=== PATIENT | female | born 1980 | race Caucasian/White ===

== ENCOUNTER 2020-05-05 12:12 | Emergency (ER) | payer MEDICARE, MEDICAID, SELFPAY ==
[2020-05-05 12:12] VITALS: BP 144/96; PULSE 71; RESP 18; TEMP 36.8; O2SAT 97; BMI 41.3
[2020-05-05 12:18] VITALS: BP 144/96; O2SAT 97
[2020-05-05 12:20] VITALS: PULSE 69
--- NOTE | 2020-05-05 12:26 | XRR_ITS ---
PROCEDURE INFORMATION: Exam: XR Left Foot Complete Exam date and time: 05/05/2020 12:27 PM Age: 39 years old Clinical indication: Pain; Foot; Left; Additional info: HX of fracture x 1 month TECHNIQUE: Imaging protocol: XR Left foot. Views: 3 or more views. COMPARISON: No relevant prior studies available. FINDINGS: Bones/joints: Normal. Soft tissues: Normal. XR/XR foot LT min 3V* [id number] IMPRESSION: No acute findings.
--- NOTE | 2020-05-05 12:27 | ED_ITS ---
HPI - Extremity Problem General: Chief complaint: Extremity Problem,Nontraumatic Stated complaint: LEFT FOOT PAIN Time Seen by Provider: 05/05/20 12:14 History of Present Illness: HPI Narrative: Patient arrives via ambulance with complaint about left foot pain. Says she fractured a foot over a month ago had a cast first now has a cam walker and she kicked a cabinet with this walker on is that her foot is hurt worse since then. She denies any swelling. Is asking for pain medicine MD Complaint: extremity pain Onset (ago): day(s) Pain Consistency: constant Location: left Severity scale (1-10): 4 Quality: aching Radiation: none Relieving factors: immobilization Exacerbating factors: weight bearing Associated symptoms: Reports no associated symptoms; Deny fever(s) Review of Systems Const: Denies: fever(s) or chills Musc: Reports: extremity pain (Left foot been hurting for greater than a month worsen she kicked a cabinet her couple days) Physical Exam Const: COMMON NORMALS: no acute distress Extremity: LEFT LOWER EXTREMITY: Yes foot & digits (Tenderness to midfoot no swelling no erythema walker was in place did take that off and examine the foot good distal neurovascular status) Course Vital Signs: Vital signs: Vital Signs Temperature 98.3 F 05/05/20 13:02 Pulse Rate 65 05/05/20 13:02 Respiratory Rate 16 05/05/20 13:02 Blood Pressure 123/73 05/05/20 13:02 Pulse Oximetry 96 05/05/20 13:02 Discharge Plan Discharge Patient Disposition: Home Clinical Impression: Foot pain, left Condition: Stable Discharge Orders: Discharge Order (Routine); Ordered 05/05/20 Ordered By: Giovanny Michael Referrals: Sigrid Tavares DO [Family Provider] - Discharge Diet: Usual diet Discharge Activity: Resume usual activity Activity Restrictions/Additional Instructions: Continue wear the boot that you have prescribed by your provider. Take Tylenol ibuprofen for discomfort. Can apply ice to foot as needed. Discharge Date/Time: 05/05/20 13:02 Coding Level of Care Code ED Sewing Room Supervisor for Rey Fwd Exam Expanded Problem Focused
[2020-05-05] MEDS: acetaminophen 500 mg Tablet 1000 MG PO (12:37)
[2020-05-05 13:02] VITALS: BP 123/73; PULSE 65; RESP 16; TEMP 36.8; O2SAT 96
== END 2020-05-05 13:02 | disposition home or self-care (01) ==
LOC: ER 12:46
PROVIDERS: Emergency Provider Nurse Practitioner Family; Family Provider Family Medicine
DX: M79.672 Pain in left foot (principal)
CPT/HCPCS: 12345; 73630; 99282; 99283

== ENCOUNTER 2020-05-28 03:58 | Inpatient (IN) | payer MEDICARE, MEDICAID, SELFPAY ==
[2020-05-28] VITALS (25 sets, daily range): BP systolic 97–140; BP diastolic 57–85; PULSE 69–107; RESP 15–18; TEMP 36–37.7; O2SAT 92–100; BMI 39.9
--- NOTE | 2020-05-28 | XR_ITS ---
WS: [id number] Right ankle, AP and lateral C-arm fluoroscopy, 05/28/2020, 2030 hours. Clinical Data: OR PICS Comparison: Right ankle, yesterday, 0615 hours. Findings: The bimalleolar fracture the ankle has been reduced with a lateral fibular plate attached with multip le screws. Then there is a medial plate attached to the distal tibia with multiple screws. There are no areas and oblique orthopedic screw from the fibula to the tibia. There are surgical bridget adjacent to the lateral subcutaneous tissue of the ankle. XR/XR ankle RT 2V 31039 Impression: Internal fixation of bimalleolar fracture.
--- NOTE | 2020-05-28 | SCC_ITS ---
Procedure Done: Open reduction internal fixation right distal tibia pilon fracture and right trimalleolar fracture utilizing the [facility] small fragment system. Laterally, the fibula was addressed with a 5 hole plate. Additionally, the anterior lateral joint surface of the tibia was addressed with 1 cannulated 4 mm screw with a washer. Medially, the comminution of the medial malleolus as well as the extension across the anterior aspect of the tibia including the joint space was addressed with a 3 hole lateral fibular plate which was contoured to address the fracture 123.3 seconds of fluoroscopic guidance, for a cumulative dose of 2.66 mGy, was provided to Dr. Mcgregor by the radiology department. C-arm images of the RIGHT ankle were saved for the patient's permanent record. CLARISSA
--- NOTE | 2020-05-28 04:05 | XR_ITS ---
WS: [id number] Right ankle, AP and lateral views, 05/28/2020 Clinical Data: ankle injury Comparison: None. Findings: There is a fracture dislocation of the right ankle. The talus and distal fibula are dislocated later ally such that the talus is 4 cm from the distal tibia. The distal fibula is dislocated laterally fro m the proximal fibula. The medial malleolus is fragmented. XR/XR ankle RT 2V [id number] Impression: Lateral fracture dislocation of the right ankle
--- NOTE | 2020-05-28 04:12 | ED_ITS ---
Documented by User: TONY Edward 05/28/20 04:41 HPI - Fall General: Chief Complaint: Extremity Injury, Lower Stated Complaint: FALL Time Seen by Provider: 05/28/20 04:11 History of Present Illness: HPI Narrative: Patient is a 39-year-old female who comes to the ED via EMS with right ankle injury. EMS gave patient 100 MCG of fentanyl while in route. Patient says injury occurred just prior to arrival. She was up walking in her house and she fell and says her right foot hit a wall. She says she was in a lot of pain when she fell and denies any head trauma or loss of consciousness. She said her right leg looked deformed, but denies any bleeding. Pain rated 9 out of 10. Associated symptoms-after fall: Denies abdominal pain, chest pain, headache(s), hematuria or neck pain Review of Systems Const: Denies: fever(s), chills or fatigue Eyes: Denies: change in vision or eye discomfort ENMT: Denies: throat pain, odynophagia, nasal discharge or nasal congestion Card: Denies: chest pain, palpitations, edema, swelling of feet/ankles, dyspnea on exertion or orthopnea Resp: Denies: dyspnea, productive cough or non-productive cough GI: Denies: abdominal pain, nausea, vomiting, diarrhea, constipation or hematochezia : Denies: flank pain, dysuria or hematuria Musc: Reports: extremity pain (left ankle), extremity swelling (left ankle) and deformity (left ankle); Denies: neck pain or back pain Skin/Breast: Denies: rash or new lesions Neuro: Denies: headache(s), numbness in extremities or weakness in extremities PFSH ED PFSH: Medical History Anxiety Arrhythmia Reports tachycardia, although cannot tell me anything other than this. Beta- leeanne initiated for this. Chronic back pain Depression Hypothyroidism Surgical History History of History of cholecystectomy History of gastric bypass History of knee surgery History of tonsillectomy Family History Other Diabetes Social History Smoking and tobacco status: never smoked Alcohol intake: never Physical Exam Const: COMMON NORMALS: patient oriented x3 and alert GENERAL APPEARANCE: cooperative and comfortable HENMT: COMMON NORMALS: normocephalic HEAD & SCALP: normocephalic MOUTH: Normal oral and palatal mucosa present THROAT: posterior oropharynx normal and uvula midline Eye: COMMON NORMALS: Equal, round and reactive pupils present PUPIL: Yes Equal, round and reactive pupils present Neck/C-Spine: COMMON NORMALS: supple GENERAL: Yes normal visual inspection Resp: COMMON NORMALS: normal respiratory effort, No retractions, No use of accessory muscles and clear to auscultation bilaterally AUSCULTATION: clear to auscultation bilaterally Cardio: COMMON NORMALS: regular rate, regular rhythm, S1 normal heart sound present, S2 normal heart sound present, No gallops present (Cardio), No clicks present (Cardio), No murmurs present (Cardio) and Peripheral pulses 2+ throughout RATE: regular rate RHYTHM: regular rhythm HEART SOUNDS: S1 normal heart sound present and S2 normal heart sound present PERIPHERAL PULSES: Peripheral pulses 2+ throughout GI: COMMON NORMALS: Normal to inspection, nondistended, normoactive bowel sounds present, Soft to palpation, non-tender and no masses PALPATION: Yes Soft to palpation : COMMON NORMALS: Yes no CVA tenderness BLADDER/KIDNEY EXAM: Yes no CVA tenderness Back/Pelvis: COMMON NORMALS: no CVA tenderness Extremity: RIGHT LOWER EXTREMITY: Yes foot & digits Right ankle: Yes inspection (Visible deformity, edema and ecchymosis around the medial malleolus.), Yes palpation (Tender upon palpation around medial malleolus.), Yes ROM (Not tested due to deformity.) and Yes neurovascular exam (Pedal pulse 2+ and sensation intact.) Neuro: COMMON NORMALS: patient oriented x3 and moves all extremities SENSORIUM/ORIENTATION: Yes alert Skin: GENERAL SKIN EXAM: dry skin Course Vital Signs: Vital signs: Vital Signs Temperature 99.6 F 05/29/20 07:23 Pulse Rate 107 H 05/29/20 07:23 Respiratory Rate 18 05/29/20 07:23 Blood Pressure 103/66 05/29/20 07:23 Pulse Oximetry 96 05/29/20 07:23 MDM - Fall MDM Narrative: Medical decision making narrative: I performed the initial history and physical exam of patient. I gave patient a dose of Dilaudid to help with pain. Right ankle x-ray pending. Patient care transferred over to Dr. Parker. Lab Data: Labs: Lab Results 05/28/20 Range/Units 06:38 Urine Color Yellow (Yellow) Urine Appearance Hazy A (CLEAR) Urine pH 5.0 (5-7) Ur Specific Gravit y 1.025 (1.005-1.030) Urine Protein Neg (Negative) Urine Glucose (UA) Norm (Normal) Urine Ketones Negative (Negative) Urine Blood Neg (Negative) Urine Nitrate Positive H (Negative) Urine Bilirubin Neg (Negative) Urine Urobilinogen Norm (Negative) mg/dL Ur Leukocyte Shanita ase 2+ H (Negative) Urine RBC 0-4 H (0-2) /hpf Urine WBC 15-25 H (0-5) /hpf Ur Squamous Epith Cells 15-25 H (0-5) /hpf Amorphous Sediment Not Reportable Urine Bacteria 2+ H (NONE) /hpf Urine Mucus Trace /hpf Discharge Plan Discharge Patient Disposition: Admitted As Inpatient Admit Provider: Maynor Vang Clinical Impression: Trimalleolar fracture of left ankle Qualifiers: Encounter type: initial encounter Fracture type: closed Qualified Code(s): S82.852A - Displaced trimalleolar fracture of left lower leg, initial encounter for closed fracture Condition: Stable Sign Out Sign Out Data: Patient Sign Out occurred on 05/28/20 at 04:43. Patient's care was discussed, and care was transferred from to Ave Parker. Patient Sign Out occurred on 05/28/20 at 07:22. Patient's care was discussed, and care was transferred from to Prakash Morrison DO. Coding Level of Care Code ED Supervisor Adult Education for Chg Fwd Exam Comprehensive Documented by User: Ave Parker 05/28/20 06:30 HPI - Fall General: Chief Complaint: Extremity Injury, Lower Stated Complaint: FALL Time Seen by Provider: 05/28/20 04:11 PFSH ED PFSH: Medical History Anxiety Arrhythmia Reports tachycardia, although cannot tell me anything other than this. Beta- leeanne initiated for this. Chronic back pain Depression Hypothyroidism Surgical History History of History of cholecystectomy History of gastric bypass History of knee surgery History of tonsillectomy Family History Other Diabetes Social History Smoking and tobacco status: never smoked Alcohol intake: never Procedures Orthopedic Fracture Reduction Fracture #1: Time Out Performed: Yes Side: right Fracture Reduction Location: tibia and fibula Analgesia: procedural sedation Technique: direct manipulation Post Reduction X-rays Demonstrate: acceptable reduction Post-reduction neuro exam: intact Post-reduction vascular exam: intact Splint Applied: Yes Patient Tolerated Procedure: well and no complications Procedural Sedation Indication: fracture/dislocation reduction ASA Class: II Preparation: bus monitor applied, pulse oximeter, supplemental O2 applied and suction/airway equipment at bedside Fentanyl: IV Fentanyl dose (mcg): 25 IV Propofol dose (mg): 75 Patient Tolerated Procedure: well and no complications Complications: none Course Vital Signs: Vital signs: Vital Signs Temperature 99.6 F 05/29/20 07:23 Pulse Rate 107 H 05/29/20 07:23 Respiratory Rate 18 05/29/20 07:23 Blood Pressure 103/66 05/29/20 07:23 Pulse Oximetry 96 05/29/20 07:23 MDM - Fall Lab Data: Labs: Lab Results 05/28/20 Range/Units 06:38 Urine Color Yellow (Yellow) Urine Appearance Hazy A (CLEAR) Urine pH 5.0 (5-7) Ur Specific Gravit y 1.025 (1.005-1.030) Urine Protein Neg (Negative) Urine Glucose (UA) Norm (Normal) Urine Ketones Negative (Negative) Urine Blood Neg (Negative) Urine Nitrate Positive H (Negative) Urine Bilirubin Neg (Negative) Urine Urobilinogen Norm (Negative) mg/dL Ur Leukocyte Shanita ase 2+ H (Negative) Urine RBC 0-4 H (0-2) /hpf Urine WBC 15-25 H (0-5) /hpf Ur Squamous Epith Cells 15-25 H (0-5) /hpf Amorphous Sediment Not Reportable Urine Bacteria 2+ H (NONE) /hpf Urine Mucus Trace /hpf Discharge Plan Discharge Patient Disposition: Admitted As Inpatient Admit Provider: Maynor Vang Clinical Impression: Trimalleolar fracture of left ankle Qualifiers: Encounter type: initial encounter Fracture type: closed Qualified Code(s): S82.852A - Displaced trimalleolar fracture of left lower leg, initial encounter for closed fracture Condition: Stable Sign Out Sign Out Data: Patient Sign Out occurred on 05/28/20 at 04:43. Patient's care was discussed, and care was transferred from to Ave Parker. Patient Sign Out occurred on 05/28/20 at 07:22. Patient's care was discussed, and care was transferred from to Prakash Morrison DO. Coding Level of Care Code ED Supervisor Adult Education for Chg Fwd Exam Comprehensive Documented by User: Prakash Morrison DO 05/29/20 07:52 HPI - Fall General: Chief Complaint: Extremity Injury, Lower Stated Complaint: FALL Time Seen by Provider: 05/28/20 04:11 [facility] ED PFSH: Medical History Anxiety Arrhythmia Reports tachycardia, although cannot tell me anything other than this. Beta- leeanne initiated for this. Chronic back pain Depression Hypothyroidism Surgical History History of History of cholecystectomy History of gastric bypass History of knee surgery History of tonsillectomy Family History Other Diabetes Social History Smoking and tobacco status: never smoked Alcohol intake: never Course Vital Signs: Vital signs: Vital Signs Temperature 99.6 F 05/29/20 07:23 Pulse Rate 107 H 05/29/20 07:23 Respiratory Rate 18 05/29/20 07:23 Blood Pressure 103/66 05/29/20 07:23 Pulse Oximetry 96 05/29/20 07:23 MDM - Fall MDM Narrative: Medical decision making narrative: Care assumed from Dr. aPblo at change of shift. I assisted him with conscious sedation and joint reduction on the fracture. Fracture is unstable patient has relatively low level of social support will ice and observation with hospitalist consult Ortho for ORIF. Lab Data: Labs: Lab Results 05/28/20 Range/Units 06:38 Urine Color Yellow (Yellow) Urine Appearance Hazy A (CLEAR) Urine pH 5.0 (5-7) Ur Specific Gravit y 1.025 (1.005-1.030) Urine Protein Neg (Negative) Urine Glucose (UA) Norm (Normal) Urine Ketones Negative (Negative) Urine Blood Neg (Negative) Urine Nitrate Positive H (Negative) Urine Bilirubin Neg (Negative) Urine Urobilinogen Norm (Negative) mg/dL Ur Leukocyte Shanita ase 2+ H (Negative) Urine RBC 0-4 H (0-2) /hpf Urine WBC 15-25 H (0-5) /hpf Ur Squamous Epith Cells 15-25 H (0-5) /hpf Amorphous Sediment Not Reportable Urine Bacteria 2+ H (NONE) /hpf Urine Mucus Trace /hpf Discharge Plan Discharge Patient Disposition: Admitted As Inpatient Admit Provider: Maynor Vang Clinical Impression: Trimalleolar fracture of left ankle Qualifiers: Encounter type: initial encounter Fracture type: closed Qualified Code(s): S82.852A - Displaced trimalleolar fracture of left lower leg, initial encounter for closed fracture Condition: Stable Sign Out Sign Out Data: Patient Sign Out occurred on 05/28/20 at 04:43. Patient's care was discussed, and care was transferred from to Ave Parker. Patient Sign Out occurred on 05/28/20 at 07:22. Patient's care was discussed, and care was transferred from to Prakash Morrison DO. Coding Level of Care Code ED Supervisor Adult Education for [facility] Fwd Exam Comprehensive
[2020-05-28] MEDS: HYDROmorphone 1 mg/mL INJ 1 mL IVP (04:26)
--- NOTE | 2020-05-28 04:40 | PC.NURSE ---
XRAY IN ROOM
--- NOTE | 2020-05-28 04:47 | XR_ITS ---
WS: [id number] XR foot RT 2V [id number] REASON FOR EXAM: Injury FINDINGS: Joint spaces of the right forefoot and midfoot are intact. No fracture or other focal bony abnormalit y no soft tissue abnormality. In the right hindfoot there is a complex fracture dislocation of the ankle joint. The talocalcaneal j oint is disrupted. The tailbone midfoot and the calcaneal midfoot articulations aren't disrupted as w ell. XR/XR foot RT 2V [id number] IMPRESSION: Normal right forefoot and midfoot. The hindfoot is involved in a complex fractu re dislocation of the ankle joint.
--- NOTE | 2020-05-28 05:56 | XR_ITS ---
WS: [id number] Right ankle, AP and lateral post reduction, 05/28/2020, 0615 hours Clinical Data: Post reduction Comparison: Left ankle, 05/28/2020, 0434 hours. Findings: The lateral dislocation of the talus and fibula has been reduced. The talus is now adjacent to the di stal tibia. The fibula is adjacent to the fibula The medial malleolar fracture is visualized. XR/XR ankle RT 2V [id number] Impression: Reduction of fracture dislocation of right ankle.
--- NOTE | 2020-05-28 06:09 | ECG_ITS ---
[facility] Test Date: 2020-05-28 Pat Name: Abigail Restrepo Department: Room: Gender: Female Director Of Informatics: : 1980 Requested By: Ave Cardozo Order Number: [id number] Misha MD: Loni Winkler M.D. Measurements Intervals Vivian Rate: 89 P: 43 TX: 186 QRS: 32 QRSD: 78 T: 34 QT: 360 QTc: 440 Interpretive Statements SINUS RHYTHM WITH SINUS ARRHYTHMIA No previous ECG available for comparison Electronically Signed On 05-28-2020 19:17:30 BOILER REPAIRMAN by Loni Winkler M.D. [id number]
--- NOTE | 2020-05-28 06:10 | XR_ITS ---
WS: [id number] XR chest 1V portable [id number] REASON FOR EXAM: Presurgical clearance FINDINGS: Very poor inspiratory effort compared to the previous examination of 12/29/2018. No definite acute pulmonary parenchymal or pleural abnormality. Heart and mediastinum are accentuated by poor inspiratory effort. The heart is nonenlarged. XR/XR chest 1V portable [id number] IMPRESSION: Poor inspiratory effort with no acute abnormality identified.
[2020-05-28] MEDS: propofol 10 mg/mL SDV 20 mL 244 MG IVP (06:17)
[2020-05-28] MEDS: fentaNYL 50 mcg/mL INJ 2mL 100 MCG IVP (06:19)
--- NOTE | 2020-05-28 07:15 | PC.NURSE ---
Patient assessed at beginning of shift. Room number received. Report called. Room not clean at this time.
[2020-05-28 07:19] LABS: Add Urine Microscopic? YES; Bacteria Urine 2+ /hpf; Bilirubin Urine Neg (Negative); Blood Urine Neg (Negative); Glucose Urine UA Norm (Normal); Ketones Urine Negative (Negative); Leukocyte Esterase Urine 2+ (Negative); Mucus Urine TRACE /hpf; Nitrate Urine Positive (Negative); Protein Urine Neg (Negative); RBC Urine 0-4 /hpf (0-2); Specific Gravity, Urine 1.025 (1.005-1.030); Squamous Epithelial Cell Urine 15-25 /hpf (0-5); Urine Appearance Hazy (CLEAR); Urine Color Yellow (Yellow); Urobilinogen Urine Norm (Negative); WBC Urine 15-25 /hpf (0-5)
[2020-05-28 07:20] LABS: Add Urine Culture? No
[2020-05-28] MEDS: cefTRIAXone 1,000 MG in sodium chloride 0.9% (plus) 50 ML 100 MG IV (08:00)
[2020-05-28 08:21] LABS: Basophils % 0.3 %; Hematocrit 36.5 % (37.0-47.0); Hemoglobin 11.3 g/dL (11.5-15.3); Lymphocytes # 0.8 10^3/uL (0.8-4.8); Lymphocytes % 7.9 %; Mean Corpuscular Hemoglobin 29.1 pg (28.0-34.0); Mean Corpuscular Volume 94.1 fL (81-99); Monocytes # 0.8 10^3/uL (0.2-0.9); Monocytes % 7.3 %; Neutrophils # 8.79 10^3/uL (1.8-7.7); Neutrophils % 84.2 %; Nucleated Red Blood Cells % 0 %; Platelet Count 395 10^3/cmm (130-400); Red Blood Count 3.88 10^6/uL (4.1-5.3); Red Cell Distribution Width 15.9 % (12.1-15.1); White Blood Count 10.4 10^3/uL (4.0-10.0)
[2020-05-28 08:33] LABS: INR 1.03 (0.8-1.2)
[2020-05-28 08:35] LABS: Partial Thromboplastin Time 34.9 SECONDS (23.9-36.7)
[2020-05-28 08:39] LABS: Alanine Aminotransferase 18 U/L (0-33); Albumin Level 3.6 g/dL (3.5-5.2); Alkaline Phosphatase 144 IU/L (35-105); Blood Urea Nitrogen 18 mg/dL (6-20); Calcium 8.5 mg/dL (8.5-10.5); Carbon Dioxide 25 mmol/L (22-29); Chloride 104 mmol/L (98-107); Globulin 3.2 g/dL (1.3-4.6); Glomerular Filtration Rate 110.2 mL/min (90-130); Glucose 144 mg/dL (65-115); Osmolality Calculated 290 mOsm/kg (285-295); Sodium 138 mmol/L (136-145); Total Bilirubin 0.2 mg/dL (0.15-1.2); Total Protein 6.8 g/dL (6.6-8.7)
[2020-05-28 08:56] LABS: Aspartate Amino Transferase 24 U/L (0-32)
[2020-05-28] MEDS: D5-NS 0.45% + KCL 20 mEq 20 MEQ/1,000 ML BAG 100 MEQ IV (09:10)
--- NOTE | 2020-05-28 09:39 | PC.CHAP ---
Pastoral Care Encounter/Spiritual Assessment Type of Contact [] Declined burling and joining supervisor visit [] Patient/Family/Request visit [] Outpatient visit [] Follow-up visit [] Physician referral [] Code/Alert [] Routine visit [] Staff referral [] Actively dying [] Patient sleeping [] Family support [] [] Out of room [] Palliative care [] [] Receiving care in room [] Pre-surgical visit [] Trauma [] Long length of stay [] ICU visit [] Other: Relational/Emotional Strength [] Patient feels connected with others/family/visitors/staff [] Distress [] Loneliness/isolation [] Abandonment Spirituality of Patient [] Person of Missy [] Attends Shinto of their Missy [] Believes in Prayer [] Reads Bible or Mormon materials [] There are Spiritual issues to be addressed High School Admissions Representative Interventions [x] Prayer [] Active listening [] Non-anxious presence [] Spiritual/emotional support [] Crisis/trauma care [] Spiritual counseling [] Bereavement support [] Provided bereavement packet [] Provided Bible/devotional materials [] Provided toy/stuffed animal, coloring book to patient or family member [] Provided Communion [] Anointing/[place] [] Salvation [] Completed spiritual assessment [] Other: Impact on Illness or Injury [] Angry [] Fearful [] Anxious [] Often cries [] Exhaustion [] Unable to work [] Unable to attend restoration [] Unable to walk/stand [] Unable to read [] Unable to drive [] Unable to eat/drink [] Unable to sleep [] Unable to be with family [] Patient intubated [] Other: Summary Time spent with patient
[2020-05-28] MEDS: morphine 4 mg/mL SDV 1 mL 2 MG IVP (10:36)
--- NOTE | 2020-05-28 13:10 | PM.CONSULT ---
Providers/Reason For Consult Consulting Physican/Specialty*: Maynor Vang MD, hospitalist Reason for Consult*: Medical management Attending Physician: Kaitlin Mcgregor MD History of Present Illness History of Present Illness Abigail Restrepo is a 39 year old female who reports she fell, injuring her ankle as it was dark out and she tripped. She states this happened around 11 or 12 last night. She had immediate pain in her right ankle. She had no loss of consciousness or other injuries. She states she had previously sprained her left ankle and this may have been why she tripped as well. She denies any recent illnesses. She denies any history of Covid, or exposure to Covid. She denies any past history of severe reaction to anesthesia. She does report that last time she had general anesthesia she was somewhat combative when she woke up. No history of any bleeding disorder. Review of Systems General: Reports: 10 or more systems reviewed and unremarkable except in HPI and below Const: Denies: fever(s) Eyes: Denies: change in vision ENMT: Denies: throat pain Card: Denies: chest pain Resp: Denies: dyspnea GI: Denies: abdominal pain : Denies: flank pain Musc: Reports: extremity pain; Denies: neck pain Skin/Breast: Denies: rash Neuro: Denies: headache(s) Psych: Reports: anxiety and depression Endo: Denies: polyuria Bryan/Lymph: Denies: easy bruising All/Imm: Denies: urticaria Meds/Allergies Home Medications and Allergies Home Medications Medication Instructions Recorded Confirmed Last Taken Type baclofen 10 mg PO TID 05/28/20 05/28/20 05/27/20 History buspirone 7.5 mg PO BID 05/28/20 05/28/20 05/27/20 History escitalopram oxalate 20 mg PO DAILY 05/28/20 05/28/20 05/27/20 History gabapentin 300 mg PO TID 05/28/20 05/28/20 05/27/20 History hydroxyzine pamoate 50 mg PO QID PRN 05/28/20 05/28/20 05/27/20 History iron 325 mg PO DAILY 05/28/20 05/28/20 05/27/20 History lamotrigine 150 mg PO BID 05/28/20 05/28/20 05/27/20 History levothyroxine 88 mcg PO DAILY 05/28/20 05/28/20 05/27/20 History meloxicam 7.5 mg PO DAILY 05/28/20 05/28/20 05/27/20 History metoprolol tartrate 50 mg PO BID 05/28/20 05/28/20 05/27/20 History risperidone 3 mg PO BEDTIME 05/28/20 05/28/20 05/27/20 History Allergies Allergy/AdvReac Type Severity Reaction Status Date / Time aspirin Allergy ALGY-Swell Verified 05/28/20 08:03 Lip/Tongue/Throat Current Medications Current Medications Generic Name Dose Route Start Last Admin Trade Name Freq PRN Reason Stop Dose Admin Potassium Chloride/Dextrose/Sod Cl 20 meq in 1,000 mls @ 100 mls/hr 05/28/20 08:51 05/28/20 09:10 D5-Ns 0.45% + Kcl 20 Meq IV 100 mls/hr .Q10H OXANA Administration Morphine Sulfate 2 mg 05/28/20 08:51 05/28/20 10:36 Morphine 4 Mg/Ml Sdv 1 Ml IVP 2 mg Q4H PRN Administration SEVERE PAIN PFSH Acute PFSH: Medical History (Updated 05/28/20 @ 13:20 by Maynor Vang MD) Anxiety Arrhythmia Reports tachycardia, although cannot tell me anything other than this. Beta-leeanne initiated for this. Chronic back pain Depression Hypothyroidism Surgical History (Updated 05/28/20 @ 13:13 by Maynor Vang MD) History of History of cholecystectomy History of gastric bypass History of knee surgery History of tonsillectomy Family History (Updated 05/28/20 @ 13:13 by Maynor Vang MD) Other Diabetes Social History (Updated 05/28/20 @ 13:13 by Maynor Vang MD) Smoking and tobacco status: never smoked Alcohol intake: never Vitals/I&O/Wt Last Vital Signs Temp 98.6 F 05/28/20 11:09 Pulse 81 05/28/20 11:09 Resp 17 05/28/20 11:09 BP 103/78 05/28/20 11:09 Pulse Ox 96 05/28/20 11:09 05/27/20 05/28/20 05/28/20 22:59 06:59 14:59 Output Total 300 / 300 Balance -300 / -300 Weight last 48 hrs Weight 122.47 kg Physical Exam Narrative: EXAM NARRATIVE: General exam is a white female, in no apparent distress, somewhat sleepy secondary to pain medicine HEENT: Pupils equally round. Oropharynx clear. Neck is supple no lymphadenopathy or thyromegaly Cardiovascular regular rate and rhythm without murmur, no S3 or S4 Lungs clear Abdomen is soft nontender with positive bowel sounds. No obvious organomegaly was deferred Extremities no cyanosis clubbing or edema, right ankle in splint. Cap refill distally intact less than 2 seconds Skin no rash Neuro no obvious focal deficits Data Other Data: Other data: LFTs are normal with exception of alkaline phosphatase which is slightly high. Urinalysis is contaminated with 15-25 squamous.(Note that patient did not have complaints of urinary symptomatology.) Chest x-ray clear Ankle x-ray demonstrates reduction of fracture dislocation present on previous films EKG demonstrates a sinus rhythm, normal axis, no acute changes A&P Assessment and plan (1) Trimalleolar fracture of left ankle: Orthopedics evaluating for surgery today. No direct contraindications to surgery N.p.o. currently Status: Acute (2) History of cardiac arrhythmia: Continue patient's metoprolol. Status: Acute Additional A&P Information Blood sugar elevation. Check hemoglobin A1c. Abnormal urine. Contaminated. Patient asymptomatic. No treatment needed for this. History of chronic back pain. Continue home medications. Hypothyroidism. 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
--- NOTE | 2020-05-28 13:30 | PC.NURSE ---
COVID SWAB PATIENT WAS SWABBED FOR COVID THIS AM AT 0920 BY THIS NURSE.
--- NOTE | 2020-05-28 15:20 | ANES.PREANE2 ---
Pre-Anesthetic Assessment Pre-Anesthetic Assessment: Height/Weight: Height 1.75 m Weight 122.47 kg Temp Pulse Resp BP Pulse Ox 98.6 F 79 18 114/74 93 05/28/20 14:03 05/28/20 14:03 05/28/20 14:03 05/28/20 14:03 05/28/20 14:03 Preop Diagnosis: ankle fracture Proposed Procedure: Operation Date: 05/28/20 16:15 Proposed Procedures p ORIF Ankle(Right) - Kaitlin Mcgregor MD Familial anesthetic complications: Wakes up violent sometimes Was Beta Bryan taken within 24 hours: N/A Last intake: Intake Last Liquid Date 05/27/20 Last Liquid Time 23:00 Last Solid Date 05/27/20 Last Solid Time 18:00 Social: Social History: No alcohol and No tobacco Exam: Pre-Anes Outpt Exam: alert, oriented x 3, clear to auscultation bilaterally and regular rate & rhythm Airway: Cervical ROM: WNL MP: 3 Dentition: Other (edentulous) CV/HEM: Comments: tachycardia - takes metoprolol GI: Comments: hx gastric bypass surgery Metabolic: Metabolic: Morbid obesity and Thyroid Anesthetic Plan: ASA status: 2 Anesthesia: General and Regional (specify below) Risk of > 500 ml blood loss (7ml/kg in children): No Meds/Allergies Current Medications: Current Medications Generic Name Dose Route Start Last Admin Trade Name Freq PRN Reason Stop Dose Admin Potassium Chloride /Dextrose/Sod Cl 20 meq in 1,000 m ls @ 100 mls/hr 05/28/20 08:51 05/28/20 09:10 D5-Ns 0.45% + Raymundo l 20 Meq IV 100 mls/hr .Q10H OXANA Administration Morphine Sulfate 2 mg 05/28/20 08:51 05/28/20 10:36 Morphine 4 Mg/Ml Sdv 1 Ml IVP 2 mg Q4H PRN Administration SEVERE PAIN PFSH Anesthesia PFSH: Medical History (Updated 05/28/20 @ 13:20 by Maynor Vang MD) Anxiety Arrhythmia Reports tachycardia, although cannot tell me anything other than this. Beta-bryan initiated for this. Chronic back pain Depression Hypothyroidism Surgical History (Updated 05/28/20 @ 13:13 by Maynor Vang MD) History of History of cholecystectomy History of gastric bypass History of knee surgery History of tonsillectomy Family History (Updated 05/28/20 @ 13:13 by Maynor Vang MD) Other Diabetes Social History (Updated 05/28/20 @ 13:13 by Maynor Vang MD) Smoking and tobacco status: never smoked Alcohol intake: never Data Anesthesia CBC & Chem 7: 05/28/20 08:16 05/28/20 08:16 Other Labs: Laboratory Results - last 48 hr 05/28/20 05/28/20 05/28/20 06:38 08:16 08:16 WBC 10.4 H RBC 3.88 L Hgb 11.3 L Hct 36.5 L MCV 94.1 MCH 29.1 MCHC 31.0 RDW 15.9 H Plt Count 395 MPV 9.0 Neut % (Auto) 84.2 Lymph % (Auto) 7.9 Sevier % (Auto) 7.3 Eos % (Auto) 0.0 Baso % (Auto) 0.3 Neut # (Auto) 8.79 H Lymph # (Auto) 0.8 Sevier # (Auto) 0.8 Eos # (Auto) 0.0 Baso # (Auto) 0.0 Nucleated RBC % (auto) 0 Nucleated RBCs # 0.0 PT INR APTT Sodium Potassium Chloride Carbon Dioxide Anion Gap BUN Creatinine GFR Calculation Glucose Calculated Osmolality Calcium Total Bilirubin AST ALT Alkaline Phosphatase Total Protein Albumin Globulin Urine Color Yellow Urine Appearance Hazy A Urine pH 5.0 Ur Specific Larue 1.025 Urine Protein Neg Urine Glucose (UA) Norm Urine Ketones Negative Urine Blood Neg Urine Nitrate Positive H Urine Bilirubin Neg Urine Urobilinogen Norm Ur Leukocyte Esterase 2+ H Urine RBC 0-4 H Urine WBC 15-25 H Ur Squamous Epith Cells 15-25 H Amorphous Sediment Not Reportable Urine Bacteria 2+ H Urine Mucus Trace Blood Type O Negative Rho(D) Type Negative Antibody Screen Negative 05/28/20 05/28/20 08:16 08:16 WBC RBC Hgb Hct MCV MCH MCHC RDW Plt Count MPV Neut % (Auto) Lymph % (Auto) Sevier % (Auto) Eos % (Auto) Baso % (Auto) Neut # (Auto) Lymph # (Auto) Sevier # (Auto) Eos # (Auto) Baso # (Auto) Nucleated RBC % (auto) Nucleated RBCs # PT 13.80 INR 1.03 APTT 34.9 Sodium 138 Potassium 4.0 Chloride 104 Carbon Dioxide 25 Anion Gap 13.0 BUN 18 Creatinine 0.6 GFR Calculation 110.2 Glucose 144 H Calculated Osmolality 290 Calcium 8.5 Total Bilirubin 0.2 AST 24 ALT 18 Alkaline Phosphatase 144 H Total Protein 6.8 Albumin 3.6 Globulin 3.2 Urine Color Urine Appearance Urine pH Ur Specific Larue Urine Protein Urine Glucose (UA) Urine Ketones Urine Blood Urine Nitrate Urine Bilirubin Urine Urobilinogen Ur Leukocyte Esterase Urine RBC Urine WBC Ur Squamous Epith Cells Amorphous Sediment Urine Bacteria Urine Mucus Blood Type Rho(D) Type Antibody Screen Cardiac Studies: No Data to Display
--- NOTE | 2020-05-28 15:53 | ANES.PROC ---
Anesthesia Procedures Procedure/Date: 05/28/20 Nerve Block ^: Nerve Block 1: Main Anesthesia: general anesthesia Time Out Performed: Yes Consent: requested by attending/covering physician, from patient, from other, risks and benefits reviewed and patient agrees to proceed Nerve block location: popliteal (R) Anesthesia monitors applied: pulse oximetry, EKG, BP cuff and oxygen Nerve block position: supine Anesthetic Used: ropivicaine 0.5% and with decadron Amount of anesthesia used (mL): 30 Ultrasound used to: recognize landmarks Nerve Stimulator Used?: No Interscalene/Femoral BLK: 4 stimuplex 21 g needle used for position and inplane approach, other needle, visualize local anesthetic spread and no vascular puncture identified Injection: neg aspiration of heme Patient Tolerated Procedure: well and no complications Complications: none
[2020-05-28] MEDS: sodium chloride 0.9% 1,000 ML 30 ML IV (15:58)
--- NOTE | 2020-05-28 16:00 | SUR.PREOP ---
1540 DR PULIDO IN ROOM , PERMID SIGNED BY PT TIMEOUT COMPLETED AND PT PREPPED FOR RT POPLITEAL BLOCK 1547 BLOCK COMPLETED AND PT TOLERATED WELL SATS 100% ON RA, PT SMILES AND REQUESTS LIGHTS OFF SO SHE CAN REST IV NS UP AT KVO RATE.
--- NOTE | 2020-05-28 17:01 | P.CONIM_ITS ---
Providers/Reason For Consult Consulting Physican/Specialty*: Dr. Kaitlin Mcgregor - Orthopedics Reason for Consult*: Right trimalleolar ankle fracture Requesting Physcian: Dr. Morrison - Emergency Department Attending Physician: Dr. Maynor Vang History of Present Illness History of Present Illness Abigail Restrepo is a 39 year old female fell while walking to the bathroom last evening. It was dark and she tripped. She had immediate pain in the right ankle with no other reason for her fall such as dizziness. She also has previously injured her left ankle and this is still somewhat problematic for her. She denies any exposure to or history of Covid. She has no other reason for issue with general anesthesia. Review of Systems General: Reports: 10 or more systems reviewed and unremarkable except in HPI and below Const: Denies: fever(s), chills or fatigue Eyes: Denies: change in vision or eye discomfort ENMT: Denies: throat pain, odynophagia, nasal discharge or nasal congestion Card: Denies: chest pain, palpitations, edema, swelling of feet/ankles, dyspnea on exertion or orthopnea Resp: Denies: dyspnea, productive cough or non-productive cough GI: Denies: abdominal pain, nausea, vomiting, diarrhea, constipation or hematochezia : Denies: flank pain, dysuria or hematuria Musc: Reports: extremity pain, extremity swelling (left ankle) and deformity (left ankle); Denies: neck pain or back pain Skin/Breast: Denies: rash or new lesions Neuro: Denies: headache(s), numbness in extremities or weakness in extremities Psych: Reports: anxiety and depression Endo: Denies: polyuria Bryan/Lymph: Denies: easy bruising All/Imm: Denies: urticaria Meds/Allergies Home Medications and Allergies Home Medications Medication Instructions Recorded Confirmed Last Taken Type baclofen 10 mg PO TID 05/28/20 05/28/20 05/27/20 History buspirone 7.5 mg PO BID 05/28/20 05/28/20 05/27/20 History escitalopram oxalate 20 mg PO DAILY 05/28/20 05/28/20 05/27/20 History gabapentin 300 mg PO TID 05/28/20 05/28/20 05/27/20 History hydroxyzine pamoate 50 mg PO QID PRN 05/28/20 05/28/20 05/27/20 History iron 325 mg PO DAILY 05/28/20 05/28/20 05/27/20 History lamotrigine 150 mg PO BID 05/28/20 05/28/20 05/27/20 History levothyroxine 88 mcg PO DAILY 05/28/20 05/28/20 05/27/20 History meloxicam 7.5 mg PO DAILY 05/28/20 05/28/20 05/27/20 History metoprolol tartrate 50 mg PO BID 05/28/20 05/28/20 05/27/20 History risperidone 3 mg PO BEDTIME 05/28/20 05/28/20 05/27/20 History Allergies Allergy/AdvReac Type Severity Reaction Status Date / Time aspirin Allergy ALGY-Swell Verified 05/28/20 16:10 Lip/Tongue/Throat Current Medications Current Medications Generic Name Dose Route Start Last Admin Trade Name Freq PRN Reason Stop Dose Admin Potassium Chloride/Dextrose/Sod Cl 20 meq in 1,000 mls @ 100 mls/hr 05/28/20 08:51 05/28/20 09:10 D5-Ns 0.45% + Kcl 20 Meq IV 100 mls/hr .Q10H OXANA Administration Sodium Chloride 1,000 mls @ 30 mls/hr 05/28/20 14:15 05/28/20 15:58 Sodium Chloride 0.9% IV 05/29/20 14:14 30 mls/hr .Q24H OXANA Administration Morphine Sulfate 2 mg 05/28/20 08:51 05/28/20 10:36 Morphine 4 Mg/Ml Sdv 1 Ml IVP 2 mg Q4H PRN Administration SEVERE PAIN PFSH Acute PFSH: Medical History Anxiety Arrhythmia Reports tachycardia, although cannot tell me anything other than this. Beta- leeanne initiated for this. Chronic back pain Depression Hypothyroidism Surgical History History of History of cholecystectomy History of gastric bypass History of knee surgery History of tonsillectomy Family History Other Diabetes Social History Smoking and tobacco status: never smoked Alcohol intake: never Vitals/I&O/Wt Last Vital Signs Temp 97.2 F L 05/28/20 15:35 Pulse 85 05/28/20 15:35 Resp 18 05/28/20 15:35 BP 114/76 05/28/20 15:35 Pulse Ox 99 05/28/20 15:35 05/28/20 05/28/20 05/28/20 06:59 14:59 22:59 Output Total 400 / 400 Balance -400 / -400 Weight last 48 hrs Weight 270 lb Physical Exam Const: COMMON NORMALS: no acute distress, average body habitus, patient oriented x3 and alert GENERAL APPEARANCE: cooperative and comfortable ORIENTATION/CONSCIOUSNESS: Yes awake HENMT: COMMON NORMALS: normocephalic and atraumatic HEAD & SCALP: normocephalic and atraumatic Eye: GENERAL EYE: appearance normal, both eyes and all related structures Chest: COMMONS NORMALS: normal inspection of the chest Resp: COMMON NORMALS: normal respiratory effort EFFORT & INSPECTION: Yes able to speak in complete sentences and Yes symmetric chest movement Extremity: RIGHT LOWER EXTREMITY: Yes foot & digits (Patient's ankle has a posterior splint which is wrapped in place with an Ac) Right ankle: Yes inspection (There is minimal to no swelling of the toes.), Yes palpation (The ankle is not palpated, but sensation is normal in the toes.), Yes ROM (Not evaluated.) and Yes neurovascular exam (Toes are neurologically intact with no evidence of injury.) Neuro: COMMON NORMALS: patient oriented x3 SENSORIUM/ORIENTATION: Yes alert Psych: COMMON NORMALS: mental status grossly normal APPEARANCE: Yes grossly normal ATTITUDE: Yes calm and Yes engaged ATTENTION/CONCENTRATION: Yes attention grossly intact Skin: COMMON NORMALS: no rashes or lesions noted GENERAL SKIN EXAM: no rashes or lesions noted Data Imaging^: Xray Ortho: I personally reviewed and interpreted this imaging study as follows: My impression: Patient has a trimalleolar ankle fracture which was 100% dislocated. This was reduced by the emergency department. Postreduction images demonstrate good reduction of the fracture and the dislocation. A&P Assessment and plan (1) Trimalleolar fracture of left ankle: Patient has a right trimalleolar ankle fracture dislocation which was reduced by the emergency room physician. She was brought into the hospital and will undergo open reduction internal fixation. This is scheduled for today. This was discussed with the patient. Consents are signed. Questions were answered. Status: Acute Qualifiers: Encounter type: initial encounter Fracture type: closed Qualified Code(s): S82.852A - Displaced trimalleolar fracture of left lower leg, initial encounter for closed fracture Consult Attestations Medical Necessity Statement: Patient will require likely 2 midnights given decreased ability to participate with physical therapy due to sprained ankle on the opposite ankle. 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
[2020-05-28] MEDS: CELEcoxib 200 mg Capsule 400 MG PO (17:05)
[2020-05-28 17:06] LABS: Estmated Average Glucose 91; Hemoglobin A1C 4.8 % (4.0-6.0)
[2020-05-28] MEDS: ceFAZolin 1,000 mg SDV 1000 MG IRRIGATION (18:03)
--- NOTE | 2020-05-28 20:07 | PM.OP ---
Operative Report Date of procedure: May 28, 2020 Pre-op Diagnosis: Right Tibial Pilon Fracture with Trimalleolar Ankle Fracture Post-op diagnosis: same Post-op Findings: Involvement of the distal tibial articular surface as well as comminuted medial malleolar fracture, lateral malleolar fracture and posterior malleolar fracture consistent with tibial pilon and trimalleolar components. Procedure Done: Open reduction internal fixation right distal tibia pilon fracture and right trimalleolar fracture utilizing the [place] small fragment system. Laterally, the fibula was addressed with a 5 hole plate. Additionally, the anterior lateral joint surface of the tibia was addressed with 1 cannulated 4 mm screw with a washer. Medially, the comminution of the medial malleolus as well as the extension across the anterior aspect of the tibia including the joint space was addressed with a 3 hole lateral fibular plate which was contoured to address the fracture Implants: See above Pathology: none sent Surgeon: Kaitlin Mcgregor Lead Housekeeper: [facility] OR technicians Anesthesia: General (Intubated, ASA 2) Estimated blood loss (mL): 10 Tourniquet time (min): 111 Tourniquet time: At 300 mmHg IV fluids (mL): 1,500 Urine output (mL): 0 Urine output: No Thomas Complications: None Findings: Comminuted distal tibia and fibular fractures involving the articular surface of the tibia consistent with a pilon fracture with characteristics of a trimalleolar fracture as well which was comminuted. Condition: stable Disposition: PACU (Then to floor for postoperative rehabilitation and pain management.) Brief History: This 39-year-old woman was in her usual state of health when she fell while on her way to the bathroom. She injured her right ankle at that time and had inability to weight-bear. She had immediate onset of pain and deformity. She presented to the emergency department where a closed reduction was accomplished. She was then admitted to the hospital service secondary to medical comorbidities. She was consented for surgical intervention and understood the risks and complications. Procedure: Patient was seen in the preoperative holding area and leg was marked. Patient was brought to the operating theater and placed on the operating room table. She was treated as a Covid positive patient as her results were still pending. After undergoing adequate general intubated, ASA 2, anesthesia, the patient's right lower extremity was prepped and draped in usual fashion utilizing DuraPrep. The leg was draped free. Fluoroscopy was used throughout the surgical procedure. We did have a tourniquet high on the right lower extremity. This was elevated to 300 mmHg and total tourniquet time was 111 minutes. Tourniquet elevation followed exsanguination of the leg. A surgical pause was performed. At the time of the surgical pause we identified the site and side of surgery as well as the patient's identity and availability of equipment. We also confirmed appropriate administration of IV antibiotics Ancef 2 g. Following the above, an incision was made centering over the patient's distal fibular, lateral malleolar fracture. The incision was continued proximally and distally as necessary to allow access to the fracture. It was noted to be comminuted. At the time of evaluation of this fracture, it became apparent that there was an intra-articular fragment from the distal tibia involving the anterolateral corner of the tibia. This was large enough to require fixation and did contain part of the syndesmotic ligament.. We were able to reduce the fracture anatomically. A screw was placed across this with a washer. Attention was then directed to the distal fibula fracture which was held with a clamp while we contoured a plate to appropriately fit the patient's distal fibula. A BovControl 5 hole distal fibular plate was attached with standard technique. We used a combination of locking as well as nonlocking screws. Once the plate was appropriately attached, we irrigated the wound. We then closed the wound with 0 Vicryl in the fascial tissues, 2-0 Monocryl in the subcutaneous tissues, and the skin was closed with skin bridget. Attention was then directed to the medial aspect of the ankle. Once again, we used fluoroscopy to determine the appropriate level of the incision as well as palpation over the fracture. An incision was made over the site of the fracture. Upon evaluation of the medial fracture, it became apparent that there was a comminuted medial malleolar fracture consistent with the patient's trimalleolar fracture, however, there was also a large anterior intra-articular piece peeled off the anterior medial aspect of the tibia. This involved greater than half of the anterior tibia. We addressed the medial malleolar fracture as well as this anterior tibial plafond fracture with a lateral fibular plate as this was the best plate to contour to the area which was not prominent. This plate was a 3 hole lateral fibular plate and required plate bending. We were then able to reduce the fracture and hold with a clamp. The plate was placed in appropriate position as visualized in AP and lateral planes. We were then able to place locking screws to attach the plate to the medial malleolus as well as the anterior distal tibia. This fracture was essentially reduced anatomically. Throughout the surgical procedure and at the conclusion of the procedure we did use fluoroscopy. Fluoroscopy was utilized to determine appropriate positioning of the plate as well as the fractures. At the conclusion obtained AP and lateral images demonstrating the fracture was anatomically reduced. The medial incision was closed with 2-0 Monocryl in the subcutaneous tissues. The skin was then closed with skin bridget. Exofin was used between the bridget on both incisions. Sterile dressing was placed consisting of Telfa, 4 x 4's, sterile soft roll and an Jovanni wrap. The patient was placed in a Cam Walker boot and is to remain nonweightbearing. The procedure was well tolerated without complication. Tourniquet time was 111 minutes at 300 mmHg. The patient will be discharged to the floor for postoperative rehabilitation, pain management, and she may require inpatient rehabilitation. Associated Problem List Diagnoses (1) Pilon fracture of right tibia: Qualifiers: Encounter type: initial encounter Fracture type: closed Fracture alignment: displaced Qualified Code(s): S82.871A - Displaced pilon fracture of right tibia, initial encounter for closed fracture (2) Trimalleolar fracture of left ankle: Qualifiers: Encounter type: initial encounter Fracture type: closed Qualified Code(s): S82.852A - Displaced trimalleolar fracture of left lower leg, initial encounter for closed fracture
--- NOTE | 2020-05-28 21:00 | SUR.PHASEI ---
PT TO FLOOR AWAKE ALERT TALKATIVE TAKING SIPS OF SODA, VSS HANDOFF AT BEDSIDE WITH NURSE CLAUDE HOLM PT USING HER CELL PHONE IN ROOM PT RT DISTAL TOES PINK WARM WITH CAP REFILL LESS THAN 3 SECONDS,
[2020-05-28] MEDS: oxyCODONE 5 mg IR Tab/Cap PO (21:41)
[2020-05-29] VITALS (12 sets, daily range): BP systolic 100–117; BP diastolic 66–77; PULSE 74–107; RESP 16–20; TEMP 36.5–37.6; O2SAT 9–97
[2020-05-29] MEDS: oxyCODONE 5 mg IR Tab/Cap PO ×4 (03:03→20:19)
[2020-05-29] MEDS: enoxaparin 30 mg/0.3 mL Syringe SUBCUT (08:36)
[2020-05-29] MEDS: TRAMadol 50 mg Tablet PO (08:37)
[2020-05-29] MEDS: escitalopram 10 mg Tablet 20 MG PO (08:37)
[2020-05-29] MEDS: docusate sodium 100 mg Capsule PO ×2 (08:37→17:00)
[2020-05-29] MEDS: meloxicam 7.5 mg tablet PO (08:37)
[2020-05-29] MEDS: multivitamin therapeutic Tablet 1 TAB PO (08:37)
[2020-05-29] MEDS: lamoTRIgine 100 mg Tablet 150 MG PO ×2 (08:37→17:01)
[2020-05-29] MEDS: CELEcoxib 200 mg Capsule PO ×2 (08:37→17:01)
[2020-05-29] MEDS: gabapentin 300 mg Capsule PO ×3 (08:37→20:20)
[2020-05-29] MEDS: calcium carb-vit d 600mg/400unit 1 Tablet 1 EACH PO ×2 (08:37→17:01)
[2020-05-29] MEDS: levothyroxine 88 mcg Tablet PO (08:37)
[2020-05-29] MEDS: calcium carbonate 500 mg Chew Tablet PO (08:38)
[2020-05-29] MEDS: metoprolol tartrate 25 mg Tablet 12.5 MG PO ×2 (08:47→17:00)
[2020-05-29] MEDS: nystatin powder 15 gm Btl 1 APPLIC TOPICAL ×2 (10:29→17:03)
--- NOTE | 2020-05-29 11:51 | P.PN_ITS ---
Subjective Subjective: Interval history: Doing okay. Worried about her mobility at home. Medications: Reviewed: Yes Vitals/I&O/Wt Last Vital Signs Temp 98.2 F 05/29/20 11:24 Pulse 74 05/29/20 11:24 Resp 16 05/29/20 11:24 BP 102/71 05/29/20 11:24 Pulse Ox 95 05/29/20 11:24 05/28/20 05/29/20 05/29/20 22:59 06:59 14:59 Intake Total 700 / 700 1000 / 1700 240 / 240 Output Total 10 / 410 400 / 400 Balance 690 / 290 1000 / 1290 -160 / -160 Weight last 48 hrs Weight 122.47 kg Physical Exam Narrative: EXAM NARRATIVE: General exam no distress Cardiovascular regular rate and rhythm without murmur, no S3 or S4 Lungs clear Abdomen is soft nontender with positive bowel sounds. No obvious organomegaly Extremities no cyanosis clubbing or edema, right with walking boot Data : 05/28/20 08:16 05/28/20 08:16 A&P Assessment and plan (1) Trimalleolar fracture of left ankle: Postoperative day #1 status post ORIF. Doing well PT evaluations for mobility Home when safe from a mobility standpoint Status: Acute Qualifiers: Encounter type: initial encounter Fracture type: closed Qualified Code(s): S82.852A - Displaced trimalleolar fracture of left lower leg, initial encounter for closed fracture (2) History of cardiac arrhythmia: Continue patient's metoprolol. Status: Acute Additional A&P Information Blood sugar elevation. Hemoglobin A1c checked and normal. Abnormal urine. Contaminated. Patient asymptomatic. No treatment needed for this. History of chronic back pain. Continue home medications. Hypothyroidism. Continue home medications Depression/anxiety continue home medications Full code DVT prophylaxis following surgery, with pharmaceutical medication Attestations Medical Necessity Statement*: Await physical therapy evaluations regarding mobility when possible discharge parameters. Coding Level of Care Code Acute Crop Or Livestock Tenant Farmer for Rey Gutierrez Diagnoses Trimalleolar fracture of left ankle S82.852A Encounter type: initial encounter Fracture type: closed History of cardiac arrhythmia Z86.79
--- NOTE | 2020-05-29 15:33 | PM.PN ---
Subjective Subjective: Interval history: Doing okay. Worried about her mobility at home. Although she is being evaluated for home health, she may require skilled, and she feels that she might be unsafe at home. Medications: Reviewed: Yes Vitals/I&O/Wt Last Vital Signs Temp 98.2 F 05/29/20 11:24 Pulse 74 05/29/20 11:24 Resp 16 05/29/20 11:24 BP 102/71 05/29/20 11:24 Pulse Ox 95 05/29/20 11:24 05/29/20 05/29/20 05/29/20 06:59 14:59 22:59 Intake Total 1050 / 1750 480 / 480 Output Total 400 / 400 Balance 1050 / 1340 80 / 80 Weight last 48 hrs Weight 270 lb Physical Exam Const: COMMON NORMALS: no acute distress, average body habitus, patient oriented x3 and alert GENERAL APPEARANCE: cooperative and comfortable ORIENTATION/CONSCIOUSNESS: Yes awake HENMT: COMMON NORMALS: normocephalic and atraumatic HEAD & SCALP: normocephalic and atraumatic Eye: GENERAL EYE: appearance normal, both eyes and all related structures Chest: COMMONS NORMALS: normal inspection of the chest Resp: COMMON NORMALS: normal respiratory effort EFFORT & INSPECTION: Yes able to speak in complete sentences and Yes symmetric chest movement Extremity: RIGHT LOWER EXTREMITY: Yes foot & digits (The boot and dressings are removed. The wounds are benign. ) Right ankle: Yes inspection (There is minimal swelling with medial fracture blistering mid wound.), Yes palpation (There is tenderness to palpation.), Yes ROM (Not evaluated.) and Yes neurovascular exam (Intact motor and sensory function.) Neuro: COMMON NORMALS: patient oriented x3 SENSORIUM/ORIENTATION: Yes alert Psych: COMMON NORMALS: mental status grossly normal APPEARANCE: Yes grossly normal ATTITUDE: Yes calm and Yes engaged ATTENTION/CONCENTRATION: Yes attention grossly intact Skin: COMMON NORMALS: no rashes or lesions noted GENERAL SKIN EXAM: no rashes or lesions noted Data : 05/28/20 08:16 05/28/20 08:16 A&P Assessment and plan (1) Pilon fracture of right tibia: Patient underwent open reduction internal fixation of her right tibial pilon fracture with treatment of her trimalleolar fracture as well which included a comminuted medial malleolus, lateral malleolus, and posterior malleolus. Additionally, there is intra-articular involvement across the anterior and anterolateral aspects of the distal tibia consistent with the pilon diagnosis. Patient was placed in a fracture boot which is removed today. The wounds are evaluated. There is no evidence of infection, but there is some blistering along the midportion of the medial incision. Toes are warm and capillary refill is good. Patient did not participate much with physical therapy today. She does have rehabilitation complicated by the fact that she had a very significant left ankle sprain, and only the day of her fall that she get out of her brace which was used to treat this sprain. Status: Acute Qualifiers: Encounter type: initial encounter Fracture type: closed Fracture alignment: displaced Qualified Code(s): S82.871A - Displaced pilon fracture of right tibia, initial encounter for closed fracture (2) Trimalleolar fracture of left ankle: Status: Acute Qualifiers: Encounter type: initial encounter Fracture type: closed Qualified Code(s): S82.852A - Displaced trimalleolar fracture of left lower leg, initial encounter for closed fracture Attestations Medical Necessity Statement*: Patient requires ongoing hospitalization for physical therapy and attempt to allow her to ambulate safely. Coding Level of Care Code Acute Institutional Nutrition Consultant for Rey Gutierrez Diagnoses Pilon fracture of right tibia S82.871A Encounter type: initial encounter Fracture type: closed Fracture alignment: displaced Trimalleolar fracture of left ankle S82.852A Encounter type: initial encounter Fracture type: closed
[2020-05-29] MEDS: baclofen 10 mg Tablet PO (17:01)
--- NOTE | 2020-05-29 18:28 | PC.NURSE ---
SHIFT SUMMARY PATIENT HAS DONE WELL TODAY. AMBULATING MUCH BETTER THIS AFTERNOON WITH 1-2 PERSON ASSIST. GOOD PO INTAKE. GOOD URINE OUTPUT. THIS NURSE CHANGED SURGICAL DRESSING WITH DR. KING THIS AFTERNOON. DRESSING CURRENTLY C/D/I. BOOT IN PLACE. BP HAS BEEN ON THE SOFTER SIDE. DR. WIGGINS ORDERED 12.5MG OF METOPROLOL TO BE GIVEN TWICE TODAY INSTEAD OF PATIENT'S USUAL 50MG DOSE. PATIENT CURRENTLY RESTING IN BED. NO COMPLAINTS AT THIS TIME.
[2020-05-29] MEDS: risperiDONE 1 mg Tablet 3 MG PO (20:19)
[2020-05-30] VITALS (11 sets, daily range): BP systolic 92–105; BP diastolic 60–71; PULSE 72–80; RESP 16–20; TEMP 36.4–36.9; O2SAT 95–97
[2020-05-30] MEDS: acetaminophen 500 mg Tablet 1000 MG PO ×3 (04:04→19:54)
[2020-05-30] MEDS: oxyCODONE 5 mg IR Tab/Cap PO ×4 (04:05→19:57)
[2020-05-30] MEDS: CELEcoxib 200 mg Capsule PO ×2 (09:00→17:25)
[2020-05-30] MEDS: gabapentin 300 mg Capsule PO ×3 (09:00→19:58)
[2020-05-30] MEDS: nystatin powder 15 gm Btl 1 APPLIC TOPICAL ×2 (09:00→17:31)
[2020-05-30] MEDS: calcium carbonate 500 mg Chew Tablet PO (09:00)
[2020-05-30] MEDS: lamoTRIgine 100 mg Tablet 150 MG PO ×2 (09:01→17:29)
[2020-05-30] MEDS: calcium carb-vit d 600mg/400unit 1 Tablet 1 EACH PO ×2 (09:01→17:25)
[2020-05-30] MEDS: metoprolol tartrate 50 mg Tablet PO ×2 (09:01→17:25)
[2020-05-30] MEDS: docusate sodium 100 mg Capsule PO ×2 (09:01→17:25)
[2020-05-30] MEDS: enoxaparin 30 mg/0.3 mL Syringe SUBCUT (09:02)
[2020-05-30] MEDS: multivitamin therapeutic Tablet 1 TAB PO (09:02)
[2020-05-30 10:11] LABS: Basophils # 0.1 10^3/uL (0.0-0.1); Basophils % 0.6 %; Eosinophils # 0.1 10^3/uL (0.0-0.8); Eosinophils % 0.9 %; Hematocrit 34.7 % (37.0-47.0); Hemoglobin 10.6 g/dL (11.5-15.3); Lymphocytes # 2.3 10^3/uL (0.8-4.8); Lymphocytes % 29.6 %; Mean Corpuscular HGB Conc 30.5 g/dL (30.0-36.0); Mean Corpuscular Hemoglobin 29.4 pg (28.0-34.0); Mean Corpuscular Volume 96.1 fL (81-99); Mean Platelet Volume 8.8 fL (7.4-10.4); Monocytes # 0.7 10^3/uL (0.2-0.9); Monocytes % 9.3 %; Neutrophils # 4.67 10^3/uL (1.8-7.7); Neutrophils % 59.5 %; Nucleated Red Blood Cells % 0 %; Platelet Count 383 10^3/cmm (130-400); Red Blood Count 3.61 10^6/uL (4.1-5.3); Red Cell Distribution Width 15.4 % (12.1-15.1); White Blood Count 7.9 10^3/uL (4.0-10.0)
[2020-05-30 10:36] LABS: Anion Gap 13.6 (5-19); Blood Urea Nitrogen 10 mg/dL (6-20); Calcium 8.7 mg/dL (8.5-10.5); Carbon Dioxide 26 mmol/L (22-29); Chloride 101 mmol/L (98-107); Creatinine Clr Calc Pharmacy 148.1107; Glomerular Filtration Rate 92.2 mL/min (90-130); Glucose 127 mg/dL (65-115); Osmolality Calculated 285 mOsm/kg (285-295); Potassium 3.6 mmol/L (3.5-5.1); Sodium 137 mmol/L (136-145)
[2020-05-30 11:39] LABS: Coronavirus Lab Test PTC Negative
[2020-05-30] MEDS: TRAMadol 50 mg Tablet PO ×3 (12:09→22:22)
[2020-05-30] MEDS: baclofen 10 mg Tablet PO (12:14)
--- NOTE | 2020-05-30 13:15 | P.PN_ITS ---
Subjective Subjective: Interval history: Abigail reports she is doing okay. The leg still hurts. She is willing to go to a nursing facility for rehabilitation. Medications: Reviewed: Yes Vitals/I&O/Wt Last Vital Signs Temp 97.9 F 05/30/20 11:06 Pulse 72 05/30/20 11:06 Resp 18 05/30/20 11:06 BP 97/67 05/30/20 11:06 Pulse Ox 97 05/30/20 11:06 05/29/20 05/30/20 05/30/20 22:59 06:59 14:59 Intake Total 120 / 600 360 / 360 Output Total 550 / 950 700 / 1650 1000 / 1000 Balance -550 / -470 -580 / -1050 -640 / -640 Physical Exam Narrative: EXAM NARRATIVE: General exam no distress Cardiovascular regular rate and rhythm without murmur, no S3 or S4 Lungs clear Abdomen is soft nontender with positive bowel sounds. No obvious organomegaly Extremities no cyanosis clubbing or edema, right with walking boot. Cap refill brisk Data : 05/30/20 10:05 05/30/20 10:05 A&P Assessment and plan (1) Trimalleolar fracture of left ankle: Postoperative day #2 status post ORIF. Having some issues with mobility PT and OT are evaluating Exploring possibility of skilled care as she is unsafe to ambulate at home currently. She is nonweightbearing in the right leg, and recently had an injury to the left so even with walker her mobility is significantly limited. Status: Acute Qualifiers: Encounter type: initial encounter Fracture type: closed Qualified Code(s): S82.852A - Displaced trimalleolar fracture of left lower leg, initial encounter for closed fracture (2) History of cardiac arrhythmia: Continue patient's metoprolol. Status: Acute Additional A&P Information Blood sugar elevation. Hemoglobin A1c checked and normal. Abnormal urine. Contaminated. Patient asymptomatic. No treatment needed for this. History of chronic back pain. Continue home medications. Hypothyroidism. Continue home medications Depression/anxiety continue home medications Full code DVT prophylaxis following surgery, with pharmaceutical medication Attestations Medical Necessity Statement*: Needs continued hospitalization, for close monitoring following trimalleolar fracture. 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
--- NOTE | 2020-05-30 14:16 | PC.NURSE ---
Patient up with physical therapy at this time. Patient is non-weight bearing to the right ankle. Patient's left ankle is week from a sprain. She just got the brace off this last week. Patient has stairs going into her house that she will not be able to get up with a walker because her left ankle is weak. Patient will not be able to use a wheel chair in her home because her bathroom and bedroom are not bg enough to accommodate one. 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 Patient is at risk for falling again.
--- NOTE | 2020-05-30 15:37 | PM.PN ---
Subjective Subjective: Interval history: Abigail reports she is doing okay. The leg still hurts. She is willing to go to a nursing facility for rehabilitation. She is requesting more pain medication, however, I have advised her that she needs to keep it elevated and better position so that she does not require this medication. Medications: Reviewed: Yes Vitals/I&O/Wt Last Vital Signs Temp 97.7 F 05/30/20 15:29 Pulse 74 05/30/20 15:29 Resp 18 05/30/20 15:29 BP 94/64 05/30/20 15:29 Pulse Ox 96 05/30/20 15:29 05/30/20 05/30/20 05/30/20 06:59 14:59 22:59 Intake Total 120 / 600 360 / 360 Output Total 700 / 1650 1000 / 1000 Balance -580 / -1050 -640 / -640 Physical Exam Const: COMMON NORMALS: no acute distress, average body habitus, patient oriented x3 and alert GENERAL APPEARANCE: cooperative and comfortable ORIENTATION/CONSCIOUSNESS: Yes awake HENMT: COMMON NORMALS: normocephalic and atraumatic HEAD & SCALP: normocephalic and atraumatic Eye: GENERAL EYE: appearance normal, both eyes and all related structures Chest: COMMONS NORMALS: normal inspection of the chest Resp: COMMON NORMALS: normal respiratory effort EFFORT & INSPECTION: Yes able to speak in complete sentences and Yes symmetric chest movement Extremity: RIGHT LOWER EXTREMITY: Yes foot & digits (The toes are warm and the patient is able to move them. ) Right ankle: Yes neurovascular exam (Intact) and Yes other (The patient is maintained in a cam walker) Neuro: COMMON NORMALS: patient oriented x3 SENSORIUM/ORIENTATION: Yes alert Psych: COMMON NORMALS: mental status grossly normal APPEARANCE: Yes grossly normal ATTITUDE: Yes calm and Yes engaged ATTENTION/CONCENTRATION: Yes attention grossly intact Skin: COMMON NORMALS: no rashes or lesions noted GENERAL SKIN EXAM: no rashes or lesions noted Data : 05/30/20 10:05 05/30/20 10:05 A&P Assessment and plan (1) Pilon fracture of right tibia: Patient underwent open reduction internal fixation of her right tibial pilon fracture with treatment of her trimalleolar fracture as well which included a comminuted medial malleolus, lateral malleolus, and posterior malleolus. Additionally, there was intra-articular involvement across the anterior and anterolateral aspects of the distal tibia consistent with the pilon diagnosis. Patient was placed in a fracture boot which is removed today. The wounds are evaluated. There is no evidence of infection, but there is some blistering along the midportion of the medial incision. Toes are warm and capillary refill is good. Patient did not participate much with physical therapy today or yesterday. She does have rehabilitation complicated by the fact that she had a very significant left ankle sprain, and only the day of her fall that she get out of her brace which was used to treat this sprain. Status: Acute Qualifiers: Encounter type: initial encounter Fracture type: closed Fracture alignment: displaced Qualified Code(s): S82.871A - Displaced pilon fracture of right tibia, initial encounter for closed fracture (2) Trimalleolar fracture of left ankle: Status: Acute Qualifiers: Encounter type: initial encounter Fracture type: closed Qualified Code(s): S82.852A - Displaced trimalleolar fracture of left lower leg, initial encounter for closed fracture Attestations Medical Necessity Statement*: The patient continues to work with physical therapy. They are attempting to walk her nonweightbearing, but her opposite ankle is interfering with this process. Coding Level of Care Code Acute Food And Beverage Coordinator for Rey Gutierrez Diagnoses Pilon fracture of right tibia S82.871A Encounter type: initial encounter Fracture type: closed Fracture alignment: displaced Trimalleolar fracture of left ankle S82.852A Encounter type: initial encounter Fracture type: closed
--- NOTE | 2020-05-30 19:20 | PC.NURSE ---
Report to Kalyani HOLM End of shift report Patient's plan has been to go to a intermediate facility because it is not safe for patient to go home as she does not able to get up the steps into her house. Patient's daughter has said that she will be able t get her up the steps and is demanding that the patient go home. Patient has agreed and wants to go home now with home health.
[2020-05-30] MEDS: risperiDONE 1 mg Tablet 3 MG PO (19:58)
[2020-05-31] VITALS (8 sets, daily range): BP systolic 90–112; BP diastolic 56–81; PULSE 70–73; RESP 16–18; TEMP 36.3–36.6; O2SAT 95–100
[2020-05-31] MEDS: acetaminophen 500 mg Tablet 1000 MG PO ×2 (03:47→15:12)
[2020-05-31] MEDS: oxyCODONE 5 mg IR Tab/Cap PO ×2 (03:47→12:44)
--- NOTE | 2020-05-31 10:10 | PC.SOCIAL ---
IMM Page 2 of IMM explained to patient. Initialed, dated, and timed and placed in chart. Copy provided to patient.
[2020-05-31] MEDS: enoxaparin 30 mg/0.3 mL Syringe SUBCUT (10:23)
[2020-05-31] MEDS: gabapentin 300 mg Capsule PO ×2 (10:27→15:13)
[2020-05-31] MEDS: docusate sodium 100 mg Capsule PO (10:27)
[2020-05-31] MEDS: CELEcoxib 200 mg Capsule PO (10:27)
[2020-05-31] MEDS: calcium carb-vit d 600mg/400unit 1 Tablet 1 EACH PO (10:27)
[2020-05-31] MEDS: multivitamin therapeutic Tablet 1 TAB PO (10:27)
[2020-05-31] MEDS: calcium carbonate 500 mg Chew Tablet PO (10:27)
[2020-05-31] MEDS: lamoTRIgine 100 mg Tablet 150 MG PO (10:28)
[2020-05-31] MEDS: nystatin powder 15 gm Btl 1 APPLIC TOPICAL (10:29)
[2020-05-31] MEDS: TRAMadol 50 mg Tablet PO ×2 (10:54→16:03)
--- NOTE | 2020-05-31 12:42 | P.DS_ITS ---
Discharge Providers Date of Admission: 05/28/20 07:07 Date of Discharge: May 31, 2020 Attending Provider at Admission: Maynor Vang MD Attending Provider at Discharge: Kaitlin Mcgregor MD Primary Care Provider: SILVANO Hutchins Diagnoses at Discharge Discharge Diagnosis (1) Pilon fracture of right tibia: Status: Acute Qualifiers: Encounter type: initial encounter Fracture type: closed Fracture alignment: displaced Qualified Code(s): S82.871A - Displaced pilon fracture of right tibia, initial encounter for closed fracture (2) Trimalleolar fracture of left ankle: Status: Acute Qualifiers: Encounter type: initial encounter Fracture type: closed Qualified Code(s): S82.852A - Displaced trimalleolar fracture of left lower leg, initial encounter for closed fracture Reason for Visit Reason for Visit: FALL Hospital Course Hospital Course Abigail is a 39-year-old white female who presented from home with history of fall. She sustained a pilon fracture to her right lower extremity. She did not have syncope, nor head injury. Orthopedic surgery was consulted. They performed an ORIF, secondary to the right ankle fracture on May 28. Patient did well after surgery but secondary to a previous injury on her left side was not able to ambulate safely. Secondary to high risk for reinjury, and the fact she would have to be nonweightbearing on the right side group home facility placement was needed. This was arranged on May 31. She will discharge on Lovenox for DVT prophylaxis for the next 4 weeks. Appropriate orthopedic, and primary care provider follow-up will be initiated. Discharge Data Data Completed and Pending: Completed Studies During Hospitalization Category Date Time Status XR ankle RT 2V 73 600 Routine Exams 05/28/20 Completed XR ankle RT 2V 73 600 Stat Exams 05/28/20 04:05 Completed XR ankle RT 2V 73 600 Stat Exams 05/28/20 05:56 Completed XR chest 1V caridad ble [id number] Stat Exams 05/28/20 06:10 Completed XR foot RT 2V 736 20 Stat Exams 05/28/20 04:47 Completed Vitals: Last Vital Signs Temp 97.6 F 05/31/20 12:00 Pulse 71 05/31/20 12:00 Resp 18 05/31/20 12:00 BP 112/81 05/31/20 12:00 Pulse Ox 100 05/31/20 12:00 Discharge Plan Discharge Patient Disposition: Xfer SNF Condition: Stable Prescriptions: New oxycodone 5 mg tablet 5 mg PO Q4H Qty: 20 RF: 0 tramadol 50 mg tablet 50 mg PO TID PRN (Reason: pain) Qty: 20 RF: 0 baclofen 10 mg Tablet 10 mg PO TID PRN (Reason: Muscle Spasms) Qty: 20 RF: 0 enoxaparin [Lovenox] 40 mg/0.4 mL syringe 40 mg SUBCUT DAILY 30 Days Qty: 12 RF: 0 Continued lamotrigine 150 mg tablet 150 mg PO BID RF: 0 hydroxyzine pamoate 50 mg capsule 50 mg PO QID PRN (Reason: unknown) RF: 0 meloxicam 7.5 mg tablet 7.5 mg PO DAILY RF: 0 levothyroxine 88 mcg tablet 88 mcg PO DAILY RF: 0 iron 325 mg (65 mg iron) Tablet 325 mg PO DAILY RF: 0 metoprolol tartrate 50 mg tablet 50 mg PO BID RF: 0 gabapentin 300 mg capsule 300 mg PO TID RF: 0 buspirone 7.5 mg tablet 7.5 mg PO BID RF: 0 risperidone 1 mg tablet 3 mg PO BEDTIME RF: 0 escitalopram oxalate 20 mg tablet 20 mg PO DAILY RF: 0 Discontinued baclofen 10 mg tablet 10 mg PO TID RF: 0 Discharge Orders: Discharge Order (Routine); Ordered 05/31/20 Ordered By: Maynor aVng Other Ambulatory Orders: DME: Walker (Order) Location: None Selected Ordered By: Maynor Vang Referrals: [facility] [Outside] Kaitlin Mcgregor MD [Physician] - 2 weeks Charleen Lee FNP [Primary Care Provider] - Discharge Activity: Limit activity as instructed, Use walker/crutches as instructed and Wheelchair as instructed Activity Restrictions/Additional Instructions: Wear fracture boot at all times. You may come out for gentle range of motion, dorsiflexion and plantarflexion. Keep wounds covered. Follow-up with primary care provider at group home facility in 3 to 5 days. Discharge Attestations Time Spent in Discharge Care*: greater than 30 min Quality Metrics Clinical Quality Measures During this hospital stay, did patient experience: None Coding Level of Care Code Acute Muffle Worker for [facility] Fwd Diagnoses Pilon fracture of right tibia S82.871A Encounter type: initial encounter Fracture type: closed Fracture alignment: displaced Trimalleolar fracture of left ankle S82.852A Encounter type: initial encounter Fracture type: closed
[2020-05-31] MEDS: baclofen 10 mg Tablet PO (15:14)
== END 2020-05-31 16:00 | disposition skilled nursing facility (03) | DRG 494 ==
LOC: ER 04:53 → MEDSURG 07:09
PROVIDERS: Emergency Medicine; Admitting Provider Internal Medicine; Emergency Provider Family Medicine; PCP Nurse Practitioner Family; Visit Provider Specialist
PROC: 0QSJ04Z Reposition Right Fibula with Internal Fixation Device, Open Approach (ICD-10-PCS; principal; 2020-05-28 16:15)
DX: S82.851A Displaced trimalleolar fracture of right lower leg, initial encounter for closed fracture (principal); S82.871A Displaced pilon fracture of right tibia, initial encounter for closed fracture; W01.0XXA Fall on same level from slipping, tripping and stumbling without subsequent striking against object, initial encounter; F41.8 Other specified anxiety disorders; G89.29 Other chronic pain; M54.9 Dorsalgia, unspecified; E03.9 Hypothyroidism, unspecified; Z98.84 Bariatric surgery status; Z86.79 Personal history of other diseases of the circulatory system; E66.01 Morbid (severe) obesity due to excess calories; Z68.39 Body mass index [BMI] 39.0-39.9, adult
CPT/HCPCS: 12345; 27818; 36415; 36592; 64450; 71045; 73600; 73610; 73620; 76000; 76942; 80048; 80053; 81001; 83036; 85025; 85610; 85730; 86850; 86900; 87635; 93005; 96372; 96375; 97110; 97161; 97166; 97530; 97535; 99283; C1713; J0131; J0690; J0696; J1100; J1170; J1650; J2270; J2704; J2795; J3010; J7030

== ENCOUNTER → 2020-06-12 11:02 | Outpatient (BNVA) | payer MEDICARE, MEDICAID, SELFPAY | PROVIDERS: PCP Nurse Practitioner Family; Visit Provider Specialist | DX: Z47.89 Encounter for other orthopedic aftercare; S82.852D Displaced trimalleolar fracture of left lower leg, subsequent encounter for closed fracture with routine healing; X58.XXXD Exposure to other specified factors, subsequent encounter | CPT/HCPCS: 73610 ==

== ENCOUNTER → 2020-07-03 11:51 | Outpatient (BNVA) | payer MEDICARE, MEDICAID, SELFPAY | PROVIDERS: PCP Nurse Practitioner Family; Visit Provider Specialist | DX: Z47.89 Encounter for other orthopedic aftercare (principal); S82.852D Displaced trimalleolar fracture of left lower leg, subsequent encounter for closed fracture with routine healing; S82.871D Displaced pilon fracture of right tibia, subsequent encounter for closed fracture with routine healing; W19.XXXD Unspecified fall, subsequent encounter | CPT/HCPCS: 73610 ==

== ENCOUNTER 2020-07-05 13:26 | Outpatient (CLI) | payer MEDICARE, MEDICAID, SELFPAY | END 2020-07-05 13:27 | disposition home or self-care (01) | LOC: WOUND 13:27 | PROVIDERS: PCP Nurse Practitioner Family; Visit Provider Surgery | DX: T81.31XA Disruption of external operation (surgical) wound, not elsewhere classified, initial encounter (principal); Y83.8 Other surgical procedures as the cause of abnormal reaction of the patient, or of later complication, without mention of misadventure at the time of the procedure | CPT/HCPCS: 11042; 87070; 87176; 87205; G0463 ==

== ENCOUNTER 2020-07-09 14:35 | Outpatient (CLI) | payer MEDICARE, MEDICAID, SELFPAY | END 2020-07-09 14:36 | disposition home or self-care (01) | LOC: WOUND 14:36 | PROVIDERS: PCP Nurse Practitioner Family; Visit Provider Nurse Practitioner Family | DX: T81.31XA Disruption of external operation (surgical) wound, not elsewhere classified, initial encounter (principal); Y83.8 Other surgical procedures as the cause of abnormal reaction of the patient, or of later complication, without mention of misadventure at the time of the procedure | CPT/HCPCS: 11042 ==

== ENCOUNTER 2020-07-26 13:54 | Outpatient (CLI) | payer MEDICARE, MEDICAID, SELFPAY | END 2020-07-26 13:55 | disposition home or self-care (01) | LOC: WOUND 13:55 | PROVIDERS: PCP Nurse Practitioner Family; Visit Provider Surgery | DX: T81.31XS Disruption of external operation (surgical) wound, not elsewhere classified, sequela (principal); Y83.8 Other surgical procedures as the cause of abnormal reaction of the patient, or of later complication, without mention of misadventure at the time of the procedure | CPT/HCPCS: 11042 ==

== ENCOUNTER → 2020-08-01 10:20 | Outpatient (BNVA) | payer MEDICARE, MEDICAID, SELFPAY | PROVIDERS: PCP Nurse Practitioner Family; Visit Provider Specialist | DX: Z47.89 Encounter for other orthopedic aftercare (principal); S82.852D Displaced trimalleolar fracture of left lower leg, subsequent encounter for closed fracture with routine healing; S82.871D Displaced pilon fracture of right tibia, subsequent encounter for closed fracture with routine healing; X58.XXXD Exposure to other specified factors, subsequent encounter | CPT/HCPCS: 73610; 97760; L4361 ==

== ENCOUNTER 2020-08-01 13:55 | Outpatient (CLI) | payer MEDICARE, MEDICAID, SELFPAY | END 2020-08-01 13:56 | disposition home or self-care (01) | LOC: SPT 13:56 | PROVIDERS: PCP Nurse Practitioner Family; Visit Provider Specialist | DX: Z46.89 Encounter for fitting and adjustment of other specified devices (principal); S82.871D Displaced pilon fracture of right tibia, subsequent encounter for closed fracture with routine healing; S82.852D Displaced trimalleolar fracture of left lower leg, subsequent encounter for closed fracture with routine healing; X58.XXXD Exposure to other specified factors, subsequent encounter | CPT/HCPCS: 97760; L4361 ==

== ENCOUNTER 2020-08-09 10:07 | Outpatient (CLI) | payer MEDICARE, MEDICAID, SELFPAY | END 2020-08-09 10:08 | disposition home or self-care (01) | LOC: WOUND 10:08 | PROVIDERS: PCP Nurse Practitioner Family; Visit Provider Surgery | DX: T81.31XS Disruption of external operation (surgical) wound, not elsewhere classified, sequela (principal); Y83.8 Other surgical procedures as the cause of abnormal reaction of the patient, or of later complication, without mention of misadventure at the time of the procedure | CPT/HCPCS: 11042 ==

== ENCOUNTER 2020-08-16 12:58 | Emergency (ER) | payer MEDICARE, MEDICAID, SELFPAY ==
[2020-08-16 13:04] VITALS: BP 132/62; PULSE 83; RESP 20; TEMP 37.1; O2SAT 95; BMI 41.3
--- NOTE | 2020-08-16 13:27 | W.ED.EXTPRO ---
HPI - Extremity Problem General: Chief complaint: Extremity Problem,Nontraumatic Stated complaint: ankle pain Time Seen by Provider: 08/16/20 13:15 Source: patient and EMS Mode of arrival: EMS Limitations: no limitations History of Present Illness: HPI Narrative: Patient is a 40-year-old female who presents to ED today with a complaint of pain to her right ankle and foot. Patient tells me she had surgery on her right ankle by Dr. Mcgregor approximately 2 months ago. She has had routine follow-up care with orthopedics as well as wound care. Patient tells me she has had pain ever since the surgery. She states pain has been worse over the past 3 to 4 days. She denies any obvious injury or trauma but does say she bumped it the other day while wearing her boot. She has continued to be ambulatory following her weight bearing instructions. She has not noticed any redness or swelling. MD Complaint: extremity pain Onset (ago): day(s) Pain Consistency: constant Location: right Relieving factors: nothing Exacerbating factors: range of motion, weight bearing, walking and palpation Associated symptoms: Reports no associated symptoms Review of Systems Musc: Reports: extremity pain and joint pain; Denies: extremity swelling, joint swelling, joint redness or joint warmth Neuro: Denies: numbness in extremities or sensory changes PFSH ED PFSH: Medical History Anxiety Arrhythmia Reports tachycardia, although cannot tell me anything other than this. Beta-leeanne initiated for this. Chronic back pain Depression Hypothyroidism Surgical History History of History of cholecystectomy History of gastric bypass History of knee surgery History of tonsillectomy Family History Other Diabetes Social History Smoking and tobacco status: never smoked Alcohol intake: never Physical Exam Const: COMMON NORMALS: no acute distress, patient oriented x3, no limitations and alert GENERAL APPEARANCE: cooperative NUTRITIONAL APPEARANCE: obese Resp: COMMON NORMALS: normal respiratory effort and clear to auscultation bilaterally AUSCULTATION: clear to auscultation bilaterally Cardio: COMMON NORMALS: regular rate and regular rhythm RATE: regular rate RHYTHM: regular rhythm Extremity: GENERAL: Yes normal exam except as noted OTHER: pt reports tenderness throughout R ankle and foot; no swelling, ecchymosis, erythema or warmth appreciated; she has one small healing ulcer to medial aspect that wound care is managing-this appears clean and infection free Neuro: COMMON NORMALS: patient oriented x3, moves all extremities, no focal motor deficits and no sensory deficits noted SENSORIUM/ORIENTATION: Yes alert Skin: NARRATIVE SKIN EXAM: see extremity assessment Course Vital Signs: Vital signs: Vital Signs Temperature 98.7 F 08/16/20 13:42 Pulse Rate 83 08/16/20 13:42 Respiratory Rate 20 H 08/16/20 13:42 Blood Pressure 132/62 08/16/20 13:42 Pulse Oximetry 95 08/16/20 13:42 MDM - Extremity (Nontraumatic) MDM Narrative: Medical decision making narrative: There is no evidence for infection. Patient states she merely bumped extremity the other day-certainly not enough to fracture. Did not feel XRs or any other testing at this time would ultimately can change my management. Agreed to give her small amount of pain meds but ultimately told her she needs to follow up with her surgeon. Discharge Plan Discharge Patient Disposition: Home Clinical Impression: Chronic pain of right ankle Condition: Stable Prescriptions: Changed tramadol 50 mg tablet 50 mg PO BID PRN (Reason: pain) Qty: 10 RF: 0 No Action (DME) Cam Walker See Rx Instructions .ROUTE .MEDSUPPLY Qty: 1 RF: 0 celecoxib [Celebrex] 200 mg capsule 200 mg PO DAILY Qty: 30 RF: 0 lamotrigine 150 mg tablet 150 mg PO BID RF: 0 hydroxyzine pamoate 50 mg capsule 50 mg PO QID PRN (Reason: unknown) RF: 0 meloxicam 7.5 mg tablet 7.5 mg PO DAILY RF: 0 levothyroxine 88 mcg tablet 88 mcg PO DAILY RF: 0 iron 325 mg (65 mg iron) Tablet 325 mg PO DAILY RF: 0 metoprolol tartrate 50 mg tablet 50 mg PO BID RF: 0 gabapentin 300 mg capsule 300 mg PO TID RF: 0 buspirone 7.5 mg tablet 7.5 mg PO BID RF: 0 risperidone 1 mg tablet 3 mg PO BEDTIME RF: 0 escitalopram oxalate 20 mg tablet 20 mg PO DAILY RF: 0 baclofen 10 mg Tablet 10 mg PO TID PRN (Reason: Muscle Spasms) Qty: 20 RF: 0 oxycodone 5 mg tablet 5 mg PO Q4H Qty: 20 RF: 0 Discharge Orders: Discharge ED (Routine); Ordered 08/16/20 Ordered By: Rose Marie Vines Referrals: Charleen Lee CHUCKING MACHINE SET UP OPERATOR TOOL [Primary Care Provider] - Activity Restrictions/Additional Instructions: Please follow up with your orthopedic surgeon for your increased pain. Coding Level of Care Code ED Can Dragger for Rey Gutierrez
[2020-08-16 13:42] VITALS: BP 132/62; PULSE 83; RESP 20; TEMP 37.1; O2SAT 95
== END 2020-08-16 13:44 | disposition home or self-care (01) ==
LOC: ER 13:45
PROVIDERS: Emergency Provider Physician Assistant; PCP Nurse Practitioner Family
DX: G89.29 Other chronic pain (principal); M25.571 Pain in right ankle and joints of right foot
CPT/HCPCS: 12345; 99282

== ENCOUNTER → 2020-08-29 10:01 | Outpatient (BNVA) | payer MEDICARE, MEDICAID, SELFPAY | PROVIDERS: PCP Nurse Practitioner Family; Visit Provider Specialist | DX: Z47.89 Encounter for other orthopedic aftercare (principal); S82.871D Displaced pilon fracture of right tibia, subsequent encounter for closed fracture with routine healing; X58.XXXD Exposure to other specified factors, subsequent encounter | CPT/HCPCS: 73610 ==

== ENCOUNTER 2020-09-06 09:27 | Outpatient (CLI) | payer MEDICARE, MEDICAID, SELFPAY | END 2020-09-06 09:28 | disposition home or self-care (01) | LOC: WOUND 09:28 | PROVIDERS: PCP Nurse Practitioner Family; Visit Provider Surgery | DX: T81.31XA Disruption of external operation (surgical) wound, not elsewhere classified, initial encounter (principal); Y83.8 Other surgical procedures as the cause of abnormal reaction of the patient, or of later complication, without mention of misadventure at the time of the procedure | CPT/HCPCS: 97597 ==

== ENCOUNTER 2020-09-09 06:00 | Outpatient (RCR) | payer MEDICARE, MEDICAID, SELFPAY | END 2020-09-15 23:59 | disposition home or self-care (01) | LOC: MPT 06:00 | PROVIDERS: PCP Nurse Practitioner Family; Referring Provider Specialist; Visit Provider Specialist | DX: S82.872D Displaced pilon fracture of left tibia, subsequent encounter for closed fracture with routine healing (principal); S82.851D Displaced trimalleolar fracture of right lower leg, subsequent encounter for closed fracture with routine healing; X58.XXXD Exposure to other specified factors, subsequent encounter | CPT/HCPCS: 97110; 97140; 97161 ==

== ENCOUNTER 2020-09-13 09:29 | Outpatient (CLI) | payer MEDICARE, MEDICAID, SELFPAY | END 2020-09-13 09:30 | disposition home or self-care (01) | LOC: WOUND 09:30 | PROVIDERS: PCP Nurse Practitioner Family; Visit Provider Surgery | DX: Z09 Encounter for follow-up examination after completed treatment for conditions other than malignant neoplasm (principal) | CPT/HCPCS: 99212 ==

== ENCOUNTER 2020-09-16 06:00 | Outpatient (RCR) | payer MEDICARE, MEDICAID, SELFPAY | END 2020-10-16 23:59 | disposition home or self-care (01) | LOC: MPT 06:00 | PROVIDERS: PCP Nurse Practitioner Family; Referring Provider Specialist; Visit Provider Specialist | DX: S82.871D Displaced pilon fracture of right tibia, subsequent encounter for closed fracture with routine healing (principal); S82.852D Displaced trimalleolar fracture of left lower leg, subsequent encounter for closed fracture with routine healing; X58.XXXD Exposure to other specified factors, subsequent encounter | CPT/HCPCS: 97110; 97140 ==

== ENCOUNTER 2020-09-19 14:46 | Emergency (ER) | payer MEDICARE, MEDICAID, SELFPAY ==
[2020-09-19 15:02] VITALS: BP 130/79; PULSE 88; RESP 16; TEMP 37.2; O2SAT 94; BMI 41.3
[2020-09-19 16:27] VITALS: BP 128/89; PULSE 91; RESP 18; O2SAT 96
--- NOTE | 2020-09-19 16:27 | W.ED.BACK ---
Documented by User: TONY Hunt 09/19/20 16:46 HPI - Back Pain/Injury General: Chief Complaint: General Medical Stated Complaint: back pain, falls asleep while talking Time Seen by Provider: 09/19/20 16:24 Source: patient Mode of arrival: ambulatory Limitations: no limitations History of Present Illness: HPI Narrative: Patient is a 40-year-old morbidly obese female here for acute on chronic back pain. Patient tells me she suffers from chronic mid back pain. She states her pain today seems worse than normal. She has not had any acute injury or trauma to her back. She denies any radicular symptoms. She is not having any chest pain or shortness of breath. Patient tells me she takes oxycodone daily due to chronic pain in her right ankle/foot following a fracture. MD elicited complaint: back pain Pertinent past history: prior back pain Onset (ago): hour(s) Timing: constant Severity: severe Pain scale (0-10): 9 Similar Symptoms Previously: Yes Location: thoracic spine Radiation: none Exacerbating factors: movement Relieving factors: none Associated symptoms: Reports no associated symptoms; Deny abdominal pain, chills, difficulty walking, dysuria, fever(s) or urinary urgency Work related injury: No Review of Systems Const: Denies: fever(s) or chills Eyes: Denies: change in vision or blurry vision Card: Denies: chest pain, palpitations, irregular heart rhythm or lightheadedness Resp: Denies: dyspnea, productive cough, non-productive cough, hemoptysis or chest congestion GI: Denies: abdominal pain : Denies: flank pain, difficulty voiding, dysuria, urinary frequency or urinary urgency Musc: Reports: back pain; Denies: neck pain, extremity pain, extremity swelling, joint pain or joint swelling Skin/Breast: Denies: rash Neuro: Denies: headache(s), numbness in extremities, weakness in extremities, sensory changes or difficulty walking PFS ED PFSH: Medical History Anxiety Arrhythmia Reports tachycardia, although cannot tell me anything other than this. Beta-leeanne initiated for this. Chronic back pain Depression Hypothyroidism Surgical History History of History of cholecystectomy History of gastric bypass History of knee surgery History of tonsillectomy Family History Other Diabetes Social History Smoking and tobacco status: never smoked Alcohol intake: never Female Reproductive History: Date of last menstrual period: 09/05/20 Physical Exam Const: COMMON NORMALS: no acute distress, patient oriented x3, no limitations and alert GENERAL APPEARANCE: cooperative NUTRITIONAL APPEARANCE: obese morbidly obese ORIENTATION/CONSCIOUSNESS: Yes awake, Yes oriented to person, Yes oriented to place and Yes oriented to time HENMT: COMMON NORMALS: normocephalic and atraumatic HEAD & SCALP: normocephalic and atraumatic Resp: COMMON NORMALS: normal respiratory effort and clear to auscultation bilaterally AUSCULTATION: clear to auscultation bilaterally Cardio: COMMON NORMALS: regular rate and regular rhythm RATE: regular rate RHYTHM: regular rhythm GI: COMMON NORMALS: Normal to inspection, nondistended, normoactive bowel sounds present, Soft to palpation, non-tender, No hepatosplenomegaly present and no masses PALPATION: Yes Soft to palpation and Yes No hepatosplenomegaly present Back/Pelvis: COMMON NORMALS: thoracic and lumbar spine normal to inspection, no thoracic nor lumbar tenderness and thoraco-lumbar ROM normal THORACIC SPINE/UPPER BACK: Yes normal to inspection, Yes thoracic ROM normal, No thoracic spinal tenderness, Yes paraspinal muscle tenderness (this is where pt normally has pain ) Thoracic paraspinal muscle tenderness: bilateral and No paraspinal muscle spasm LUMBAR SPINE/LOWER BACK: Yes normal to inspection and Yes lumbar ROM normal OTHER: she is able to move around in the VF recliner seemingly w/o pain; she puts the leg rests up and down on her own; she is able to walk around the room and does not seem to be in much discomfort however rates her pain at a 9/10 Extremity: COMMON NORMALS: normal to inspection and full ROM GENERAL: Yes normal exam except as noted Neuro: COMMON NORMALS: patient oriented x3, moves all extremities, no focal motor deficits, no sensory deficits noted and gait normal SENSORIUM/ORIENTATION: Yes alert, Yes oriented to person, Yes oriented to place and Yes oriented to time Skin: COMMON NORMALS: no rashes or lesions noted GENERAL SKIN EXAM: no rashes or lesions noted Course Vital Signs: Vital signs: Vital Signs Temperature 98.9 F 09/19/20 15:02 Pulse Rate 80 09/19/20 18:19 Respiratory Rate 18 09/19/20 18:37 Blood Pressure 102/73 09/19/20 18:19 Pulse Oximetry 95 09/19/20 18:19 MDM - Back Pain/Injury Lab Data: Labs: Lab Results 09/19/20 Range/Units 18:00 Urine Color Yellow (Yellow) Urine Appearance Clear (CLEAR) Urine pH 5 (5-7) Ur Specific Gravit y 1.020 (1.005-1.030) Urine Protein Neg (Negative) Urine Glucose (UA) Norm (Normal) Urine Ketones Negative (Negative) Urine Blood Neg (Negative) Urine Nitrate Negative (Negative) Urine Bilirubin Neg (Negative) Urine Urobilinogen Norm (Negative) mg/dL Ur Leukocyte Shanita ase Negative (Negative) Discharge Plan Discharge Patient Disposition: Home Clinical Impression: Drowsiness Back pain Qualifiers: Back pain location: thoracic back pain Chronicity: unspecified Back pain laterality: unspecified Qualified Code(s): M54.6 - Pain in thoracic spine Condition: Stable Prescriptions: No Action (DME) Cam Walker See Rx Instructions .ROUTE .MEDSUPPLY Qty: 1 RF: 0 celecoxib [Celebrex] 200 mg capsule 200 mg PO DAILY Qty: 30 RF: 0 tramadol 50 mg tablet 50 mg PO BID PRN (Reason: pain) Qty: 10 RF: 0 lamotrigine 150 mg tablet 150 mg PO BID RF: 0 hydroxyzine pamoate 50 mg capsule 50 mg PO QID PRN (Reason: unknown) RF: 0 meloxicam 7.5 mg tablet 7.5 mg PO DAILY RF: 0 levothyroxine 88 mcg tablet 88 mcg PO DAILY RF: 0 iron 325 mg (65 mg iron) Tablet 325 mg PO DAILY RF: 0 metoprolol tartrate 50 mg tablet 50 mg PO BID RF: 0 gabapentin 300 mg capsule 300 mg PO TID RF: 0 buspirone 7.5 mg tablet 7.5 mg PO BID RF: 0 risperidone 1 mg tablet 3 mg PO BEDTIME RF: 0 escitalopram oxalate 20 mg tablet 20 mg PO DAILY RF: 0 baclofen 10 mg Tablet 10 mg PO TID PRN (Reason: Muscle Spasms) Qty: 20 RF: 0 oxycodone 5 mg tablet 5 mg PO Q4H Qty: 20 RF: 0 Discharge Orders: Discharge ED (Routine); Ordered 09/19/20 Ordered By: Justice Villavicencio Referrals: Charleen Lee FNP [Primary Care Provider] - Discharge Diet: Usual diet Discharge Activity: Increase activity as tolerated Patient Instructions: Back Pain (ED), Opioid Safety Activity Restrictions/Additional Instructions: Activity as tolerated. Gentle stretching and range of motion exercises. Discussed with primary care provider your medication list and trying to get medications decrease in order to decrease your drowsiness that you complained of all the time. Return to the emergency department for new concerns. Sign Out Sign Out Data: Patient Sign Out occurred on 09/19/20 at 17:18. Patient's care was discussed, and care was transferred from to Justice Villavicencio. Coding Level of Care Code ED Alberene Stone Setter for Chg Fwd Exam Comprehensive Documented by User: SILVANO Holley 09/19/20 18:55 HPI - Back Pain/Injury General: Chief Complaint: General Medical Stated Complaint: back pain, falls asleep while talking Time Seen by Provider: 09/19/20 16:24 [facility] ED PFSH: Medical History Anxiety Arrhythmia Reports tachycardia, although cannot tell me anything other than this. Beta-leeanne initiated for this. Chronic back pain Depression Hypothyroidism Surgical History History of History of cholecystectomy History of gastric bypass History of knee surgery History of tonsillectomy Family History Other Diabetes Social History Smoking and tobacco status: never smoked Alcohol intake: never Course ED course: 1749, reevaluated patient she continues to have some back pain but that has improved since medication was given. Patient is moves about any difficulty. Patient appears well. Patient appears in no acute distress. Patient reports that she has been having trouble staying awake. We will get a urine analysis to make sure there is no sign of any infection then plan to discharge patient with some muscle relaxer to help with her discomfort. Patient seems to have a muscle spasm in her back. Vital Signs: Vital signs: Vital Signs Temperature 98.9 F 09/19/20 15:02 Pulse Rate 80 09/19/20 18:19 Respiratory Rate 18 09/19/20 18:37 Blood Pressure 102/73 09/19/20 18:19 Pulse Oximetry 95 09/19/20 18:19 MDM - Back Pain/Injury MDM Narrative: Medical decision making narrative: 40-year-old female comes in today for complaints of mid back pain and drowsiness. On exam patient has some muscle tenderness in the mid back. No vertebral spine tenderness is noted. Patient moves all extremities well. Vital signs are normal. Differential diagnosis includes muscle spasm, chronic back pain with acute exacerbation, malingering, urinary tract infection, renal calculi. Urinalysis was clear. Patient was given medication for her pain with some improvement. Reviewed exam with patient with recommendations for follow-up with primary care regarding medications that may cause drowsiness. Also encourage patient to do gentle stretching and range of motion exercises. Discussed that patient is on various medications that can cause her drowsiness and that this may place her at risk with driving. Patient reported understanding of care plan and need for follow-up. Lab Data: Labs: Lab Results 09/19/20 Range/Units 18:00 Urine Color Yellow (Yellow) Urine Appearance Clear (CLEAR) Urine pH 5 (5-7) Ur Specific Gravit y 1.020 (1.005-1.030) Urine Protein Neg (Negative) Urine Glucose (UA) Norm (Normal) Urine Ketones Negative (Negative) Urine Blood Neg (Negative) Urine Nitrate Negative (Negative) Urine Bilirubin Neg (Negative) Urine Urobilinogen Norm (Negative) mg/dL Ur Leukocyte Shanita ase Negative (Negative) Discharge Plan Discharge Patient Disposition: Home Clinical Impression: Drowsiness Back pain Qualifiers: Back pain location: thoracic back pain Chronicity: unspecified Back pain laterality: unspecified Qualified Code(s): M54.6 - Pain in thoracic spine Condition: Stable Prescriptions: No Action (DME) Neo Walker See Rx Instructions .ROUTE .MEDSUPPLY Qty: 1 RF: 0 celecoxib [Celebrex] 200 mg capsule 200 mg PO DAILY Qty: 30 RF: 0 tramadol 50 mg tablet 50 mg PO BID PRN (Reason: pain) Qty: 10 RF: 0 lamotrigine 150 mg tablet 150 mg PO BID RF: 0 hydroxyzine pamoate 50 mg capsule 50 mg PO QID PRN (Reason: unknown) RF: 0 meloxicam 7.5 mg tablet 7.5 mg PO DAILY RF: 0 levothyroxine 88 mcg tablet 88 mcg PO DAILY RF: 0 iron 325 mg (65 mg iron) Tablet 325 mg PO DAILY RF: 0 metoprolol tartrate 50 mg tablet 50 mg PO BID RF: 0 gabapentin 300 mg capsule 300 mg PO TID RF: 0 buspirone 7.5 mg tablet 7.5 mg PO BID RF: 0 risperidone 1 mg tablet 3 mg PO BEDTIME RF: 0 escitalopram oxalate 20 mg tablet 20 mg PO DAILY RF: 0 baclofen 10 mg Tablet 10 mg PO TID PRN (Reason: Muscle Spasms) Qty: 20 RF: 0 oxycodone 5 mg tablet 5 mg PO Q4H Qty: 20 RF: 0 Discharge Orders: Discharge ED (Routine); Ordered 09/19/20 Ordered By: Justice Villavicencio Referrals: Charleen Lee FNP [Primary Care Provider] - Discharge Diet: Usual diet Discharge Activity: Increase activity as tolerated Patient Instructions: Back Pain (ED), Opioid Safety Activity Restrictions/Additional Instructions: Activity as tolerated. Gentle stretching and range of motion exercises. Discussed with primary care provider your medication list and trying to get medications decrease in order to decrease your drowsiness that you complained of all the time. Return to the emergency department for new concerns. Sign Out Sign Out Data: Patient Sign Out occurred on 09/19/20 at 17:18. Patient's care was discussed, and care was transferred from to Justice Villavicencio. Coding Level of Care Code ED Alberene Stone Setter for Rey Fwd Exam Comprehensive
[2020-09-19] MEDS: ketorolac 60 mg/2 mL INJ IM (16:37)
[2020-09-19] MEDS: orphenadrine 30 mg/mL Inj 2 mL 60 MG IM (16:40)
[2020-09-19 18:19] VITALS: BP 102/73; PULSE 80; RESP 18; O2SAT 95
[2020-09-19 18:37] VITALS: RESP 18
[2020-09-19] MEDS: oxyCODONE-APAP 10-325 mg Tablet 1 TAB PO (18:37)
[2020-09-19 18:47] LABS: Add Urine Microscopic? NO; Bilirubin Urine Neg (Negative); Blood Urine Neg (Negative); Glucose Urine UA Norm (Normal); Ketones Urine Negative (Negative); Leukocyte Esterase Urine Negative (Negative); Nitrate Urine Negative (Negative); Protein Urine Neg (Negative); Urine Appearance Clear (CLEAR); Urine Color Yellow (Yellow); Urobilinogen Urine Norm (Negative); pH Urine 5 (5-7)
== END 2020-09-19 18:58 | disposition home or self-care (01) ==
PROVIDERS: Emergency Provider Nurse Practitioner Family; PCP Nurse Practitioner Family
DX: M54.6 Pain in thoracic spine (principal); R40.0 Somnolence
CPT/HCPCS: 81003; 96372; 99283; J1885; J2360

== ENCOUNTER 2020-09-28 15:39 | Emergency (ER) | payer MEDICARE, MEDICAID, SELFPAY ==
--- NOTE | 2020-09-28 15:48 | ECG_ITS ---
[facility] Test Date: 2020-09-28 Pat Name: Abigail Restrepo Department: Room: Gender: Female International Representative: : 1980 Requested By: Prakash Callahan Order Number: [id number] Misha MD: Loni Winkler M.D. Measurements Intervals [place] Rate: 76 P: 41 CT: 167 QRS: 19 QRSD: 77 T: 29 QT: 401 QTc: 451 Interpretive Statements SINUS RHYTHM MINIMAL VOLTAGE CRITERIA FOR LVH, CONSIDER NORMAL VARIANT [MEETS CRITERIA IN ONE OF: R(aVL), S(V1), R(V5), R(V5/V6)+S(V1)] No previous ECG available for comparison Electronically Signed On 09-28-2020 19:38:40 REFERRAL RN by Loni Winkler M.D. [id number]
--- NOTE | 2020-09-28 15:48 | XRR_ITS ---
PROCEDURE INFORMATION: Exam: XR Chest Exam date and time: 09/28/2020 4:00 PM Age: 40 years old Clinical indication: Chest pain TECHNIQUE: Imaging protocol: XR of the chest Views: 1 view. COMPARISON: No relevant prior studies available. FINDINGS: Lungs: The lungs are clear. Pleural spaces: Unremarkable. No pleural effusion. No pneumothorax. Heart/Mediastinum: Unremarkable. No cardiomegaly. Bones/joints: Unremarkable. XR/XR chest 1V portable [id number] IMPRESSION: No acute cardiopulmonary abnormality.
[2020-09-28 15:51] VITALS: BP 108/77; PULSE 69; RESP 13; TEMP 36.6; O2SAT 94; BMI 41.3
[2020-09-28 16:05] LABS: Basophils # 0.1 10^3/uL (0.0-0.1); Basophils % 0.6 %; Eosinophils % 0.2 %; Hematocrit 38.7 % (37.0-47.0); Hemoglobin 12.7 g/dL (11.5-15.3); Lymphocytes # 1.9 10^3/uL (0.8-4.8); Lymphocytes % 21.3 %; Mean Corpuscular HGB Conc 32.8 g/dL (30.0-36.0); Mean Corpuscular Hemoglobin 30.8 pg (28.0-34.0); Mean Corpuscular Volume 93.7 fL (81-99); Mean Platelet Volume 9.1 fL (7.4-10.4); Monocytes # 0.7 10^3/uL (0.2-0.9); Monocytes % 7.8 %; Neutrophils # 6.22 10^3/uL (1.8-7.7); Neutrophils % 69.7 %; Nucleated Red Blood Cells % 0 %; Platelet Count 511 10^3/cmm (130-400); Red Blood Count 4.13 10^6/uL (4.1-5.3); Red Cell Distribution Width 14.7 % (12.1-15.1); White Blood Count 8.9 10^3/uL (4.0-10.0)
--- NOTE | 2020-09-28 16:14 | ED_ITS ---
HPI - Psych General: Chief Complaint: Psychiatric Symptoms Stated Complaint: CHEST PAIN; SOB; HEARING VOICES Time Seen by Provider: 09/28/20 15:45 History of Present Illness: HPI Narrative: -year-old female comes in complaining of chest pain that began overnight. She has chest pain left side of her chest associated with some shortness of breath she has really noticed any precipitating or relieving factors. She does have a history of schizophrenia she has been hearing voices more lately but this is not a new thing happens intermittently and has been going on for years. She does state they recently lowered her risperidone dose. She denies any suicidal homicidal ideation. She has no known history of heart disease. No fever sweats or chills she has not had any productive cough. PFSH ED PFSH: Social History (Updated 09/28/20 @ 16:00 by Bryan Addison RN) Smoking and tobacco status: never smoked Alcohol intake: never Substance/Drug Use: never MDM - Psych Lab Data: Labs: Lab Results 09/28/20 Range/Units 16:00 WBC 8.9 (4.0-10.0) 10^3/ uL RBC 4.13 (4.1-5.3) 10^6/u L Hgb 12.7 (11.5-15.3) g/dL Hct 38.7 (37.0-47.0) % MCV 93.7 (81-99) fL MCH 30.8 (28.0-34.0) pg MCHC 32.8 (30.0-36.0) g/dL RDW 14.7 (12.1-15.1) % Plt Count 511 H (130-400) 10^3/c mm MPV 9.1 (7.4-10.4) fL Neut % (Auto) 69.7 % Lymph % (Auto) 21.3 % [place] % (Auto) 7.8 % Eos % (Auto) 0.2 % Baso % (Auto) 0.6 % Neut # (Auto) 6.22 (1.8-7.7) 10^3/u L Lymph # (Auto) 1.9 (0.8-4.8) 10^3/u L [place] # (Auto) 0.7 (0.2-0.9) 10^3/u L Eos # (Auto) 0.0 (0.0-0.8) 10^3/u L Baso # (Auto) 0.1 (0.0-0.1) 10^3/u L Nucleated RBC % (a uto) 0 % Nucleated RBCs # 0.0 /100WBC Coding Level of Care Code ED Fleet Manager/Dispatch for Rey Gutierrez
--- NOTE | 2020-09-28 16:16 | ED_ITS ---
Documented by User: Prakash Morrison DO 09/30/20 06:57 HPI - Chest Pain General: Chief Complaint: Psychiatric Symptoms Stated Complaint: CHEST PAIN; SOB; HEARING VOICES Time Seen by Provider: 09/28/20 15:45 History of Present Illness: HPI narrative: 40-year-old female comes in complaining of chest pain that began overnight. She has chest pain left side of her chest associated with some shortness of breath she has really noticed any precipitating or relieving factors. She does have a history of schizophrenia she has been hearing voices more lately but this is not a new thing happens intermittently and has been going on for years. She does state they recently lowered her risperidone dose. She denies any suicidal homicidal ideation. She has no known history of heart disease. No fever sweats or chills she has not had any productive cough. She also reports recent change in taste and smell MD complaint: chest pain Onset (ago): week(s) Timing of current episode: episodic Onset: during rest and during exertion Pain location: left chest Pain radiation: none Severity: mild Quality: tightness and heaviness Relieving factors: nothing Exacerbating factors: nothing Associated symptoms: Reports dyspnea; Deny abdominal pain, diaphoresis, fever(s), leg edema, nausea, palpitations, sense of impending doom, syncope or vomiting Treatment prior to arrival: none Review of Systems Const: Denies: fever(s) or diaphoresis ENMT: Denies: throat pain, ear or mastoid pain, nasal discharge or nasal congestion Card: Denies: palpitations Resp: Reports: dyspnea GI: Denies: abdominal pain, nausea or vomiting : Denies: flank pain, difficulty voiding, dysuria, urinary frequency or urinary urgency Skin/Breast: Denies: rash or pruritus [facility] ED PFSH: Medical History (Updated 09/28/20 @ 18:57 by Mikey Mccurdy DO) Morbid obesity Schizophrenia Social History Smoking and tobacco status: never smoked Alcohol intake: never Physical Exam Const: COMMON NORMALS: no acute distress GENERAL APPEARANCE: cooperative and comfortable ORIENTATION/CONSCIOUSNESS: Yes awake, Yes oriented to person, Yes oriented to place and Yes oriented to time HENMT: COMMON NORMALS: normocephalic, atraumatic and hearing grossly normal bilaterally HEAD & SCALP: normocephalic and atraumatic Neck/C-Spine: COMMON NORMALS: no JVD Resp: COMMON NORMALS: normal respiratory effort, No retractions, No use of accessory muscles and clear to auscultation bilaterally AUSCULTATION: clear to auscultation bilaterally Cardio: COMMON NORMALS: no JVD, regular rate, regular rhythm and No murmurs present (Cardio) RATE: regular rate RHYTHM: regular rhythm GI: COMMON NORMALS: Soft to palpation and No hepatosplenomegaly present AUSCULTATION: Yes normoactive bowel sounds PALPATION: Yes Soft to palpation, No Tenderness to palpation present (GI), No Guarding due to palpation present (GI) and Yes No hepatosplenomegaly present Extremity: COMMON NORMALS: normal to inspection, capillary refill normal, no clubbing, cyanosis or edema, no calf tenderness and no pedal edema Neuro: SENSORIUM/ORIENTATION: Yes oriented to person, Yes oriented to place and Yes oriented to time Skin: COMMON NORMALS: no rashes or lesions noted GENERAL SKIN EXAM: no rashes or lesions noted Course Vital Signs: Vital signs: Vital Signs Temperature 98 F 09/28/20 15:51 Pulse Rate 82 09/28/20 19:13 Respiratory Rate 25 H 09/28/20 19:13 Blood Pressure 134/99 09/28/20 19:13 Pulse Oximetry 97 09/28/20 19:13 MDM - Chest Pain MDM Narrative: Medical decision making narrative: Care turned over to Dr. Parker at change of shift see his notes for final diagnosis and disposition. Lab Data: Labs: Lab Results 09/28/20 09/28/20 09/28/20 Range/Units 16:00 16:00 16:00 WBC 8.9 (4.0-10.0) 10^3/ uL RBC 4.13 (4.1-5.3) 10^6/u L Hgb 12.7 (11.5-15.3) g/dL Hct 38.7 (37.0-47.0) % MCV 93.7 (81-99) fL MCH 30.8 (28.0-34.0) pg MCHC 32.8 (30.0-36.0) g/dL RDW 14.7 (12.1-15.1) % Plt Count 511 H (130-400) 10^3/c mm MPV 9.1 (7.4-10.4) fL Neut % (Auto) 69.7 % Lymph % (Auto) 21.3 % [place] % (Auto) 7.8 % Eos % (Auto) 0.2 % Baso % (Auto) 0.6 % Neut # (Auto) 6.22 (1.8-7.7) 10^3/u L Lymph # (Auto) 1.9 (0.8-4.8) 10^3/u L [place] # (Auto) 0.7 (0.2-0.9) 10^3/u L Eos # (Auto) 0.0 (0.0-0.8) 10^3/u L Baso # (Auto) 0.1 (0.0-0.1) 10^3/u L Nucleated RBC % (a uto) 0 % Nucleated RBCs # 0.0 /100WBC Sodium 130 L (136-145) mmol/L Potassium 4.6 (3.5-5.1) mmol/L Chloride 95 L (98-107) mmol/L Carbon Dioxide 24 (22-29) mmol/L Anion Gap 15.6 (5-19) BUN 8 (6-20) mg/dL Creatinine 0.7 (0.5-0.9) mg/dL GFR Calculation 91.8 (90-130) mL/min Glucose 107 (65-115) mg/dL Calculated Osmolal ity 269 L (285-295) mOsm/k g Calcium 9.0 (8.5-10.5) mg/dL Total Bilirubin 0.3 (0.15-1.2) mg/dL AST 14 (0-32) U/L ALT 10 (0-33) U/L Alkaline Phosphata se 195 H (35-105) IU/L Troponin T Baselin e 6 (0-10) ng/L Troponin T 120 Min [place] (0-10) ng/L Delta Troponin T (0-10) ABS# Total Protein 7.0 (6.6-8.7) g/dL Albumin 4.0 (3.5-5.2) g/dL Globulin 3.0 (1.3-4.6) g/dL HCG, Qual (Negative) Urine Color Urine Appearance Urine pH Ur Specific Gravit y Urine Protein Urine Glucose (UA) Urine Ketones Urine Blood Urine Nitrate Urine Bilirubin Prot Sulfosalicyli c Acd Urine Urobilinogen Ur Leukocyte Shanita ase Salicylates < 0.3 L (3-10) mg/dL Acetaminophen 9.9 L (10-30) ug/mL 09/28/20 09/28/20 09/28/20 Range/Units 16:46 17:50 18:01 WBC (4.0-10.0) 10^3/ uL RBC (4.1-5.3) 10^6/u L Hgb (11.5-15.3) g/dL Hct (37.0-47.0) % MCV (81-99) fL MCH (28.0-34.0) pg MCHC (30.0-36.0) g/dL RDW (12.1-15.1) % Plt Count (130-400) 10^3/c mm MPV (7.4-10.4) fL Neut % (Auto) % Lymph % (Auto) % [place] % (Auto) % Eos % (Auto) % Baso % (Auto) % Neut # (Auto) (1.8-7.7) 10^3/u L Lymph # (Auto) (0.8-4.8) 10^3/u L [place] # (Auto) (0.2-0.9) 10^3/u L Eos # (Auto) (0.0-0.8) 10^3/u L Baso # (Auto) (0.0-0.1) 10^3/u L Nucleated RBC % (a uto) % Nucleated RBCs # /100WBC Sodium (136-145) mmol/L Potassium (3.5-5.1) mmol/L Chloride (98-107) mmol/L Carbon Dioxide (22-29) mmol/L Anion Gap (5-19) BUN (6-20) mg/dL Creatinine (0.5-0.9) mg/dL GFR Calculation (90-130) mL/min Glucose (65-115) mg/dL Calculated Osmolal ity (285-295) mOsm/k g Calcium (8.5-10.5) mg/dL Total Bilirubin (0.15-1.2) mg/dL AST (0-32) U/L ALT (0-33) U/L Alkaline Phosphata se (35-105) IU/L Troponin T Baselin e (0-10) ng/L Troponin T 120 Min [place] 6.00 (0-10) ng/L Delta Troponin T 0 (0-10) ABS# Total Protein (6.6-8.7) g/dL Albumin (3.5-5.2) g/dL Globulin (1.3-4.6) g/dL HCG, Qual Negative (Negative) Urine Color Cancelled Urine Appearance Cancelled Urine pH Cancelled Ur Specific Gravit y Cancelled Urine Protein Cancelled Urine Glucose (UA) Cancelled Urine Ketones Cancelled Urine Blood Cancelled Urine Nitrate Cancelled Urine Bilirubin Cancelled Prot Sulfosalicyli c Acd Cancelled Urine Urobilinogen Cancelled Ur Leukocyte Shanita ase Cancelled Salicylates (3-10) mg/dL Acetaminophen (10-30) ug/mL Discharge Plan Discharge Patient Disposition: Home Clinical Impression: Chest pain Qualifiers: Chest pain type: unspecified Qualified Code(s): R07.9 - Chest pain, unspecified Condition: Stable Prescriptions: No Action lamotrigine 150 mg tablet 150 mg PO BID RF: 0 tizanidine 4 mg tablet 4 mg PO TID PRN (Reason: Pain) RF: 0 hydroxyzine pamoate 50 mg capsule 50 mg PO QID PRN (Reason: Anxiety) RF: 0 meloxicam 7.5 mg tablet 7.5 mg PO BID RF: 0 levothyroxine 88 mcg tablet 88 mcg PO DAILY RF: 0 metoprolol tartrate 50 mg tablet 50 mg PO BID RF: 0 gabapentin 300 mg capsule 300 mg PO TID RF: 0 buspirone 7.5 mg tablet 7.5 mg PO BID RF: 0 risperidone 1 mg tablet 1 mg PO BEDTIME RF: 0 oxycodone 5 mg tablet 5 mg PO Q4H PRN (Reason: Pain) RF: 0 escitalopram oxalate 20 mg tablet 20 mg PO DAILY RF: 0 Discharge Orders: Discharge ED (Routine); Ordered 09/28/20 Ordered By: Mikey Mccurdy Discharge Diet: Advance as tolerated Discharge Activity: Increase activity as tolerated Patient Instructions: Chest Pain (ED) Activity Restrictions/Additional Instructions: Return for worsening chest pain, shortness of breath, fever greater than 100, other concerns peer you are going to be tested for COVID-19, and you should quarantine at home until you know those results are negative. Coding Level of Care Code ED Crop Setting Out Machine Operator for Chg Fwd Exam Comprehensive Documented by User: Mikey Mccurdy DO 09/29/20 06:42 HPI - Chest Pain General: Chief Complaint: Psychiatric Symptoms Stated Complaint: CHEST PAIN; SOB; HEARING VOICES Time Seen by Provider: 09/28/20 15:45 PFSH ED PFSH: Medical History (Updated 09/28/20 @ 18:57 by Mikey Mccurdy DO) Morbid obesity Schizophrenia Social History Smoking and tobacco status: never smoked Alcohol intake: never Course Vital Signs: Vital signs: Vital Signs Temperature 98 F 09/28/20 15:51 Pulse Rate 82 09/28/20 19:13 Respiratory Rate 25 H 09/28/20 19:13 Blood Pressure 134/99 09/28/20 19:13 Pulse Oximetry 97 09/28/20 19:13 MDM - Chest Pain MDM Narrative: Medical decision making narrative: 40-year-old female checked out to me by Dr. Morrison at shift change. This lady Has a history of schizophrenia, but she is here for chest pain. EKG is performed and shows a sinus rhythm with a rate of 80. Normal axis. There are Q waves in lead III and lead aVF. There are no acute ST changes otherwise. First troponin is 6 with a delta of 0 at 2 hours. Chest x-ray is negative. Laboratory is otherwise benign. She will be allowed discharge Lab Data: Labs: Lab Results 09/28/20 09/28/20 09/28/20 Range/Units 16:00 16:00 16:00 WBC 8.9 (4.0-10.0) 10^3/ uL RBC 4.13 (4.1-5.3) 10^6/u L Hgb 12.7 (11.5-15.3) g/dL Hct 38.7 (37.0-47.0) % MCV 93.7 (81-99) fL MCH 30.8 (28.0-34.0) pg MCHC 32.8 (30.0-36.0) g/dL RDW 14.7 (12.1-15.1) % Plt Count 511 H (130-400) 10^3/c mm MPV 9.1 (7.4-10.4) fL Neut % (Auto) 69.7 % Lymph % (Auto) 21.3 % [place] % (Auto) 7.8 % Eos % (Auto) 0.2 % Baso % (Auto) 0.6 % Neut # (Auto) 6.22 (1.8-7.7) 10^3/u L Lymph # (Auto) 1.9 (0.8-4.8) 10^3/u L [place] # (Auto) 0.7 (0.2-0.9) 10^3/u L Eos # (Auto) 0.0 (0.0-0.8) 10^3/u L Baso # (Auto) 0.1 (0.0-0.1) 10^3/u L Nucleated RBC % (a uto) 0 % Nucleated RBCs # 0.0 /100WBC Sodium 130 L (136-145) mmol/L Potassium 4.6 (3.5-5.1) mmol/L Chloride 95 L (98-107) mmol/L Carbon Dioxide 24 (22-29) mmol/L Anion Gap 15.6 (5-19) BUN 8 (6-20) mg/dL Creatinine 0.7 (0.5-0.9) mg/dL GFR Calculation 91.8 (90-130) mL/min Glucose 107 (65-115) mg/dL Calculated Osmolal ity 269 L (285-295) mOsm/k g Calcium 9.0 (8.5-10.5) mg/dL Total Bilirubin 0.3 (0.15-1.2) mg/dL AST 14 (0-32) U/L ALT 10 (0-33) U/L Alkaline Phosphata se 195 H (35-105) IU/L Troponin T Baselin e 6 (0-10) ng/L Troponin T 120 Min [place] (0-10) ng/L Delta Troponin T (0-10) ABS# Total Protein 7.0 (6.6-8.7) g/dL Albumin 4.0 (3.5-5.2) g/dL Globulin 3.0 (1.3-4.6) g/dL HCG, Qual (Negative) Urine Color Urine Appearance Urine pH Ur Specific Gravit y Urine Protein Urine Glucose (UA) Urine Ketones Urine Blood Urine Nitrate Urine Bilirubin Prot Sulfosalicyli c Acd Urine Urobilinogen Ur Leukocyte Shanita ase Salicylates < 0.3 L (3-10) mg/dL Acetaminophen 9.9 L (10-30) ug/mL 09/28/20 09/28/20 09/28/20 Range/Units 16:46 17:50 18:01 WBC (4.0-10.0) 10^3/ uL RBC (4.1-5.3) 10^6/u L Hgb (11.5-15.3) g/dL Hct (37.0-47.0) % MCV (81-99) fL MCH (28.0-34.0) pg MCHC (30.0-36.0) g/dL RDW (12.1-15.1) % Plt Count (130-400) 10^3/c mm MPV (7.4-10.4) fL Neut % (Auto) % Lymph % (Auto) % [place] % (Auto) % Eos % (Auto) % Baso % (Auto) % Neut # (Auto) (1.8-7.7) 10^3/u L Lymph # (Auto) (0.8-4.8) 10^3/u L [place] # (Auto) (0.2-0.9) 10^3/u L Eos # (Auto) (0.0-0.8) 10^3/u L Baso # (Auto) (0.0-0.1) 10^3/u L Nucleated RBC % (a uto) % Nucleated RBCs # /100WBC Sodium (136-145) mmol/L Potassium (3.5-5.1) mmol/L Chloride (98-107) mmol/L Carbon Dioxide (22-29) mmol/L Anion Gap (5-19) BUN (6-20) mg/dL Creatinine (0.5-0.9) mg/dL GFR Calculation (90-130) mL/min Glucose (65-115) mg/dL Calculated Osmolal ity (285-295) mOsm/k g Calcium (8.5-10.5) mg/dL Total Bilirubin (0.15-1.2) mg/dL AST (0-32) U/L ALT (0-33) U/L Alkaline Phosphata se (35-105) IU/L Troponin T Baselin e (0-10) ng/L Troponin T 120 Min [place] 6.00 (0-10) ng/L Delta Troponin T 0 (0-10) ABS# Total Protein (6.6-8.7) g/dL Albumin (3.5-5.2) g/dL Globulin (1.3-4.6) g/dL HCG, Qual Negative (Negative) Urine Color Cancelled Urine Appearance Cancelled Urine pH Cancelled Ur Specific Gravit y Cancelled Urine Protein Cancelled Urine Glucose (UA) Cancelled Urine Ketones Cancelled Urine Blood Cancelled Urine Nitrate Cancelled Urine Bilirubin Cancelled Prot Sulfosalicyli c Acd Cancelled Urine Urobilinogen Cancelled Ur Leukocyte Shanita ase Cancelled Salicylates (3-10) mg/dL Acetaminophen (10-30) ug/mL Discharge Plan Discharge Patient Disposition: Home Clinical Impression: Chest pain Qualifiers: Chest pain type: unspecified Qualified Code(s): R07.9 - Chest pain, unspecified Condition: Stable Prescriptions: No Action lamotrigine 150 mg tablet 150 mg PO BID RF: 0 tizanidine 4 mg tablet 4 mg PO TID PRN (Reason: Pain) RF: 0 hydroxyzine pamoate 50 mg capsule 50 mg PO QID PRN (Reason: Anxiety) RF: 0 meloxicam 7.5 mg tablet 7.5 mg PO BID RF: 0 levothyroxine 88 mcg tablet 88 mcg PO DAILY RF: 0 metoprolol tartrate 50 mg tablet 50 mg PO BID RF: 0 gabapentin 300 mg capsule 300 mg PO TID RF: 0 buspirone 7.5 mg tablet 7.5 mg PO BID RF: 0 risperidone 1 mg tablet 1 mg PO BEDTIME RF: 0 oxycodone 5 mg tablet 5 mg PO Q4H PRN (Reason: Pain) RF: 0 escitalopram oxalate 20 mg tablet 20 mg PO DAILY RF: 0 Discharge Orders: Discharge ED (Routine); Ordered 09/28/20 Ordered By: Mikey Mccurdy Discharge Diet: Advance as tolerated Discharge Activity: Increase activity as tolerated Patient Instructions: Chest Pain (ED) Activity Restrictions/Additional Instructions: Return for worsening chest pain, shortness of breath, fever greater than 100, other concerns peer you are going to be tested for COVID-19, and you should quarantine at home until you know those results are negative. Coding Level of Care Code ED Crop Setting Out Machine Operator for Rey Fwd Exam Comprehensive
[2020-09-28 16:30] LABS: Acetaminophen 9.9 ug/mL (10-30); Alanine Aminotransferase 10 U/L (0-33); Alkaline Phosphatase 195 IU/L (35-105); Blood Urea Nitrogen 8 mg/dL (6-20); Carbon Dioxide 24 mmol/L (22-29); Chloride 95 mmol/L (98-107); Creatinine Clr Calc Pharmacy 149.6134; Glomerular Filtration Rate 91.8 mL/min (90-130); Glucose 107 mg/dL (65-115); Osmolality Calculated 269 mOsm/kg (285-295); Sodium 130 mmol/L (136-145); Total Bilirubin 0.3 mg/dL (0.15-1.2)
[2020-09-28 16:31] LABS: Troponin(5th) Baseline 6 ng/L (0-10)
[2020-09-28 16:40] LABS: Anion Gap 15.6 (5-19); Salicylate < 0.3 mg/dL (3-10)
[2020-09-28 16:41] LABS: Aspartate Amino Transferase 14 U/L (0-32); Potassium 4.6 mmol/L (3.5-5.1)
[2020-09-28 16:59] LABS: HCG Qualitative Urine. Negative (Negative)
--- NOTE | 2020-09-28 17:48 | ECG_ITS ---
[facility] Test Date: 2020-09-28 Pat Name: Abigail Restrepo Department: Room: Gender: Female Reproducer: : 1980 Requested By: Prakash Calalhan Order Number: [id number] Misha MD: Loni Winkler M.D. Measurements Intervals [place] Rate: 80 P: 30 NM: 172 QRS: 10 QRSD: 81 T: 11 QT: 388 QTc: 449 Interpretive Statements SINUS RHYTHM MODERATE VOLTAGE CRITERIA FOR LVH, CONSIDER NORMAL VARIANT [MEETS CRITERIA IN ONE OF: R(aVL), S(V1), R(V5), R(V5/V6)+S(V1)] PROBABLE INFERIOR MYOCARDIAL INFARCTION , PROBABLY OLD [35 ms Q WAVE IN II/aVF] Compared to ECG 09/28/2020 15:59:32 Myocardial infarct finding now present Electronically Signed On 09-28-2020 19:45:00 [employer] LABORATORY TECHNICIAN by Loni Winkler M.D. [id number]
[2020-09-28 18:39] LABS: Troponin 5 2HR Delta 0 ABS# (0-10)
[2020-09-28 19:13] VITALS: BP 134/99; PULSE 82; RESP 25; O2SAT 97
[2020-09-30 14:30] LABS: Coronavirus Test Green County Not Detected
== END 2020-09-29 06:37 | disposition home or self-care (01) ==
PROVIDERS: Family Medicine; Emergency Provider Emergency Medicine
DX: R07.9 Chest pain, unspecified (principal); Z79.899 Other long term (current) drug therapy
CPT/HCPCS: 36415; 71045; 80053; 80307; 81003; 81025; 84484; 85025; 87635; 93005

== ENCOUNTER 2020-09-29 11:38 | Inpatient (IN) | payer MEDICARE, MEDICAID, SELFPAY ==
[2020-09-29 11:39] VITALS: BP 98/70; PULSE 75; RESP 20; TEMP 37.1; O2SAT 98; BMI 41.3
--- NOTE | 2020-09-29 11:43 | ED_ITS ---
HPI - Psych General: Chief Complaint: Psychiatric Symptoms Stated Complaint: ANXIETY Time Seen by Provider: 09/29/20 11:39 Source: patient and EMS Mode of arrival: EMS Limitations: no limitations History of Present Illness: HPI Narrative: 40-year-old female who has a long psychiatric history states that over the last week she has had increased anxiety and feeling very paranoid. She states she feels like there are people out to get her and feels like that throughout people are trying to kill her and she is becoming more more paranoid and upset about it. She denies any suicidal homicidal ideations. She denies any worsening improving factors. Denies any self-harm. Review of Systems Const: Denies: fever(s), chills, body aches or change in appetite Eyes: Denies: blurry vision or eye discomfort ENMT: Denies: throat pain or dental pain Card: Denies: chest pain Resp: Denies: dyspnea GI: Denies: abdominal pain, nausea, vomiting or diarrhea : Denies: dysuria Musc: Denies: neck pain or back pain Skin/Breast: Denies: rash Neuro: Denies: headache(s) Psych: Reports: paranoia Bryan/Lymph: Denies: easy bruising All/Imm: Denies: urticaria PFSH ED PFSH: Medical History Anxiety Arrhythmia Reports tachycardia, although cannot tell me anything other than this. Beta- leeanne initiated for this. Chronic back pain Depression Hypothyroidism Surgical History History of History of cholecystectomy History of gastric bypass History of knee surgery History of tonsillectomy Family History Other Diabetes Social History Smoking and tobacco status: never smoked Alcohol intake: never Female Reproductive History: Date of last menstrual period: 09/05/20 Physical Exam Const: COMMON NORMALS: no acute distress, patient oriented x3 and healthy appearing HENMT: COMMON NORMALS: normocephalic and atraumatic HEAD & SCALP: normocephalic and atraumatic Eye: COMMON NORMALS: Equal, round and reactive pupils present and EOMs intact bilaterally PUPIL: Yes Equal, round and reactive pupils present Neck/C-Spine: COMMON NORMALS: full ROM and supple Chest: COMMONS NORMALS: normal inspection of the chest and normal palpation of entire chest wall Resp: COMMON NORMALS: normal respiratory effort, No retractions, No use of accessory muscles and clear to auscultation bilaterally AUSCULTATION: clear to auscultation bilaterally Cardio: COMMON NORMALS: regular rate, regular rhythm and No murmurs present (Cardio) RATE: regular rate RHYTHM: regular rhythm GI: COMMON NORMALS: Normal to inspection, nondistended, normoactive bowel sounds present, Soft to palpation, non-tender and no masses PALPATION: Yes Soft to palpation Extremity: COMMON NORMALS: normal to inspection and full ROM Neuro: COMMON NORMALS: patient oriented x3, moves all extremities and no focal motor deficits Psych: COMMON NORMALS: mental status grossly normal and cooperative ATTITUDE: Yes paranoid THOUGHT CONTENT: Yes Hallucination(s) present Skin: COMMON NORMALS: no rashes or lesions noted and no wounds GENERAL SKIN EXAM: no rashes or lesions noted MDM - Psych MDM Narrative: Medical decision making narrative: Patient presents here with hallucinations and severe paranoia. Patient is voluntarily wanting to be admitted. Patient is well-appearing here and will admit. I spoke to Dr. Trujillo. Discharge Plan Discharge Prescriptions: No Action (DME) [facility] See Rx Instructions .ROUTE .MEDSUPPLY Qty: 1 RF: 0 celecoxib [Celebrex] 200 mg capsule 200 mg PO DAILY Qty: 30 RF: 0 tramadol 50 mg tablet 50 mg PO BID PRN (Reason: pain) Qty: 10 RF: 0 lamotrigine 150 mg tablet 150 mg PO BID RF: 0 hydroxyzine pamoate 50 mg capsule 50 mg PO QID PRN (Reason: unknown) RF: 0 meloxicam 7.5 mg tablet 7.5 mg PO DAILY RF: 0 levothyroxine 88 mcg tablet 88 mcg PO DAILY RF: 0 iron 325 mg (65 mg iron) Tablet 325 mg PO DAILY RF: 0 metoprolol tartrate 50 mg tablet 50 mg PO BID RF: 0 gabapentin 300 mg capsule 300 mg PO TID RF: 0 buspirone 7.5 mg tablet 7.5 mg PO BID RF: 0 risperidone 1 mg tablet 3 mg PO BEDTIME RF: 0 escitalopram oxalate 20 mg tablet 20 mg PO DAILY RF: 0 baclofen 10 mg Tablet 10 mg PO TID PRN (Reason: Muscle Spasms) Qty: 20 RF: 0 oxycodone 5 mg tablet 5 mg PO Q4H Qty: 20 RF: 0 Coding Level of Care Code ED Rail Car Mechanic for Chg Fwd Exam Comprehensive
[2020-09-29] MEDS: LORazepam 2 mg/mL INJ 1 mL IM (12:04)
--- NOTE | 2020-09-29 12:57 | PC.NURSE ---
Precautions After realizing patient was here yesterday on a new account, patient was swabbed for COVID19 via PCR [facility] with pending results. Staff notified and placed patient on quarantine at [id number]
[2020-09-29 13:43] LABS: Amphetamines Screen Urine Negative (Negative); Barbiturates Screen Urine Negative (Negative); Benzodiazepines Screen Urine Positive (Negative); Cocaine Screen Urine Negative (Negative); Opiate Screen Urine Negative (Negative); PCP Screen Urine Negative (Negative); THC Screen Urine Negative (Negative)
[2020-09-29 13:46] LABS: Basophils % 0.4 %; Hematocrit 41.1 % (37.0-47.0); Hemoglobin 13.3 g/dL (11.5-15.3); Lymphocytes # 1.5 10^3/uL (0.8-4.8); Lymphocytes % 13.3 %; Mean Corpuscular HGB Conc 32.4 g/dL (30.0-36.0); Mean Corpuscular Hemoglobin 30.5 pg (28.0-34.0); Mean Corpuscular Volume 94.3 fL (81-99); Mean Platelet Volume 9.1 fL (7.4-10.4); Monocytes # 0.8 10^3/uL (0.2-0.9); Monocytes % 7.3 %; Neutrophils # 8.65 10^3/uL (1.8-7.7); Neutrophils % 78.6 %; Nucleated Red Blood Cells % 0 %; Platelet Count 530 10^3/cmm (130-400); Red Blood Count 4.36 10^6/uL (4.1-5.3); Red Cell Distribution Width 14.9 % (12.1-15.1)
[2020-09-29 13:57] LABS: Acetaminophen 5.3 ug/mL (10-30); Alanine Aminotransferase 9 U/L (0-33); Alkaline Phosphatase 200 IU/L (35-105); Anion Gap 12.4 (5-19); Aspartate Amino Transferase 11 U/L (0-32); Blood Urea Nitrogen 9 mg/dL (6-20); Calcium 9.1 mg/dL (8.5-10.5); Carbon Dioxide 25 mmol/L (22-29); Chloride 96 mmol/L (98-107); Globulin 3.3 g/dL (1.3-4.6); Glomerular Filtration Rate 78.7 mL/min (90-130); Glucose 118 mg/dL (65-115); Osmolality Calculated 268 mOsm/kg (285-295); Potassium 4.4 mmol/L (3.5-5.1); Sodium 129 mmol/L (136-145); Total Bilirubin 0.5 mg/dL (0.15-1.2); Total Protein 7.3 g/dL (6.6-8.7)
[2020-09-29 14:01] LABS: Alcohol Level < 10 mg/dL (0-10); Salicylate < 0.3 mg/dL (3-10)
[2020-09-29 15:41] VITALS: BP 112/72; PULSE 72; RESP 16; O2SAT 97
[2020-09-29 16:02] VITALS: BP 91/63; PULSE 88; RESP 18; TEMP 36.8
[2020-09-29 16:11] VITALS: BP 112/72; PULSE 72; RESP 16; O2SAT 97
[2020-09-29] MEDS: acetaminophen 325 mg Tablet 650 MG PO ×2 (17:07→22:21)
[2020-09-29] MEDS: hyDROXYzine 25 mg Capsule 50 MG PO ×2 (18:06→20:02)
--- NOTE | 2020-09-29 18:07 | PC.NURSE ---
Addendum entered by Laureen Olson LPN 09/29/20 19:00: PRN MED EFFECTIVE NO FURTHER C/O ANXIETY CURRENTLY Original Note: PRN VISTARIL 50 MG GIVEN PO PER PT C/O STATED ANXIETY. PT STATED SHE TAKES VISTARIL AT HOME. ANXIOUS ABOUT BEING ON THE UNIT AND HAVING TO ISOLATE TO HER ROOM FOR POSSIBLE COVID PRECAUTIONS. PT DOES HAVE 1:1 SITTER PRESENT IN ROOM. WILL CONT TO MONITOR
--- NOTE | 2020-09-29 19:12 | PC.NURSE ---
Checked on the patient. She is awake, resting in bed. 1:1 sitter present in the room.
[2020-09-29 19:54] VITALS: BP 141/87; PULSE 92; RESP 18; TEMP 36.6; O2SAT 98
--- NOTE | 2020-09-29 20:00 | PC.NURSE ---
Pt offered trazodone 50mg for sleep and vistaril 50mg for anxiety at this time. pt stated she wanted to take both medications at this time. pt was noted to be anxious concerning pain medications for foot pain. pt was advised that tylenol was the strongest pain med that the doctor felt was necessary and that she had already been given that shortly after 1900. pt stated she understood.
[2020-09-29] MEDS: trazodone 50 mg Tablet PO (20:03)
--- NOTE | 2020-09-29 20:23 | PC.NURSE ---
Called Dr. Trujillo to complete medication reconciliation.
--- NOTE | 2020-09-29 21:54 | PC.NURSE ---
2044. Checked on the patient. She was awake in bed. Reviewed her current home meds. Let her know Dr. Trujillo wants no neuroleptic meds given until he dies H&P. She verbalized understanding.
--- NOTE | 2020-09-29 22:02 | PC.NURSE ---
Checked on the patient. She is resting in bed. 1:1 sitter in room.
--- NOTE | 2020-09-29 22:29 | PC.NURSE ---
pt given tylenol 650mg at this time per pt request for complaint of foot pain pt rated a 9 out of 10.
--- NOTE | 2020-09-29 22:58 | PC.NURSE ---
Checked on the patient. She is awake in the bed. 1:1 sitter in the room.
--- NOTE | 2020-09-30 00:58 | PC.NURSE ---
Checked on the patient. She is awake in bed. 1:1 sitter in the room.
--- NOTE | 2020-09-30 02:50 | PC.NURSE ---
0250. Checked on the patient. She is awake and in the bathroom. 1:1 sitter in the room.
--- NOTE | 2020-09-30 03:30 | PC.NURSE ---
The patient has been incontinent of stool. Clean scrubs given.
--- NOTE | 2020-09-30 04:02 | PC.NURSE ---
Checked on the patient. She is awake in bed. 1:1 sitter in the room.
[2020-09-30 06:00] VITALS: BP 141/87; PULSE 97; RESP 17; TEMP 36.6; O2SAT 96
--- NOTE | 2020-09-30 06:07 | PC.NURSE ---
Checked on the patient. She is awake in bed. Ice chips given per request. 1:1 sitter in the room.
[2020-09-30] MEDS: levothyroxine 88 mcg Tablet PO (06:24)
[2020-09-30] MEDS: acetaminophen 325 mg Tablet 650 MG PO ×2 (06:26→10:10)
[2020-09-30] MEDS: gabapentin 300 mg Capsule PO ×3 (08:19→20:28)
[2020-09-30] MEDS: metoprolol tartrate 50 mg Tablet PO ×2 (08:19→20:28)
[2020-09-30] MEDS: escitalopram 10 mg Tablet 20 MG PO (08:20)
[2020-09-30] MEDS: CELEcoxib 200 mg Capsule PO (08:20)
[2020-09-30] MEDS: baclofen 10 mg Tablet PO ×3 (08:21→20:28)
--- NOTE | 2020-09-30 12:29 | P.HP_ITS ---
Providers/Chief Complaint Admitting Physician: Imani Trujillo DO Primary Care Provider: SILVANO Hutchins Chief Complaint: ANXIETY HPI NPU History of Present Illness Abigail Restrepo is a 40 year old female with unclear past psychiatric history with multiple chronic medical issues to include chronic pain with recent concerns about hospital seeking and drug-seeking behavior presenting to the emergency department on multiple occasions over the past few days and at one point was deemed to be concerning for possible COVID despite a negative rapid test, still waiting for follow on test to result. Patient was medically cleared by the emergency department and deemed not to have any acute medical issues. Patient was seeking psychiatric hospitalization, stating that she has been experiencing auditory and visual hallucinations although she has difficulty detailing these perceptual disturbances reporting that she hears a couple of voices talking to each other about no particular topics and states that she occasionally sees a flashing light as a visual hallucination. Patient states that this just started within the past day or 2 with last episode occurring approximately 5 years ago under similar circumstances reporting that she had experienced a significant life stressor. Patient reports some family strain and dynamics with her adult daughter and leaving her home but denies any other stressors. Patient reports recent depressive symptoms but has some difficulty describing other aspects of neurovegetative signs, does not describe any changes in appetite or sleep or energy or motivation related to low mood states but reports that when she does experience low mood states that it can last from a few days to sometimes a couple weeks. She denies any past or recent suicidal ideation or thoughts about self-harm and denies any history of suicide attempts. Patient denies any past manic or hypomanic episodes but does report, mood swings, in which she abruptly becomes enraged and upset because of things going on that she does not agree with. She says when she has one of these outbursts that she typically feels better within several minutes. She denies any persistent irritability or pressured behaviors during the course of 1 of these events and denies any past or recent episodes of sustained elevated or expansive mood states, grandiosity, decreased need for sleep or pressured speech, denies any distractibility or any impulsive, reckless behavior. Stating that she supports herself on disability and has never blown through this money or use it responsibly or was unable to meet her obligations as a result of any mood states. She has been treated with multiple medications to include lamotrigine and most recently risperidone for these, mood swings. Patient reports questionable perceptual disturbances that are ill-defined only stating that she occasionally hears things. Reports only other episode being approximately 5 years ago at which time she had a significant life stressor which resulted in her also being hospitalized. Patient reports seeing primary care for medication management and reports having a good support system and per above, denies any other ongoing or acute life stressors. She denies the use of any alcohol, illicit drugs or any other substances. Review of Systems General: Reports: 10 or more systems reviewed and unremarkable except in HPI and below Meds NPU Home Medications Medication Instructions Recorded Confirmed Last Taken Type buspirone 7.5 mg PO TID 05/28/20 09/30/20 09/29/20 History escitalopram oxalate 20 mg PO DAILY 05/28/20 09/30/20 09/28/20 History gabapentin 300 mg PO TID 05/28/20 09/29/20 09/29/20 History levothyroxine 88 mcg PO DAILY@07 05/28/20 09/29/20 09/29/20 History metoprolol tartrate 50 mg PO BID 05/28/20 09/30/20 09/29/20 History baclofen 10 mg PO TID 09/30/20 09/30/20 Unknown History celecoxib 200 mg PO DAILY 09/30/20 09/30/20 Unknown History Allergies Allergy/AdvReac Type Severity Reaction Status Date / Time aspirin Allergy ALGY-Swell Verified 08/29/20 09:54 Lip/Tongue/Throat duloxetine [From Cymbalta] Allergy ADR-Agitate Verified 09/29/20 12:18 d PFSH NPU PFSH: Medical History Anxiety Arrhythmia Reports tachycardia, although cannot tell me anything other than this. Beta- leeanne initiated for this. Chronic back pain Depression Hypothyroidism Surgical History History of History of cholecystectomy History of gastric bypass History of knee surgery History of tonsillectomy Family History Other Diabetes Social History (Reviewed 09/30/20 @ 12:36 by DAVID Alcantar Smoking and tobacco status: never smoked Alcohol intake: never Other Psychiatric History: Other Psychiatric History: Reports past psychiatric hospitalization 5 years ago Currently managed by primary care for medication management Reports previous counseling but states that she has not received any recent counseling/therapy Denies any history of suicide attempts or self-harm behavior Mental Status Exam MSE Comments: Appears older than stated age, lying in bed, initially undressed from waist down but covers up, somewhat unkempt, wearing glasses, cooperative, calm, good eye contact Psychomotor activity is neither increased nor decreased, no agitation Speech is normal rate and volume, spontaneous, fair articulation, not pressured I feel okay, full range of affect, not labile Alert and oriented to person, place, time, situation Memory and concentration appear to be intact per interview Intellectual functioning appears to be average at best based on vocabulary, in terview Thought process, linear, no flight of ideas, no looseness of associations Thought content, no delusions, no hallucinations, no suicidal homicidal ideation Insight and judgment appear to be fair to intact Vitals/I&O/Wt Last Vital Signs Temp 98 F 09/30/20 06:00 Pulse 97 09/30/20 06:00 Resp 17 09/30/20 06:00 BP 141/87 09/30/20 06:00 Pulse Ox 96 09/30/20 06:00 Weight last 48 hrs Weight 127.006 kg Data NPU : 09/29/20 Unknown 09/29/20 Unknown A&P Assessment and plan (1) Depressive disorder: Status: Acute (2) Anxiety disorder: Status: Acute (3) Personality disorder, unspecified: Status: Acute Additional A&P Information Patient describes perceptual disturbances in the context of multiple recent ER visits with no mention of perceptual disturbances as well as anxiety symptoms, known hospital and drug-seeking behavior on multiple CUSTOM FRAMING SPECIALIST sedating medications reporting history of mood swings which she describes as abrupt short episodes of angry outbursts when things were not going the way she expects them to which quickly resolve with no sequela, no disorganization of speech, no disorg anization of thought, no disorganization of behavior. Patient does not appear to be internally preoccupied or attending to internal stimuli throughout clinical interview and does not appear to have any outward clinical stigmata of neurovegetative signs or current symptoms. Patient reports recent depressive and anxiety symptoms in the context of multiple somatic complaints and heightened awareness of wanting to be on multiple CUSTOM FRAMING SPECIALIST sedating medications for her many somatic complaints. Patient would benefit from observation and monitored tapering of psychiatric medication to include discontinuation of lamotrigine and risperidone while maintaining her Lexapro and buspirone targeting depressive and anxiety symptoms. Patient has no history of suicide attempts or suicidal ideation and currently does not endorse any suicidal ideation or thoughts about self-harm. Patient's presentation appears to be consistent with episodic mood and affect dysregulation likely influenced by her personality structure and external environment with the current unclear precipitating factor. VOLUNTARY ADMIT to inpatient psychiatry DISCONTINUE lamotrigine, unclear on last dosing, patient is also on gabapentin DISCONTINUE risperidone, unclear on last dosing, patient does not appear to have any ongoing psychotic symptoms with minimal to no complaints at this time CONTINUE Lexapro 20 mg daily targeting depressive and anxiety symptoms CONTINUE buspirone 7.5 mg 3 times daily targeting anxiety symptoms as well as augmenting antidepressant Patient would most benefit from outpatient therapy/counseling targeting the development of more adaptive coping strategies to help dealing with dysregulation of mood and affect in the context of situations in which her expectations do not match reality. Involuntary Hold Information 96 Hour Hold: 96 Hour Involuntary Admission: No Attestations NPU Medical Necessity Statement*: Require psychiatric hospitalization for medication stabilization, observation as well as coordination for safe discharge Anticipate hospital stay to exceed 2 midnights Time Spent in Patient Care: Greater than 35 minutes (>than 50% of time spent in counselling and/or direct pt care on unit) . Coding Level of Care Code Acute Bank Secrecy Act Officer for Rey Gutierrez Diagnoses Depressive disorder F32.9 Anxiety disorder F41.9 Personality disorder, unspecified F60.9
[2020-09-30 13:59] LABS: Alanine Aminotransferase 10 U/L (0-33); Albumin Level 3.9 g/dL (3.5-5.2); Alkaline Phosphatase 192 IU/L (35-105); Anion Gap 12.7 (5-19); Aspartate Amino Transferase 15 U/L (0-32); Blood Urea Nitrogen 15 mg/dL (6-20); Calcium 8.9 mg/dL (8.5-10.5); Carbon Dioxide 26 mmol/L (22-29); Chloride 93 mmol/L (98-107); Globulin 3.2 g/dL (1.3-4.6); Glomerular Filtration Rate 68.7 mL/min (90-130); Glucose 88 mg/dL (65-115); Osmolality Calculated 266 mOsm/kg (285-295); Potassium 3.7 mmol/L (3.5-5.1); Sodium 128 mmol/L (136-145); Total Bilirubin 0.3 mg/dL (0.15-1.2); Total Protein 7.1 g/dL (6.6-8.7)
[2020-09-30 14:00] VITALS: BP 125/87; PULSE 88; RESP 18; TEMP 36.5; O2SAT 93
--- NOTE | 2020-09-30 16:10 | PC.NURSE ---
COVID NEGATIVE, PER [facility] IN ER
[2020-09-30 20:21] VITALS: BP 106/72; PULSE 86; RESP 16; TEMP 36.7; O2SAT 95
[2020-09-30] MEDS: hyDROXYzine 25 mg Capsule 50 MG PO (20:27)
[2020-09-30] MEDS: trazodone 50 mg Tablet PO (20:28)
[2020-10-01 06:00] VITALS: BP 122/89; PULSE 88; RESP 17; TEMP 36.4; O2SAT 95
[2020-10-01] MEDS: acetaminophen 325 mg Tablet 650 MG PO ×2 (06:33→15:33)
[2020-10-01] MEDS: levothyroxine 88 mcg Tablet PO (06:33)
[2020-10-01] MEDS: baclofen 10 mg Tablet PO ×3 (07:47→19:31)
[2020-10-01] MEDS: escitalopram 10 mg Tablet 20 MG PO (07:47)
[2020-10-01] MEDS: gabapentin 300 mg Capsule PO ×3 (07:48→19:30)
[2020-10-01] MEDS: metoprolol tartrate 50 mg Tablet PO ×2 (07:48→19:30)
[2020-10-01] MEDS: CELEcoxib 200 mg Capsule PO (07:48)
[2020-10-01 14:00] VITALS: BP 116/80; PULSE 60; RESP 18; TEMP 35.8; O2SAT 98
--- NOTE | 2020-10-01 15:10 | P.PN_ITS ---
Subjective NPU Subjective: Interval history: Continues to report auditory hallucinations, states that she hears muffled sounds causing some distress, denies any visual destinations She denies any delusions Reports some improvement in her mood, decrease in depressed symptoms, denies any suicidal ideation Reports that her appetite is been good Reports that she has slept well, feels rested Reports being compliant with her medication and has tolerated medication changes with no reports of any medication side effects Mental Status Exam MSE Comments: Lying in bed, appropriately groomed and dressed, calm, cooperative, interactive, good eye contact Psychomotor activity is neither increased nor decreased, no agitation Speech is normal rate and volume, spontaneous, clear reticulation, not pressured I feel a little better, full range of affect, not labile Alert and oriented to person, place, time, situation Memory and concentration appear to be intact per interview Thought process, linear, no flight of ideas, no looseness of associations Thought content, no delusions, does not appear to be attending to any internal stimuli, no suicidal or homicidal ideation Insight and judgment appear to be intact Vitals/I&O/Wt Last Vital Signs Temp 96.4 F L 10/01/20 14:00 Pulse 60 10/01/20 14:00 Resp 18 10/01/20 14:00 BP 116/80 10/01/20 14:00 Pulse Ox 98 10/01/20 14:00 Data NPU : 09/29/20 Unknown 09/30/20 13:27 A&P Assessment and plan (1) Anxiety disorder: Status: Acute (2) Depressive disorder: Status: Acute (3) Personality disorder, unspecified: Status: Acute Additional A&P Information Continues to report auditory hallucinations, reports improving depressive symptoms, denies any interval suicidal ideation START risperidone 0.25 mg twice daily targeting auditory hallucinations CONTINUE other current medication Involuntary Hold Information 96 Hour Hold: 96 Hour Involuntary Admission: No Attestations NPU Medical Necessity Statement*: Continues require psychiatric hospitalization for medication stabilization, coordination for safe discharge Coding Level of Care Code Acute Chenille Machine Operator for Rey Gutierrez Diagnoses Anxiety disorder F41.9 Depressive disorder F32.9 Personality disorder, unspecified F60.9
[2020-10-01 18:08] LABS: Alanine Aminotransferase 9 U/L (0-33); Albumin Level 3.4 g/dL (3.5-5.2); Alkaline Phosphatase 166 IU/L (35-105); Anion Gap 14.7 (5-19); Aspartate Amino Transferase 13 U/L (0-32); Blood Urea Nitrogen 15 mg/dL (6-20); Calcium 8.6 mg/dL (8.5-10.5); Carbon Dioxide 24 mmol/L (22-29); Chloride 94 mmol/L (98-107); Globulin 3.1 g/dL (1.3-4.6); Glomerular Filtration Rate 68.7 mL/min (90-130); Glucose 210 mg/dL (65-115); Osmolality Calculated 275 mOsm/kg (285-295); Potassium 3.7 mmol/L (3.5-5.1); Sodium 129 mmol/L (136-145); Total Bilirubin 0.3 mg/dL (0.15-1.2); Total Protein 6.5 g/dL (6.6-8.7)
[2020-10-01] MEDS: risperiDONE 0.25 mg Tablet PO (19:31)
[2020-10-01 20:08] VITALS: BP 113/68; PULSE 75; RESP 20; TEMP 36.2; O2SAT 96
[2020-10-02] MEDS: acetaminophen 325 mg Tablet 650 MG PO ×2 (04:22→20:17)
[2020-10-02] MEDS: levothyroxine 88 mcg Tablet PO (04:23)
[2020-10-02 06:00] VITALS: BP 120/83; PULSE 97; RESP 16; TEMP 36.4; O2SAT 94
[2020-10-02] MEDS: gabapentin 300 mg Capsule PO ×3 (07:48→20:15)
[2020-10-02] MEDS: metoprolol tartrate 50 mg Tablet PO ×2 (07:48→20:15)
[2020-10-02] MEDS: escitalopram 10 mg Tablet 20 MG PO (07:49)
[2020-10-02] MEDS: risperiDONE 0.25 mg Tablet PO (07:49)
[2020-10-02] MEDS: baclofen 10 mg Tablet PO ×3 (07:49→20:15)
[2020-10-02] MEDS: CELEcoxib 200 mg Capsule PO (07:50)
--- NOTE | 2020-10-02 09:40 | PM.NPN ---
Subjective NPU Subjective: Interval history: Continues report auditory hallucinations, reports occasional sleep disturbances secondary to auditory hallucinations Decreased report of anxiety symptoms although appears to have some anxiety symptoms related ongoing auditory hallucinations Reports significant improvement in mood symptoms, decrease depressive symptoms, denies any interval suicidal ideation Reports being compliant with her medication, denies any medication side effects Per staff report, no interval behavioral disturbances Mental Status Exam MSE Comments: Lying in bed, calm, cooperative, interactive, good eye contact Psychomotor activity is neither increased nor decreased, no agitation Speech is normal rate and volume, spontaneous, not pressured Pretty good, full range of affect, not labile Alert and oriented to person, place, time, situation Memory and concentration appear to be intact per interview Thought process, linear, no flight of ideas, no looseness of associations Thought content, no delusions, does not appear to be attending to any internal stimuli, no suicidal or homicidal ideation Insight and judgment appear to be intact Vitals/I&O/Wt Last Vital Signs Temp 97.6 F 10/02/20 06:00 Pulse 97 10/02/20 06:00 Resp 16 10/02/20 06:00 BP 120/83 10/02/20 06:00 Pulse Ox 94 10/02/20 06:00 Data NPU : 09/29/20 Unknown 10/01/20 17:40 A&P Assessment and plan (1) Depressive disorder: Status: Acute (2) Anxiety disorder: Status: Acute Qualifiers: Anxiety disorder type: unspecified anxiety disorder Qualified Code(s): F41.9 - Anxiety disorder, unspecified (3) Personality disorder, unspecified: Status: Acute Additional A&P Information Reports improvement in mood, continues to report auditory destinations INCREASE to risperidone 0.5 mg twice daily targeting auditory hallucinations Involuntary Hold Information 96 Hour Hold: 96 Hour Involuntary Admission: No Attestations NPU Medical Necessity Statement*: Continues to require psychiatric hospitalization for medication stabilization Coding Level of Care Code Acute Health Technician for Rey Gutierrez Diagnoses Depressive disorder F32.9 Anxiety disorder F41.9 Anxiety disorder type: unspecified anxiety disorder Personality disorder, unspecified F60.9
[2020-10-02 14:00] VITALS: BP 124/84; PULSE 92; RESP 18; TEMP 36.2; O2SAT 97
[2020-10-02 19:50] VITALS: BP 95/61; PULSE 95; RESP 18; TEMP 36.2; O2SAT 93
[2020-10-02] MEDS: risperiDONE 0.25 mg Tablet 0.5 MG PO (20:15)
--- NOTE | 2020-10-02 21:21 | PC.NURSE ---
PM Assessment Pt is resting in her room, Heart/Lung Sounds WNL, Blood pressure is soft at 95/61. Pt reports pain in her right ankle that stays around a 6 on 1-10 pain scale. Med nurse notified. Pt received 650mg PO tylenol, foot is elevated with a pillow, minimal swelling in the joint, there is a small scabbed sore on the interior portion of the ankle, no s/s of infection noted. Pt reports continued paranoid thought, says I believe people are going to hurt me. Pt reports AH, stating I hear voices, I don't understand them, they are more like noise inside my head. Pt denies VH, states I have not seen anything like that since yesterday morning. Pt concerned that she will be discharged by physician to soon, states I do not feel that I am ready to go home yet. Pt denies SI/HI at this time.
--- NOTE | 2020-10-03 02:01 | PC.NURSE ---
SHOWER REFUSED OFFERED SHOWER, PT REFUSED. VAGINAL ODOR IS STRONG, PT SAID SHE HAD REDDNESS UNDER SKIN FOLDS, NOT COOPERATIVE, NEEDS TO SHOWER IN THE AM. PT AGREED TO DO THIS WITH MORNING STAFF
--- NOTE | 2020-10-03 03:44 | PC.NURSE ---
At approximately 20:10, while being assessed by the nurse, Patient was C/O right ankle pain. ( Rated 6 on a 1:10 scale ) Patient was given Tylenol 650mg PO. Extremity was elevated and Patient was offered Ice; although there was minimal swelling noted. Patient was reassessed 30 minutes later and was sleeping appearing to be in no discomfort.
[2020-10-03 06:00] VITALS: BP 114/80; PULSE 86; RESP 17; TEMP 36.4; O2SAT 97
--- NOTE | 2020-10-03 06:05 | PC.NURSE ---
Slept well pt slept well only waking to use restroom and come to nurses station for ice. No report of pain, calm, cooperative, returned to sleep
[2020-10-03] MEDS: levothyroxine 88 mcg Tablet PO (06:17)
[2020-10-03] MEDS: risperiDONE 0.25 mg Tablet 0.5 MG PO (07:33)
[2020-10-03] MEDS: metoprolol tartrate 50 mg Tablet PO (07:33)
[2020-10-03] MEDS: gabapentin 300 mg Capsule PO (07:34)
[2020-10-03] MEDS: CELEcoxib 200 mg Capsule PO (07:34)
[2020-10-03] MEDS: escitalopram 10 mg Tablet 20 MG PO (07:34)
[2020-10-03] MEDS: baclofen 10 mg Tablet PO (07:34)
[2020-10-03 10:14] VITALS: BP 114/80; PULSE 86; RESP 17; TEMP 36.4; O2SAT 97
--- NOTE | 2020-10-03 10:14 | PM.NDC ---
Diagnoses at Discharge Discharge Diagnosis (1) Depressive disorder: Status: Acute (2) Anxiety disorder: Status: Acute Qualifiers: Anxiety disorder type: unspecified anxiety disorder Qualified Code(s): F41.9 - Anxiety disorder, unspecified (3) Personality disorder, unspecified: Status: Acute Reason for Visit Reason for Visit: ANXIETY Hospital Course Hospital Course 38-year-old female with long standing psychiatric history presented with worsening anxiety symptoms and auditory hallucination presented to the emergency department requesting psychiatric hospitalization. Patient was on multiple ROUTE VENDING MACHINE SERVICER sedating medications and had also recently been on opioid pain medications postoperatively. Patient states that she did not recall events leading to her hospitalization or even recalled coming to the hospital at the time of her initial evaluation. She continues to report some auditory hallucinations which she did not appear to be in distress and did not appear to be attending to any internal stimuli. Patient was tapered off of lamotrigine but continued on her gabapentin. Risperidone was initially discontinued to observe for any perceptual disturbances and was subsequently titrated up to risperidone 0.5 mg twice daily targeting her auditory hallucinations and mood symptoms. Patient tolerated these medication changes well reporting some increase in alertness and denied any medication side effects. Patient mostly stayed in her room but participate in unit milieu with no reports of any behavioral disturbances. Patient was not suicidal or psychotic at the time of discharge and did not appear to pose an imminent threat of harm to self or others. Low to moderate risk of harm to self given no current suicidal ideation and no current psychotic symptoms other than reporting minimal auditory hallucinations although her risk may be elevated if she has subsequent episodes of confusion secondary to polypharmacy uses substances or alcohol, or is noncompliant with her medication, medication management follow-up leading to unexpected, impulsive behavior. Risk mitigation included psychiatric hospitalization, medication stabilization, recommendation to abstain from the use of any substances and alcohol while on psychiatric medication, compliance with her medication medication management follow-up. Patient was able to communicate her understanding of the need to abstain from the use of any substances or alcohol as well as the potential hazards of taking multiple ROUTE VENDING MACHINE SERVICER sedating medications which can cause altered mental status and psychomotor impairment as well as the need for compliance with her medication and medication management follow-up in order to further mitigate her risk of harm to self and others. Involuntary Hold Information 96 Hour Hold: 96 Hour Involuntary Admission: No Mental Status Exam MSE Comments: Appears stated age, appropriately groomed, wearing hospital attire, calm, cooperative, interactive, good eye contact Psychomotor activity is neither increased nor decreased, no agitation Speech is normal rate and volume, spontaneous, not pressured Good, full range of affect, not labile Alert and oriented to person, place, time, situation Memory and concentration appear to be intact per interview Thought process, linear, no flight of ideas, no looseness of associations Thought content, no delusions, does not appear to be attending to any internal stimuli, no suicidal or homicidal ideation Insight and judgment appear to be intact Discharge Data Vitals: Last Vital Signs Temp 97.5 F L 10/03/20 06:00 Pulse 86 10/03/20 06:00 Resp 17 10/03/20 06:00 BP 114/80 10/03/20 06:00 Pulse Ox 97 10/03/20 06:00 Discharge Plan Discharge Patient Disposition: Home Condition: Stable Prescriptions: New risperidone 0.25 mg Tablet 0.5 mg PO 0900,2100 Qty: 60 RF: 0 Continued baclofen 10 mg PO TID RF: 0 celecoxib 200 mg PO DAILY RF: 0 levothyroxine 88 mcg tablet 88 mcg PO DAILY@07 RF: 0 metoprolol tartrate 50 mg tablet 50 mg PO BID RF: 0 gabapentin 300 mg capsule 300 mg PO TID RF: 0 buspirone 7.5 mg tablet 7.5 mg PO TID RF: 0 escitalopram oxalate 20 mg tablet 20 mg PO DAILY RF: 0 Discharge Orders: Discharge Order (Routine); Ordered 10/03/20 Ordered By: Imani Trujillo Referrals: [facility] [Outside] - 4-7 days (Intake paperwork will be provided to you while at the hospital. Please complete and return to [facility] in [place] or [place] if you would like to receive services. ) Charleen Lee FNP [Primary Care Provider] - 10/15/20 3:10 pm (Hospital follow up) Discharge Diet: Regular Discharge Activity: Resume usual activity Patient Instructions: Risperidone (By mouth), Depression (DC) Discharge Attestations NPU Time Spent in Discharge Care*: greater than 30 min Status at Discharge: Cognitive status at discharge: cognitively intact, Behavioral status at discharge: cooperative, Functional status at discharge: independent ambulation Overall status at discharge: patient is back to baseline Coding Level of Care Code Acute Flight Engineer Manager for [facility] F[facility] Diagnoses Depressive disorder F32.9 Anxiety disorder F41.9 Anxiety disorder type: unspecified anxiety disorder Personality disorder, unspecified F60.9
--- NOTE | 2020-10-03 13:06 | PC.NURSE ---
Patient awaiting ride for discharge. Called patients daughter Martina who states Paola will be coming to pick patient up. Paola was notified at [phone] and states that it will be 1400 before she is able to pick Ponce Restrepo up. [facility], [facility]
== END 2020-10-03 14:50 | disposition home or self-care (01) | DRG 880 ==
LOC: ER 12:35 → NP 15:19
PROVIDERS: Emergency Medicine; Admitting Provider Psychiatry & Neurology Psychiatry; Emergency Provider Family Medicine; PCP Nurse Practitioner Family; Visit Provider Psychiatry & Neurology Psychiatry
DX: F41.9 Anxiety disorder, unspecified (principal); R44.0 Auditory hallucinations; F32.9 Major depressive disorder, single episode, unspecified; G89.29 Other chronic pain; M54.9 Dorsalgia, unspecified; E03.9 Hypothyroidism, unspecified; Z98.84 Bariatric surgery status; F60.9 Personality disorder, unspecified
CPT/HCPCS: 36415; 80053; 80306; 80307; 85025; 96372; 99285; J2060

== ENCOUNTER 2020-10-17 06:00 | Outpatient (RCR) | payer MEDICARE, MEDICAID, SELFPAY | END 2020-11-15 23:59 | disposition home or self-care (01) | LOC: MPT 06:00 | PROVIDERS: PCP Nurse Practitioner Family; Referring Provider Specialist; Visit Provider Specialist | DX: S82.871D Displaced pilon fracture of right tibia, subsequent encounter for closed fracture with routine healing (principal); S82.852D Displaced trimalleolar fracture of left lower leg, subsequent encounter for closed fracture with routine healing; X58.XXXD Exposure to other specified factors, subsequent encounter | CPT/HCPCS: 97110; 97116; 97140; 97530 ==

== ENCOUNTER 2021-02-10 15:18 | Inpatient (IN) | payer MEDICARE, MEDICAID, SELFPAY ==
[2021-02-10] VITALS (8 sets, daily range): BP systolic 80–119; BP diastolic 51–89; PULSE 83–99; RESP 15–18; TEMP 36.7–36.8; O2SAT 88–95; BMI 41.3
--- NOTE | 2021-02-10 15:43 | XR_ITS ---
WS: [id number] Exam: XR ankle LT 2V [id number] Date/Time of Exam: 02/10/2021 3:55 PM Reason For Exam: fall/deformity There is an oblique comminuted fracture of the lower metadiaphysis of the tibia. There is lateral dis placement of the distal fragment. The ankle mortise remains intact. XR/XR ankle LT 2V [id number] IMPRESSION: 1. Comminuted displaced fracture of the lower tibia only partially visualized.
--- NOTE | 2021-02-10 15:43 | XR_ITS ---
WS: [id number] Exam: XR tibia fibula LT 2V [id number] Date/Time of Exam: 02/10/2021 3:55 PM Reason For Exam: fall/deformity There is a comminuted oblique fracture of the lower metadiaphysis of the tibia. There is significant medial displacement of the upper fragment with about 20% apposition. There is also an oblique separat ed fracture of the proximal fibula. No dislocation noted. There is lateral rotation of the foot and a nkle. XR/XR tibia fibula LT 2V [id number] IMPRESSION: 1. Displaced comminuted fracture of the lower metadiaphysis of the tibia with l ateral rotation of the foot and ankle. 2. Oblique fracture of the proximal metadiaphysis of the fibula.
--- NOTE | 2021-02-10 15:43 | XR_ITS ---
WS: [id number] Exam: XR hip LT 2-3V wo/w pel* [id number] Date/Time of Exam: 02/10/2021 3:55 PM Reason For Exam: left hip pain. fall. WITH pelvis please. No fracture or dislocation noted. Mild DJD of the joint compartment. XR/XR hip LT 2-3V wo/w pel* [id number] IMPRESSION: 1. Mild DJD. No fracture.
--- NOTE | 2021-02-10 15:45 | XR_ITS ---
WS: [id number] Exam: XR chest 1V portable [id number] Date/Time of Exam: 02/10/2021 3:55 PM Reason For Exam: reduced breath sounds/ hypoxia/ covid exposure Comparison 09/28/2020. There are mild patchy infiltrates in the mid and lower right lung as well as the left lower lung zone . Cardiomediastinal structures are unremarkable. The lungs are fully inflated. No pleural effusions. Regional bony elements are intact. An opaque line superimposes the upper left abdomen and lower left chest. Significance is undetermined. XR/XR chest 1V portable [id number] IMPRESSION: 1. Mild patchy groundglass infiltrates in the mid and lower right lung and wit hin the left lower lobe. Pneumonia is considered likely. Covid pneumonia might be considered.
--- NOTE | 2021-02-10 15:51 | ECG_ITS ---
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 Measurements Intervals [place] Rate: 91 P: 23 NE: 151 QRS: 5 QRSD: 84 T: 20 QT: 365 QTc: 451 Interpretive Statements SINUS RHYTHM MODERATE VOLTAGE CRITERIA FOR LVH, CONSIDER NORMAL VARIANT [MEETS CRITERIA IN ONE OF: R(aVL), S(V1), R(V5), R(V5/V6)+S(V1)] PROBABLE INFERIOR MYOCARDIAL INFARCTION [35 ms Q WAVE IN II/aVF], PROBABLY OLD Compared to ECG 05/28/2020 06:44:26 Myocardial infarct finding now present Sinus arrhythmia no longer present Electronically Signed On 02-10-2021 22:07:47 CDT by Maria Vaughan M.D. [id number]
[2021-02-10] MEDS: sodium chloride 0.9% 1,000 ML 999 ML IV ×2 (16:28→19:19)
[2021-02-10 16:49] LABS: Basophils % 0.1 %; Eosinophils # 0.2 10^3/uL (0.0-0.8); Eosinophils % 2.2 %; Hematocrit 40.9 % (37.0-47.0); Hemoglobin 12.8 g/dL (11.5-15.3); Lymphocytes # 1.4 10^3/uL (0.8-4.8); Lymphocytes % 17.4 %; Mean Corpuscular HGB Conc 31.3 g/dL (30.0-36.0); Mean Corpuscular Hemoglobin 28.1 pg (28.0-34.0); Mean Corpuscular Volume 89.9 fL (81-99); Mean Platelet Volume 10.8 fL (7.4-10.4); Monocytes # 0.6 10^3/uL (0.2-0.9); Monocytes % 7.1 %; Neutrophils # 5.68 10^3/uL (1.8-7.7); Neutrophils % 72.9 %; Nucleated Red Blood Cells % 0 %; Platelet Count 395 10^3/cmm (130-400); Red Blood Count 4.55 10^6/uL (4.1-5.3); Red Cell Distribution Width 14.3 % (12.1-15.1); White Blood Count 7.8 10^3/uL (4.0-10.0)
[2021-02-10 16:59] LABS: ABG PCO2 42.5 mmHg (35-45); ABG PH Result 7.42 (7.35-7.45); Arterial Blood Gas Hematocrit 36.9 % (37-47); Base Excess ABG 2.6 mmol/L (-2.0-2.0); Blood Gas Allen Test Pos; Blood Gas Operator Identificat GD; Blood Gas Sample Site Radial, left; Blood Gas Sample Type Arterial; Carboxyhemoglobin 0.7 %THgb (0.4-20.1); HCO3 ABG 27.5 mmol/L (22-26); HGB O2 Sat 91.6 % (95-100); Methemoglobin 0.8 % (0.4-1.5); Oxygen Device NC; PO2 ABG 64.1 mmHg (80.0-100.0); Total Hemoglobin 12.1 g/dL (12-16)
[2021-02-10 17:15] LABS: SARS Covid-2 Antigen Negative (Negative)
[2021-02-10 17:36] LABS: HCG, Serum Qual Negative (Negative)
[2021-02-10 17:38] LABS: Troponin(5th) Baseline 8 ng/L (0-10)
[2021-02-10 17:39] LABS: Lactic Sepsis W/Reflex 1.9 mmol/L (0.5-2.2)
[2021-02-10 17:42] LABS: D Dimer 4.26 ug/mIFEU (0-0.59)
[2021-02-10] MEDS: levofloxacin-dextrose 5 % 750 MG/150 ML PREMIX 100 MG IV (17:43)
[2021-02-10 18:01] LABS: Alanine Aminotransferase 36 U/L (0-33); Albumin Level 3.4 g/dL (3.5-5.2); Alkaline Phosphatase 277 IU/L (35-105); Anion Gap 16.3 (5-19); Aspartate Amino Transferase 34 U/L (0-32); Blood Urea Nitrogen 27 mg/dL (6-20); Calcium 7.9 mg/dL (8.5-10.5); Carbon Dioxide 27 mmol/L (22-29); Chloride 102 mmol/L (98-107); Globulin 3.2 g/dL (1.3-4.6); Glomerular Filtration Rate 49.3 mL/min (90-130); Glucose 165 mg/dL (65-115); NT Pro B Type Natriuretic Pept 86 pg/mL (0-125); Osmolality Calculated 303 mOsm/kg (285-295); Potassium 3.3 mmol/L (3.5-5.1); Sodium 142 mmol/L (136-145); Thyroid Stimulating Hormone 6.16 uIU/mL (0.27-4.20); Total Bilirubin 0.5 mg/dL (0.15-1.2); Total Protein 6.6 g/dL (6.6-8.7)
--- NOTE | 2021-02-10 18:40 | CTR_ITS ---
PROCEDURE INFORMATION: Exam: CTA Chest With Contrast Exam date and time: 02/10/2021 6:40 PM Age: 40 years old Clinical indication: Shortness of breath; Additional info: Covid, SOB TECHNIQUE: Imaging protocol: Computed tomographic angiography of the chest with contrast. 3D rendering (Not supervised by radiologist): MIP and/or 3D reconstructed images were created by the technologist. Radiation optimization: All CT scans at this facility use at least one of these dose optimization techniques: automated exposure control; mA and/or kV adjustment per patient size (includes targeted exams where dose is matched to clinical indication); or iterative reconstruction. Contrast material: OMNI 350; Contrast volume: 70 ml; Contrast route: INTRAVENOUS (IV); COMPARISON: CR XR chest 1V portable [id number] 02/10/2021 4:04 PM RADIATION DOSE METRICS: Total DLP (mGy-cm): 543.06 FINDINGS: Pulmonary arteries: The pulmonary arteries are adequately opacified for evaluation to the subsegmental level. There is no filling defect to suggest embolism. Aorta: The aorta is unremarkable. There is no aneurysm. Lungs: There is severe bilateral lung disease characterized by patchy ground-glass and reticular opacities. Pleural spaces: There is no pleural effusion or pneumothorax. Heart: Heart size is normal. There is no pericardial effusion. Lymph nodes: Unremarkable. No enlarged lymph nodes. Bones/joints: Bones are unremarkable. Soft tissues: The extrathoracic soft tissues are unremarkable. Other findings: Visible structures in the upper abdomen are unremarkable. CT/CT angio chest PE protcl [id number] IMPRESSION: 1. No pulmonary embolism. 2. Severe bilateral lung disease. Commonly reported imaging features of COVID-19 pneumonia are present. Other processes such as influenza pneumonia and organizing pneumonia (as can be seen with drug toxicity and connective tissue disease), can produce a similar imaging pattern. Radiation Dose CTDIVOL = (mGy): DLP = 543.06 (mGy-cm)
--- NOTE | 2021-02-10 18:40 | P.HP_ITS ---
Providers/Chief Complaint Primary Care Provider: SILVANO Hutchins Chief Complaint: FALL, DIZZY History of Present Illness Abigail Restrepo is a 40 year old female with past medical history of anxiety, depression multiple fractures of the leg in the past presented to the ER today after having a mechanical fall when she was walking in the kitchen. Patient stated just prior to the fall she has turned around and denies dizziness after which she tripped. Patient has known exposure to COVID-19 with boyfriend being treated for COVID-19 for last 1 week. Patient denies any nausea vomiting, headache, difficulty in breathing but does complain of myalgia, tiredness, lethargy for last 3 days. States she has not checked her fever in the past. She denies any dizziness at present. On presentation to the ER patient's blood pressure is 80/60 mmHg. Patient has received 2 L of fluid bolus over 2 hours with blood pressure improvement to 83 systolics. She denies any dizziness or headache or chest pain. Blood work in the ER showed white count 7.8, hemoglobin of 12.8, D-dimer of 4.1, ABG showing a pH of 7.4, PO2 of 64 on 2 L oxygen supplementation, chemistry showing sodium 142, potassium 3.2, creatinine of 1.2, BUN of 27, AST/ALT 24/36, ALP of 266, TSH of 6.16, UA negative for any signs of infection. Chest x-ray, fibula x-ray as below. Review of Systems General: Reports: 10 or more systems reviewed and unremarkable except in HPI and below Const: Denies: fever(s), chills, body aches, change in appetite, change in weight, malaise, night sweats, diaphoresis, change in sleep pattern, daytime sleepiness or snoring Eyes: Denies: change in vision, blurry vision, photophobia, eye discomfort or eye discharge ENMT: Denies: throat pain, enlarged tonsils, hoarseness, mouth pain, oral sores, dry mouth, tinnitus, nasal congestion or post nasal drip Card: Denies: chest pain, palpitations, irregular heart rhythm, edema, swelling of feet/ankles, lightheadedness, syncope, pre-syncope, dyspnea on exertion, orthopnea, leg pain with exertion or acrocyanosis Resp: Denies: dyspnea, productive cough, non-productive cough, wheezing, stridor, pain on inspiration, change in phlegm color, hemoptysis or chest congestion GI: Denies: abdominal pain, nausea, vomiting, hematemesis, coffee ground emesis, dysphagia, heartburn, diarrhea, constipation, bloating, GI cramping, change in bowel habits, pain on defecation, hematochezia or melena : Denies: flank pain, dysuria, urinary frequency, urinary urgency, urinary hesitancy, nocturia or hematuria Musc: Denies: neck pain, back pain, extremity pain, joint pain, joint swelling, joint redness, joint stiffness or limited range of motion Neuro: Denies: headache(s), numbness in extremities, weakness in extremities, sensory changes, lack of coordination, difficulty walking, frequent falls, dizz iness, vertigo, confusion, Slurred speech present, difficulty communicating thoughts or seizure-like activity Psych: Denies: anxiety, depression, mood swings, panic attacks, hopelessness or irritability Endo: Denies: polyuria, polydipsia, tired all the time, cold intolerance, excessive sweating, flushing or heat intolerance Bryan/Lymph: Denies: easy bruising or easy bleeding All/Imm: Denies: tongue swelling, facial swelling or acute wheezing Medications/Allergies Home Medications Medication Instructions Recorded Confirmed Last Taken Type buspirone 7.5 mg PO TID 05/28/20 02/10/21 02/10/21 History escitalopram oxalate 20 mg PO DAILY 05/28/20 02/10/21 02/10/21 History levothyroxine 88 mcg PO DAILY@07 05/28/20 02/10/21 02/10/21 History metoprolol tartrate 50 mg PO BID 05/28/20 02/10/21 02/10/21 History aripiprazole 2 mg PO DAILY 02/10/21 02/10/21 02/10/21 History etodolac 400 mg PO BID 02/10/21 02/10/21 02/10/21 History gabapentin 400 mg PO TID 02/10/21 02/10/21 02/10/21 History gabapentin 800 mg PO TID 02/10/21 02/10/21 02/10/21 History hydroxyzine pamoate 50 mg PO Q4H PRN 02/10/21 02/10/2102/10/21 History lamotrigine 150 mg PO BID 02/10/21 02/10/21 02/10/21 History oxycodone 10 mg PO Q6H PRN 02/10/21 02/10/21 02/10/21 History risperidone 1 mg PO BID 02/10/21 02/10/21 02/10/21 History tizanidine 2 mg PO Q6H PRN 02/10/21 02/10/21 02/10/21 History Allergies Allergy/AdvReac Type Severity Reaction Status Date / Time aspirin Allergy ALGY-Swell Verified 08/29/20 09:54 Lip/Tongue/Throat duloxetine [From Cymbalta] Allergy ADR-Agitate Verified 09/29/20 12:18 d PFSH Acute PFSH: Medical History Anxiety Arrhythmia Reports tachycardia, although cannot tell me anything other than this. Beta- leeanne initiated for this. Chronic back pain Depression Hypothyroidism Surgical History History of History of cholecystectomy History of gastric bypass History of knee surgery History of tonsillectomy Family History Other Diabetes Social History Smoking and tobacco status: never smoked Alcohol intake: never Female Reproductive History: Date of last menstrual period: 09/05/20 Vitals/I&O/Wt Last Vital Signs Temp 98.3 F 02/10/21 15:47 Pulse 99 02/10/21 17:00 Resp 15 02/10/21 17:00 BP 83/61 02/10/21 17:00 Pulse Ox 95 02/10/21 17:00 02/10/21 02/10/21 02/10/21 06:59 14:59 22:59 Intake Total 1000 / 1000 Balance 1000 / 1000 Weight last 48 hrs Weight 127.006 kg Physical Exam Narrative: EXAM NARRATIVE: General: acute distress due to pain, AO x3, on 2 L oxygen supplementation HEENT: PERRLA, pupils bilaterally equal and reactive Chest: Normal vesicular breath sounds, no added sounds, equal good air entry bilaterally CVS: S1-S2 regular, no murmurs, no tachycardia, no gallops, no rubs Abdomen: Soft, nontender, no organomegaly, bowel sounds present Neuro: No focal deficits, no facial deformity, AO x3, power 5/5 in all limbs Data : 02/11/21 05:36 02/11/21 05:36 Micro: Microbiology 02/10/21 17:08 Blood Culture - Preliminary Blood SPECIMEN COLLECTED 02/10/21 17:05 Blood Culture - Preliminary Blood SPECIMEN COLLECTED A&P Assessment and plan (1) Open tibial fracture: Status: Acute (2) SAM (acute kidney injury): Status: Acute (3) Hypotension: Status: Acute (4) Exposure to COVID-19 virus: Status: Acute (5) Hypoxia: Status: Acute (6) Dehydration: Status: Acute (7) Transaminitis: Status: Acute Additional A&P Information Trimalleolar fracture of the left ankle: Open fracture: Dr. Hartman from orthopedics has been consulted from the ER. Plan 2 OR tomorrow. Pain medication, physical therapy, anticoagulation as per orthopedics. N.p.o. after midnight. SAM: Most likely secondary to dehydration and pain medications. Bolus 2 more liters. NS at 100 cc/hr. Medrec done for nephrotoxic drugs. Monitor BMP daily. Hypotension: Most likely secondary dehydration. We will continue to monitor. Transaminitis: Could be secondary to fractures. Hepatitis panel, drug screen, HIV, liver ultrasound. Exposure to COVID-19: Requiring 2 L oxygen supplementation. Check COVID-19 PCR. Isolation precautions. Advair, Spiriva. Vitamin C, zinc. If COVID-19 PCR comes back positive will start on remdesivir and dexamethasone. Currently patient is requiring minimal oxygen supplementation most likely secondary to pain and pain medications. We will continue to monitor and change treatment accordingly. Hypothyroidism: Check free T3, free T4. For now continue with home dose of levothyroxine. Will uptitrate dose as per free T3 and free T4 levels. Full code. Regular diet. N.p.o. after midnight. Anticoagulation as per orthopedics team. Attestations Medical Necessity Statement*: Admission for more than 2 midnights for open fracture, exposure to COVID-19, SAM, hypotension Time Spent in Patient Care: Greater than 35 minutes (>than 50% of time spent in counselling and/or direct pt care on unit) . Coding Level of Care Code Acute Continuous Washer Operator for Chg Fwd Diagnoses Open tibial fracture S82.209B SAM (acute kidney injury) N17.9 Hypotension I95.9 Exposure to COVID-19 virus Z20.822 Hypoxia R09.02 Dehydration E86.0 Transaminitis R74.01
--- NOTE | 2021-02-10 19:05 | CTR_ITS ---
PROCEDURE INFORMATION: Exam: CTA Angiogram of the Abdominal Aorta and Bilateral Lower Extremities (Run-off) With IV Contrast Exam date and time: 02/10/2021 7:05 PM Age: 40 years old Clinical indication: Injury or trauma; Fall; Fracture, traumatic; Prior surgery; Surgery type: Gb, gastric bypass, right ankle; Additional info: Check limb ischemia tib/fib fracture TECHNIQUE: Imaging protocol: CT angiogram of the abdominal aorta, pelvis and bilateral lower extremities with IV iodinated contrast. 3D rendering (Not supervised by radiologist): MIP and/or 3D reconstructed images were created by the technologist. Radiation optimization: All CT scans at this facility use at least one of these dose optimization techniques: automated exposure control; mA and/or kV adjustment per patient size (includes targeted exams where dose is matched to clinical indication); or iterative reconstruction. Contrast material: OMNI 350; Contrast volume: 95 ml; Contrast route: INTRAVENOUS (IV); COMPARISON: CT angio chest PE protcl [id number] 02/10/2021 8:08 PM RADIATION DOSE METRICS: Total DLP (mGy-cm): 2397.15 FINDINGS: Tubes, catheters and devices: The Thomas catheter is appropriately positioned with the bulb and tip within the bladder lumen. Aorta: The abdominal aorta is normal. There is no aneurysm or dissection. Celiac trunk and mesenteric arteries: No occlusion or significant stenosis. Renal arteries: No occlusion or significant stenosis. Right iliac arteries: No occlusion or significant stenosis. Right femoral/popliteal arteries: No occlusion or significant stenosis. Right infrapopliteal arteries: There is patent 3 vessel runoff to the right foot. Left iliac arteries: No occlusion or significant stenosis. Left femoral/popliteal arteries: No occlusion or significant stenosis. Left infrapopliteal arteries: There is patent 3 vessel runoff to the left foot. Lungs: There is multifocal opacity in both lung bases. See chest CT report for further detail. Liver: There is no focal liver abnormality. There is diffuse low-attenuation of the liver relative to the spleen consistent with fatty infiltration. Gallbladder and bile ducts: The gallbladder is absent. There is no intrahepatic or extrahepatic bile duct dilation. Pancreas: The pancreas is unremarkable. Spleen: The spleen is unremarkable. Adrenals: The adrenal glands are unremarkable. Kidneys and ureters: The kidneys are unremarkable. No hydronephrosis or stones. No ureteral dilation. Stomach and bowel: There is a Vicky-en-Y gastric bypass without apparent complications. The small bowel is nondilated. The colon is unremarkable. Appendix: The appendix is normal. Bladder: The urinary bladder is decompressed, preventing meaningful evaluation of wall thickness. Reproductive: The uterus is unremarkable. There is no adnexal mass or large cyst. Intraperitoneal space: There is no free air or significant intraperitoneal free fluid. Lymph nodes: There is no lymphadenopathy in the retroperitoneum, mesentery, pelvis or inguinal regions. Bones/joints: There is a comminuted displaced fracture of the left distal tibial diametaphysis. There is an osseous body adjacent to the tip of the left lateral malleolus. Fixation plates and screws are seen in the distal tibia and fibula on the right. There is a nondisplaced right proximal fibular fracture. There is a nondisplaced left proximal fibular fracture. There is a comminuted left distal tibial fracture. There is a nondisplaced fracture through the proximal articular surface of the left proximal 1st phalanx. The lumbar spine and pelvis are unremarkable. Soft tissues: There is trace soft tissue gas and subcutaneous edema associated with the laceration in the anterolateral left distal lower left leg. The abdominal wall is intact. CT/CT angio abd aorta runof [id number] IMPRESSION: 1. No arterial stenosis, occlusion or aneurysm in the abdomen, pelvis or lower extremities. 2. Acute fractures of the left distal tibia and proximal fibula. Suspect chronic fracture of the left distal fibula. 3. Acute fracture of the left proximal 1st phalanx. 4. Age indeterminate fracture of the right proximal fibula. Radiation Dose CTDIVOL = (mGy): DLP = 2397.15 (mGy-cm)
[2021-02-10] MEDS: ceFAZolin 1,000 MG in sodium chloride 0.9% (plus) 50 ML 100 MG IV (19:18)
[2021-02-10 19:26] LABS: C Reactive Protein 39.3 mg/L (0.0-4.9); Creatine Phosphokinase 69 U/L (26-192); Ferritin 612 ng/mL (15-150); Iron 53 ug/dL (37-145); Percent Saturation 26.1 % (20-50); Total Iron Binding Capacity 203 mcg/dl; Unsaturated Iron Binding 150 ug/dL (112-347)
[2021-02-10 19:57] LABS: Amphetamines Screen Urine Negative (Negative); Barbiturates Screen Urine Negative (Negative); Benzodiazepines Screen Urine Negative (Negative); Cocaine Screen Urine Negative (Negative); Opiate Screen Urine Negative (Negative); PCP Screen Urine Negative (Negative); THC Screen Urine Negative (Negative)
[2021-02-10 19:59] LABS: Free T4 Free Thyroxine 1.47 ng/dL (0.82-1.77)
[2021-02-10 20:05] LABS: Troponin 5 2HR 9.66 ng/L (0-10); Troponin 5 2HR Delta 1.66 ABS# (0-10)
[2021-02-10 20:06] LABS: Hepatitis A Antibody IgM Non-Reactive (Nonreactive); Hepatitis B Core AB, Total Non-Reactive (Nonreactive); Hepatitis B Surface AB 3.5 (11.5-1000); Hepatitis B Surface Antigen Non-Reactive (Nonreactive); Hepatitis C Virus Antibody Non-Reactive (Nonreactive)
[2021-02-10 20:09] LABS: Bilirubin Urine 2+ (Negative); Blood Urine Neg (Negative); Glucose Urine UA Norm (Normal); Ketones Urine Negative (Negative); Leukocyte Esterase Urine Negative (Negative); Nitrate Urine Negative (Negative); Protein Urine 2+ (Negative); Urine Appearance Cloudy (CLEAR); Urine Color Dark Yellow (Yellow); Urobilinogen Urine 8 mg/dL (Negative); pH Urine 5 (5-7)
[2021-02-10 20:10] LABS: Bacteria Urine 1+ /hpf; Mucus Urine 2+ /hpf; RBC Urine RARE /hpf (0-2); Squamous Epithelial Cell Urine 0-4 /hpf (0-5); WBC Urine 0-4 /hpf (0-5)
[2021-02-10] MEDS: iohexol 350 mg/mL 100 mL Btl IV ×2 (20:23→20:24)
--- NOTE | 2021-02-10 20:36 | ED_ITS ---
HPI - Fall General: Chief Complaint: Fall Stated Complaint: FALL, DIZZY Time Seen by Provider: 02/10/21 15:28 History of Present Illness: HPI Narrative: The patient is a 40-year-old female who comes to the ER complaining she had been feeling sick for the past few days and she went to the fridge and collapsed because she felt like she was going to faint and she collapsed hitting her bottom on the floor. She has a deformity to left ankle and small laceration oozing blood approximately 1 cm in diameter. Her boyfriend she lives with has had coronavirus for the past 10 days. She says she has been feeling ill for the last 3 or 4 days at home and had reduced p.o. intake for the past couple days. On arrival blood pressure 80/53 satting 88% on room air. She was placed on nasal cannula oxygen. EMS already gave several 100 cc of IV fluids and I gave the order to complete that later and start a second. She has previously fractured her right ankle requiring surgery. MD complaint: fall Fall from: standing Fall witnessed: yes, by family Loss of consciousness: None Prolonged down time: no Symptoms prior to fall: lightheadedness Location of injury - extremities: Left: ankle Severity: severe Quality: sharp Associated symptoms-after fall: Reports no associated symptoms; Denies abdominal pain, chest pain, confusion, difficulty walking, headache(s) or neck pain Review of Systems General: Reports: 10 or more systems reviewed and unremarkable except in HPI and below Const: Denies: fatigue Eyes: Denies: change in vision, blurry vision or eye redness ENMT: Denies: throat pain, swelling of lips/tongue, ear or mastoid pain or nasal congestion Card: Denies: chest pain, palpitations, irregular heart rhythm, edema, dyspnea on exertion or orthopnea Resp: Denies: dyspnea, productive cough or non-productive cough GI: Denies: abdominal pain, diarrhea or GI cramping : Denies: flank pain, difficulty voiding, urinary frequency or urinary urgency Musc: Reports: extremity pain and joint pain; Denies: neck pain, back pain, joint redness, limited range of motion or muscle weakness Skin/Breast: Denies: rash, pruritus, erythema, skin pain or skin tenderness Neuro: Denies: headache(s), numbness in extremities, weakness in extremities, sensory changes, difficulty walking, dizziness, confusion or Slurred speech present Psych: Denies: anxiety or depression Endo: Denies: polyuria All/Imm: Denies: urticaria, throat swelling or tongue swelling PFSH ED PFSH: Medical History Anxiety Arrhythmia Reports tachycardia, although cannot tell me anything other than this. Beta- leeanne initiated for this. Chronic back pain Depression Hypothyroidism Surgical History History of History of cholecystectomy History of gastric bypass History of knee surgery History of tonsillectomy Family History Other Diabetes Social History Smoking and tobacco status: never smoked Alcohol intake: never Female Reproductive History: Date of last menstrual period: 09/05/20 Physical Exam Const: COMMON NORMALS: no acute distress, average body habitus, patient oriented x3, no limitations, healthy appearing, alert and well nourished GENERAL APPEARANCE: cooperative, comfortable, well kempt and well developed ORIENTATION/CONSCIOUSNESS: Yes awake, Yes oriented to person, Yes oriented to place and Yes oriented to time HENMT: COMMON NORMALS: normocephalic, external ears normal and Normal external nose present HEAD & SCALP: normal to inspection and normocephalic NOSE: Normal external nose present EXTERNAL EAR: Yes external ears normal MOUTH: Normal oral and palatal mucosa present THROAT: posterior oropharynx normal Eye: COMMON NORMALS: Equal, round and reactive pupils present and EOMs intact bilaterally GENERAL EYE: appearance normal, both eyes and all related structures PUPIL: Yes Equal, round and reactive pupils present Neck/C-Spine: COMMON NORMALS: full ROM, no lymphadenopathy, no meningeal signs and no JVD GENERAL: Yes normal visual inspection Lymph: LYMPHATIC: no lymphadenopathy noted Chest: COMMONS NORMALS: normal inspection of the chest and normal palpation of entire chest wall Resp: COMMON NORMALS: normal respiratory effort, No retractions, No use of accessory muscles, clear to auscultation bilaterally and percussion normal EFFORT & INSPECTION: Yes able to speak in complete sentences AUSCULTATION: clear to auscultation bilaterally PERCUSSION: percussion normal Cardio: COMMON NORMALS: no JVD, regular rate, regular rhythm, S1 normal heart sound present, S2 normal heart sound present and Peripheral pulses 2+ throughout RATE: regular rate RHYTHM: regular rhythm HEART SOUNDS: S1 normal heart sound present and S2 normal heart sound present PERIPHERAL PULSES: Peripheral pulses 2+ throughout GI: COMMON NORMALS: Normal to inspection, nondistended, normoactive bowel sounds present, Soft to palpation, non-tender and no masses INSPECTION: Yes normal to inspection PALPATION: Yes Soft to palpation : COMMON NORMALS: Yes no CVA tenderness BLADDER/KIDNEY EXAM: Yes no CVA tenderness Back/Pelvis: COMMON NORMALS: no CVA tenderness, thoracic and lumbar spine normal to inspection, no thoracic nor lumbar tenderness and thoraco-lumbar ROM normal Extremity: COMMON NORMALS: normal to inspection, full ROM, capillary refill normal, no joint enlargement and no pedal edema GENERAL: Yes normal exam except as noted Neuro: COMMON NORMALS: patient oriented x3, CN's II-XII intact bilaterally, moves all extremities, no focal motor deficits, no sensory deficits noted and gait normal SENSORIUM/ORIENTATION: Yes alert, Yes oriented to person, Yes shy ented to place and Yes oriented to time MENINGEAL SIGNS: Yes no meningeal signs Psych: COMMON NORMALS: mental status grossly normal, Normal thought process present, cooperative, normal affect and speech normal APPEARANCE: Yes well kempt ATTITUDE: Yes calm SPEECH: Yes normal speech THOUGHT PROCESS: Normal thought process present Skin: COMMON NORMALS: no rashes or lesions noted GENERAL SKIN EXAM: no rashes or lesions noted Course Vital Signs: Vital signs: Vital Signs Temperature 98.0 F 02/10/21 21:21 Pulse Rate 99 02/10/21 21:21 Respiratory Rate 16 02/10/21 21:21 Blood Pressure 115/74 02/10/21 21:21 Pulse Oximetry 94 02/10/21 21:21 MDM - Fall MDM Narrative: Medical decision making narrative: The patient has an open fracture of the left distal tibia and proximal fibula. It is angulated and displaced. While splinting I was able to place the fracture in a better position. Discussed with Dr. Hartman who will likely operate tomorrow. The patient also has significant hypotension and came in with blood pressure 80/53 satting 88 on room air. She swabbed positive for Covid. Discussed with Dr. Guerrero who accepted for admission to the floor. She was given IV fluid boluses which improved her blood pressure to 115/74. Given IV cefazolin for open fracture. Lab Data: Labs: Lab Results 02/10/21 02/10/21 02/10/21 Range/Units 14:23 15:40 16:42 WBC 7.8 (4.0-10.0) 10^3/ uL RBC 4.55 (4.1-5.3) 10^6/u L Hgb 12.8 (11.5-15.3) g/dL Hct 40.9 (37.0-47.0) % MCV 89.9 (81-99) fL MCH 28.1 (28.0-34.0) pg MCHC 31.3 (30.0-36.0) g/dL RDW 14.3 (12.1-15.1) % Plt Count 395 (130-400) 10^3/c mm MPV 10.8 H (7.4-10.4) fL Neut % (Auto) 72.9 % Lymph % (Auto) 17.4 % Sibley % (Auto) 7.1 % Eos % (Auto) 2.2 % Baso % (Auto) 0.1 % Neut # (Auto) 5.68 (1.8-7.7) 10^3/u L Lymph # (Auto) 1.4 (0.8-4.8) 10^3/u L Sibley # (Auto) 0.6 (0.2-0.9) 10^3/u L Eos # (Auto) 0.2 (0.0-0.8) 10^3/u L Baso # (Auto) 0.0 (0.0-0.1) 10^3/u L Nucleated RBC % (a uto) 0 % Nucleated RBCs # 0.0 /100WBC D-Dimer (0-0.59) ug/mIFE U Specimen Type Arterial Sample Site Radial, left ABG pH 7.42 (7.35-7.45) ABG pCO2 42.5 (35-45) mmHg ABG pO2 64.1 L (80.0-100.0) mmH g ABG HCO3 27.5 H (22-26) mmol/L ABG Base Excess 2.6 H (-2.0-2.0) mmol/ L Arturo Test Pos Hematocrit 36.9 L (37-47) % Hgb O2 Saturation 91.6 L (95-100) % Carboxyhemoglobin 0.7 (0.4-20.1) %THgb Methemoglobin 0.8 (0.4-1.5) % Total Hemoglobin 12.1 (12-16) g/dL O2 Delivery Device Nc O2 Liters/Min 2.0 % FiO2 28.0 % Denial Management Representative ID Gd Sodium (136-145) mmol/L Potassium (3.5-5.1) mmol/L Chloride (98-107) mmol/L Carbon Dioxide (22-29) mmol/L Anion Gap (5-19) BUN (6-20) mg/dL Creatinine (0.5-0.9) mg/dL GFR Calculation (90-130) mL/min Glucose (65-115) mg/dL Calculated Osmolal ity (285-295) mOsm/k g Lactic Acid (0.5-2.2) mmol/L Calcium (8.5-10.5) mg/dL Iron (37-145) ug/dL TIBC mcg/dl % Saturation (20-50) % Unsat Iron Binding (112-347) ug/dL Ferritin (15-150) ng/mL Total Bilirubin (0.15-1.2) mg/dL AST (0-32) U/L ALT (0-33) U/L Alkaline Phosphata se (35-105) IU/L Creatine Kinase (26-192) U/L Troponin T Baselin e (0-10) ng/L C-Reactive Protein (0.0-4.9) mg/L NT-Pro-B Natriuret Pep (0-125) pg/mL Total Protein (6.6-8.7) g/dL Albumin (3.5-5.2) g/dL Globulin (1.3-4.6) g/dL Procalcitonin (0-0.5) ng/mL TSH (0.27-4.20) uIU/ mL Free T4 (0.82-1.77) ng/d L Free T3 (2.0-4.4) PG/ML HCG, Qual (Negative) Hepatitis A IgM Ab (Nonreactive) Hep Bs Antigen (Nonreactive) Hep Bs Antibody (11.5-1000) Hep B Core Total A b (Nonreactive) Hepatitis C Antibo dy (Nonreactive) HIV 1&2 Ab & HIV 1 Ag (Non-Reactiv) HIV 1&2 Antibody (Non-Reactiv) SARS-CoV-2 Ag (Rap id) Negative (Negative) 02/10/21 02/10/21 02/10/21 Range/Units 17:05 17:05 17:05 WBC (4.0-10.0) 10^3/ uL RBC (4.1-5.3) 10^6/u L Hgb (11.5-15.3) g/dL Hct (37.0-47.0) % MCV (81-99) fL MCH (28.0-34.0) pg MCHC (30.0-36.0) g/dL RDW (12.1-15.1) % Plt Count (130-400) 10^3/c mm MPV (7.4-10.4) fL Neut % (Auto) % Lymph % (Auto) % Sibley % (Auto) % Eos % (Auto) % Baso % (Auto) % Neut # (Auto) (1.8-7.7) 10^3/u L Lymph # (Auto) (0.8-4.8) 10^3/u L Sibley # (Auto) (0.2-0.9) 10^3/u L Eos # (Auto) (0.0-0.8) 10^3/u L Baso # (Auto) (0.0-0.1) 10^3/u L Nucleated RBC % (a uto) % Nucleated RBCs # /100WBC D-Dimer 4.26 H (0-0.59) ug/mIFE U Specimen Type Sample Site ABG pH (7.35-7.45) ABG pCO2 (35-45) mmHg ABG pO2 (80.0-100.0) mmH g ABG HCO3 (22-26) mmol/L ABG Base Excess (-2.0-2.0) mmol/ L Arturo Test Hematocrit (37-47) % Hgb O2 Saturation (95-100) % Carboxyhemoglobin (0.4-20.1) %THgb Methemoglobin (0.4-1.5) % Total Hemoglobin (12-16) g/dL O2 Delivery Device O2 Liters/Min % FiO2 % Denial Management Representative ID Sodium 142 (136-145) mmol/L Potassium 3.3 L (3.5-5.1) mmol/L Chloride 102 (98-107) mmol/L Carbon Dioxide 27 (22-29) mmol/L Anion Gap 16.3 (5-19) BUN 27 H (6-20) mg/dL Creatinine 1.2 H (0.5-0.9) mg/dL GFR Calculation 49.3 L (90-130) mL/min Glucose 165 H (65-115) mg/dL Calculated Osmolal ity 303 H (285-295) mOsm/k g Lactic Acid (0.5-2.2) mmol/L Calcium 7.9 L (8.5-10.5) mg/dL Iron (37-145) ug/dL TIBC mcg/dl % Saturation (20-50) % Unsat Iron Binding (112-347) ug/dL Ferritin (15-150) ng/mL Total Bilirubin 0.5 (0.15-1.2) mg/dL AST 34 H (0-32) U/L ALT 36 H (0-33) U/L Alkaline Phosphata se 277 H (35-105) IU/L Creatine Kinase (26-192) U/L Troponin T Baselin e (0-10) ng/L C-Reactive Protein (0.0-4.9) mg/L NT-Pro-B Natriuret Pep 86 (0-125) pg/mL Total Protein 6.6 (6.6-8.7) g/dL Albumin 3.4 L (3.5-5.2) g/dL Globulin 3.2 (1.3-4.6) g/dL Procalcitonin (0-0.5) ng/mL TSH 6.16 H (0.27-4.20) uIU/ mL Free T4 (0.82-1.77) ng/d L Free T3 (2.0-4.4) PG/ML HCG, Qual Negative (Negative) Hepatitis A IgM Ab (Nonreactive) Hep Bs Antigen (Nonreactive) Hep Bs Antibody (11.5-1000) Hep B Core Total A b (Nonreactive) Hepatitis C Antibo dy (Nonreactive) HIV 1&2 Ab & HIV 1 Ag (Non-Reactiv) HIV 1&2 Antibody (Non-Reactiv) SARS-CoV-2 Ag (Rap id) (Negative) 02/10/21 02/10/21 02/10/21 Range/Units 17:05 17:05 17:05 WBC (4.0-10.0) 10^3/ uL RBC (4.1-5.3) 10^6/u L Hgb (11.5-15.3) g/dL Hct (37.0-47.0) % MCV (81-99) fL MCH (28.0-34.0) pg MCHC (30.0-36.0) g/dL RDW (12.1-15.1) % Plt Count (130-400) 10^3/c mm MPV (7.4-10.4) fL Neut % (Auto) % Lymph % (Auto) % Sibley % (Auto) % Eos % (Auto) % Baso % (Auto) % Neut # (Auto) (1.8-7.7) 10^3/u L Lymph # (Auto) (0.8-4.8) 10^3/u L Sibley # (Auto) (0.2-0.9) 10^3/u L Eos # (Auto) (0.0-0.8) 10^3/u L Baso # (Auto) (0.0-0.1) 10^3/u L Nucleated RBC % (a uto) % Nucleated RBCs # /100WBC D-Dimer (0-0.59) ug/mIFE U Specimen Type Sample Site ABG pH (7.35-7.45) ABG pCO2 (35-45) mmHg ABG pO2 (80.0-100.0) mmH g ABG HCO3 (22-26) mmol/L ABG Base Excess (-2.0-2.0) mmol/ L Arturo Test Hematocrit (37-47) % Hgb O2 Saturation (95-100) % Carboxyhemoglobin (0.4-20.1) %THgb Methemoglobin (0.4-1.5) % Total Hemoglobin (12-16) g/dL O2 Delivery Device O2 Liters/Min % FiO2 % Denial Management Representative ID Sodium (136-145) mmol/L Potassium (3.5-5.1) mmol/L Chloride (98-107) mmol/L Carbon Dioxide (22-29) mmol/L Anion Gap (5-19) BUN (6-20) mg/dL Creatinine (0.5-0.9) mg/dL GFR Calculation (90-130) mL/min Glucose (65-115) mg/dL Calculated Osmolal ity (285-295) mOsm/k g Lactic Acid 1.9 (0.5-2.2) mmol/L Calcium (8.5-10.5) mg/dL Iron 53 (37-145) ug/dL TIBC 203 mcg/dl % Saturation 26.1 (20-50) % Unsat Iron Binding 150 (112-347) ug/dL Ferritin 612 H (15-150) ng/mL Total Bilirubin (0.15-1.2) mg/dL AST (0-32) U/L ALT (0-33) U/L Alkaline Phosphata se (35-105) IU/L Creatine Kinase 69 (26-192) U/L Troponin T Baselin e 8 (0-10) ng/L C-Reactive Protein 39.3 H (0.0-4.9) mg/L NT-Pro-B Natriuret Pep (0-125) pg/mL Total Protein (6.6-8.7) g/dL Albumin (3.5-5.2) g/dL Globulin (1.3-4.6) g/dL Procalcitonin 0.20 (0-0.5) ng/mL TSH (0.27-4.20) uIU/ mL Free T4 1.47 (0.82-1.77) ng/d L Free T3 3.0 (2.0-4.4) PG/ML HCG, Qual (Negative) Hepatitis A IgM Ab (Nonreactive) Hep Bs Antigen (Nonreactive) Hep Bs Antibody (11.5-1000) Hep B Core Total A b (Nonreactive) Hepatitis C Antibo dy (Nonreactive) HIV 1&2 Ab & HIV 1 Ag (Non-Reactiv) HIV 1&2 Antibody (Non-Reactiv) SARS-CoV-2 Ag (Rap id) (Negative) 02/10/21 02/10/21 Range/Units 17:05 17:08 WBC (4.0-10.0) 10^3/ uL RBC (4.1-5.3) 10^6/u L Hgb (11.5-15.3) g/dL Hct (37.0-47.0) % MCV (81-99) fL MCH (28.0-34.0) pg MCHC (30.0-36.0) g/dL RDW (12.1-15.1) % Plt Count (130-400) 10^3/c mm MPV (7.4-10.4) fL Neut % (Auto) % Lymph % (Auto) % Sibley % (Auto) % Eos % (Auto) % Baso % (Auto) % Neut # (Auto) (1.8-7.7) 10^3/u L Lymph # (Auto) (0.8-4.8) 10^3/u L Sibley # (Auto) (0.2-0.9) 10^3/u L Eos # (Auto) (0.0-0.8) 10^3/u L Baso # (Auto) (0.0-0.1) 10^3/u L Nucleated RBC % (a uto) % Nucleated RBCs # /100WBC D-Dimer (0-0.59) ug/mIFE U Specimen Type Sample Site ABG pH (7.35-7.45) ABG pCO2 (35-45) mmHg ABG pO2 (80.0-100.0) mmH g ABG HCO3 (22-26) mmol/L ABG Base Excess (-2.0-2.0) mmol/ L Arturo Test Hematocrit (37-47) % Hgb O2 Saturation (95-100) % Carboxyhemoglobin (0.4-20.1) %THgb Methemoglobin (0.4-1.5) % Total Hemoglobin (12-16) g/dL O2 Delivery Device O2 Liters/Min % FiO2 % Denial Management Representative ID Sodium (136-145) mmol/L Potassium (3.5-5.1) mmol/L Chloride (98-107) mmol/L Carbon Dioxide (22-29) mmol/L Anion Gap (5-19) BUN (6-20) mg/dL Creatinine (0.5-0.9) mg/dL GFR Calculation (90-130) mL/min Glucose (65-115) mg/dL Calculated Osmolal ity (285-295) mOsm/k g Lactic Acid (0.5-2.2) mmol/L Calcium (8.5-10.5) mg/dL Iron (37-145) ug/dL TIBC mcg/dl % Saturation (20-50) % Unsat Iron Binding (112-347) ug/dL Ferritin (15-150) ng/mL Total Bilirubin (0.15-1.2) mg/dL AST (0-32) U/L ALT (0-33) U/L Alkaline Phosphata se (35-105) IU/L Creatine Kinase (26-192) U/L Troponin T Baselin e (0-10) ng/L C-Reactive Protein (0.0-4.9) mg/L NT-Pro-B Natriuret Pep (0-125) pg/mL Total Protein (6.6-8.7) g/dL Albumin (3.5-5.2) g/dL Globulin (1.3-4.6) g/dL Procalcitonin (0-0.5) ng/mL TSH (0.27-4.20) uIU/ mL Free T4 (0.82-1.77) ng/d L Free T3 (2.0-4.4) PG/ML HCG, Qual (Negative) Hepatitis A IgM Ab Non-reactive (Nonreactive) Hep Bs Antigen Non-reactive (Nonreactive) Hep Bs Antibody 3.5 L (11.5-1000) Hep B Core Total A b Non-reactive (Nonreactive) Hepatitis C Antibo dy Non-reactive (Nonreactive) HIV 1&2 Ab & HIV 1 Ag Non-reactive (Non-Reactiv) HIV 1&2 Antibody Non-reactive (Non-Reactiv) SARS-CoV-2 Ag (Rap id) (Negative) Discharge Plan Discharge Patient Disposition: Admitted As Inpatient Admit Provider: Daquan Whitfield Clinical Impression: Open tibial fracture, Fracture of fibula, proximal, Hypotension, Dehydration, Hypoxia Condition: Stable Coding Level of Care Code ED [employer] Operator for g Fwd Exam Comprehensive
[2021-02-10] MEDS: morphine 4 mg/mL SDV 1 mL 2 MG IVP (20:41)
[2021-02-10 21:47] LABS: HIV 1 & 2 Antibody Non-Reactive (Non-Reactiv); HIV 1 & 2 Antigen Non-Reactive (Non-Reactiv)
[2021-02-10] MEDS: ascorbic acid 500 mg Tablet 1000 MG PO (22:28)
[2021-02-10] MEDS: benzonatate 100 mg Capsule PO (22:29)
[2021-02-10] MEDS: oxyCODONE 5 mg IR Tab/Cap PO (22:29)
[2021-02-10] MEDS: gabapentin 400 mg Capsule PO (22:29)
[2021-02-10] MEDS: hyDROXYzine 25 mg Capsule 50 MG PO (23:19)
[2021-02-10] MEDS: tizanidine 4 mg Tablet 2 MG PO (23:19)
[2021-02-10] MEDS: famotidine 20 mg/2 mL INJ IVP (23:24)
[2021-02-11] VITALS (32 sets, daily range): BP systolic 63–123; BP diastolic 36–86; PULSE 16–89; RESP 14–27; TEMP 36.3–37.6; O2SAT 80–95
--- NOTE | 2021-02-11 | SCC_ITS ---
Procedure Done: 1. Right IM nail tibia 2. Irrigation debridement down to bone of right tibia 109.6 seconds of fluoroscopic guidance, for a cumulative dose of 3.15 mGy, was provided to Dr. Hartman by the radiology department. C-arm images of the LEFT lower leg were saved for the patient's permanent record. [facility]
--- NOTE | 2021-02-11 | XR_ITS ---
WS: [id number] XR tibia fibula LT 2V [id number] REASON FOR EXAM: ORIF tib fib FINDINGS: Intramedullary sam fixation of comminuted distal tibial fracture. The surgical appliance in the fracture fragments are in good position and alignment. There is no sign ificant angulation at the fracture site. XR/XR tibia fibula LT 2V [id number] IMPRESSION: Intramedullary sam fixation of left tibial fracture.
[2021-02-11] MEDS: dexamethasone 4 mg/mL INJ 6 MG IVP ×2 (01:20→23:59)
[2021-02-11] MEDS: remdesivir 200 MG in sodium chloride 0.9% (100 ml) 100 ML 100 MG IV (01:26)
[2021-02-11] MEDS: oxyCODONE 5 mg IR Tab/Cap PO ×2 (04:47→10:14)
--- NOTE | 2021-02-11 06:00 | XR_ITS ---
WS: [id number] XR chest 1V portable [id number] REASON FOR EXAM: covid FINDINGS: Patchy interstitial linear and nodular infiltrates with small areas of groundglass density in both lo wer and peripheral lung jones. These abnormalities appear stable compared to the previous day. No new findings are identified. XR/XR chest 1V portable [id number] IMPRESSION: Stable abnormal chest.
--- NOTE | 2021-02-11 06:00 | USCV_ITS ---
Abigail Restrepo Age: 40 Gender: F : 1980 Exam Date: 02/11/2021 07:07 Ordering Phys: Daquan Whitfield MD Technologist: Exam Location[place] [facility] [place]ication: SOB COVID BP: 110 / 73 HR: 84 Rhythm: Sinus Technical Quality: Adequate MEASUREMENTS (Male / Female) Normal Values 2D ECHO LV Diastolic Diameter PLAX 4.0 cm 4.2 - 5.9 / 3.9 - 5.3 cm LV Systolic Diameter PLAX 2.4 cm IVS Diastolic Thickness 0.8 cm 0.6 - 1.0 / 0.6 - 0.9 cm IVS Systolic Thickness 1.4 cm LVPW Diastolic Thickness 1.1 cm 0.6 - 1.0 / 0.6 - 0.9 cm LVPW Systolic Thickness 1.0 cm LVOT Diameter 2.0 cm LV Ejection Fraction 2D Teich 63.3 % LV Ejection Fraction MOD 2C 60.9 % LV Ejection Fraction 2C AL 60.9 % LA Diameter 2.6 cm LA Width 3.5 cm LA Height 4.3 cm RA Width 4.2 cm RA Height 4.3 cm Aorta at Sinotubular Diameter 2.8 cm DOPPLER AV Peak Velocity 147.0 cm/s LVOT Peak Velocity 84.0 cm/s AV Area Cont Eq vti 1.8 cm squared AV Area Cont Eq pk 1.8 cm squared MV Area PHT 5.0 cm squared Mitral E to A Ratio 1.4 MV E' Velocity 47.0 cm/s Mitral E to MV E' Ratio 6.5 Mitral E to LV E' Lateral Ratio 6.9 Mitral E to LV E' Septal Ratio 6.1 TR Peak Velocity 246.3 cm/s TR Peak Gradient 24.3 mmHg TV Peak E Velocity 103.7 cm/s Right Atrial Pressure 3.0 mmHg Pulmonary Artery Systolic Pressu 27.3 mmHg PV Peak Velocity 92.0 cm/s FINDINGS Left Ventricle Normal left ventricular cavity size. Normal left ventricular systolic function. No regional wall motion abnormalities. Left ventricular ejection fraction is estimated at 60 %. Grade II/IV diastolic dysfunction, moderately elevated filling pressures. Right Ventricle The right ventricle is normal in size and function. Normal right ventricular systolic pressure. Right Atrium The right atrium is normal in size. Left Atrium The left atrium is normal in size. Mitral Valve Moderately thickened mitral valve. No mitral valve stenosis. No mitral valve regurgitation. Aortic Valve Aortic valve sclerosis without stenosis or regurgitation. Tricuspid Valve Mild tricuspid valve regurgitation. Pulmonic Valve Structurally normal pulmonic valve without significant stenosis. There is no pulmonic regurgitation. Pericardium Normal pericardium without effusion. Aorta Normal ascending aorta dimension. CONCLUSIONS 1-Normal left ventricular cavity size. Normal left ventricular systolic function. No regional wall motion abnormalities. Left ventricular ejection fraction is estimated at 60 %. Grade II/IV diastolic dysfunction, moderately elevated filling pressures. 2-The right ventricle is normal in size and function. Normal right ventricular systolic pressure. 3-Moderately thickened mitral valve. No mitral valve stenosis. No mitral valve regurgitation. 4-Aortic valve sclerosis without stenosis or regurgitation. 5-Mild tricuspid valve regurgitation. 6-There is no pericardial effusion. 7-There are no prior echocardiogram studies to compare. Angela Schuster MD (Electronically Signed) Final Date: 11 February 2021 17:57 S
[2021-02-11 06:09] LABS: Basophils % 0.2 %; Hematocrit 34.4 % (37.0-47.0); Hemoglobin 10.7 g/dL (11.5-15.3); Lymphocytes # 0.6 10^3/uL (0.8-4.8); Lymphocytes % 10.5 %; Mean Corpuscular HGB Conc 31.1 g/dL (30.0-36.0); Mean Corpuscular Volume 90.1 fL (81-99); Mean Platelet Volume 9.8 fL (7.4-10.4); Monocytes # 0.4 10^3/uL (0.2-0.9); Monocytes % 6.6 %; Neutrophils # 4.36 10^3/uL (1.8-7.7); Neutrophils % 82.1 %; Nucleated Red Blood Cells % 0 %; Platelet Count 310 10^3/cmm (130-400); Red Blood Count 3.82 10^6/uL (4.1-5.3); Red Cell Distribution Width 14.3 % (12.1-15.1); White Blood Count 5.3 10^3/uL (4.0-10.0)
[2021-02-11] MEDS: levothyroxine 88 mcg Tablet PO (06:09)
[2021-02-11 06:18] LABS: Influenza A by IFA Negative (Negative); Influenza B by IFA Negative (Negative)
[2021-02-11 06:30] LABS: Alanine Aminotransferase 27 U/L (0-33); Albumin Level 2.9 g/dL (3.5-5.2); Alkaline Phosphatase 256 IU/L (35-105); Anion Gap 13.5 (5-19); Aspartate Amino Transferase 21 U/L (0-32); Blood Urea Nitrogen 24 mg/dL (6-20); Calcium 7.6 mg/dL (8.5-10.5); Carbon Dioxide 25 mmol/L (22-29); Chloride 103 mmol/L (98-107); Globulin 2.9 g/dL (1.3-4.6); Glomerular Filtration Rate 68.7 mL/min (90-130); Glucose 191 mg/dL (65-115); Osmolality Calculated 295 mOsm/kg (285-295); Potassium 3.5 mmol/L (3.5-5.1); Sodium 138 mmol/L (136-145); Total Bilirubin 0.3 mg/dL (0.15-1.2); Total Protein 5.8 g/dL (6.6-8.7)
[2021-02-11 06:32] LABS: Estmated Average Glucose 151; Hemoglobin A1C 6.9 % (4.0-6.0)
[2021-02-11 06:34] LABS: C Reactive Protein 47.3 mg/L (0.0-4.9); Chol HDL Ratio 2.51 mg/dL (0.0-4.40); Cholesterol 93 mg/dL (0-200); Creatine Phosphokinase 73 U/L (26-192); Ferritin 538 ng/mL (15-150); HDL Cholesterol 37 mg/dL (60-100); LDL Cholesterol Calculated 43 mg/dL (50-129); NT Pro B Type Natriuretic Pept 44 pg/mL (0-125); Triglycerides 66 mg/dL (0-150); VLDL Cholestrol Calculation 13 mg/dL (0-30)
[2021-02-11 07:03] LABS: D Dimer 2.26 ug/mIFEU (0-0.59)
[2021-02-11 07:10] LABS: Erythrocyte Sedimentation Rate 34 mm/hr (0-15)
--- NOTE | 2021-02-11 07:45 | PC.OT ---
OT EVALUATION ORDERS RECEIVED; PATIENT SCHEDULED FOR SURGERY TODAY. WILL HOLD UNTIL AFTER SURGERY
[2021-02-11] MEDS: famotidine 20 mg/2 mL INJ IVP ×2 (08:03→21:02)
[2021-02-11] MEDS: ARIPiprazole 2 mg Tablet PO (08:03)
[2021-02-11] MEDS: escitalopram 10 mg Tablet 20 MG PO (08:03)
[2021-02-11] MEDS: ferrous gluconate 324 mg Tablet PO ×2 (08:04→18:32)
[2021-02-11] MEDS: gabapentin 400 mg Capsule PO ×3 (08:04→21:03)
[2021-02-11] MEDS: ascorbic acid 500 mg Tablet 1000 MG PO ×2 (08:04→18:32)
[2021-02-11] MEDS: lamoTRIgine 100 mg Tablet 150 MG PO ×2 (08:04→18:33)
[2021-02-11] MEDS: benzonatate 100 mg Capsule PO ×3 (08:05→21:03)
[2021-02-11] MEDS: BuSPIRONE 10 mg Tablet 7.5 MG PO ×3 (08:05→21:03)
[2021-02-11] MEDS: zinc gluconate 50 mg Tablet PO (08:05)
[2021-02-11] MEDS: risperiDONE 1 mg Tablet PO ×2 (08:05→18:32)
[2021-02-11] MEDS: metoprolol tartrate 50 mg Tablet PO ×2 (08:05→18:33)
[2021-02-11] MEDS: sodium chloride 0.9% 1,000 ML 100 ML IV (08:06)
[2021-02-11] MEDS: tizanidine 4 mg Tablet 2 MG PO ×2 (08:11→21:03)
--- NOTE | 2021-02-11 11:47 | P.CONIM_ITS ---
Providers/Reason For Consult Consulting Physician/Specialty*: hospitalist Reason for Consult*: left tibia fracture Attending Physician: Daquan Whitfield MD Primary Care Provider: SILVANO Hutchins History of Present Illness History of Present Illness Abigail Restrepo is a 40 year old female Abigail Restrepo is a 40 year old female with past medical history of anxiety, depression multiple fractures of the leg in the past presented to the ER today after having a mechanical fall w hen she was walking in the kitchen. Patient stated just prior to the fall she has turned around and denies dizziness after which she tripped. Patient has known exposure to COVID-19 with boyfriend being treated for COVID-19 for last 1 week. Patient denies any nausea vomiting, headache, difficulty in breathing but does complain of myalgia, tiredness, lethargy for last 3 days. States she has not checked her fever in the past. She denies any dizziness at present. On presentation to the ER patient's blood pressure is 80/60 mmHg. Patient has received 2 L of fluid bolus over 2 hours with blood pressure improvement to 83 systolics. She denies any dizziness or headache or chest pain. Blood work in the ER showed white count 7.8, hemoglobin of 12.8, D-dimer of 4.1, ABG showing a pH of 7.4, PO2 of 64 on 2 L oxygen supplementation, chemistry showing sodium 142, potassium 3.2, creatinine of 1.2, BUN of 27, AST/ALT 24/36, ALP of 266, TSH of 6.16, UA negative for any signs of infection. Chest x-ray, fibula x-ray as below. Review of Systems General: Reports: 10 or more systems reviewed and unremarkable except in HPI and below Const: Denies: fever(s), chills, body aches, change in appetite, change in weight, fatigue, malaise, night sweats, diaphoresis, change in sleep pattern, daytime sleepiness or snoring Eyes: Denies: change in vision, blurry vision, photophobia, eye discomfort, eye discharge or eye redness ENMT: Denies: throat pain, enlarged tonsils, hoarseness, mouth pain, swelling of lips/tongue, oral sores, dry mouth, ear or mastoid pain, tinnitus, nasal congestion or post nasal drip Card: Denies: chest pain, palpitations, irregular heart rhythm, edema, swelling of feet/ankles, lightheadedness, syncope, pre-syncope, dyspnea on exertion, orthopnea, leg pain with exertion or acrocyanosis Resp: Denies: dyspnea, productive cough, non-productive cough, wheezing, stridor, pain on inspiration, change in phlegm color, hemoptysis or chest congestion GI: Denies: abdominal pain, nausea, vomiting, hematemesis, coffee ground emesis, dysphagia, heartburn, diarrhea, constipation, bloating, GI cramping, change in bowel habits, pain on defecation, hematochezia or melena : Denies: flank pain, difficulty voiding, dysuria, urinary frequency, urinary urgency, urinary hesitancy, nocturia or hematuria Musc: Reports: extremity pain and joint pain; Denies: neck pain, back pain, joint swelling, joint redness, joint warmth, joint stiffness, limited range of motion or muscle weakness Skin/Breast: Denies: rash, pruritus, erythema, skin pain or skin tenderness Neuro: Denies: headache(s), numbness in extremities, weakness in extremities, sensory changes, lack of coordination, difficulty walking, frequent falls, dizziness, vertigo, confusion, Slurred speech present, difficulty communicating thoughts or seizure-like activity Psych: Denies: anxiety, depression, mood swings, panic attacks, hopelessness or irritability Endo: Denies: polyuria, polydipsia, tired all the time, cold intolerance, exce ssive sweating, flushing or heat intolerance Bryan/Lymph: Denies: easy bruising or easy bleeding All/Imm: Denies: urticaria, throat swelling, tongue swelling, facial swelling or acute wheezing Meds/Allergies Home Medications and Allergies Home Medications Medication Instructions Recorded Confirmed Last Taken Type buspirone 7.5 mg PO TID 05/28/20 02/10/21 02/10/21 History escitalopram oxalate 20 mg PO DAILY 05/28/20 02/10/21 02/10/21 History levothyroxine 88 mcg PO DAILY@07 05/28/20 02/10/21 02/10/21 History metoprolol tartrate 50 mg PO BID 05/28/20 02/10/21 02/10/21 History aripiprazole 2 mg PO DAILY 02/10/21 02/10/2102/10/21 History etodolac 400 mg PO BID 02/10/21 02/10/21 02/10/21 History gabapentin 400 mg PO TID 02/10/21 02/10/21 02/10/21 History gabapentin 800 mg PO TID 02/10/21 02/10/21 02/10/21 History hydroxyzine pamoate 50 mg PO Q4H PRN 02/10/21 02/10/21 02/10/21 History lamotrigine 150 mg PO BID 02/10/21 02/10/21 02/10/21 History oxycodone 10 mg PO Q6H PRN 02/10/21 02/10/21 02/10/21 History risperidone 1 mg PO BID 02/10/21 02/10/21 02/10/21 History tizanidine 2 mg PO Q6H PRN 02/10/21 02/10/21 02/10/21 History Allergies Allergy/AdvReac Type Severity Reaction Status Date / Time aspirin Allergy ALGY-Swell Verified 08/29/20 09:54 Lip/Tongue/Throat duloxetine [From Cymbalta] Allergy ADR-Agitate Verified 09/29/20 12:18 d Current Medications Current Medications Generic Name Dose Route Start Last Admin Trade Name Freq PRN Reason Stop Dose Admin Aripiprazole 2 mg 02/11/21 09:00 02/11/21 08:03 Aripiprazole 2 Mg Tablet PO 2 mg DAILY OXANA Administration Ascorbic Acid 1,000 mg 02/10/21 21:21 02/11/21 08:04 Ascorbic Acid 500 Mg Tablet PO 1,000 mg BID OXANA Administration Benzonatate 100 mg 02/10/21 21:21 02/11/21 08:05 Benzonatate 100 Mg Capsule PO 100 mg TID OXANA Administration Buspirone HCl 7.5 mg 02/11/21 09:00 02/11/21 08:05 Buspirone 10 Mg Tablet PO 7.5 mg TID OXANA Administration Dexamethasone 6 mg 02/11/21 00:15 02/11/21 01:20 Dexamethasone 4 Mg/Ml Inj IVP 6 mg Q24H OXANA Administration Escitalopram Oxalate 20 mg 02/11/21 09:00 02/11/21 08:03 Escitalopram 10 Mg Tablet PO 20 mg DAILY OXANA Administration Famotidine 20 mg 02/10/21 21:21 02/11/21 08:03 Famotidine 20 Mg/2 Ml Inj IVP 20 mg Q12H OXANA Administration Ferrous Gluconate 324 mg 02/11/21 08:00 02/11/21 08:04 Ferrous Gluconate 324 Mg Tablet PO 324 mg BIDWM OXANA Administration Gabapentin 400 mg 02/10/21 21:21 02/11/21 08:04 Gabapentin 400 Mg Capsule PO 400 mg TID OXANA Administration Hydroxyzine Pamoate 50 mg 02/10/21 22:43 02/10/21 23:19 Hydroxyzine 25 Mg Capsule PO 50 mg Q4H PRN Administration Anxiety Sodium Chloride 1,000 mls @ 75 mls/hr 02/10/21 21:21 02/11/21 08:06 Sodium Chloride 0.9% IV 100 mls/hr .[id number] OXANA Administration Lamotrigine 150 mg 02/11/21 09:00 02/11/21 08:04 Lamotrigine 100 Mg Tablet PO 150 mg BID OXANA Administration Levothyroxine Sodium 88 mcg 02/11/21 07:00 02/11/21 06:09 Levothyroxine 88 Mcg Tablet PO 88 mcg DAILY@07 OXANA Administration Metoprolol Tartrate 50 mg 02/11/21 09:00 02/11/21 08:05 Metoprolol Tartrate 50 Mg Tablet PO 50 mg BID OXANA Administration Oxycodone HCl 5 mg 02/10/21 21:38 02/11/21 10:14 Oxycodone 5 Mg Ir Tab/Cap PO 5 mg Q6H PRN Administration PAIN Risperidone 1 mg 02/11/21 09:00 02/11/21 08:05 Risperidone 1 Mg Tablet PO 1 mg BID OXANA Administration Fluticasone/Salmeterol 1 puff 02/11/21 08:00 02/11/21 10:03 Fluticasone-Salmeterol 250-50 Diskus INHALATION Not Given BID.RESPIRATORY OXANA Tiotropium [place] 18 mcg 02/11/21 08:00 02/11/21 10:03 Tiotropium 18 Mcg Mdi INHALATION Not Given DAILY.RESPIRATORY OXANA Tizanidine HCl 2 mg 02/10/21 22:43 02/11/21 08:11 Tizanidine 4 Mg Tablet PO 2 mg Q6H PRN Administration Muscle Spasm Zinc Gluconate 50 mg 02/11/21 09:00 02/11/21 08:05 Zinc Gluconate 50 Mg Tablet PO 50 mg DAILY OXANA Administration PFSH Acute PFSH: Medical History Anxiety Arrhythmia Reports tachycardia, although cannot tell me anything other than this. Beta- leeanne initiated for this. Chronic back pain Depression Hypothyroidism Surgical History History of History of cholecystectomy History of gastric bypass History of knee surgery History of tonsillectomy Family History Other Diabetes Social History Smoking and tobacco status: never smoked Alcohol intake: never Female Reproductive History: Date of last menstrual period: 09/05/20 Vitals/I&O/Wt Last Vital Signs Temp 97.8 F 02/11/21 07:51 Pulse 87 02/11/21 07:51 Resp 16 02/11/21 10:14 BP 122/85 02/11/21 07:51 Pulse Ox 90 02/11/21 07:51 02/10/21 02/11/21 02/11/21 22:59 06:59 14:59 Intake Total 1200 / 1200 1100 / 2300 Output Total 575 / 575 Balance 1200 / 1200 525 / 1725 Weight last 48 hrs Weight 300 lb 3.2 oz Weight 280 lb Physical Exam Narrative: EXAM NARRATIVE: CONSTITUTIONAL: The patient is a normal appearing [] in no apparent distress. GENERAL: Patient in no acute distress. CARDIAC: Regular rate and rhythm. CHEST: Normal inspiratory effort, normal respiratory rate. ABDOMEN: Soft and nontender. SKIN: Clear, warm and intact. NEURO?PSYCH: The patient is alert and oriented to person, place and time. Sensorv /SILT Motor StrengthShoulder abduction C5 5/5Wrist extension C6 5/5Elbow extension C7 5/5Hand Revenue Director C8 5/5Finger abduction T15/5 Radial/ Ulnar/ Median n intact LowerSensory (SILT)Motor StrengthHin flexion L2/3Ant/inner thigh 5/5Hip adduction L2/3 5/5Knee extension L4 Lat thigh, 5/5Toe dorsiflexion L5 5/5Ankle dorsiflexion L5/ C18Yhoevti flexion S1 5/5 DTRBleeps 2+Triceps 2+Brachioradialis 2+Patellar 2+Achilles 2+ MUSCULOSKELETAL: [] UPPEREXTREMITIES: The patient had full active ROM in fingers, wrist, elbow, and shoulder. The patient demonstrated ability to fully flex/extend/abduct/adduct fingers, make ok sign, cross 2nd/3rd digits, extend 1st digit fully.. Radial pulse 2+, CR<2 seconds. Left leg in splint Urinary Catheter Management^: Thomas: Cath Placed During This Visit: yes Reason for Continuing Indwelling Catheter: Other Urinary Catheter Date of Insertion: 02/10/21 Urinary Catheter Time of Insertion: 19:40 Data Micro: Micro: Microbiology 02/10/21 19:45 Legionella Urinary Antigen - Final Urine Catheterize d 02/10/21 19:43 Bacterial Antigens - Final Urine Kidney 02/10/21 17:08 Blood Culture - Pr eliminary Blood SPECIMEN JANES KAYLA 02/10/21 17:05 Blood Culture - Pr eliminary Blood SPECIMEN [facility] KAYLA A&P Assessment and plan (1) Open tibial fracture: IM nail left tibia Status: Acute Coding Level of Care Code Acute [employer] for [employer] Gutierrez Diagnoses Open tibial fracture S82.209B
--- NOTE | 2021-02-11 11:51 | W.PM.OPSUD ---
Surgery/Procedure H&P Update DATE OF PROCEDURE: February 11, 2021 DATE H&P PERFORMED: 02/11/21 PREOP DIAGNOSIS: Right Tibial Pilon Fracture with Trimalleolar Ankle Fracture PLANNED PROCEDURE: Operation Date: 02/11/21 11:30 Proposed Procedures p IM Tibial Nail Insertion(Left) - Charles Hartman DO
--- NOTE | 2021-02-11 12:11 | ANES.PREANE2 ---
Pre-Anesthetic Assessment Pre-Anesthetic Assessment: Height/Weight: Height 1.75 m Weight 136.168 kg Temp Pulse Resp BP Pulse Ox 97.8 F 87 16 122/85 90 02/11/21 07:51 02/11/21 07:51 02/11/21 10:14 02/11/21 07:51 02/11/21 07:51 Preop Diagnosis: Right Tibial Pilon Fracture with Trimalleolar Ankle Fracture Proposed Procedure: Operation Date: 02/11/21 11:30 Proposed Procedures p IM Tibial Nail Insertion(Left) - Charles Hartman, DO Was Beta Bryan taken within 24 hours: Yes Was Clonidine taken within 24 hours: N/A Social: Social History: Tobacco and No alcohol Exam: Pre-Anes Outpt Exam: alert, oriented x 3 and regular rate & rhythm Airway: Submandibular: WNL Cervical ROM: WNL MP: 2 Dentition: False Pulmonary: Pulmonary: COPD CV/HEM: CV/HEM: Arrythmia : : Chronic renal Insufficiency Metabolic: Metabolic: Morbid obesity and Thyroid Neuropsych: Neuropsych: Anxiety and Depression Anesthetic Plan: ASA status: 3 Anesthesia: Regional (specify below) (SAB) Risk of > 500 ml blood loss (7ml/kg in children): No Meds/Allergies Current Medications: Current Medications Generic Name Dose Route Start Last Admin Trade Name Abdulazizq PRN Reason Stop Dose Admin Aripiprazole 2 mg 02/11/21 09:00 02/11/21 08:03 Aripiprazole 2 M g Tablet PO 2 mg DAILY OXANA Administration Ascorbic Acid 1,000 mg 02/10/21 21:21 02/11/21 08:04 Ascorbic Acid 50 0 Mg Tablet PO 1,000 mg BID OXANA Administration Benzonatate 100 mg 02/10/21 21:21 02/11/21 08:05 Benzonatate 100 Mg Capsule PO 100 mg TID OXANA Administration Buspirone HCl 7.5 mg 02/11/21 09:00 02/11/21 08:05 Buspirone 10 Mg Tablet PO 7.5 mg TID OXANA Administration Dexamethasone 6 mg 02/11/21 00:15 02/11/21 01:20 Dexamethasone 4 Mg/Ml Inj IVP 6 mg Q24H OXANA Administration Escitalopram Oxala te 20 mg 02/11/21 09:00 02/11/21 08:03 Escitalopram 10 Mg Tablet PO 20 mg DAILY OXANA Administration Famotidine 20 mg 02/10/21 21:21 02/11/21 08:03 Famotidine 20 Mg /2 Ml Inj IVP 20 mg Q12H OXANA Administration Ferrous Gluconate 324 mg 02/11/21 08:00 02/11/21 08:04 Ferrous Gluconat e 324 Mg Tablet PO 324 mg BIDWM OXANA Administration Gabapentin 400 mg 02/10/21 21:21 02/11/21 08:04 Gabapentin 400 M g Capsule PO 400 mg TID OXANA Administration Hydroxyzine Pamoat e 50 mg 02/10/21 22:43 02/10/21 23:19 Hydroxyzine 25 M g Capsule PO 50 mg Q4H PRN Administration Anxiety Sodium Chloride 1,000 mls @ 75 ml s/hr 02/10/21 21:21 02/11/21 08:06 Sodium Chloride 0.9% IV 100 mls/hr .[id number] OXANA Administration Lamotrigine 150 mg 02/11/21 09:00 02/11/21 08:04 Lamotrigine 100 Mg Tablet PO 150 mg BID OXANA Administration Levothyroxine Sodi um 88 mcg 02/11/21 07:00 02/11/21 06:09 Levothyroxine 88 Mcg Tablet PO 88 mcg DAILY@07 OXANA Administration Metoprolol Tartrat e 50 mg 02/11/21 09:00 02/11/21 08:05 Metoprolol Tartr ate 50 Mg Tablet PO 50 mg BID OXANA Administration Oxycodone HCl 5 mg 02/10/21 21:38 02/11/21 10:14 Oxycodone 5 Mg I r Tab/Cap PO 5 mg Q6H PRN Administration PAIN Risperidone 1 mg 02/11/21 09:00 02/11/21 08:05 Risperidone 1 Mg Tablet PO 1 mg BID OXANA Administration Fluticasone/Salmet prabhjot 1 puff 02/11/21 08:00 02/11/21 10:03 Fluticasone-Salm eterol 250-50 Disk us INHALATION Not Given BID.RESPIRATORY S CH Tiotropium [place] 18 mcg 02/11/21 08:00 02/11/21 10:03 Tiotropium 18 Mc g Mdi INHALATION Not Given DAILY.RESPIRATORY OXANA Tizanidine HCl 2 mg 02/10/21 22:43 02/11/21 08:11 Tizanidine 4 Mg Tablet PO 2 mg Q6H PRN Administration Muscle Spasm Zinc Gluconate 50 mg 02/11/21 09:00 02/11/21 08:05 Zinc Gluconate 5 0 Mg Tablet PO 50 mg DAILY OXANA Administration PFSH Anesthesia PFSH: Medical History Anxiety Arrhythmia Reports tachycardia, although cannot tell me anything other than this. Beta-bryan initiated for this. Chronic back pain Depression Hypothyroidism Surgical History History of History of cholecystectomy History of gastric bypass History of knee surgery History of tonsillectomy Family History Other Diabetes Social History Smoking and tobacco status: never smoked Alcohol intake: never Female Reproductive History: Date of last menstrual period: 09/05/20 Data Anesthesia CBC & Chem 7: 02/11/21 05:36 02/11/21 05:36 Other Labs: Laboratory Results - last 48 hr 02/10/21 02/10/21 02/10/21 14:23 15:40 16:42 WBC 7.8 RBC 4.55 Hgb 12.8 Hct 40.9 MCV 89.9 MCH 28.1 MCHC 31.3 RDW 14.3 Plt Count 395 MPV 10.8 H Neut % (Auto) 72.9 Lymph % (Auto) 17.4 Dawson % (Auto) 7.1 Eos % (Auto) 2.2 Baso % (Auto) 0.1 Neut # (Auto) 5.68 Lymph # (Auto) 1.4 Dawson # (Auto) 0.6 Eos # (Auto) 0.2 Baso # (Auto) 0.0 Nucleated RBC % (auto) 0 Nucleated RBCs # 0.0 ESR D-Dimer Specimen Type Arterial Sample Site Radial, left ABG pH 7.42 ABG pCO2 42.5 ABG pO2 64.1 L ABG HCO3 27.5 H ABG Base Excess 2.6 H Arturo Test Pos Hematocrit 36.9 L Hgb O2 Saturation 91.6 L Carboxyhemoglobin 0.7 Methemoglobin 0.8 Total Hemoglobin 12.1 O2 Delivery Device Nc O2 Liters/Min 2.0 FiO2 28.0 Operations Representative ID Gd Sodium Potassium Chloride Carbon Dioxide Anion Gap BUN Creatinine GFR Calculation Glucose Estimat Average Glucose Hemoglobin A1c Calculated Osmolality Lactic Acid Calcium Iron TIBC % Saturation Unsat Iron Binding Ferritin Total Bilirubin AST ALT Alkaline Phosphatase Creatine Kinase Troponin T Baseline Troponin T 120 Minute Delta Troponin T C-Reactive Protein NT-Pro-B Natriuret Pep Total Protein Albumin Globulin Triglycerides Cholesterol LDL Cholesterol, Calc Total VLDL Cholesterol HDL Cholesterol Cholesterol/HDL Ratio Procalcitonin TSH Free T4 Free T3 HCG, Qual Urine Color Urine Appearance Urine pH Ur Specific [place] Urine Protein Urine Glucose (UA) Urine Ketones Urine Blood Urine Nitrate Urine Bilirubin Prot Sulfosalicylic Acd Urine Urobilinogen Ur Leukocyte Esterase Urine RBC Urine WBC Ur Squamous Epith Cells Amorphous Sediment Urine Bacteria Urine Mucus Urine Opiates Screen Ur Barbiturates Screen Ur Phencyclidine Scrn Ur Amphetamines Screen U Benzodiazepines Scrn Urine Cocaine Screen U Marijuana (THC) Screen Hepatitis A IgM Ab Hep Bs Antigen Hep Bs Antibody Hep B Core Total Ab Hepatitis C Antibody HIV 1&2 Ab & HIV 1 Ag HIV 1&2 Antibody Influenza Type A Ag Influenza Type B Ag SARS-CoV-2 Ag (Rapid) Negative 02/10/21 02/10/21 02/10/21 17:05 17:05 17:05 WBC RBC Hgb Hct MCV MCH MCHC RDW Plt Count MPV Neut % (Auto) Lymph % (Auto) [place] % (Auto) Eos % (Auto) Baso % (Auto) Neut # (Auto) Lymph # (Auto) Dawson # (Auto) Eos # (Auto) Baso # (Auto) Nucleated RBC % (auto) Nucleated RBCs # ESR D-Dimer 4.26 H Specimen Type Sample Site ABG pH ABG pCO2 ABG pO2 ABG HCO3 ABG Base Excess Arturo Test Hematocrit Hgb O2 Saturation Carboxyhemoglobin Methemoglobin Total Hemoglobin O2 Delivery Device O2 Liters/Min FiO2 Operations Representative ID Sodium 142 Potassium 3.3 L Chloride 102 Carbon Dioxide 27 Anion Gap 16.3 BUN 27 H Creatinine 1.2 H GFR Calculation 49.3 L Glucose 165 H Estimat Average Glucose Hemoglobin A1c Calculated Osmolality 303 H Lactic Acid Calcium 7.9 L Iron TIBC % Saturation Unsat Iron Binding Ferritin Total Bilirubin 0.5 AST 34 H ALT 36 H Alkaline Phosphatase 277 H Creatine Kinase Troponin T Baseline Troponin T 120 Minute Delta Troponin T C-Reactive Protein NT-Pro-B Natriuret Pep 86 Total Protein 6.6 Albumin 3.4 L Globulin 3.2 Triglycerides Cholesterol LDL Cholesterol, Calc Total VLDL Cholesterol HDL Cholesterol Cholesterol/HDL Ratio Procalcitonin TSH 6.16 H Free T4 Free T3 HCG, Qual Negative Urine Color Urine Appearance Urine pH Ur Specific [place] Urine Protein Urine Glucose (UA) Urine Ketones Urine Blood Urine Nitrate Urine Bilirubin Prot Sulfosalicylic Acd Urine Urobilinogen Ur Leukocyte Esterase Urine RBC Urine WBC Ur Squamous Epith Cells Amorphous Sediment Urine Bacteria Urine Mucus Urine Opiates Screen Ur Barbiturates Screen Ur Phencyclidine Scrn Ur Amphetamines Screen U Benzodiazepines Scrn Urine Cocaine Screen U Marijuana (THC) Screen Hepatitis A IgM Ab Hep Bs Antigen Hep Bs Antibody Hep B Core Total Ab Hepatitis C Antibody HIV 1&2 Ab & HIV 1 Ag HIV 1&2 Antibody Influenza Type A Ag Influenza Type B Ag SARS-CoV-2 Ag (Rapid) 02/10/21 02/10/21 02/10/21 17:05 17:05 17:05 WBC RBC Hgb Hct MCV MCH MCHC RDW Plt Count MPV Neut % (Auto) Lymph % (Auto) Dawson % (Auto) Eos % (Auto) Baso % (Auto) Neut # (Auto) Lymph # (Auto) Dawson # (Auto) Eos # (Auto) Baso # (Auto) Nucleated RBC % (auto) Nucleated RBCs # ESR D-Dimer Specimen Type Sample Site ABG pH ABG pCO2 ABG pO2 ABG HCO3 ABG Base Excess Arturo Test Hematocrit Hgb O2 Saturation Carboxyhemoglobin Methemoglobin Total Hemoglobin O2 Delivery Device O2 Liters/Min FiO2 Operations Representative ID Sodium Potassium Chloride Carbon Dioxide Anion Gap BUN Creatinine GFR Calculation Glucose Estimat Average Glucose Hemoglobin A1c Calculated Osmolality Lactic Acid 1.9 Calcium Iron 53 TIBC 203 % Saturation 26.1 Unsat Iron Binding 150 Ferritin 612 H Total Bilirubin AST ALT Alkaline Phosphatase Creatine Kinase 69 Troponin T Baseline 8 Troponin T 120 Minute Delta Troponin T C-Reactive Protein 39.3 H NT-Pro-B Natriuret Pep Total Protein Albumin Globulin Triglycerides Cholesterol LDL Cholesterol, Calc Total VLDL Cholesterol HDL Cholesterol Cholesterol/HDL Ratio Procalcitonin 0.20 TSH Free T4 1.47 Free T3 3.0 HCG, Qual Urine Color Urine Appearance Urine pH Ur Specific [place] Urine Protein Urine Glucose (UA) Urine Ketones Urine Blood Urine Nitrate Urine Bilirubin Prot Sulfosalicylic Acd Urine Urobilinogen Ur Leukocyte Esterase Urine RBC Urine WBC Ur Squamous Epith Cells Amorphous Sediment Urine Bacteria Urine Mucus Urine Opiates Screen Ur Barbiturates Screen Ur Phencyclidine Scrn Ur Amphetamines Screen U Benzodiazepines Scrn Urine Cocaine Screen U Marijuana (THC) Screen Hepatitis A IgM Ab Hep Bs Antigen Hep Bs Antibody Hep B Core Total Ab Hepatitis C Antibody HIV 1&2 Ab & HIV 1 Ag HIV 1&2 Antibody Influenza Type A Ag Influenza Type B Ag SARS-CoV-2 Ag (Rapid) 02/10/21 02/10/21 02/10/21 17:05 17:08 19:29 WBC RBC Hgb Hct MCV MCH MCHC RDW Plt Count MPV Neut % (Auto) Lymph % (Auto) [place] % (Auto) Eos % (Auto) Baso % (Auto) Neut # (Auto) Lymph # (Auto) [place] # (Auto) Eos # (Auto) Baso # (Auto) Nucleated RBC % (auto) Nucleated RBCs # ESR D-Dimer Specimen Type Sample Site ABG pH ABG pCO2 ABG pO2 ABG HCO3 ABG Base Excess Arturo Test Hematocrit Hgb O2 Saturation Carboxyhemoglobin Methemoglobin Total Hemoglobin O2 Delivery Device O2 Liters/Min FiO2 Operations Representative ID Sodium Potassium Chloride Carbon Dioxide Anion Gap BUN Creatinine GFR Calculation Glucose Estimat Average Glucose Hemoglobin A1c Calculated Osmolality Lactic Acid Calcium Iron TIBC % Saturation Unsat Iron Binding Ferritin Total Bilirubin AST ALT Alkaline Phosphatase Creatine Kinase Troponin T Baseline Troponin T 120 Minute 9.66 Delta Troponin T 1.66 C-Reactive Protein NT-Pro-B Natriuret Pep Total Protein Albumin Globulin Triglycerides Cholesterol LDL Cholesterol, Calc Total VLDL Cholesterol HDL Cholesterol Cholesterol/HDL Ratio Procalcitonin TSH Free T4 Free T3 HCG, Qual Urine Color Urine Appearance Urine pH Ur Specific [place] Urine Protein Urine Glucose (UA) Urine Ketones Urine Blood Urine Nitrate Urine Bilirubin Prot Sulfosalicylic Acd Urine Urobilinogen Ur Leukocyte Esterase Urine RBC Urine WBC Ur Squamous Epith Cells Amorphous Sediment Urine Bacteria Urine Mucus Urine Opiates Screen Ur Barbiturates Screen Ur Phencyclidine Scrn Ur Amphetamines Screen U Benzodiazepines Scrn Urine Cocaine Screen U Marijuana (THC) Screen Hepatitis A IgM Ab Non-reactive Hep Bs Antigen Non-reactive Hep Bs Antibody 3.5 L Hep B Core Total Ab Non-reactive Hepatitis C Antibody Non-reactive HIV 1&2 Ab & HIV 1 Ag Non-reactive HIV 1&2 Antibody Non-reactive Influenza Type A Ag Influenza Type B Ag SARS-CoV-2 Ag (Rapid) 02/10/21 02/10/21 02/10/21 19:42 19:42 19:42 WBC RBC Hgb Hct MCV MCH MCHC RDW Plt Count MPV Neut % (Auto) Lymph % (Auto) [place] % (Auto) Eos % (Auto) Baso % (Auto) Neut # (Auto) Lymph # (Auto) [place] # (Auto) Eos # (Auto) Baso # (Auto) Nucleated RBC % (auto) Nucleated RBCs # ESR D-Dimer Specimen Type Sample Site ABG pH ABG pCO2 ABG pO2 ABG HCO3 ABG Base Excess Arturo Test Hematocrit Hgb O2 Saturation Carboxyhemoglobin Methemoglobin Total Hemoglobin O2 Delivery Device O2 Liters/Min FiO2 Operations Representative ID Sodium Potassium Chloride Carbon Dioxide Anion Gap BUN Creatinine GFR Calculation Glucose Estimat Average Glucose Hemoglobin A1c Calculated Osmolality Lactic Acid Calcium Iron TIBC % Saturation Unsat Iron Binding Ferritin Total Bilirubin AST ALT Alkaline Phosphatase Creatine Kinase Troponin T Baseline Troponin T 120 Minute Delta Troponin T C-Reactive Protein NT-Pro-B Natriuret Pep Total Protein Albumin Globulin Triglycerides Cholesterol LDL Cholesterol, Calc Total VLDL Cholesterol HDL Cholesterol Cholesterol/HDL Ratio Procalcitonin TSH Free T4 Free T3 HCG, Qual Urine Color Dark yellow Cancelled Urine Appearance Cloudy Cancelled Urine pH 5 Cancelled Ur Specific [place] 1.020 Cancelled Urine Protein 2+ H Cancelled Urine Glucose (UA) Norm Cancelled Urine Ketones Negative Cancelled Urine Blood Neg Cancelled Urine Nitrate Negative Cancelled Urine Bilirubin 2+ H Cancelled Prot Sulfosalicylic Acd Cancelled Urine Urobilinogen 8 H Cancelled Ur Leukocyte Esterase Negative Cancelled Urine RBC Rare Urine WBC 0-4 H Ur Squamous Epith Cells 0-4 H Amorphous Sediment Not Reportable Urine Bacteria 1+ H Urine Mucus 2+ Urine Opiates Screen Negative Ur Barbiturates Screen Negative Ur Phencyclidine Scrn Negative Ur Amphetamines Screen Negative U Benzodiazepines Scrn Negative Urine Cocaine Screen Negative U Marijuana (THC) Screen Negative Hepatitis A IgM Ab Hep Bs Antigen Hep Bs Antibody Hep B Core Total Ab Hepatitis C Antibody HIV 1&2 Ab & HIV 1 Ag HIV 1&2 Antibody Influenza Type A Ag Influenza Type B Ag SARS-CoV-2 Ag (Rapid) 02/11/21 02/11/21 02/11/21 05:12 05:36 05:36 WBC 5.3 RBC 3.82 L Hgb 10.7 L Hct 34.4 L MCV 90.1 MCH 28.0 MCHC 31.1 RDW 14.3 Plt Count 310 MPV 9.8 Neut % (Auto) 82.1 Lymph % (Auto) 10.5 [place] % (Auto) 6.6 Eos % (Auto) 0.0 Baso % (Auto) 0.2 Neut # (Auto) 4.36 Lymph # (Auto) 0.6 L [place] # (Auto) 0.4 Eos # (Auto) 0.0 Baso # (Auto) 0.0 Nucleated RBC % (auto) 0 Nucleated RBCs # 0.0 ESR D-Dimer Specimen Type Sample Site ABG pH ABG pCO2 ABG pO2 ABG HCO3 ABG Base Excess Arturo Test Hematocrit Hgb O2 Saturation Carboxyhemoglobin Methemoglobin Total Hemoglobin O2 Delivery Device O2 Liters/Min FiO2 Operations Representative ID Sodium Potassium Chloride Carbon Dioxide Anion Gap BUN Creatinine GFR Calculation Glucose Estimat Average Glucose Hemoglobin A1c Calculated Osmolality Lactic Acid Calcium Iron TIBC % Saturation Unsat Iron Binding Ferritin 538 H Total Bilirubin AST ALT Alkaline Phosphatase Creatine Kinase 73 Troponin T Baseline Troponin T 120 Minute Delta Troponin T C-Reactive Protein 47.3 H NT-Pro-B Natriuret Pep 44 Total Protein Albumin Globulin Triglycerides 66 Cholesterol 93 LDL Cholesterol, Calc 43 L Total VLDL Cholesterol 13 HDL Cholesterol 37 L Cholesterol/HDL Ratio 2.51 Procalcitonin TSH Free T4 Free T3 HCG, Qual Urine Color Urine Appearance Urine pH Ur Specific [place] Urine Protein Urine Glucose (UA) Urine Ketones Urine Blood Urine Nitrate Urine Bilirubin Prot Sulfosalicylic Acd Urine Urobilinogen Ur Leukocyte Esterase Urine RBC Urine WBC Ur Squamous Epith Cells Amorphous Sediment Urine Bacteria Urine Mucus Urine Opiates Screen Ur Barbiturates Screen Ur Phencyclidine Scrn Ur Amphetamines Screen U Benzodiazepines Scrn Urine Cocaine Screen U Marijuana (THC) Screen Hepatitis A IgM Ab Hep Bs Antigen Hep Bs Antibody Hep B Core Total Ab Hepatitis C Antibody HIV 1&2 Ab & HIV 1 Ag HIV 1&2 Antibody Influenza Type A Ag Negative Influenza Type B Ag Negative SARS-CoV-2 Ag (Rapid) 02/11/21 02/11/21 02/11/21 05:36 05:36 05:36 WBC RBC Hgb Hct MCV MCH MCHC RDW Plt Count MPV Neut % (Auto) Lymph % (Auto) [place] % (Auto) Eos % (Auto) Baso % (Auto) Neut # (Auto) Lymph # (Auto) [place] # (Auto) Eos # (Auto) Baso # (Auto) Nucleated RBC % (auto) Nucleated RBCs # ESR 34 H D-Dimer 2.26 H Specimen Type Sample Site ABG pH ABG pCO2 ABG pO2 ABG HCO3 ABG Base Excess Arturo Test Hematocrit Hgb O2 Saturation Carboxyhemoglobin Methemoglobin Total Hemoglobin O2 Delivery Device O2 Liters/Min FiO2 Operations Representative ID Sodium 138 Potassium 3.5 Chloride 103 Carbon Dioxide 25 Anion Gap 13.5 BUN 24 H Creatinine 0.9 GFR Calculation 68.7 L Glucose 191 H Estimat Average Glucose Hemoglobin A1c Calculated Osmolality 295 Lactic Acid Calcium 7.6 L Iron TIBC % Saturation Unsat Iron Binding Ferritin Total Bilirubin 0.3 AST 21 ALT 27 Alkaline Phosphatase 256 H Creatine Kinase Troponin T Baseline Troponin T 120 Minute Delta Troponin T C-Reactive Protein NT-Pro-B Natriuret Pep Total Protein 5.8 L Albumin 2.9 L Globulin 2.9 Triglycerides Cholesterol LDL Cholesterol, Calc Total VLDL Cholesterol HDL Cholesterol Cholesterol/HDL Ratio Procalcitonin TSH Free T4 Free T3 HCG, Qual Urine Color Urine Appearance Urine pH Ur Specific [place] Urine Protein Urine Glucose (UA) Urine Ketones Urine Blood Urine Nitrate Urine Bilirubin Prot Sulfosalicylic Acd Urine Urobilinogen Ur Leukocyte Esterase Urine RBC Urine WBC Ur Squamous Epith Cells Amorphous Sediment Urine Bacteria Urine Mucus Urine Opiates Screen Ur Barbiturates Screen Ur Phencyclidine Scrn Ur Amphetamines Screen U Benzodiazepines Scrn Urine Cocaine Screen U Marijuana (THC) Screen Hepatitis A IgM Ab Hep Bs Antigen Hep Bs Antibody Hep B Core Total Ab Hepatitis C Antibody HIV 1&2 Ab & HIV 1 Ag HIV 1&2 Antibody Influenza Type A Ag Influenza Type B Ag SARS-CoV-2 Ag (Rapid) 02/11/21 05:36 WBC RBC Hgb Hct MCV MCH MCHC RDW Plt Count MPV Neut % (Auto) Lymph % (Auto) [place] % (Auto) Eos % (Auto) Baso % (Auto) Neut # (Auto) Lymph # (Auto) [place] # (Auto) Eos # (Auto) Baso # (Auto) Nucleated RBC % (auto) Nucleated RBCs # ESR D-Dimer Specimen Type Sample Site ABG pH ABG pCO2 ABG pO2 ABG HCO3 ABG Base Excess Arturo Test Hematocrit Hgb O2 Saturation Carboxyhemoglobin Methemoglobin Total Hemoglobin O2 Delivery Device O2 Liters/Min FiO2 Operations Representative ID Sodium Potassium Chloride Carbon Dioxide Anion Gap BUN Creatinine GFR Calculation Glucose Estimat Average Glucose 151 Hemoglobin A1c 6.9 H Calculated Osmolality Lactic Acid Calcium Iron TIBC % Saturation Unsat Iron Binding Ferritin Total Bilirubin AST ALT Alkaline Phosphatase Creatine Kinase Troponin T Baseline Troponin T 120 Minute Delta Troponin T C-Reactive Protein NT-Pro-B Natriuret Pep Total Protein Albumin Globulin Triglycerides Cholesterol LDL Cholesterol, Calc Total VLDL Cholesterol HDL Cholesterol Cholesterol/HDL Ratio Procalcitonin TSH Free T4 Free T3 HCG, Qual Urine Color Urine Appearance Urine pH Ur Specific [place] Urine Protein Urine Glucose (UA) Urine Ketones Urine Blood Urine Nitrate Urine Bilirubin Prot Sulfosalicylic Acd Urine Urobilinogen Ur Leukocyte Esterase Urine RBC Urine WBC Ur Squamous Epith Cells Amorphous Sediment Urine Bacteria Urine Mucus Urine Opiates Screen Ur Barbiturates Screen Ur Phencyclidine Scrn Ur Amphetamines Screen U Benzodiazepines Scrn Urine Cocaine Screen U Marijuana (THC) Screen Hepatitis A IgM Ab Hep Bs Antigen Hep Bs Antibody Hep B Core Total Ab Hepatitis C Antibody HIV 1&2 Ab & HIV 1 Ag HIV 1&2 Antibody Influenza Type A Ag Influenza Type B Ag SARS-CoV-2 Ag (Rapid) Micro: Microbiology 02/10/21 19:45 Legionella Urinary Antigen - Final Urine Catheterized 02/10/21 19:43 Bacterial Antigens - Final Urine Kidney 02/10/21 17:08 Blood Culture - Preliminary Blood SPECIMEN COLLECTED 02/10/21 17:05 Blood Culture - Preliminary Blood SPECIMEN COLLECTED Cardiac Studies: No Data to Display
--- NOTE | 2021-02-11 13:25 | P.OP_ITS ---
Operative Report Date of procedure: February 11, 2021 Pre-op Diagnosis: Right open Grade 1 tibia fracture Post-op diagnosis: same Procedure Done: 1. Right IM nail tibia 2. Irrigation debridement down to bone of right tibia Surgeon: Charles Hartman Anesthesia: General Estimated blood loss (mL): 50 Condition: stable Disposition: PACU Procedure: 1. Right IM nail tibia 2. Irrigation debridement down to bone of right Patient brought to the operative suite placed in the supine position all areas impingement well-padded patient's prepped and draped in a sterile fashion. Skin incision is made over the superior patella. The quad tendon was split with a knife. The trocar was inserted. Starting pin was inserted opening reamer was used guidewire was passed fracture was reduced guidewire was passed across the fracture. Canal was reamed to 11 and half. Nail was measured. And then a 10 x 330 nail from [employer] was inserted. 3 screws were placed distally 2 medial to lateral and 1 anterior to posterior. And then 1 screws placed proximally. The fracture site was opened prior to this and irrigated. The wound was approximately 1 cm. And then the wound was opened to approximately 3 cm. And the bone was scraped with a curette and [place]. And wound was irrigated with s christian. Once the wound is felt to be adequately cleaned. The wound was closed with nylon suture. The remaining wounds from surgery were closed with Vicryl and nylon suture. Sterile dressings were applied patient was transferred to the PACU in stable condition.
--- NOTE | 2021-02-11 13:31 | P.PCN_ITS ---
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
[2021-02-11 14:24] LABS: Coronavirus Test Green County Detected
--- NOTE | 2021-02-11 15:37 | ANE.PACU2 ---
Inpatient post-anesthesia follow up: Airway intact: Yes Vital signs: Temperature 97.6 F Pulse Rate [Monito r] 96 Pulse Rate 89 Respiratory Rate 20 Blood Pressure [Le ft Arm] 80/53 Blood Pressure 105/82 Pulse Oximetry 92 Oxygen Delivery Me thod Nasal Cannula Oxygen Flow Rate 6 Fraction of Inspir ed Oxygen Hydration adequate: Yes Nausea and vomiting: No Pain level: 1 Mental status: Baseline
--- NOTE | 2021-02-11 18:26 | P.PN_ITS ---
Subjective Subjective: Interval history: No events overnight. Patient underwent ORIF today morning. Tolerated the procedure well though had some difficulty with hypoxia postprocedure for which she required oxygen supplementation up to 8 L. Currently on examination patient sitting comfortably in bed saturating 92%. Denies any nausea, vomiting, headache. Asking for pain medications. Vitals/I&O/Wt Last Vital Signs Temp 97.7 F 02/11/21 18:10 Pulse 80 02/11/21 18:10 Resp 23 H 02/11/21 18:10 BP 110/75 02/11/21 18:10 Pulse Ox 80 L 02/11/21 18:10 02/11/21 02/11/21 02/11/21 06:59 14:59 22:59 Intake Total 1100 / 2300 85 / 85 Output Total 575 / 575 20 / 20 Balance 525 / 1725 65 / 65 Weight last 48 hrs Weight 136.168 kg Weight 127.006 kg Physical Exam Narrative: EXAM NARRATIVE: General: acute distress due to pain, AO x3, HEENT: PERRLA, pupils bilaterally equal and reactive Chest: Normal vesicular breath sounds, no added sounds, equal good air entry bilaterally CVS: S1-S2 regular, no murmurs, no tachycardia, no gallops, no rubs Abdomen: Soft, nontender, no organomegaly, bowel sounds present Neuro: No focal deficits, no facial deformity, AO x3, power 5/5 in all limbs Urinary Catheter Management^: Thomas: Cath Placed During This Visit: yes Reason for Continuing Indwelling Catheter: Other Urinary Catheter Date of Insertion: 02/10/21 Urinary Catheter Time of Insertion: 19:40 Data : 02/11/21 05:36 02/11/21 05:36 Micro: Microbiology 02/10/21 17:05 Blood Culture - Preliminary Blood NEGATIVE TO DATE 02/10/21 17:08 Blood Culture - Preliminary Blood NEGATIVE TO DATE 02/11/21 05:12 MRSA Culture - Final Nose 02/10/21 19:45 Legionella Urinary Antigen - Final Urine Catheterized 02/10/21 19:43 Bacterial Antigens - Final Urine Kidney A&P Assessment and plan (1) COVID-19: Status: Acute (2) Hypoxia: Status: Acute (3) Open tibial fracture: Status: Acute (4) SAM (acute kidney injury): Status: Acute (5) Hypotension: Status: Acute (6) Dehydration: Status: Acute (7) Transaminitis: Status: Acute Additional A&P Information Open tibial fracture: Post-ORIF day 0. Physical therapy, pain medication as per orthopedics. COVID-19 pneumonia: Acute hypoxic respiratory failure: Advair, Spiriva. Vitamin C, zinc. Remdesivir to finish 5-day course. Dexamethasone 6 mg IV daily. Incentive spirometry and flutter valve for pulmonary toilet. Continue to monitor inflammatory markers daily including ESR, CRP, proBNP, D- dimer. CTA negative for PE. For now we will hold off on full dose anticoagulation as patient is postoperative and does not have PE on CTA. Continue with Lovenox prophylactic dose. If oxygenation continues to worsen we will switch over to anticoagulation dose. Pro-Anthony, MRSA swab, urine Legionella, bacterial antigen negative. Low suspicion of superimposed bacterial infection for now. Continue with cefazolin for perioperative care. SAM: Resolved. Most likely secondary to dehydration and pain medications. Patient is eating well. Stop IV fluids. Medrec done for nephrotoxic drugs. Monitor BMP daily. Hypotension: Resolved. Most likely secondary dehydration. We will continue to monitor. Transaminitis: Resolved. Could be secondary to fractures. Hypothyroidism: For now continue with home dose of levothyroxine. Full code. Regular diet. Lovenox for DVT PPx Attestations Medical Necessity Statement*: Patient requires further hospitalization for management of hypoxia secondary to COVID-19 pneumonia, open tibial fracture post ORIF care. Time Spent in Patient Care: Greater than 35 minutes (>than 50% of time spent in counselling and/or direct pt care on unit) . Coding Level of Care Code Acute Bridge Crew Member for [facility] Diagnoses COVID-19 U07.1 Hypoxia R09.02 Open tibial fracture S82.209B SAM (acute kidney injury) N17.9 Hypotension I95.9 Dehydration E86.0 Transaminitis R74.01
[2021-02-11] MEDS: docusate sodium 100 mg Capsule PO (18:33)
[2021-02-11] MEDS: ketorolac 30 mg/mL INJ IVP (18:33)
[2021-02-11] MEDS: oxyCODONE 5 mg IR Tab/Cap 10 MG PO (18:45)
[2021-02-11] MEDS: hyDROXYzine 25 mg Capsule 50 MG PO (21:03)
[2021-02-11] MEDS: sodium chloride 0.9% 1,000 ML 75 ML IV (21:05)
[2021-02-11] MEDS: sodium chloride 0.9% 1,000 ML 999 ML IV (22:45)
[2021-02-11] MEDS: naloxone 0.4 mg/ml SDV IVP ×2 (22:45→23:37)
[2021-02-11 23:10] LABS: Hematocrit 28.5 % (37.0-47.0); Hemoglobin 8.9 g/dL (11.5-15.3)
[2021-02-11 23:11] LABS: Glucose Point of Care 158 mg/dL (70-110)
[2021-02-11] MEDS: ipratropium-albuterol 3 mL Neb INHALATION (23:57)
[2021-02-12] VITALS (22 sets, daily range): BP systolic 79–126; BP diastolic 56–86; PULSE 67–84; RESP 16–20; TEMP 36.7–37.8; O2SAT 90–100; BMI 45.8
[2021-02-12] MEDS: sodium chloride 0.9% 1,000 ML 999 ML IV (00:02)
[2021-02-12] MEDS: sodium chloride 0.9% 1,000 ML 75 ML IV (01:27)
[2021-02-12] MEDS: ipratropium-albuterol 3 mL Neb INHALATION ×4 (03:14→21:06)
--- NOTE | 2021-02-12 04:00 | PC.NURSE ---
22:30- At night time med pass pt was alert and oriented and easily aroused. When going back in around 22:15 to administer antibiotics pt was severely lethargic and diaphoretic. Blood sugar was 158. At the beginning of shift his blood pressure was 110/75. Repeat blood pressure showed 60s/40s. Pt was able to be woken for short periods of time before falling back to sleep. When awake pt was able to answer questions appropriately. It was noted that pt had her purse right next to her. I asked if she had anything in her purse. She stated no. I asked if I could look and she agreed to let me look in her purse. Upon opening her purse there was a bottle of oxycodone 10mg IR pills at the very top of the purse. Pt stated she did not take any of the pills. The pills were confiscated and counted at bed side with ALTA Humphrey. 40 Pills were counted and placed in [employer] machine. Bottle was filled 02/06/2021 and 16 pills were missing from bottle. I notified Dr. Smith and she ordered 0.4mg of narcan, give 1 liter NS bolus, and call DR. Henry of pt's status. After giving the narcan, pt perked right up. Pt became alert and oriented and able to stay awake. Blood pressure still soft 70s'40. 1 liter bolus started at this time. After giving the narcan and starting [address] Henry was called and updated. Dr. Henry stated to give an additional liter bolus if pt's bp does not improve with the first liter. He also ordered a UDA, change oxycodone 10mg IR q6hour prn to 5mg IR q6hour prn and to make sure pt does not receive any further outside visitors. 23:30- Pt starting to become lethargic and bp once again 60s/40s. Pt was given additional 0.4mg IV narcan. Again pt perked right up and bp increased to 90s/50s. Dr. Smith notified of pt becoming lethargic again and needing additional dose of narcan. Dr. Smith stated to give an additional dose if needed if pt becomes lethargic again with a low bp. 23:30-04:00 Pt has been sleeping throughout the night without needing any additional narcan doses. Pt's blood pressure still soft. At times pb was 78/59 but pt is easily woken and making adequate urine output. At the beginning of the shift pt noted to have crackles in right lower lobe. No noted worsening in crackles s/p 2 liter bolus. Pt currently has NS at 75mL/Hr. Pt sating 94% on HHF 25L/50% Fio2. Pt's blood pressure at this time is 86/59. Will continue to monitor pt.
[2021-02-12 05:00] LABS: Amphetamines Screen Urine Negative (Negative); Barbiturates Screen Urine Negative (Negative); Benzodiazepines Screen Urine Negative (Negative); Cocaine Screen Urine Negative (Negative); Opiate Screen Urine Positive (Negative); PCP Screen Urine Negative (Negative); THC Screen Urine Negative (Negative)
[2021-02-12] MEDS: ketorolac 30 mg/mL INJ IVP (05:37)
[2021-02-12] MEDS: enoxaparin 40 mg/0.4 mL Syringe SUBCUT (05:37)
[2021-02-12] MEDS: levothyroxine 88 mcg Tablet PO (05:37)
--- NOTE | 2021-02-12 05:48 | PC.NURSE ---
Pt is alert and oriented and fully awake at this time. Blood pressure 112/75.
[2021-02-12] MEDS: oxyCODONE 5 mg IR Tab/Cap PO ×3 (06:27→20:03)
[2021-02-12 07:12] LABS: Basophils % 0.2 %; Hematocrit 31.8 % (37.0-47.0); Hemoglobin 9.9 g/dL (11.5-15.3); Lymphocytes # 0.6 10^3/uL (0.8-4.8); Lymphocytes % 9.5 %; Mean Corpuscular HGB Conc 31.1 g/dL (30.0-36.0); Mean Corpuscular Hemoglobin 28.2 pg (28.0-34.0); Mean Corpuscular Volume 90.6 fL (81-99); Mean Platelet Volume 10.1 fL (7.4-10.4); Monocytes # 0.4 10^3/uL (0.2-0.9); Neutrophils # 5.04 10^3/uL (1.8-7.7); Nucleated Red Blood Cells % 0 %; Platelet Count 351 10^3/cmm (130-400); Red Blood Count 3.51 10^6/uL (4.1-5.3); Red Cell Distribution Width 14.4 % (12.1-15.1)
[2021-02-12 07:39] LABS: Alanine Aminotransferase 16 U/L (0-33); Albumin Level 2.6 g/dL (3.5-5.2); Alkaline Phosphatase 206 IU/L (35-105); Anion Gap 12.4 (5-19); Aspartate Amino Transferase 15 U/L (0-32); Blood Urea Nitrogen 21 mg/dL (6-20); C Reactive Protein 52.3 mg/L (0.0-4.9); Calcium 7.7 mg/dL (8.5-10.5); Carbon Dioxide 24 mmol/L (22-29); Chloride 105 mmol/L (98-107); Creatine Phosphokinase 58 U/L (26-192); Ferritin 448 ng/mL (15-150); Globulin 2.9 g/dL (1.3-4.6); Glomerular Filtration Rate 91.8 mL/min (90-130); Glucose 210 mg/dL (65-115); NT Pro B Type Natriuretic Pept 599 pg/mL (0-125); Osmolality Calculated 295 mOsm/kg (285-295); Potassium 3.4 mmol/L (3.5-5.1); Sodium 138 mmol/L (136-145); Total Bilirubin 0.3 mg/dL (0.15-1.2); Total Protein 5.5 g/dL (6.6-8.7)
[2021-02-12] MEDS: budesonide 0.5 mg/2 mL Neb INHALATION ×2 (08:25→21:06)
[2021-02-12 08:26] LABS: D Dimer 1.86 ug/mIFEU (0-0.59)
[2021-02-12 09:20] LABS: Erythrocyte Sedimentation Rate 33 mm/hr (0-15)
[2021-02-12] MEDS: zinc gluconate 50 mg Tablet PO (10:10)
[2021-02-12] MEDS: ferrous gluconate 324 mg Tablet PO ×2 (10:10→18:15)
[2021-02-12] MEDS: ARIPiprazole 2 mg Tablet PO (10:10)
[2021-02-12] MEDS: gabapentin 400 mg Capsule PO ×3 (10:11→22:09)
[2021-02-12] MEDS: benzonatate 100 mg Capsule PO ×3 (10:11→22:09)
[2021-02-12] MEDS: risperiDONE 1 mg Tablet PO ×2 (10:11→18:15)
[2021-02-12] MEDS: docusate sodium 100 mg Capsule PO ×2 (10:11→18:14)
[2021-02-12] MEDS: escitalopram 10 mg Tablet 20 MG PO (10:11)
[2021-02-12] MEDS: ascorbic acid 500 mg Tablet 1000 MG PO ×2 (10:11→18:13)
[2021-02-12] MEDS: famotidine 20 mg/2 mL INJ IVP (10:12)
[2021-02-12] MEDS: BuSPIRONE 10 mg Tablet 7.5 MG PO ×2 (11:18→14:27)
[2021-02-12] MEDS: lamoTRIgine 100 mg Tablet 150 MG PO ×2 (11:19→18:13)
--- NOTE | 2021-02-12 12:35 | PC.NURSE ---
Paola Granados called to get an update on patient, she was not on the PHI, this nurse talked to patient who stated it was okay for her to have information on patient.
[2021-02-12 13:09] LABS: Procalcitonin 0.13 ng/mL (0-0.5)
--- NOTE | 2021-02-12 17:22 | PM.PN ---
Subjective Subjective: Interval history: Patient underwent ORIF yesterday. Overnight patient was found lethargic with blood pressure 180 systolics. She was found to have taken extra tablets of oxycodone from her back. She was given Narcan and IV fluid bolus after which her blood pressures improved. During this episode patient was placed on high flow nasal cannula. Patient continues to remain on heated high flow 30 L 45% saturating 91%. Patient is mildly lethargic but is able to awaken enough to get calm complete conversation. Denies any nausea vomiting, headache. Complaining of pain. Vitals/I&O/Wt Last Vital Signs Temp 98.3 F 02/12/21 16:00 Pulse 81 02/12/21 16:00 Resp 18 02/12/21 16:00 BP 126/86 02/12/21 16:00 Pulse Ox 90 02/12/21 16:00 02/12/21 02/12/21 02/12/21 06:59 14:59 22:59 Intake Total 2387.5 / 3772.5 300 / 300 Output Total 400 / 420 Balance 1987.5 / 3352.5 300 / 300 Weight last 48 hrs Weight 140.614 kg Weight 136.168 kg Physical Exam Narrative: EXAM NARRATIVE: General: No acute distress, AO x3, HEENT: PERRLA, pupils bilaterally equal and reactive Chest: Normal vesicular breath sounds, no added sounds, equal good air entry bilaterally CVS: S1-S2 regular, no murmurs, no tachycardia, no gallops, no rubs Abdomen: Soft, nontender, no organomegaly, bowel sounds present Neuro: No focal deficits, no facial deformity, AO x3, power 5/5 in all limbs Urinary Catheter Management^: Thomas: Cath Placed During This Visit: yes Reason for Continuing Indwelling Catheter: Accurate Measurement of Urinary Output in Critically Ill Patients Urinary Catheter Date of Insertion: 02/10/21 Urinary Catheter Time of Insertion: 19:40 Data : 02/12/21 06:14 02/12/21 06:14 Micro: Microbiology 02/10/21 17:05 Blood Culture - Preliminary Blood NEGATIVE TO DATE 02/10/21 17:08 Blood Culture - Preliminary Blood NEGATIVE TO DATE 02/11/21 05:12 MRSA Culture - Final Nose A&P Assessment and plan (1) COVID-19: Status: Acute (2) Hypoxia: Status: Acute (3) Open tibial fracture: Status: Acute (4) SAM (acute kidney injury): Status: Acute (5) Hypotension: Status: Acute (6) Dehydration: Status: Acute (7) Transaminitis: Status: Acute Additional A&P Information Open tibial fracture: Post-ORIF day 1. Physical therapy,as per orthopedics. Oxycodone 5 mg every 6 hour as needed for pain management. COVID-19 pneumonia: Acute hypoxic respiratory failure: Advair, Spiriva. Vitamin C, zinc. Remdesivir to finish 5-day course. Last on February 15. Dexamethasone 6 mg IV daily. Incentive spirometry and flutter valve for pulmonary toilet. Continue to monitor inflammatory markers daily including ESR, CRP, proBNP, D-dimer. Mildly worsening today. Can be postoperative. If continues to worsen tomorrow we will give 1 dose of Actemra CTA negative for PE. D-dimer trending down. For now we will hold off on full dose anticoagulation as patient is postoperative and does not have PE on CTA. Continue with Lovenox prophylactic dose. If oxygenation continues to worsen we will switch over to anticoagulation dose. Pro-Anthony, MRSA swab, urine Legionella, bacterial antigen negative. Low suspicion of superimposed bacterial infection for now. For now hold off on antibiotics and monitor for vitals, leukocytosis or fever. SAM: Resolved. Most likely secondary to dehydration and pain medications. Given hypotension last night for now continue with IV hydration at 75 cc/h. Medrec done for nephrotoxic drugs. Monitor BMP daily. Hypotension: Resolved. Most likely secondary dehydration. We will continue to monitor. Transaminitis: Resolved. Could be secondary to fractures. Hypothyroidism: For now continue with home dose of levothyroxine. Full code. Regular diet. Lovenox for DVT PPx Attestations Medical Necessity Statement*: Further hospitalization for management of hypoxic respiratory failure secondary COVID-19 pneumonia, open tibial fracture requiring ORIF. Time Spent in Patient Care: Greater than 35 minutes (>than 50% of time spent in counselling and/or direct pt care on unit). Coding Level of Care Code Acute Client Relations Representative for [facility] Diagnoses COVID-19 U07.1 Hypoxia R09.02 Open tibial fracture S82.209B SAM (acute kidney injury) N17.9 Hypotension I95.9 Dehydration E86.0 Transaminitis R74.01
[2021-02-12] MEDS: metoprolol tartrate 50 mg Tablet PO (18:15)
[2021-02-12] MEDS: remdesivir 100 MG in sodium chloride 0.9% (100 ml) 100 ML IV (18:15)
[2021-02-13] VITALS (23 sets, daily range): BP systolic 90–125; BP diastolic 66–88; PULSE 82–119; RESP 16–22; TEMP 36.7–37.3; O2SAT 89–95
[2021-02-13] MEDS: ipratropium-albuterol 3 mL Neb INHALATION ×7 (00:23→23:33)
[2021-02-13] MEDS: acetaminophen 325 mg Tablet 650 MG PO (01:32)
[2021-02-13] MEDS: dexamethasone 4 mg/mL INJ 6 MG IVP (01:41)
[2021-02-13] MEDS: oxyCODONE 5 mg IR Tab/Cap PO ×4 (02:05→22:30)
[2021-02-13] MEDS: sodium chloride 0.9% 1,000 ML 75 ML IV (02:06)
--- NOTE | 2021-02-13 06:00 | XR_ITS ---
WS: [id number] XR chest 1V portable [id number] REASON FOR EXAM: covid FINDINGS: Diffuse infiltrative changes which demonstrate no significant resolution or progression. No new findings are noted. XR/XR chest 1V portable [id number] IMPRESSION: Stable abnormal chest.
[2021-02-13 06:23] LABS: ABG PCO2 38.9 mmHg (35-45); ABG PH Result 7.46 (7.35-7.45); Arterial Blood Gas Hematocrit 30.6 % (37-47); Base Excess ABG 3.5 mmol/L (-2.0-2.0); Blood Gas Allen Test Pos; Blood Gas Sample Type Arterial; Carboxyhemoglobin 0.6 %THgb (0.4-20.1); HCO3 ABG 27.6 mmol/L (22-26); HGB O2 Sat 93.5 % (95-100); Ionized Calcium Level - ABG 1.1 mmol/L (1.1-1.4); Methemoglobin 1.1 % (0.4-1.5); Oxygen Saturation ABG 95.1; PO2 ABG 68.3 mmHg (80.0-100.0); Potassium Level - ABG 2.6 mmol/L (3.5-5.0)
[2021-02-13 06:24] LABS: Alveolar-Arterial Oxygen Gradi 35.9 mmHg (5-10); Blood Gas Operator Identificat JB; Blood Gas Sample Site Radial, right; Oxygen Device HAG
[2021-02-13] MEDS: levothyroxine 88 mcg Tablet PO (07:00)
[2021-02-13] MEDS: enoxaparin 40 mg/0.4 mL Syringe SUBCUT (07:00)
[2021-02-13 07:31] LABS: Hematocrit 28.3 % (37.0-47.0); Lymphocytes # 0.6 10^3/uL (0.8-4.8); Lymphocytes % 8.8 %; Mean Corpuscular HGB Conc 31.8 g/dL (30.0-36.0); Mean Corpuscular Hemoglobin 27.8 pg (28.0-34.0); Mean Corpuscular Volume 87.3 fL (81-99); Mean Platelet Volume 10.3 fL (7.4-10.4); Monocytes # 0.5 10^3/uL (0.2-0.9); Monocytes % 7.1 %; Neutrophils # 5.77 10^3/uL (1.8-7.7); Neutrophils % 83.2 %; Nucleated Red Blood Cells % 0 %; Platelet Count 385 10^3/cmm (130-400); Red Blood Count 3.24 10^6/uL (4.1-5.3); Red Cell Distribution Width 14.2 % (12.1-15.1); White Blood Count 6.9 10^3/uL (4.0-10.0)
[2021-02-13 07:50] LABS: D Dimer 2.58 ug/mIFEU (0-0.59)
[2021-02-13] MEDS: budesonide 0.5 mg/2 mL Neb INHALATION ×2 (07:51→20:57)
[2021-02-13 07:53] LABS: Alanine Aminotransferase 10 U/L (0-33); Albumin Level 2.6 g/dL (3.5-5.2); Alkaline Phosphatase 203 IU/L (35-105); Anion Gap 13.9 (5-19); Aspartate Amino Transferase 13 U/L (0-32); Blood Urea Nitrogen 11 mg/dL (6-20); Calcium 7.5 mg/dL (8.5-10.5); Carbon Dioxide 24 mmol/L (22-29); Chloride 104 mmol/L (98-107); Globulin 2.7 g/dL (1.3-4.6); Glomerular Filtration Rate 109.6 mL/min (90-130); Glucose 229 mg/dL (65-115); Osmolality Calculated 295 mOsm/kg (285-295); Sodium 139 mmol/L (136-145); Total Bilirubin 0.3 mg/dL (0.15-1.2); Total Protein 5.3 g/dL (6.6-8.7)
[2021-02-13 08:00] LABS: C Reactive Protein 74.5 mg/L (0.0-4.9); Creatine Phosphokinase 61 U/L (26-192); NT Pro B Type Natriuretic Pept 953 pg/mL (0-125)
[2021-02-13 08:37] LABS: Erythrocyte Sedimentation Rate 38 mm/hr (0-15)
[2021-02-13 08:50] LABS: Potassium 2.9 mmol/L (3.5-5.1)
[2021-02-13] MEDS: famotidine 20 mg/2 mL INJ IVP ×2 (10:04→22:06)
[2021-02-13] MEDS: potassium chloride ER 20 mEq Tablet 80 MEQ PO (11:06)
[2021-02-13] MEDS: BuSPIRONE 10 mg Tablet 7.5 MG PO ×3 (11:06→22:05)
[2021-02-13] MEDS: lamoTRIgine 100 mg Tablet 150 MG PO ×2 (11:09→18:03)
[2021-02-13] MEDS: metoprolol tartrate 50 mg Tablet PO ×2 (11:09→18:03)
[2021-02-13] MEDS: benzonatate 100 mg Capsule PO ×3 (11:09→22:05)
[2021-02-13] MEDS: gabapentin 400 mg Capsule PO ×3 (11:10→22:04)
[2021-02-13] MEDS: zinc gluconate 50 mg Tablet PO (11:11)
[2021-02-13] MEDS: docusate sodium 100 mg Capsule PO ×2 (11:11→18:03)
[2021-02-13] MEDS: escitalopram 10 mg Tablet 20 MG PO (11:11)
[2021-02-13] MEDS: ARIPiprazole 2 mg Tablet PO (11:12)
[2021-02-13] MEDS: ferrous gluconate 324 mg Tablet PO ×2 (11:12→18:03)
[2021-02-13] MEDS: risperiDONE 1 mg Tablet PO ×2 (11:12→18:03)
[2021-02-13] MEDS: ascorbic acid 500 mg Tablet 1000 MG PO ×2 (11:13→18:03)
[2021-02-13] MEDS: potassium chloride ER 20 mEq Tablet 40 MEQ PO (12:36)
[2021-02-13] MEDS: FUROsemide 10 mg/mL SDV 4mL 40 MG IVP (12:36)
[2021-02-13] MEDS: ketorolac 30 mg/mL INJ IVP (13:20)
--- NOTE | 2021-02-13 15:11 | P.PN_ITS ---
Subjective Subjective: Interval history: No complaints overnight. Patient remains comfortable in bed. Currently on 45 L 40% saturating 92%. Asking for more pain medications. Currently she is on oxycodone 5 mg every 6 hours . Denies any nausea, vomiting, headache. Discussed in detail regarding use of incentive spirometry and Acapella. She verbalized understanding and states will continue to that. Worked well with physical therapy and stood up at bedside today. Vitals/I&O/Wt Last Vital Signs Temp 98.7 F 02/13/21 11:55 Pulse 82 02/13/21 12:04 Resp 18 02/13/21 12:04 BP 125/80 02/13/21 11:55 Pulse Ox 94 02/13/21 12:04 02/13/21 02/13/21 02/13/21 06:59 14:59 22:59 Intake Total 580 / 3360 1505 / 1505 Output Total 1000 / 2500 1000 / 1000 Balance -420 / 860 505 / 505 Weight last 48 hrs Weight 141.43 kg Weight 140.614 kg Physical Exam Narrative: EXAM NARRATIVE: General: No acute distress, AO x3, HEENT: PERRLA, pupils bilaterally equal and reactive Chest: Normal vesicular breath sounds, no added sounds, equal good air entry bilaterally CVS: S1-S2 regular, no murmurs, no tachycardia, no gallops, no rubs Abdomen: Soft, nontender, no organomegaly, bowel sounds present Neuro: No focal deficits, no facial deformity, AO x3, power 5/5 in all limbs Urinary Catheter Management^: Thomas: Cath Placed During This Visit: yes Reason for Continuing Indwelling Catheter: Required Immobilization for Trauma or Surgery or Anesthesia Urinary Catheter Date of Insertion: 02/10/21 Urinary Catheter Time of Insertion: 19:40 Data : 02/13/21 06:20 02/13/21 06:20 A&P Assessment and plan (1) COVID-19: Status: Acute (2) Hypoxia: Status: Acute (3) Open tibial fracture: Status: Acute (4) SAM (acute kidney injury): Status: Acute (5) Hypotension: Status: Acute (6) Dehydration: Status: Acute (7) Transaminitis: Status: Acute Additional A&P Information Open tibial fracture: Post-ORIF day 2. Physical therapy,as per orthopedics. Oxycodone 5 mg every 6 hour as needed, tramadol 50 every 8 hours as needed for pain management. COVID-19 pneumonia: Acute hypoxic respiratory failure: Advair, Spiriva. Vitamin C, zinc. Remdesivir to finish 5-day course. Last on February 15. Dexamethasone 6 mg IV daily. Incentive spirometry and flutter valve for pulmonary toilet. Continue to monitor inflammatory markers daily including ESR, CRP, proBNP, D- dimer. Inflammatory markers continue to worsen today. CRP elevated. Will give 1 dose of Actemra. CTA negative for PE. D-dimer elevating. As patient continues to require high oxygen supplementation will start patient with full dose anticoagulation. Confirmed with Dr. Hartman. Pro-Anthony, MRSA swab, urine Legionella, bacterial antigen negative. Low suspicion of superimposed bacterial infection for now. For now hold off on antibiotics and monitor for vitals, leukocytosis or fever. Echocardiogram done shows EF of 60% with grade 2 diastolic dysfunction without . We will try to keep patient as negative as possible given severe hypoxia. IV 40 mg Lasix started. Target 1 L negative in next 24 hours. Daily weights. Strict and proper charting. SAM: Resolved. Most likely secondary to dehydration and pain medications. Blood pressures better. Stop IV fluids as patient is tolerating orals well. Medrec done for nephrotoxic drugs. Monitor BMP daily. Hypotension: Resolved. Most likely secondary dehydration and excessive pain medications. We will continue to monitor. Transaminitis: Resolved. Could be secondary to fractures. Hypothyroidism: For now continue with home dose of levothyroxine. Full code. Regular diet. Lovenox for DVT PPx Attestations Medical Necessity Statement*: Requires further hospitalization for management of acute hypoxic respiratory failure secondary to COVID-19 pneumonia, open tibial fracture post-ORIF. Time Spent in Patient Care: Greater than 35 minutes (>than 50% of time spent in counselling and/or direct pt care on unit) . Coding Level of Care Code Acute Tape Keller Operator for [facility] Diagnoses COVID-19 U07.1 Hypoxia R09.02 Open tibial fracture S82.209B SAM (acute kidney injury) N17.9 Hypotension I95.9 Dehydration E86.0 Transaminitis R74.01
--- NOTE | 2021-02-13 17:05 | PC.SOCIAL ---
IMM Updated Updated pt, via phone, on Pg 2 IMM. No questions voiced. Provided pt a copy. Initialed, dated, & timed copy in chart.
[2021-02-13 17:46] LABS: Anion Gap 13.4 (5-19); Blood Urea Nitrogen 10 mg/dL (6-20); Calcium 7.6 mg/dL (8.5-10.5); Carbon Dioxide 29 mmol/L (22-29); Chloride 103 mmol/L (98-107); Glomerular Filtration Rate 109.6 mL/min (90-130); Glucose 121 mg/dL (65-115); Osmolality Calculated 294 mOsm/kg (285-295); Potassium 3.4 mmol/L (3.5-5.1); Sodium 142 mmol/L (136-145)
[2021-02-13] MEDS: remdesivir 100 MG in sodium chloride 0.9% (100 ml) 100 ML IV (18:04)
[2021-02-13] MEDS: apixaban 5 mg Tablet PO (22:41)
[2021-02-14] VITALS (17 sets, daily range): BP systolic 102–126; BP diastolic 70–80; PULSE 77–99; RESP 17–22; TEMP 36.5–37.1; O2SAT 40–97
[2021-02-14] MEDS: dexamethasone 4 mg/mL INJ 6 MG IVP (01:09)
[2021-02-14] MEDS: ipratropium-albuterol 3 mL Neb INHALATION ×6 (03:48→23:44)
[2021-02-14] MEDS: levothyroxine 88 mcg Tablet PO (06:13)
[2021-02-14] MEDS: oxyCODONE 5 mg IR Tab/Cap PO ×3 (06:13→21:12)
[2021-02-14] MEDS: budesonide 0.5 mg/2 mL Neb INHALATION ×2 (10:04→20:52)
[2021-02-14] MEDS: ferrous gluconate 324 mg Tablet PO ×2 (10:27→18:33)
[2021-02-14] MEDS: apixaban 5 mg Tablet PO ×2 (10:28→21:12)
[2021-02-14] MEDS: escitalopram 10 mg Tablet 20 MG PO (10:28)
[2021-02-14] MEDS: lamoTRIgine 100 mg Tablet 150 MG PO ×2 (10:29→18:31)
[2021-02-14] MEDS: gabapentin 400 mg Capsule PO ×3 (10:30→21:12)
[2021-02-14] MEDS: ARIPiprazole 2 mg Tablet PO (10:31)
[2021-02-14] MEDS: ascorbic acid 500 mg Tablet 1000 MG PO ×2 (10:31→18:33)
[2021-02-14] MEDS: BuSPIRONE 10 mg Tablet 7.5 MG PO ×3 (10:32→21:12)
[2021-02-14] MEDS: benzonatate 100 mg Capsule PO ×3 (10:32→21:12)
[2021-02-14] MEDS: docusate sodium 100 mg Capsule PO ×2 (10:33→18:33)
[2021-02-14] MEDS: zinc gluconate 50 mg Tablet PO (10:34)
[2021-02-14] MEDS: risperiDONE 1 mg Tablet PO ×2 (10:34→18:32)
[2021-02-14] MEDS: metoprolol tartrate 50 mg Tablet PO ×2 (10:34→18:33)
[2021-02-14] MEDS: FUROsemide 10 mg/mL SDV 4mL 40 MG IVP (13:03)
[2021-02-14] MEDS: famotidine 20 mg/2 mL INJ IVP ×2 (13:03→21:13)
--- NOTE | 2021-02-14 13:48 | P.PN_ITS ---
Subjective Subjective: Interval history: No events overnight. Patient remains comfortably in bed. Down to 4 L high flow nasal cannula saturating 94%. Received a dose of Actemra yesterday. States feeling better. Working with physical therapy. Complaining of mild dizziness on standing up. No nausea or vomiting. Appetite appropriate. States pain is better but still there. Vitals/I&O/Wt Last Vital Signs Temp 98.6 F 02/14/21 04:00 Pulse 93 02/14/21 12:40 Resp 17 02/14/21 12:40 BP 126/76 02/14/21 04:00 Pulse Ox 94 02/14/21 12:40 02/13/21 02/14/21 02/14/21 22:59 06:59 14:59 Intake Total 320 / 1825 Output Total 1650 / 2650 350 / 3000 Balance -1330 / -825 -350 / -1175 Weight last 48 hrs Weight 141.43 kg Weight 141.43 kg Physical Exam Narrative: EXAM NARRATIVE: General: No acute distress, AO x3, HEENT: PERRLA, pupils bilaterally equal and reactive Chest: Normal vesicular breath sounds, no added sounds, equal good air entry bilaterally CVS: S1-S2 regular, no murmurs, no tachycardia, no gallops, no rubs Abdomen: Soft, nontender, no organomegaly, bowel sounds present Neuro: No focal deficits, no facial deformity, AO x3, power 5/5 in all limbs Urinary Catheter Management^: Thomas: Cath Placed During This Visit: yes Reason for Continuing Indwelling Catheter: Other Urinary Catheter Date of Insertion: 02/10/21 Urinary Catheter Time of Insertion: 19:40 Data : 02/13/21 06:20 02/13/21 17:00 A&P Assessment and plan (1) COVID-19: Status: Acute (2) Hypoxia: Status: Acute (3) Open tibial fracture: Status: Acute (4) SAM (acute kidney injury): Status: Acute (5) Hypotension: Status: Acute (6) Dehydration: Status: Acute (7) Transaminitis: Status: Acute Additional A&P Information Open tibial fracture: Post-ORIF day 3. Physical therapy,as per orthopedics. Oxycodone 5 mg every 6 hour as needed, tramadol 50 every 8 hours as needed for pain management. COVID-19 pneumonia: Acute hypoxic respiratory failure: Improving. Post 1 dose of Actemra on February 13. Advair, Spiriva. Vitamin C, zinc. Remdesivir to finish 5-day course. Last on February 15. Dexamethasone 6 mg IV daily. Incentive spirometry and flutter valve for pulmonary toilet. Continue to monitor inflammatory markers daily including ESR, CRP, proBNP, D- dimer. CTA negative for PE. D-dimer elevating. As patient continues to require high oxygen supplementation will start patient with full dose anticoagulation. Confirmed with Dr. Hartman. Pro-Anthony, MRSA swab, urine Legionella, bacterial antigen negative. Low suspicion of superimposed bacterial infection for now. For now hold off on antibiotics and monitor for vitals, leukocytosis or fever. Echocardiogram done shows EF of 60% with grade 2 diastolic dysfunction without . Lasix 40 mg repeat today. Net 1100 cc negative in the last 24 hours but 4.8 L positive since admission. Replete potassium. Daily weights. Strict and proper charting. SAM: Resolved. Most likely secondary to dehydration and pain medications. Blood pressures better. Stop IV fluids as patient is tolerating orals well. Medrec done for nephrotoxic drugs. Monitor BMP daily. Hypotension: Resolved. Most likely secondary dehydration and excessive pain medications. We will continue to monitor. Transaminitis: Resolved. Could be secondary to fractures. Hypothyroidism: For now continue with home dose of levothyroxine. Full code. Regular diet. Lovenox for DVT PPx Attestations Medical Necessity Statement*: Requires further hospitalization for management of hypoxic respiratory failure secondary to COVID-19 pneumonia, open tibia fracture post-ORIF status. Time Spent in Patient Care: Greater than 35 minutes (>than 50% of time spent in counselling and/or direct pt care on unit) . Coding Level of Care Code Acute Meter Shop Superintendent for [facility] Diagnoses COVID-19 U07.1 Hypoxia R09.02 Open tibial fracture S82.209B SAM (acute kidney injury) N17.9 Hypotension I95.9 Dehydration E86.0 Transaminitis R74.01
[2021-02-14] MEDS: potassium chloride ER 20 mEq Tablet 40 MEQ PO (14:23)
[2021-02-14] MEDS: remdesivir 100 MG in sodium chloride 0.9% (100 ml) 100 ML IV (21:14)
[2021-02-15] VITALS (17 sets, daily range): BP systolic 72–117; BP diastolic 47–96; PULSE 78–130; RESP 17–26; TEMP 36.8; O2SAT 89–98
[2021-02-15] MEDS: dexamethasone 4 mg/mL INJ 6 MG IVP (02:39)
[2021-02-15] MEDS: oxyCODONE 5 mg IR Tab/Cap PO ×3 (04:00→16:17)
[2021-02-15] MEDS: ipratropium-albuterol 3 mL Neb INHALATION ×3 (04:11→17:21)
--- NOTE | 2021-02-15 06:00 | XRR_ITS ---
PROCEDURE INFORMATION: Exam: XR Chest Exam date and time: 02/15/2021 6:00 AM Age: 40 years old Clinical indication: Shortness of breath; Additional info: Covid TECHNIQUE: Imaging protocol: XR of the chest. Views: 1 view. Total images: 1 COMPARISON: CR XR chest 1V portable [id number] 02/13/2021 5:21 AM FINDINGS: Lungs: Bilateral pulmonary opacities are again noted and appear unchanged. Pleural spaces: Unremarkable. No pleural effusion. No pneumothorax. Heart/Mediastinum: Low lung volumes are present, accentuating cardiac size and pulmonary markings. Heart size is stable when compared to the prior exam. Diaphragm: There is nonspecific elevation of the right hemidiaphragm. Bones/joints: Osseous structures are unchanged from the prior exam. XR/XR chest 1V portable [id number] IMPRESSION: 1. Low lung volumes are present, accentuating cardiac size and pulmonary markings. 2. Bilateral pulmonary opacities are again noted and appear unchanged.
[2021-02-15 07:25] LABS: Basophils % 0.2 %; Eosinophils # 0.1 10^3/uL (0.0-0.8); Eosinophils % 2.3 %; Hemoglobin 10.5 g/dL (11.5-15.3); Lymphocytes # 0.7 10^3/uL (0.8-4.8); Lymphocytes % 15.5 %; Mean Corpuscular HGB Conc 31.8 g/dL (30.0-36.0); Mean Corpuscular Hemoglobin 28.3 pg (28.0-34.0); Mean Corpuscular Volume 88.9 fL (81-99); Mean Platelet Volume 10.1 fL (7.4-10.4); Monocytes # 0.3 10^3/uL (0.2-0.9); Monocytes % 6.9 %; Neutrophils # 3.18 10^3/uL (1.8-7.7); Neutrophils % 73.5 %; Nucleated Red Blood Cells % 0 %; Platelet Count 460 10^3/cmm (130-400); Red Blood Count 3.71 10^6/uL (4.1-5.3); Red Cell Distribution Width 14.2 % (12.1-15.1); White Blood Count 4.3 10^3/uL (4.0-10.0)
[2021-02-15 07:27] LABS: C Reactive Protein 53.4 mg/L (0.0-4.9)
[2021-02-15 07:28] LABS: Alanine Aminotransferase 9 U/L (0-33); Albumin Level 2.9 g/dL (3.5-5.2); Alkaline Phosphatase 186 IU/L (35-105); Anion Gap 12.3 (5-19); Aspartate Amino Transferase 14 U/L (0-32); Blood Urea Nitrogen 11 mg/dL (6-20); Calcium 7.9 mg/dL (8.5-10.5); Carbon Dioxide 32 mmol/L (22-29); Chloride 94 mmol/L (98-107); Glomerular Filtration Rate 109.6 mL/min (90-130); Glucose 210 mg/dL (65-115); Osmolality Calculated 286 mOsm/kg (285-295); Potassium 3.3 mmol/L (3.5-5.1); Sodium 135 mmol/L (136-145); Total Bilirubin 0.3 mg/dL (0.15-1.2); Total Protein 5.9 g/dL (6.6-8.7)
[2021-02-15 10:04] LABS: Erythrocyte Sedimentation Rate 24 mm/hr (0-15)
[2021-02-15] MEDS: potassium chloride ER 20 mEq Tablet 80 MEQ PO (10:13)
[2021-02-15] MEDS: levothyroxine 88 mcg Tablet PO (10:13)
[2021-02-15] MEDS: benzonatate 100 mg Capsule PO ×3 (10:13→21:49)
[2021-02-15] MEDS: metoprolol tartrate 50 mg Tablet PO (10:14)
[2021-02-15] MEDS: gabapentin 400 mg Capsule PO ×3 (10:14→21:49)
[2021-02-15] MEDS: escitalopram 10 mg Tablet 20 MG PO (10:14)
[2021-02-15] MEDS: BuSPIRONE 10 mg Tablet 7.5 MG PO ×3 (10:15→21:49)
[2021-02-15] MEDS: ascorbic acid 500 mg Tablet 1000 MG PO ×2 (10:15→19:35)
[2021-02-15] MEDS: docusate sodium 100 mg Capsule PO ×2 (10:15→19:36)
[2021-02-15] MEDS: zinc gluconate 50 mg Tablet PO (10:15)
[2021-02-15] MEDS: lamoTRIgine 100 mg Tablet 150 MG PO ×2 (10:16→19:36)
[2021-02-15] MEDS: ARIPiprazole 2 mg Tablet PO (10:16)
[2021-02-15] MEDS: famotidine 20 mg/2 mL INJ IVP ×2 (10:17→22:20)
[2021-02-15] MEDS: risperiDONE 1 mg Tablet PO ×2 (10:17→19:38)
[2021-02-15] MEDS: ferrous gluconate 324 mg Tablet PO ×2 (10:42→19:36)
--- NOTE | 2021-02-15 13:12 | PM.PN ---
Subjective Subjective: Interval history: No acute events overnight. Patient states she is feeling better. Though she states she is not ready to go home yet because she cannot walk by herself given her recent ORIF. Nursing if she can be placed to SNF. We discussed that unfortunately given her Covid positive result she would need to be off isolation before she can go to SNF because of current rules. We also discussed physical therapy evaluation and home exercise program along with home health for better rehabitation. Patient states she will continue to work with physical therapy and Occupational Therapy for now. During examination she was on 3 L high flow nasal cannula saturating 95% which is turned down to room air saturating at 91% during the day. Denies any nausea, vomiting, headache. Eating well. Working with incentive spirometer as well. States pain is better. On examination was found to have mild saturation of bandages. Vitals/I&O/Wt Last Vital Signs Temp 98.3 F 02/15/21 08:00 Pulse 97 02/15/21 13:07 Resp 17 02/15/21 13:07 BP 104/56 02/15/21 08:00 Pulse Ox 91 02/15/21 13:07 02/14/21 02/15/21 02/15/21 22:59 06:59 14:59 Intake Total 300 / 800 240 / 240 Output Total 900 / 4400 Balance 300 / -2700 -900 / -3600 240 / 240 Weight last 48 hrs Weight 141.43 kg Physical Exam Narrative: EXAM NARRATIVE: General: No acute distress, AO x3, HEENT: PERRLA, pupils bilaterally equal and reactive Chest: Normal vesicular breath sounds, no added sounds, equal good air entry bilaterally CVS: S1-S2 regular, no murmurs, no tachycardia, no gallops, no rubs Abdomen: Soft, nontender, no organomegaly, bowel sounds present Neuro: No focal deficits, no facial deformity, AO x3, power 5/5 in all limbs Urinary Catheter Management^: Thomas: Cath Placed During This Visit: yes Reason for Continuing Indwelling Catheter: Other Urinary Catheter Date of Insertion: 02/10/21 Urinary Catheter Time of Insertion: 19:40 Data : 02/15/21 05:24 02/15/21 05:24 A&P Assessment and plan (1) COVID-19: Status: Acute (2) Hypoxia: Status: Acute (3) Open tibial fracture: Status: Acute (4) SAM (acute kidney injury): Status: Acute (5) Hypotension: Status: Acute (6) Dehydration: Status: Acute (7) Transaminitis: Status: Acute Additional A&P Information Open tibial fracture: Post-ORIF day 4. Physical therapy,as per orthopedics. Oxycodone 5 mg every 6 hour as needed, tramadol 50 every 8 hours as needed for pain management. Surgical dressing mildly saturated with blood today. Case discussed with Dr. Gottlieb. Advises dressing can be changed. Also states if medically needed can continue anticoagulation. COVID-19 pneumonia: Acute hypoxic respiratory failure: Improving. Currently on room air. Post 1 dose of Actemra on February 13. Advair, Spiriva. Vitamin C, zinc. Remdesivir to finish 5-day course. Last on February 15. Dexamethasone 6 mg IV daily. Incentive spirometry and flutter valve for pulmonary toilet. Continue to monitor inflammatory markers daily including ESR, CRP, proBNP, D-dimer. Trending down. CTA negative for PE. D-dimer elevating. Patient is back on room air and has mild saturation of surgical dressing. Full dose anticoagulation for now and transition over to heparin 5000 every 8 hourly. We will continue to monitor oxygen supplementation. Pro-Anthony, MRSA swab, urine Legionella, bacterial antigen negative. Low suspicion of superimposed bacterial infection for now. For now hold off on antibiotics and monitor for vitals, leukocytosis or fever. Echocardiogram done shows EF of 60% with grade 2 diastolic dysfunction without . Replete potassium. Net 1400 cc positive since admission though -3604 over last 24 hours. Hold off on any further Lasix for today. Daily weights. Strict and proper charting. SAM: Resolved. Most likely secondary to dehydration and pain medications. Blood pressures better. Stop IV fluids as patient is tolerating orals well. Medrec done for nephrotoxic drugs. Monitor BMP daily. Hypotension: Resolved. Most likely secondary dehydration and excessive pain medications. We will continue to monitor. Transaminitis: Resolved. Could be secondary to fractures. Hypothyroidism: For now continue with home dose of levothyroxine. Full code. Regular diet. Heparin for DVT PPx Dischargeplanning: Home health versus SNF. Most likely patient home with home health and home exercise program. Case discussed with case management and physical therapy team. We will continue to monitor. Continues to do well respiratory point of view within next 24 hours can plan to discharge. Will monitor physical therapy and Occupational Therapy recommendations Attestations Medical Necessity Statement*: Patient requires further hospitalization for management of hypoxia secondary COVID-19 pneumonia, post ORIF for open tibia fracture requiring physical therapy. Time Spent in Patient Care: Greater than 35 minutes (>than 50% of time spent in counselling and/or direct pt care on unit). Coding Level of Care Code Acute [employer] [facility] Diagnoses COVID-19 U07.1 Hypoxia R09.02 Open tibial fracture S82.209B SAM (acute kidney injury) N17.9 Hypotension I95.9 Dehydration E86.0 Transaminitis R74.01
[2021-02-15] MEDS: heparin 5,000 unit/mL INJ 1 mL 5000 UNIT SUBCUT ×2 (16:18→21:48)
[2021-02-15] MEDS: sodium chloride 0.9% 1,000 ML 999 ML IV (20:44)
--- NOTE | 2021-02-15 20:45 | PC.NURSE ---
Blood pressure 79/54 dr. Smith notified 1L bolus ordered and started
[2021-02-15] MEDS: remdesivir 100 MG in sodium chloride 0.9% (100 ml) 100 ML IV (21:47)
[2021-02-16] VITALS (12 sets, daily range): BP systolic 93–126; BP diastolic 58–79; PULSE 85–111; RESP 14–24; TEMP 36.4–36.9; O2SAT 86–95
[2021-02-16] MEDS: ipratropium-albuterol 3 mL Neb INHALATION ×2 (01:20→09:16)
[2021-02-16] MEDS: acetaminophen 325 mg Tablet 650 MG PO (02:37)
[2021-02-16] MEDS: dexamethasone 4 mg/mL INJ 6 MG IVP (03:15)
[2021-02-16] MEDS: oxyCODONE 5 mg IR Tab/Cap PO ×2 (05:31→14:04)
[2021-02-16] MEDS: levothyroxine 88 mcg Tablet PO (07:16)
[2021-02-16] MEDS: heparin 5,000 unit/mL INJ 1 mL 5000 UNIT SUBCUT (07:16)
[2021-02-16 07:27] LABS: C Reactive Protein 25.8 mg/L (0.0-4.9)
[2021-02-16] MEDS: lamoTRIgine 100 mg Tablet 150 MG PO (08:31)
[2021-02-16] MEDS: benzonatate 100 mg Capsule PO (08:31)
[2021-02-16] MEDS: escitalopram 10 mg Tablet 20 MG PO (08:31)
[2021-02-16] MEDS: risperiDONE 1 mg Tablet PO (08:31)
[2021-02-16] MEDS: BuSPIRONE 10 mg Tablet 7.5 MG PO (08:32)
[2021-02-16] MEDS: ascorbic acid 500 mg Tablet 1000 MG PO (08:32)
[2021-02-16] MEDS: gabapentin 400 mg Capsule PO (08:32)
[2021-02-16] MEDS: ferrous gluconate 324 mg Tablet PO (08:32)
[2021-02-16] MEDS: zinc gluconate 50 mg Tablet PO (08:32)
[2021-02-16] MEDS: docusate sodium 100 mg Capsule PO (08:32)
[2021-02-16] MEDS: ARIPiprazole 2 mg Tablet PO (08:36)
[2021-02-16] MEDS: budesonide 0.5 mg/2 mL Neb INHALATION (09:16)
--- NOTE | 2021-02-16 11:58 | PM.DCS ---
Discharge Providers Date of Admission: 02/10/21 18:51 Date of Discharge: February 16, 2021 Attending Provider at Admission: Daquan Whitfield MD Attending Provider at Discharge: Daquan Whitfield MD Primary Care Provider: SILVANO Hutchins Diagnoses at Discharge Discharge Diagnosis (1) COVID-19: Status: Acute (2) Hypoxia: Status: Acute (3) Open tibial fracture: Status: Acute (4) SAM (acute kidney injury): Status: Acute (5) Hypotension: Status: Acute (6) Dehydration: Status: Acute (7) Transaminitis: Status: Acute Reason for Visit Reason for Visit: FALL, DIZZY Hospital Course Hospital Course Abigail Restrepo is a 40 year old female with past medical history of anxiety, depression multiple fractures of the leg in the past presented to the ER today after having a mechanical fall when she was walking in the kitchen. Patient stated just prior to the fall she has turned around and denies dizziness after which she tripped. Patient has known exposure to COVID-19 with boyfriend being treated for COVID-19 for last 1 week. Patient denies any nausea vomiting, headache, difficulty in breathing but does complain of myalgia, tiredness, lethargy for last 3 days. States she has not checked her fever in the past. She denies any dizziness at present. On presentation to the ER patient's blood pressure is 80/60 mmHg. Patient has received 2 L of fluid bolus over 2 hours with blood pressure improvement to 83 systolics. She denies any dizziness or headache or chest pain. Blood work in the ER showed white count 7.8, hemoglobin of 12.8, D-dimer of 4.1, ABG showing a pH of 7.4, PO2 of 64 on 2 L oxygen supplementation, chemistry showing sodium 142, potassium 3.2, creatinine of 1.2, BUN of 27, AST/ALT 24/36, ALP of 266, TSH of 6.16, UA negative for any signs of infection. She was open to the hospital for further management of hypoxia from COVID-19 pneumonia and open tibial fracture. Orthopedics was consulted and she underwent ORIF on February 11. She tolerated the procedure well. Postprocedure she was found to have higher oxygen requirement than baseline going as high as 50 L 80% heated high flow. She was started on treatment with IV remdesivir, IV dexamethasone, inhalation treatment and she was diuresed with Lasix on as-needed basis depending on her blood pressures. She responded well to the treatment and is currently on 2 L oxygen supplementation saturating 91%. Patient has been working well with physical therapy. She has been discharged in hemodynamically stable condition with the following recommendations. She is to continue using inhalation treatment for next 2 weeks. She is to continue taking Eliquis 2.5 mg twice daily which is a blood thinner for next 2 weeks. She is to continue doing incentive spirometry and flutter valve as discussed in detail for pulmonary toilet and lung rehabilitation. She is to continue using physical therapy and home exercise program as discussed in detail. She is to follow-up with her primary care provider within next 4 to [address] Hartman from orthopedics as per his directions. Patient is also advised to monitor her oxygen saturations at home. If she is getting more out of breath than usual and requiring high amount of oxygen supplementation or has a fever of more than 101 on multiple occasions she should come back to the ER. Patient is also advised to monitor her pain medication regime to prevent from hypoxia or hypotension. Given her postoperative status and recovering from COVID-19 pneumonia patient has been set up with home health prior to discharge. Physical Exam Narrative: EXAM NARRATIVE: General: No acute distress, AO x3, HEENT: PERRLA, pupils bilaterally equal and reactive Chest: Normal vesicular breath sounds, no added sounds, equal good air entry bilaterally CVS: S1-S2 regular, no murmurs, no tachycardia, no gallops, no rubs Abdomen: Soft, nontender, no organomegaly, bowel sounds present Neuro: No focal deficits, no facial deformity, AO x3, power 5/5 in all limbs Urinary Catheter Management^: Thomas: Cath Placed During This Visit: yes, but has since been removed by the nurse Reason for Continuing Indwelling Catheter: Decision to DC Catheter Urinary Catheter Date of Insertion: 02/10/21 Urinary Catheter Time of Insertion: 19:40 Date Urinary Catheter Removed: 02/16/21 Time Urinary Catheter Discontinued: 11:17 Discharge Data Data Completed and Pending: Completed Studies During Hospitalization Category Date Time Status CT angio abd aort a runof 92946 Urge nt Cat Scan 02/10/21 19:[address] angio chest PE protcl 44886 Urge nt Cat Scan 02/10/21 18:40 Completed XR ankle LT 2V 73 600 Stat Exams 02/10/21 15:43 Completed XR chest 1V [place] ble 50078 Q48H Exams 02/11/21 06:00 Completed XR chest 1V caridad ble 46817 Q48H Exams 02/13/21 06:00 Completed XR chest 1V caridad ble 38940 Q48H Exams 02/15/21 06:00 Completed XR chest 1V caridad ble 20069 Urgent Exams 02/10/21 15:45 Completed XR hip LT 2-3V wo /w pel* 17455 Stat Exams 02/10/21 15:43 Completed XR tibia fibula L T 2V 30107 Routine Exams 02/11/21 Completed XR tibia fibula L T 2V 08118 Stat Exams 02/10/21 15:43 Completed CV. echo complete * [id number] Routine Ultrasound 02/11/21 06:00 Completed Pending at discharge Category Date Time Status C Reactive Protei n AM LABS Lab 02/17/21 04:00 Ordered Erythrocyte Sedim entation Rate Q48H Lab 02/17/21 04:00 Ordered Sputum Culture an d Gram Stain Stat Lab 02/10/21 18:40 Uncollected Labs from last 24 hours 02/16/21 06:00 C-Reactive Protein 25.8 H Addt'l Data from Hospital Stay: Laboratory Results WBC 4.3 10^3/uL (4.0- 10.0) 02/15/21 05:24 RBC 3.71 10^6/uL (4.1 -5.3) L 02/15/21 05:24 Hgb 10.5 g/dL (11.5-1 5.3) L 02/15/21 05:24 Hct 33.0 % (37.0-47.0 ) L 02/15/21 05:24 MCV 88.9 fL (81-99) 02/15/21 05:24 MCH 28.3 pg (28.0-34. 0) 02/15/21 05:24 MCHC 31.8 g/dL (30.0-3 6.0) 02/15/21 05:24 RDW 14.2 % (12.1-15.1 ) 02/15/21 05:24 Plt Count 460 10^3/cmm (130 -400) H 02/15/21 05:24 MPV 10.1 fL (7.4-10.4 ) 02/15/21 05:24 Neut % (Auto) 73.5 % 02/15/21 05:24 Lymph % (Auto) 15.5 % 02/15/21 05:24 [place] % (Auto) 6.9 % 02/15/21 05:24 Eos % (Auto) 2.3 % 02/15/21 05:24 Baso % (Auto) 0.2 % 02/15/21 05:24 Neut # (Auto) 3.18 10^3/uL (1.8 -7.7) 02/15/21 05:24 Lymph # (Auto) 0.7 10^3/uL (0.8- 4.8) L 02/15/21 05:24 [place] # (Auto) 0.3 10^3/uL (0.2- 0.9) 02/15/21 05:24 Eos # (Auto) 0.1 10^3/uL (0.0- 0.8) 02/15/21 05:24 Baso # (Auto) 0.0 10^3/uL (0.0- 0.1) 02/15/21 05:24 Nucleated RBC % (a uto) 0 % 02/15/21 05:24 Nucleated RBCs # 0.0 /100WBC 02/15/21 05:24 ESR 24 mm/hr (0-15) H 02/15/21 05:24 D-Dimer 2.58 ug/mIFEU (0- 0.59) H 02/13/21 06:20 Specimen Type Arterial 02/13/21 06:10 Sample Site Radial, right 02/13/21 06:10 ABG pH 7.46 (7.35-7.45) H 02/13/21 06:10 ABG pCO2 38.9 mmHg (35-45) 02/13/21 06:10 ABG pO2 68.3 mmHg (80.0-1 00.0) L 02/13/21 06:10 ABG HCO3 27.6 mmol/L (22-2 6) H 02/13/21 06:10 ABG O2 Saturation 95.1 02/13/21 06:10 ABG Base Excess 3.5 mmol/L (-2.0- 2.0) H 02/13/21 06:10 Arturo Test Pos 02/13/21 06:10 A-a O2 Gradient 35.9 mmHg (5-10) H 02/13/21 06:10 Hematocrit 30.6 % (37-47) L 02/13/21 06:10 Hgb O2 Saturation 93.5 % (95-100) L 02/13/21 06:10 Carboxyhemoglobin 0.6 %THgb (0.4-20 .1) 02/13/21 06:10 Methemoglobin 1.1 % (0.4-1.5) 02/13/21 06:10 Total Hemoglobin 10.0 g/dL (12-16) L 02/13/21 06:10 Sodium 139.0 mmol/L (131 -143) 02/13/21 06:10 Potassium 2.6 mmol/L (3.5-5 .0) L 02/13/21 06:10 Glucose 246.0 mg/dL (70-1 15) H 02/13/21 06:10 Ionized Calcium 1.1 mmol/L (1.1-1 .4) 02/13/21 06:10 O2 Delivery Device Hag 02/13/21 06:10 O2 Liters/Min 45.0 % 02/13/21 06:10 FiO2 55.0 % 02/13/21 06:10 Medical Instrument Cable Fabricator ID Grover 02/13/21 06:10 Sodium 135 mmol/L (136-1 45) L 02/15/21 05:24 Potassium 3.3 mmol/L (3.5-5 .1) L 02/15/21 05:24 Chloride 94 mmol/L (98-107 ) L 02/15/21 05:24 Carbon Dioxide 32 mmol/L (22-29) H 02/15/21 05:24 Anion Gap 12.3 (5-19) 02/15/21 05:24 BUN 11 mg/dL (6-20) 02/15/21 05:24 Creatinine 0.6 mg/dL (0.5-0. 9) 02/15/21 05:24 GFR Calculation 109.6 mL/min (90- 130) 02/15/21 05:24 Glucose 210 mg/dL (65-115 ) H 02/15/21 05:24 POC Glucose 158 mg/dL (70-110 ) H 02/11/21 21:59 Estimat Average Gl ucose 151 02/11/21 05:36 Hemoglobin A1c 6.9 % (4.0-6.0) H 02/11/21 05:36 Specific [place] Cancelled 02/12/21 01:58 Calculated Osmolal ity 286 mOsm/kg (285- 295) 02/15/21 05:24 Lactic Acid 1.9 mmol/L (0.5-2 .2) 02/10/21 17:05 Calcium 7.9 mg/dL (8.5-10 .5) L 02/15/21 05:24 Iron 53 ug/dL (37-145) 02/10/21 17:05 TIBC 203 mcg/dl 02/10/21 17:05 % Saturation 26.1 % (20-50) 02/10/21 17:05 Unsat Iron Binding 150 ug/dL (112-34 7) 02/10/21 17:05 Ferritin 448 ng/mL (15-150 ) H 02/12/21 06:14 Total Bilirubin 0.3 mg/dL (0.15-1 .2) 02/15/21 05:24 AST 14 U/L (0-32) 02/15/21 05:24 ALT 9 U/L (0-33) 02/15/21 05:24 Alkaline Phosphata se 186 IU/L (35-105) H 02/15/21 05:24 Creatine Kinase 61 U/L (26-192) 02/13/21 06:20 Troponin T Baselin e 8 ng/L (0-10) 02/10/21 17:05 Troponin T 120 Min [place] 9.66 ng/L (0-10) 02/10/21 19:29 Delta Troponin T 1.66 ABS# (0-10) 02/10/21 19:29 C-Reactive Protein 25.8 mg/L (0.0-4. 9) H 02/16/21 06:00 NT-Pro-B Natriuret Pep 953 pg/mL (0-125) H 02/13/21 06:20 Total Protein 5.9 g/dL (6.6-8.7 ) L 02/15/21 05:24 Albumin 2.9 g/dL (3.5-5.2 ) L 02/15/21 05:24 Globulin 3.0 g/dL (1.3-4.6 ) 02/15/21 05:24 Triglycerides 66 mg/dL (0-150) 02/11/21 05:36 Cholesterol 93 mg/dL (0-200) 02/11/21 05:36 LDL Cholesterol, C alc 43 mg/dL (50-129) L 02/11/21 05:36 Total VLDL Cholest prabhjot 13 mg/dL (0-30) 02/11/21 05:36 HDL Cholesterol 37 mg/dL (60-100) L 02/11/21 05:36 Cholesterol/HDL Ra leonila 2.51 mg/dL (0.0-4 .40) 02/11/21 05:36 Procalcitonin 0.13 ng/mL (0-0.5 ) 02/12/21 06:14 TSH 6.16 uIU/mL (0.27 -4.20) H 02/10/21 17:05 Free T4 1.47 ng/dL (0.82- 1.77) 02/10/21 17:05 Free T3 3.0 PG/ML (2.0-4. 4) 02/10/21 17:05 HCG, Qual Negative (Negati ve) 02/10/21 17:05 Urine Color Cancelled 02/10/21 19:42 Urine Color Dark yellow (Yel low) 02/10/21 19:42 Urine Appearance Cancelled 02/10/21 19:42 Urine Appearance Cloudy (CLEAR) 02/10/21 19:42 Urine pH Cancelled 02/12/21 01:58 Ur Specific Gravit y 1.020 (1.005-1.0 30) 02/10/21 19:42 Ur Specific Gravit y Cancelled 02/10/21 19:42 Urine Protein 2+ (Negative) H 02/10/21 19:42 Urine Protein Cancelled 02/10/21 19:42 Urine Glucose (UA) Cancelled 02/10/21 19:42 Urine Glucose (UA) Norm (Normal) 02/10/21 19:42 Urine Ketones Cancelled 02/10/21 19:42 Urine Ketones Negative (Negati ve) 02/10/21 19:42 Urine Blood Cancelled 02/10/21 19:42 Urine Blood Neg (Negative) 02/10/21 19:42 Urine Nitrate Cancelled 02/10/21 19:42 Urine Nitrate Negative (Negati ve) 02/10/21 19:42 Urine Bilirubin 2+ (Negative) H 02/10/21 19:42 Urine Bilirubin Cancelled 02/10/21 19:42 Prot Sulfosalicyli c Acd Cancelled 02/10/21 19:42 Urine Urobilinogen 8 mg/dL (Negative ) H 02/10/21 19:42 Urine Urobilinogen Cancelled 02/10/21 19:42 Ur Leukocyte Shanita ase Cancelled 02/10/21 19:42 Ur Leukocyte Shanita ase Negative (Negati ve) 02/10/21 19:42 Urine RBC Rare /hpf (0-2) 02/10/21 19:42 Urine WBC 0-4 /hpf (0-5) H 02/10/21 19:42 Ur Squamous Epith Cells 0-4 /hpf (0-5) H 02/10/21 19:42 Amorphous Sediment Not Reportable 02/10/21 19:42 Urine Bacteria 1+ /hpf (NONE) H 02/10/21 19:42 Urine Mucus 2+ /hpf 02/10/21 19:42 Urine Oxidant Cancelled 02/12/21 01:58 Urine Opiates Scre en Positive ng/mL (N egative) H 02/12/21 01:58 Urine Opiates Leve l Cancelled 02/12/21 01:58 Urine Oxycodone Cancelled 02/12/21 01:58 U Methadone Metabo lites Cancelled 02/12/21 01:58 Barbiturates Cancelled 02/12/21 01:58 Ur Barbiturates Sc reen Negative ng/mL (N egative) 02/12/21 01:58 Phencyclidine (PCP ) Cancelled 02/12/21 01:58 Ur Phencyclidine S crn Negative ng/mL (N egative) 02/12/21 01:58 Amphetamines Cancelled 02/12/21 01:58 Ur Amphetamines Sc reen Negative ng/mL (N egative) 02/12/21 01:58 Benzodiazepines Cancelled 02/12/21 01:58 U Benzodiazepines Scrn Negative ng/mL (N egative) 02/12/21 01:58 Cocaine Metabolite Cancelled 02/12/21 01:58 Urine Cocaine Scre en Negative ng/mL (N egative) 02/12/21 01:58 U Marijuana (THC) Screen Negative ng/mL (N egative) 02/12/21 01:58 U Marijuana Met[place] Cancelled 02/12/21 01:58 Abn Spec Valid [place] g Scn Cancelled 02/12/21 01:58 Urine Drug Screen Note Cancelled 02/12/21 01:58 Ur Drug Screen Com ment Cancelled 02/12/21 01:58 Nasal/Oral COVID-1 9 PCR Detected H 02/10/21 15:40 Hepatitis A IgM Ab Non-reactive (No nreactive) 02/10/21 17:05 Hep Bs Antigen Non-reactive (No nreactive) 02/10/21 17:05 Hep Bs Antibody 3.5 (11.5-1000) L 02/10/21 17:05 Hep B Core Total A b Non-reactive (No nreactive) 02/10/21 17:05 Hepatitis C Antibo dy Non-reactive (No nreactive) 02/10/21 17:05 HIV 1&2 Ab & HIV 1 Ag Non-reactive (No n-Reactiv) 02/10/21 17:08 HIV 1&2 Antibody Non-reactive (No n-Reactiv) 02/10/21 17:08 Influenza Type A A g Negative (Negati ve) 02/11/21 05:12 Influenza Type B A g Negative (Negati ve) 02/11/21 05:12 SARS-CoV-2 Ag (Rap id) Negative (Negati ve) 02/10/21 15:40 Impressions Ankle X-Ray 02/10/21 15:43 IMPRESSION: 1. Comminuted displaced fracture of the lower tibia only partially visualized. Hip/Pelvis X-Ray 02/10/21 15:43 IMPRESSION: 1. Mild DJD. No fracture. Chest CTA 02/10/21 18:40 IMPRESSION: 1. No pulmonary embolism. 2. Severe bilateral lung disease. Commonly reported imaging features of COVID-19 pneumonia are present. Other processes such as influenza pneumonia and organizing pneumonia (as can be seen with drug toxicity and connective tissue disease), can produce a similar imaging pattern. Radiation Dose CTDIVOL = (mGy): DLP = 543.06 (mGy-cm) Aorta w/Runoff CTA 02/10/21 19:05 IMPRESSION: 1. No arterial stenosis, occlusion or aneurysm in the abdomen, pelvis or lower extremities. 2. Acute fractures of the left distal tibia and proximal fibula. Suspect chronic fracture of the left distal fibula. 3. Acute fracture of the left proximal 1st phalanx. 4. Age indeterminate fracture of the right proximal fibula. Radiation Dose CTDIVOL = (mGy): DLP = 2397.15 (mGy-cm) Tibia/Fibula X-Ray 02/11/21 00:00 IMPRESSION: Intramedullary sam fixation of left tibial fracture. Chest X-Ray 02/15/21 06:00 IMPRESSION: 1. Low lung volumes are present, accentuating cardiac size and pulmonary markings. 2. Bilateral pulmonary opacities are again noted and appear unchanged. Vitals: Last Vital Signs Temp 97.6 F 02/16/21 08:00 Pulse 86 02/16/21 09:24 Resp 17 02/16/21 09:18 BP 109/79 02/16/21 08:00 Pulse Ox 91 02/16/21 09:18 Discharge Plan Discharge Patient Disposition: Home Condition: Stable Prescriptions: New Vitamin C 500 mg Tablet 1,000 mg PO BID 14 Days Qty: 56 RF: 0 benzonatate 100 mg Capsule 100 mg PO TID PRN (Reason: cough) Qty: 10 RF: 0 zinc gluconate 50 mg Tablet 50 mg PO DAILY 30 Days Qty: 30 RF: 0 ferrous gluconate 324 mg (37.5 mg iron) Tablet 324 mg PO BIDWM 30 Days Qty: 30 RF: 0 dexamethasone 6 mg tablet 6 mg PO DAILY Qty: 7 RF: 0 Advair Diskus 250-50 mcg/dose blister with device 1 inh inhalation BID 14 Days Qty: 30 RF: 0 Spiriva Respimat 1.25 mcg/actuation mist 2 inh inhalation DAILY 14 Days Qty: 56 RF: 0 Eliquis 2.5 mg tablet 2.5 mg PO Q12H 14 Days Qty: 28 RF: 0 Continued lamotrigine 150 mg tablet 150 mg PO BID RF: 0 tizanidine 4 mg tablet 4 mg PO TID PRN (Reason: Pain) RF: 0 hydroxyzine pamoate 50 mg capsule 50 mg PO QID PRN (Reason: Anxiety) RF: 0 meloxicam 7.5 mg tablet 7.5 mg PO BID RF: 0 levothyroxine 88 mcg tablet 88 mcg PO DAILY RF: 0 metoprolol tartrate 50 mg tablet 50 mg PO BID RF: 0 gabapentin 300 mg capsule 300 mg PO TID RF: 0 buspirone 7.5 mg tablet 7.5 mg PO BID RF: 0 risperidone 1 mg tablet 1 mg PO BEDTIME RF: 0 oxycodone 5 mg tablet 5 mg PO Q4H PRN (Reason: Pain) RF: 0 escitalopram oxalate 20 mg tablet 20 mg PO DAILY RF: 0 levothyroxine 88 mcg tablet 88 mcg PO DAILY@07 RF: 0 metoprolol tartrate 50 mg tablet 50 mg PO BID RF: 0 buspirone 7.5 mg tablet 7.5 mg PO TID RF: 0 escitalopram oxalate 20 mg tablet 20 mg PO DAILY RF: 0 lamotrigine 150 mg tablet 150 mg PO BID RF: 0 tizanidine 2 mg tablet 2 mg PO Q6H PRN (Reason: Muscle Spasm) RF: 0 hydroxyzine pamoate 50 mg capsule 50 mg PO Q4H PRN (Reason: Anxiety) RF: 0 etodolac 400 mg tablet 400 mg PO BID RF: 0 risperidone 1 mg tablet 1 mg PO BID RF: 0 aripiprazole 2 mg tablet 2 mg PO DAILY RF: 0 Discontinued gabapentin 400 mg capsule 400 mg PO TID RF: 0 gabapentin 800 mg tablet 800 mg PO TID RF: 0 oxycodone 10 mg tablet 10 mg PO Q6H PRN (Reason: Pain) RF: 0 Discharge Orders: Discharge Order (Routine); Ordered 02/16/21 Ordered By: Daquan Whitfield Referrals: Charles Hartman DO [Physician] - 4-7 days Charleen Lee FNP [Primary Care Provider] - 4-7 days Discharge Diet: Regular Discharge Activity: Resume usual activity and Increase activity as tolerated Patient Instructions: Opioid Safety Activity Restrictions/Additional Instructions: She is to continue using inhalation treatment for next 2 weeks. She is to continue taking Eliquis 2.5 mg twice daily which is a blood thinner for next 2 weeks. She is to continue doing incentive spirometry and flutter valve as discussed in detail for pulmonary toilet and lung rehabilitation. She is to continue using physical therapy and home exercise program as discussed in detail. She is to follow-up with her primary care provider within next 4 to [address] Hartman from orthopedics as per his directions. Patient is also advised to monitor her oxygen saturations at home. If she is getting more out of breath than usual and requiring high amount of oxygen supplementation or has a fever of more than 101 on multiple occasions she should come back to the ER. Patient is also advised to monitor her pain medication regime to prevent from hypoxia or hypotension. You are being discharged from the hospital today during which time you have been under the care of Dr Hartman. You had a Left Tibia fracture. You were treated for this injury with IM nail tibia. You may resume you normal diet (including any special diets as directed by your primary doctor) as well as your home medications. You should follow up with you primary doctor if you have any questions regarding medication you took prior to your stay in the hospital. You may take your pain medication as prescribed. After the first few days, take your pain medication as needed. Do not drive or drink alcohol while taking your pain medication. Your injury may increase your risk of developing a blood clot,or DVT, in your arm or leg. This could potentially dislodge and travel to your lungs and become a life threatening condition called apulmonary embolus,or PE. You have been prescribed lovenox to be taken to prevent this. Frequent movement of the feet will also help prevent this from occurring. If you develop any new or worsening cough, chestpain, bloody sputum or shortness of breath, call 911 or go to the EmergencyRoom. Always keep your surgical incision/dressing clean and dry. If you experience increasing pain at your incision site, redness, swelling, increasing discharge, foul odors, or fevers (greater than 100.4), night sweats or chills you should call the office at the above number. If you feel this is an emergency you should be evaluated in the Emergency Department of a nearby hospital. Orthopedic Patient Instructions Summary: Weight Bearing: NWB LLE Activity: as tolerated. Diet: regular. . Wound Care: Keep dressing clean and dry. Anticoagulation: lovenox Pain Medication: Take only as needed. Ice, rest and elevation will be of great benefit. Please plan to follow-up kaya Hartman in 2 weeks. You will need to call the clinic [phone] to schedule this visit. Thank you far allowing me to participate in your care. Do not hesitate to call the office with any questions or concerns. Discharge Attestations Time Spent in Discharge Care*: greater than 30 min Specific Discharge Activities: educating patient, discussing with pcp/other providers, discussing with caser in/social workers/dc planners, documenting/other paperwork and evaluating patient/reviewing data Status at Discharge: Cognitive status at discharge: cognitively intact, Behavioral status at discharge: cooperative, Functional status at discharge: uses cane/walker Overall status at discharge: patient is progressing back to baseline Quality Metrics Clinical Quality Measures During this hospital stay, did patient experience: None Coding Level of Care Code Acute Chg DC note Diagnoses COVID-19 U07.1 Hypoxia R09.02 Open tibial fracture S82.209B SAM (acute kidney injury) N17.9 Hypotension I95.9 Dehydration E86.0 Transaminitis R74.01
--- NOTE | 2021-02-17 10:14 | PC.SOCIAL ---
02/17 follow up call from hospitalization made to patient. patient is continuing to use her O2 NC at 2-3L. She will have a telehealth visit today with her pcp at 1600. Follow up appointment made for patient with DR. Hartman for 03-11 at 0945, Dr. Hartman is on vacation is the reason for extended follow up visit. I will contact home health for when sutures need to be removed and dressing changes. Quarantine date end of 02-24 given to patient. [facility] will be seeing patient. Patient will also be having in home PT and that will start tomorrow 02-18.
== END 2021-02-16 15:30 | disposition home health service (06) | DRG 981 ==
LOC: ER 18:58 → MEDSURG 20:41 → MS 2A 02-12 16:16
PROVIDERS: Orthopaedic Surgery; Student in an Organized Health Care Education/Training Program; Admitting Provider Student in an Organized Health Care Education/Training Program; Emergency Provider Family Medicine; PCP Nurse Practitioner Family; Visit Provider Student in an Organized Health Care Education/Training Program
PROC: 0QSH06Z Reposition Left Tibia with Intramedullary Internal Fixation Device, Open Approach (ICD-10-PCS; principal; 2021-02-11 11:30)
DX: U07.1 COVID-19 (principal); J12.82 Pneumonia due to coronavirus disease 2019; J96.01 Acute respiratory failure with hypoxia; S82.392B Other fracture of lower end of left tibia, initial encounter for open fracture type I or II; N17.9 Acute kidney failure, unspecified; F41.8 Other specified anxiety disorders; S82.832A Other fracture of upper and lower end of left fibula, initial encounter for closed fracture; W01.0XXA Fall on same level from slipping, tripping and stumbling without subsequent striking against object, initial encounter; G89.29 Other chronic pain; M54.9 Dorsalgia, unspecified; E03.9 Hypothyroidism, unspecified; Z98.84 Bariatric surgery status; I95.9 Hypotension, unspecified; E86.0 Dehydration; Z79.891 Long term (current) use of opiate analgesic
CPT/HCPCS: 36415; 36416; 36600; 51702; 71045; 71275; 73502; 73590; 73600; 75635; 76000; 80048; 80051; 80053; 80061; 80306; 81001; 82330; 82550; 82728; 82805; 82962; 83036; 83540; 83550; 83605; 83880; 84145; 84439; 84443; 84481; 84484; 84703; 85014; 85018; 85025; 85378; 85651; 86140; 86403; 86705; 86706; 86709; 86803; 87040; 87340; 87426; 87449; 87635; 87641; 87804; 87806; 93005; 93306; 94640; 96365; 96367; 96372; 96375; 97110; 97162; 97165; 97530; 97535; 99285; C1713; J0690; J1100; J1644; J1650; J1885; J1940; J1956; J2250; J2270; J2310; J2704; J3010; J3262; J3490; J7030; J7611; J7626; Q9967

== ENCOUNTER → 2021-03-11 09:36 | Outpatient (BNVA) | payer MEDICARE, MEDICAID, SELFPAY | PROVIDERS: PCP Nurse Practitioner Family; Visit Provider Orthopaedic Surgery | DX: S82.871D Displaced pilon fracture of right tibia, subsequent encounter for closed fracture with routine healing (principal); X58.XXXD Exposure to other specified factors, subsequent encounter | CPT/HCPCS: 73590 ==

== ENCOUNTER 2021-04-01 06:00 | Outpatient (RCR) | payer MEDICARE, MEDICAID, SELFPAY | END 2021-04-17 23:59 | disposition home or self-care (01) | LOC: MPT 06:00 | PROVIDERS: PCP Nurse Practitioner Family; Referring Provider Orthopaedic Surgery; Visit Provider Orthopaedic Surgery | DX: S82.201D Unspecified fracture of shaft of right tibia, subsequent encounter for closed fracture with routine healing (principal); W19.XXXD Unspecified fall, subsequent encounter; Z51.89 Encounter for other specified aftercare | CPT/HCPCS: 97110; 97162; G0283 ==

== ENCOUNTER → 2021-04-10 09:43 | Outpatient (BNVA) | payer MEDICARE, MEDICAID, SELFPAY | PROVIDERS: PCP Nurse Practitioner Family; Visit Provider Orthopaedic Surgery | DX: S82.871D Displaced pilon fracture of right tibia, subsequent encounter for closed fracture with routine healing (principal); Z47.89 Encounter for other orthopedic aftercare; X58.XXXD Exposure to other specified factors, subsequent encounter | CPT/HCPCS: 73590 ==

== ENCOUNTER 2021-04-18 06:00 | Outpatient (RCR) | payer MEDICARE, MEDICAID, SELFPAY | END 2021-05-18 23:59 | disposition home or self-care (01) | LOC: MPT 06:00 | PROVIDERS: PCP Nurse Practitioner Family; Visit Provider Orthopaedic Surgery | DX: Z47.89 Encounter for other orthopedic aftercare (principal); S82.201D Unspecified fracture of shaft of right tibia, subsequent encounter for closed fracture with routine healing; X58.XXXD Exposure to other specified factors, subsequent encounter | CPT/HCPCS: 97110; G0283 ==

== ENCOUNTER 2021-05-19 06:00 | Outpatient (RCR) | payer MEDICARE, MEDICAID, SELFPAY | END 2021-06-17 23:59 | disposition home or self-care (01) | LOC: MPT 06:00 | PROVIDERS: PCP Nurse Practitioner Family; Visit Provider Orthopaedic Surgery | DX: S82.201D Unspecified fracture of shaft of right tibia, subsequent encounter for closed fracture with routine healing (principal); X58.XXXD Exposure to other specified factors, subsequent encounter | CPT/HCPCS: 97110 ==

== ENCOUNTER → 2021-05-22 10:47 | Outpatient (BNVA) | payer MEDICARE, MEDICAID, SELFPAY | PROVIDERS: PCP Nurse Practitioner Family; Visit Provider Orthopaedic Surgery | DX: Z47.89 Encounter for other orthopedic aftercare (principal); S82.302D Unspecified fracture of lower end of left tibia, subsequent encounter for closed fracture with routine healing; S82.402D Unspecified fracture of shaft of left fibula, subsequent encounter for closed fracture with routine healing; X58.XXXD Exposure to other specified factors, subsequent encounter | CPT/HCPCS: 73590 ==

== ENCOUNTER → 2021-07-03 10:22 | Outpatient (BNVA) | payer MEDICARE, MEDICAID, SELFPAY | PROVIDERS: PCP Nurse Practitioner Family; Visit Provider Physician Assistant | DX: S82.871D Displaced pilon fracture of right tibia, subsequent encounter for closed fracture with routine healing (principal); Z48.89 Encounter for other specified surgical aftercare | CPT/HCPCS: 73590 ==

== ENCOUNTER 2021-07-07 15:03 | Emergency (ER) | payer MEDICARE, MEDICAID, SELFPAY ==
[2021-07-07 15:06] VITALS: BP 95/81; PULSE 101; RESP 15; TEMP 36.9; O2SAT 98; BMI 39.9
--- NOTE | 2021-07-07 15:35 | ECG_ITS ---
[facility] Test Date: 2021-07-07 Pat Name: Abigail Restrepo Department: Room: Gender: Female Sander Hand: : 1980 Requested By: Lalitha Montesinos Order Number: [id number] Reading MD: MARLYN KIRKLAND Measurements Intervals [place] Rate: 87 P: 37 MD: 162 QRS: 33 QRSD: 74 T: 47 QT: 353 QTc: 427 Interpretive Statements SINUS RHYTHM Compared to ECG 02/10/2021 16:15:22 Myocardial infarct finding no longer present Electronically Signed On 07-07-2021 18:58:01 PROFESSOR OF COMMUNICATION AND WRITING by MARLYN KIRKLAND [email or web address]
[2021-07-07] MEDS: sodium chloride 0.9% 1,000 ML 999 ML IV ×2 (15:57)
[2021-07-07 16:03] LABS: Basophils # 0.1 10^3/uL (0.0-0.1); Basophils % 0.8 %; Eosinophils # 0.1 10^3/uL (0.0-0.8); Eosinophils % 1.1 %; Hematocrit 38.8 % (37.0-47.0); Hemoglobin 11.9 g/dL (11.5-15.3); Lymphocytes # 2.7 10^3/uL (0.8-4.8); Lymphocytes % 31.6 %; Mean Corpuscular HGB Conc 30.7 g/dL (30.0-36.0); Mean Corpuscular Hemoglobin 27.8 pg (28.0-34.0); Mean Corpuscular Volume 90.7 fl (81-99); Mean Platelet Volume 10.2 fL (7.4-10.4); Monocytes # 0.4 10^3/uL (0.2-0.9); Monocytes % 5.1 %; Neutrophils # 5.19 10^3/uL (1.8-7.7); Nucleated Red Blood Cells % 0 %; Platelet Count 363 10^3/cmm (130-400); Red Blood Count 4.28 10^6/uL (4.1-5.3); Red Cell Distribution Width 19.1 % (12.1-15.1); White Blood Count 8.5 10^3/uL (4.0-10.0)
--- NOTE | 2021-07-07 16:03 | W.ED.GENADLT ---
HPI - General Adult General: Chief complaint: Weakness Stated complaint: LOW BP, WEAKNESS, DIZZY Time Seen by Provider: 07/07/21 15:08 History of Present Illness: HPI narrative: Patient is a 41-year-old female with history of hypothyroidism on Synthroid, paroxysmal tachycardia on metoprolol who presents emergency room at the request of her primary care provider for low blood pressure. Patient tells me over the last 5 days, she has measured her blood pressure and noticed that they were significantly low. She was told to stop the metoprolol. Patient does not take any blood pressure medicine. Patient has no focal complaints. Earlier this morning, patient was at home call her primary care provider was told to go to the emergency room. Patient felt very lightheaded and almost passed out. Denies any associate chest pain, shortness breath, palpitation, lightheadedness, diarrhea, dehydration, melena/hematochezia, hemoptysis, or vaginal bleeding. Onset: 5 days ago Duration:5 days Location:home Severity:moderate Review of Systems Narrative: Constitutional: No fever, no chills. HEENT: No vision changes CV: No chest pain, no palpitations PULM: no cough, no dyspnea. GI: No abdominal pain, no N/V/D. : No dysuria MSKEL: No muscle pain SKIN: No new rashes, no lesions. NEURO: No headache, no focal weakness, +light-headedness HEME: No visible bruises PSYCH: Normal mood PFS ED PFSH: Medical History SAM (acute kidney injury) Anxiety Arrhythmia Reports tachycardia, although cannot tell me anything other than this. Beta-leeanne initiated for this. Chronic back pain Depression Fracture of fibula, proximal Hypothyroidism Hypoxia Morbid obesity Psychiatric care Schizophrenia Transaminitis Surgical History History of History of cholecystectomy History of gastric bypass History of knee surgery History of tonsillectomy Family History Other Diabetes Social History Smoking and tobacco status: never smoked Alcohol intake: never Female Reproductive History: Date of last menstrual period: 09/05/20 Physical Exam Narrative: EXAM NARRATIVE: Head: Atraumatic Eyes: PERRL, conjunctiva without injection ENT: Mucous membrane moist NECK: Supple, ROM intact LUNGS: LCTAB, no crackles/rhonchi CV: RRR ABDOMEN: Soft, no focal TTP. NO guarding rebound, guarding, rigidity. No CVA tenderness to percussion. Neg Barragan/Neg McBurney's point tenderness, no suprabupic tenderness to palpation. EXTREMITY: Normal ROM SKIN: No rash or erythema NEURO: Mental status? Awake, alert, and oriented to self, year, month, location, and situation.? Following simple axial and appendicular commands.? Has appropriate fund of knowledge, comprehension, and insight.? Able to recall and understands pertinent aspects of medical history and current treatment status.? ? Language? Speech is fluent without word-finding difficulties.? Intact naming, expression, healthcare receptionist, and repetition.? ? Cranial nerves? 2,3,4,6: PERRL, EOMI with no nystagmus. 5: Intact sensation to light touch, symmetric? 7: Smile symmetrical, no facial droop.? 8: Hearing grossly intact.? 9,10: Normal palate movement.? 11: Normal strength in trapezius bilaterally 12: Tongue protrudes midline.? ? Motor examination? Normal bulk & tone. Strength as follows (R/L): Delts (5/5), Biceps (5/5), Triceps (5/5), Wrist ext (5/5), hip flexors (5/5), plantarflexors (5/5), dorsiflexors (5/5). ? Sensation? Light Touch: Grossly intact and equal in upper and lower extremities bilaterally? Romberg: Negative.? Distal joint position sense intact ? Coordination? Qteeum-qv-mxpf-finger movements intact without dysmetria or past-pointing.? Rapid fingertaps: preserved amplitude without decriment.? No tremor, myoclonus or truncal ataxia.? ? Gait/stance? Steady, normal narrow base gait with appropriate arm swing and turning.? Tandem gait without hesitation or loss of balance. PSYCH: Normal mood and affect Course Vital Signs: Vital signs: Vital Signs Temperature 98.4 F 07/07/21 15:06 Pulse Rate 105 H 07/07/21 19:53 Respiratory Rate 19 H 07/07/21 19:53 Blood Pressure 132/96 07/07/21 19:53 Pulse Oximetry 93 07/07/21 19:53 MDM - General Adult MDM Narrative: Medical decision making narrative: 41-year-old female presents emergency room with complaints of lightheadedness and no blood pressure. Arrival, patient had a blood pressure 70/50. Patient has no focal neurological deficit. Hypoxemia, patient reports mild lightheadedness, and had balance difficulty. Neuro exam is otherwise intact. Troponin x2 within normal limit. EKG is non-ischemic. Patient received 2 L of fluid with significant improvement in blood pressure now. Patient now able to ambulate without any difficulty. Patient complained of mild vertigo-like symptoms. CTA head and neck did not show any signs of posterior pathologies. At the present time at 7:45pm, I performed shared decision making with patient for admission versus discharge. Patient elects to go home. I have patient strict return precaution any worsening symptoms or lightheadedness, difficulty ambulating, focal weakness, nausea/vomiting, chest pain, or any new or worsening complaints. She is instructed to follow-up with PCP clinic in the next 48 to 72 hours for reassessment to ensure that her blood pressure continues to be low. Disposition: Discharge. Patient counseled regarding diagnostic impression, treatment plan. Patient given ED strict return precautions to return for continuation, worsening, or development of new symptoms. Instructed to f/u w/ PCP regarding symptoms today. Patient verbalized understanding. Lab Data: Labs: Lab Results 07/07/21 07/07/21 07/07/21 14:10 14:10 14:10 WBC 8.5 10^3/uL 10^3/ uL (4.0-10.0) RBC 4.28 10^6/uL 10^6 /uL (4.1-5.3) Hgb 11.9 g/dL g/dL (11.5-15.3) Hct 38.8 % % (37.0-47.0) MCV 90.7 fl fl (81-99) MCH 27.8 pg L pg (28.0-34.0) MCHC 30.7 g/dL g/dL (30.0-36.0) RDW 19.1 % H % (12.1-15.1) Plt Count 363 10^3/cmm 10^3 /cmm (130-400) MPV 10.2 fL fL (7.4-10.4) Neut % (Auto) 61.0 % % Lymph % (Auto) 31.6 % % [place] % (Auto) 5.1 % % Eos % (Auto) 1.1 % % Baso % (Auto) 0.8 % % Neut # (Auto) 5.19 10^3/uL 10^3 /uL (1.8-7.7) Lymph # (Auto) 2.7 10^3/uL 10^3/ uL (0.8-4.8) [place] # (Auto) 0.4 10^3/uL 10^3/ uL (0.2-0.9) Eos # (Auto) 0.1 10^3/uL 10^3/ uL (0.0-0.8) Baso # (Auto) 0.1 10^3/uL 10^3/ uL (0.0-0.1) Nucleated RBC % (a uto) 0 % % Nucleated RBCs # 0.0 /100WBC /100W BC Sodium 131 mmol/L L mmol /L (136-145) Potassium 4.7 mmol/L mmol/L (3.5-5.1) Chloride 97 mmol/L L mmol/ L (98-107) Carbon Dioxide 17 mmol/L L mmol/ L (22-29) Anion Gap 21.7 H (5-19) BUN 18 mg/dL mg/dL (6-20) Creatinine 0.8 mg/dL mg/dL (0.5-0.9) GFR Calculation 78.3 mL/min L mL/ min (90-130) Glucose 315 mg/dL H mg/dL (65-115) Calculated Osmolal ity 286 mOsm/kg mOsm/ kg (285-295) Calcium 7.9 mg/dL L mg/dL (8.5-10.5) Troponin T Baselin e 6 ng/L ng/L (0-10) Troponin T 120 Min [place] Troponin T TSH 1.94 uIU/mL uIU/m L (0.27-4.20) Free T4 1.13 ng/dL ng/dL (0.82-1.77) 07/07/21 16:39 WBC RBC Hgb Hct MCV MCH MCHC RDW Plt Count MPV Neut % (Auto) Lymph % (Auto) [place] % (Auto) Eos % (Auto) Baso % (Auto) Neut # (Auto) Lymph # (Auto) [place] # (Auto) Eos # (Auto) Baso # (Auto) Nucleated RBC % (a uto) Nucleated RBCs # Sodium Potassium Chloride Carbon Dioxide Anion Gap BUN Creatinine GFR Calculation Glucose Calculated Osmolal ity Calcium Troponin T Baselin e Troponin T 120 Min [place] 7.26 ng/L ng/L (0-10) [place] Troponin T 1.26 ABS# ABS# (0-10) TSH Free T4 Imaging Data^: Other Imaging: Radiologist's impression: [facility] [id number] Scan ReportSigned Patient: Allen Restrepo #: [id number]: 1980Acct#:[id number]/Sex: 41 / FADM Date: 07/07/21Loc: ERRoom/Bed:Attending Dr: Ordering Provider/Ordering MD: Lalitha Montesinos MD Date of Service: 07/07/21 Procedure(s): CT head wo con* [id number] Accession Number(s): [id number] Report Number: [id number] PROCEDURE INFORMATION: Exam: CT Head Without Contrast Exam date and time: 07/07/2021 6:13 PM Age: 41 years old Clinical indication: Dizziness and weakness, extremity and other: Low BP; Additional info: Dizzy, weakness TECHNIQUE: Imaging protocol: Computed tomography of the head without contrast. Radiation optimization: All CT scans at this facility use at least one of these dose optimization techniques: automated exposure control; mA and/or kV adjustment per patient size (includes targeted exams where dose is matched to clinical indication); or iterative reconstruction. COMPARISON: CT neck w con* [id number] 08/19/2017 9:54 AM RADIATION DOSE METRICS: Total DLP (mGy-cm): 938.38 FINDINGS: Brain: No hemorrhage. Mild diffuse cerebral atrophy. Unremarkable white matter. No mass effect. Cerebral ventricles: No ventriculomegaly. Paranasal sinuses: Visualized sinuses are unremarkable. No fluid levels. Mastoid air cells: Visualized mastoid air cells are well aerated. Bones/joints: Unremarkable. No acute fracture. Soft tissues: Unremarkable. CT/CT head wo con* [id number] IMPRESSION: No acute intracranial abnormality. Dictated By:Kade Barger DOSigned By:Kade Barger DOSigned Date/Time:07/07/21 1921DD/ [address] [facility] [place], [place] [address]IT Scan ReportSigned Patient: Allen Restrepo #: [id number]: 1980Acct#:[id number]/Sex: 41 / FADM Date: 07/07/21Loc: ERRoom/Bed:Attending Dr: Ordering Provider/Ordering MD: Lalitha Montesinos MD Date of Service: 07/07/21 Procedure(s): CT angio headneck* [id number] Accession Number(s): [id number] Report Number: [id number] PROCEDURE INFORMATION: Exam: CT Angiography Head With Contrast, Arteriography Exam date and time: 07/07/2021 5:58 PM Age: 41 years old Clinical indication: Dizziness and giddiness and weakness and other: Low BP; Additional info: Eval posterior issues TECHNIQUE: Imaging protocol: Computed tomography angiography of the head with contrast. Exam focused on the arteries. 3D rendering (Not supervised by radiologist): MIP and/or 3D reconstructed images were created by the technologist. Radiation optimization: All CT scans at this facility use at least one of these dose optimization techniques: automated exposure control; mA and/or kV adjustment per patient size (includes targeted exams where dose is matched to clinical indication); or iterative reconstruction. Contrast material: OMNI 350; Contrast volume: 95 ml; Contrast route: INTRAVENOUS (IV); COMPARISON: CT head wo con* [id number] 07/07/2021 6:24 PM RADIATION DOSE METRICS: Total DLP (mGy-cm): 2501.91 FINDINGS: ANTERIOR CIRCULATION: Right internal carotid artery: Unremarkable. Intracranial segment is patent with no significant stenosis. No aneurysm. Right middle cerebral artery: Unremarkable. No occlusion or significant stenosis. No aneurysm. Right anterior cerebral artery: Unremarkable. No occlusion or significant stenosis. No aneurysm. Left internal carotid artery: Unremarkable. Intracranial segment is patent with no significant stenosis. No aneurysm. Left middle cerebral artery: Unremarkable. No occlusion or significant stenosis. No aneurysm. Left anterior cerebral artery: Unremarkable. No occlusion or significant stenosis. No aneurysm. POSTERIOR CIRCULATION: Right vertebral artery: Unremarkable. No occlusion or significant stenosis. No aneurysm. Left vertebral artery: Unremarkable. No occlusion or significant stenosis. No aneurysm. Basilar artery: Unremarkable. No occlusion or significant stenosis. No aneurysm. Right posterior cerebral artery: Unremarkable. No occlusion or significant stenosis. No aneurysm. Left posterior cerebral artery: Unremarkable. No occlusion or significant stenosis. No aneurysm. Brain: No definite mass, mass effect, or midline shift. Cerebral ventricles: No ventriculomegaly. Bones/joints: Unremarkable. No acute fracture. Soft tissues: Unremarkable. PROCEDURE INFORMATION: Exam: CT Angiography Neck With Contrast Exam date and time: 07/07/2021 5:58 PM Age: 41 years old Clinical indication: Dizziness and giddiness and weakness and other: Low BP; Additional info: Eval posterior issues TECHNIQUE: Imaging protocol: Computed tomography angiography of the neck with contrast. 3D rendering (Not supervised by radiologist): MIP and/or 3D reconstructed images were created by the technologist. Radiation optimization: All CT scans at this facility use at least one of these dose optimization techniques: automated exposure control; mA and/or kV adjustment per patient size (includes targeted exams where dose is matched to clinical indication); or iterative reconstruction. Contrast material: OMNI 350; Contrast volume: 95 ml; Contrast route: INTRAVENOUS (IV); COMPARISON: CT head wo con* [id number] 07/07/2021 6:24 PM RADIATION DOSE METRICS: Total DLP (mGy-cm): 2501.91 FINDINGS: Right common carotid artery: No stenosis. No dissection or occlusion. Right internal carotid artery: No stenosis of the extracranial segment. No dissection or occlusion. Right external carotid artery: No occlusion or stenosis of the origin. Left common carotid artery: No stenosis. No dissection or occlusion. Left internal carotid artery: No stenosis of the extracranial segment. No dissection or occlusion. Left external carotid artery: No occlusion or stenosis of the origin. Right vertebral artery: No stenosis. No dissection or occlusion. Left vertebral artery: No stenosis. No dissection or occlusion. Soft tissues: Normal. No significant soft tissue swelling. Bones/joints: No acute fracture. CT/CT angio headneck* [id number] IMPRESSION: No large vessel stenosis or occlusion. IMPRESSION: No stenosis or occlusion. REFERENCES: NASCET CRITERIA. The degree of internal carotid artery stenosis is based on NASCET criteria. Normal is no stenosis. Mild is less than 50% stenosis. Moderate is 50-69% stenosis. Severe is 70% to 99% stenosis. Total occlusion is no detectable patent lumen. Dictated By:Kade Barger DOSigned By:Kade Barger DOSigned Date/Time:07/07/211925DD/ 57 Discharge Plan Discharge Patient Disposition: Home Clinical Impression: Light headedness Condition: Stable Prescriptions: No Action lamotrigine 150 mg tablet 150 mg PO BID RF: 0 tizanidine 4 mg tablet 4 mg PO TID PRN (Reason: Pain) RF: 0 hydroxyzine pamoate 50 mg capsule 50 mg PO QID PRN (Reason: Anxiety) RF: 0 meloxicam 7.5 mg tablet 7.5 mg PO BID RF: 0 levothyroxine 88 mcg tablet 88 mcg PO DAILY RF: 0 metoprolol tartrate 50 mg tablet 50 mg PO BID RF: 0 gabapentin 300 mg capsule 300 mg PO TID RF: 0 buspirone 7.5 mg tablet 7.5 mg PO BID RF: 0 risperidone 1 mg tablet 1 mg PO BEDTIME RF: 0 oxycodone 5 mg tablet 5 mg PO Q4H PRN (Reason: Pain) RF: 0 escitalopram oxalate 20 mg tablet 20 mg PO DAILY RF: 0 levothyroxine 88 mcg tablet 88 mcg PO DAILY@07 RF: 0 metoprolol tartrate 50 mg tablet 50 mg PO BID RF: 0 buspirone 7.5 mg tablet 7.5 mg PO TID RF: 0 escitalopram oxalate 20 mg tablet 20 mg PO DAILY RF: 0 lamotrigine 150 mg tablet 150 mg PO BID RF: 0 tizanidine 2 mg tablet 2 mg PO Q6H PRN (Reason: Muscle Spasm) RF: 0 hydroxyzine pamoate 50 mg capsule 50 mg PO Q4H PRN (Reason: Anxiety) RF: 0 etodolac 400 mg tablet 400 mg PO BID RF: 0 risperidone 1 mg tablet 1 mg PO BID RF: 0 aripiprazole 2 mg tablet 2 mg PO DAILY RF: 0 benzonatate 100 mg Capsule 100 mg PO TID PRN (Reason: cough) Qty: 10 RF: 0 dexamethasone 6 mg tablet 6 mg PO DAILY Qty: 7 RF: 0 Discharge Orders: Discharge ED (Routine); Ordered 07/07/21 Ordered By: Lalitha Montesinos Referrals: Charleen Lee, [employer]INE[employer] [Primary Care Provider] - Discharge Diet: Advance as tolerated Discharge Activity: Resume usual activity Patient Instructions: Hypotension (ED) Activity Restrictions/Additional Instructions: Please come back to the emergency room if you notice your blood pressure continues to be low, if you have any lightheadedness, any focal weakness in the arms or legs, any new concerning complaints Coding Level of Care Code ED Irrigation Flume Layer for Rey Gutierrez
[2021-07-07] MEDS: midodrine 5 mg TABLET 10 MG PO (16:18)
[2021-07-07 16:25] VITALS: BP 72/56; PULSE 76; PULSE 87; RESP 20; O2SAT 99
[2021-07-07 16:26] LABS: Troponin(5th) Baseline 6 ng/L (0-10)
[2021-07-07 16:33] LABS: Blood Urea Nitrogen 18 mg/dL (6-20); Calcium 7.9 mg/dL (8.5-10.5); Carbon Dioxide 17 mmol/L (22-29); Chloride 97 mmol/L (98-107); Free T4 Free Thyroxine 1.13 ng/dL (0.82-1.77); Glomerular Filtration Rate 78.3 mL/min (90-130); Glucose 315 mg/dL (65-115); Osmolality Calculated 286 mOsm/kg (285-295); Sodium 131 mmol/L (136-145); Thyroid Stimulating Hormone 1.94 uIU/mL (0.27-4.20)
[2021-07-07 16:36] LABS: Anion Gap 21.7 (5-19); Potassium 4.7 mmol/L (3.5-5.1)
[2021-07-07 17:17] LABS: Troponin 5 2HR 7.26 ng/L (0-10); Troponin 5 2HR Delta 1.26 ABS# (0-10)
--- NOTE | 2021-07-07 17:35 | ECG_ITS ---
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
--- NOTE | 2021-07-07 17:58 | CTR_ITS ---
PROCEDURE INFORMATION: Exam: CT Angiography Head With Contrast, Arteriography Exam date and time: 07/07/2021 5:58 PM Age: 41 years old Clinical indication: Dizziness and giddiness and weakness and other: Low BP; Additional info: Eval posterior issues TECHNIQUE: Imaging protocol: Computed tomography angiography of the head with contrast. Exam focused on the arteries. 3D rendering (Not supervised by radiologist): MIP and/or 3D reconstructed images were created by the technologist. Radiation optimization: All CT scans at this facility use at least one of these dose optimization techniques: automated exposure control; mA and/or kV adjustment per patient size (includes targeted exams where dose is matched to clinical indication); or iterative reconstruction. Contrast material: OMNI 350; Contrast volume: 95 ml; Contrast route: INTRAVENOUS (IV); COMPARISON: CT head wo con* [id number] 07/07/2021 6:24 PM RADIATION DOSE METRICS: Total DLP (mGy-cm): 2501.91 FINDINGS: ANTERIOR CIRCULATION: Right internal carotid artery: Unremarkable. Intracranial segment is patent with no significant stenosis. No aneurysm. Right middle cerebral artery: Unremarkable. No occlusion or significant stenosis. No aneurysm. Right anterior cerebral artery: Unremarkable. No occlusion or significant stenosis. No aneurysm. Left internal carotid artery: Unremarkable. Intracranial segment is patent with no significant stenosis. No aneurysm. Left middle cerebral artery: Unremarkable. No occlusion or significant stenosis. No aneurysm. Left anterior cerebral artery: Unremarkable. No occlusion or significant stenosis. No aneurysm. POSTERIOR CIRCULATION: Right vertebral artery: Unremarkable. No occlusion or significant stenosis. No aneurysm. Left vertebral artery: Unremarkable. No occlusion or significant stenosis. No aneurysm. Basilar artery: Unremarkable. No occlusion or significant stenosis. No aneurysm. Right posterior cerebral artery: Unremarkable. No occlusion or significant stenosis. No aneurysm. Left posterior cerebral artery: Unremarkable. No occlusion or significant stenosis. No aneurysm. Brain: No definite mass, mass effect, or midline shift. Cerebral ventricles: No ventriculomegaly. Bones/joints: Unremarkable. No acute fracture. Soft tissues: Unremarkable. PROCEDURE INFORMATION: Exam: CT Angiography Neck With Contrast Exam date and time: 07/07/2021 5:58 PM Age: 41 years old Clinical indication: Dizziness and giddiness and weakness and other: Low BP; Additional info: Eval posterior issues TECHNIQUE: Imaging protocol: Computed tomography angiography of the neck with contrast. 3D rendering (Not supervised by radiologist): MIP and/or 3D reconstructed images were created by the technologist. Radiation optimization: All CT scans at this facility use at least one of these dose optimization techniques: automated exposure control; mA and/or kV adjustment per patient size (includes targeted exams where dose is matched to clinical indication); or iterative reconstruction. Contrast material: OMNI 350; Contrast volume: 95 ml; Contrast route: INTRAVENOUS (IV); COMPARISON: CT head wo con* [id number] 07/07/2021 6:24 PM RADIATION DOSE METRICS: Total DLP (mGy-cm): 2501.91 FINDINGS: Right common carotid artery: No stenosis. No dissection or occlusion. Right internal carotid artery: No stenosis of the extracranial segment. No dissection or occlusion. Right external carotid artery: No occlusion or stenosis of the origin. Left common carotid artery: No stenosis. No dissection or occlusion. Left internal carotid artery: No stenosis of the extracranial segment. No dissection or occlusion. Left external carotid artery: No occlusion or stenosis of the origin. Right vertebral artery: No stenosis. No dissection or occlusion. Left vertebral artery: No stenosis. No dissection or occlusion. Soft tissues: Normal. No significant soft tissue swelling. Bones/joints: No acute fracture. CT/CT angio headneck* [id number] IMPRESSION: No large vessel stenosis or occlusion. IMPRESSION: No stenosis or occlusion. REFERENCES: NASCET CRITERIA. The degree of internal carotid artery stenosis is based on NASCET criteria. Normal is no stenosis. Mild is less than 50% stenosis. Moderate is 50-69% stenosis. Severe is 70% to 99% stenosis. Total occlusion is no detectable patent lumen.
[2021-07-07 18:00] VITALS: BP 107/80; PULSE 94; RESP 24; O2SAT 98
--- NOTE | 2021-07-07 18:13 | CTR_ITS ---
PROCEDURE INFORMATION: Exam: CT Head Without Contrast Exam date and time: 07/07/2021 6:13 PM Age: 41 years old Clinical indication: Dizziness and weakness, extremity and other: Low BP; Additional info: Dizzy, weakness TECHNIQUE: Imaging protocol: Computed tomography of the head without contrast. Radiation optimization: All CT scans at this facility use at least one of these dose optimization techniques: automated exposure control; mA and/or kV adjustment per patient size (includes targeted exams where dose is matched to clinical indication); or iterative reconstruction. COMPARISON: CT neck w con* [id number] 08/19/2017 9:54 AM RADIATION DOSE METRICS: Total DLP (mGy-cm): 938.38 FINDINGS: Brain: No hemorrhage. Mild diffuse cerebral atrophy. Unremarkable white matter. No mass effect. Cerebral ventricles: No ventriculomegaly. Paranasal sinuses: Visualized sinuses are unremarkable. No fluid levels. Mastoid air cells: Visualized mastoid air cells are well aerated. Bones/joints: Unremarkable. No acute fracture. Soft tissues: Unremarkable. CT/CT head wo con* [id number] IMPRESSION: No acute intracranial abnormality.
[2021-07-07] MEDS: iohexol 350 mg/mL 100 mL Btl IV (18:29)
--- NOTE | 2021-07-07 19:14 | PC.NURSE ---
pt able to ambulate across the room without difficulties. Pt states she is shaky but no tremors noted. MD notified. MD requesting to have pt walk entire dept.
[2021-07-07 19:22] VITALS: BP 143/95; PULSE 102; RESP 22; O2SAT 100
[2021-07-07 19:53] VITALS: BP 132/96; PULSE 105; RESP 19; O2SAT 93
== END 2021-07-07 20:00 | disposition home or self-care (01) ==
PROVIDERS: Emergency Provider Emergency Medicine; PCP Nurse Practitioner Family
DX: R42 Dizziness and giddiness (principal); R09.02 Hypoxemia
CPT/HCPCS: 70450; 70496; 70498; 80048; 84439; 84443; 84484; 85025; 93005; 96360; 96361; 99284; J7030; Q9967

== ENCOUNTER 2021-12-03 10:31 | Emergency (ER) | payer MEDICARE, MEDICAID, SELFPAY ==
[2021-12-03] VITALS (10 sets, daily range): BP systolic 79–118; BP diastolic 43–89; PULSE 102–127; RESP 15–25; TEMP 36.6; O2SAT 94–100; BMI 38.4
[2021-12-03 10:40] LABS: Glucose Point of Care 29 mg/dL (70-110)
[2021-12-03] MEDS: dextrose 10% 250 ML 500 ML (10:44)
--- NOTE | 2021-12-03 10:47 | CTR_ITS ---
PROCEDURE INFORMATION: Exam: CT Head Without Contrast Exam date and time: 12/03/2021 11:17 AM Age: 41 years old Clinical indication: Altered mental status/memory loss; Additional info: AMS TECHNIQUE: Imaging protocol: Computed tomography of the head without contrast. Radiation optimization: All CT scans at this facility use at least one of these dose optimization techniques: automated exposure control; mA and/or kV adjustment per patient size (includes targeted exams where dose is matched to clinical indication); or iterative reconstruction. COMPARISON: CT head wo con* [id number] 07/07/2021 6:24 PM RADIATION DOSE METRICS: Total DLP (mGy-cm): 815.57 FINDINGS: Brain: No intracranial hemorrhage, edema or other acute abnormalities are seen in the brain. There is mild generalized chronic atrophy. There is no mass effect or midline shift. Cerebral ventricles: There is mild ventricular prominence from chronic atrophy. Paranasal sinuses: Visualized sinuses are unremarkable. No fluid levels. Mastoid air cells: Visualized mastoid air cells are well aerated. Bones/joints: Unremarkable. No acute fracture. Soft tissues: Unremarkable. CT/CT head wo con* [id number] IMPRESSION: No acute intracranial abnormality.
--- NOTE | 2021-12-03 10:48 | ED_ITS ---
HPI - General Adult General: Chief complaint: General Medical Stated complaint: LOW BLOOD SUGAR Time Seen by Provider: 12/03/21 10:32 Source: patient Mode of arrival: ambulatory Limitations: no limitations History of Present Illness: 41-year-old female who presents to the emergency room via EMS. She reportedly felt weak at home she is diabetic there is a concern she may take more of her usual medications. She has several empty bottles of various dates. Include tizanidine hydrocodone as well as several oral antibiotics hyperglycemics. She denies chest pain or discomfort she is talking rather oddly and has some distortion to her face but does not have any drooping or weakness. No other lateralizing symptoms. No chest pain shortness of breath or abdominal pain. EMS was unable to establish IV. She is reported about a 37 blood sugar in the field they were not able to give her anything in route p.o. or IV. Onset (ago): minute(s) Relieving factors: none Exacerbating factors: none Associated symptoms: Reports confusion and headache(s); Deny chest pain, cough, diaphoresis, decreased appetite, dyspnea, fevers/chills, malaise, nausea, rash, palpitations, seizures, short of breath, syncope, vomiting, weakness or other Treatments prior to arrival: none Review of Systems Const: Denies: fever(s), chills, malaise or diaphoresis ENMT: Denies: throat pain, ear or mastoid pain, nasal discharge or nasal congestion Card: Denies: chest pain, palpitations or syncope Resp: Denies: dyspnea, productive cough, non-productive cough or wheezing GI: Denies: abdominal pain, nausea or vomiting : Denies: flank pain, difficulty voiding, dysuria, urinary frequency or urinary urgency Musc: Denies: neck pain or back pain Skin/Breast: Denies: rash or pruritus Neuro: Reports: headache(s) and confusion PFS ED PFSH: Medical History SAM (acute kidney injury) Anxiety Arrhythmia Reports tachycardia, although cannot tell me anything other than this. Beta- leeanne initiated for this. Chronic back pain Depression Depression Fracture of fibula, proximal Hypothyroidism Hypoxia Morbid obesity Psychiatric care Schizophrenia Transaminitis Surgical History History of History of cholecystectomy History of gastric bypass History of knee surgery History of tonsillectomy Family History Other Diabetes Social History Smoking and tobacco status: never smoked Alcohol intake: never Female Reproductive History: Date of last menstrual period: 09/05/20 Physical Exam Const: GENERAL APPEARANCE: cooperative and comfortable ORIENTATION/C ONSCIOUSNESS: Yes awake, Yes oriented to person, Yes oriented to place and Yes oriented to time HENMT: COMMON NORMALS: normocephalic, atraumatic and hearing grossly normal bilaterally HEAD & SCALP: normocephalic and atraumatic Neck/C-Spine: COMMON NORMALS: no JVD Resp: COMMON NORMALS: normal respiratory effort, No retractions, No use of accessory muscles and clear to auscultation bilaterally AUSCULTATION: clear to auscultation bilaterally Cardio: COMMON NORMALS: no JVD, regular rate, regular rhythm and No murmurs present (Cardio) RATE: regular rate RHYTHM: regular rhythm GI: COMMON NORMALS: Soft to palpation and No hepatosplenomegaly present AUSCULTATION: Yes normoactive bowel sounds PALPATION: Yes Soft to palpation, No Tenderness to palpation present (GI), No Guarding due to palpation present (GI) and Yes No hepatosplenomegaly present Extremity: COMMON NORMALS: normal to inspection, capillary refill normal, no clubbing, cyanosis or edema, no calf tenderness and no pedal edema Neuro: SENSORIUM/ORIENTATION: Yes oriented to person, Yes oriented to place and Yes oriented to time Skin: COMMON NORMALS: no rashes or lesions noted GENERAL SKIN EXAM: no wing hes or lesions noted Course Vital Signs: Vital signs: Vital Signs Temperature 97.9 F 12/03/21 10:32 Pulse Rate 110 H 12/03/21 16:35 Respiratory Rate 18 12/03/21 16:35 Blood Pressure 118/69 12/03/21 16:35 Pulse Oximetry 95 12/03/21 16:35 MDM - General Adult Medical Decision Making Mild acute kidney injury. Patient is also hyperglycemic. Concerned about how she manages her medicine she states all of her meds are out of the bottles that she brought in because she puts them in a dispenser tray. She is much more awake and alert since her blood glucose improved but on repeat Accu-Chek she is 53 although she is completely asymptomatic she is hungry. We did give her a lit tle bit more fluids in the form of D 5 normal saline also have her eat recheck an Accu-Chek and anticipate discharge home. She also mildly hypokalemic which we supplemented with p.o. liquid potassium. Initially CBC was called with a critical to the department and they reported a hemoglobin of 5.7. The MCV was in the upper 120s. This seemed odd and clinically patient did not seem to be significantly anemic not tachycardic nor did she where she pale in appearance. Type and screen was ordered and I asked the staff to repeat the CBC. The CBC result came back with a hemoglobin of 13.9 on the second draw. When I reviewed the chart the initial CBC was no longer to be found listed on the chart and the lab drawn at 1205 was now inserted into [id number] reported time slot. There was no report of the corrected hemoglobin and the type and screen as well as a full anemia work-up with panel was ordered. When the corrected hemoglobin was found I canceled the anemia Lab work. Medical Records I reviewed the patient's medical records. Lab Data I reviewed the patient's lab results. : 12/03/21 11:05 12/03/21 12:[address] 12/03/21 10:47 IMPRESSION: No acute intracranial abnormality. Laboratory Results WBC Cancelled 12/03/21 12:05 Corrected WBC Cancelled 12/03/21 12:05 RBC Cancelled 12/03/21 12:05 Hgb Cancelled 12/03/21 12:05 Hct Cancelled 12/03/21 12:05 MCV Cancelled 12/03/21 12:05 MCH Cancelled 12/03/21 12:05 MCHC Cancelled 12/03/21 12:05 RDW Cancelled 12/03/21 12:05 Plt Count Cancelled 12/03/21 12:05 MPV Cancelled 12/03/21 12:05 Gran % Cancelled 12/03/21 12:05 Neut % (Auto) Cancelled 12/03/21 12:05 Lymph % (Auto) Cancelled 12/03/21 12:05 [place] % (Auto) Cancelled 12/03/21 12:05 Eos % (Auto) Cancelled 12/03/21 12:05 Baso % (Auto) Cancelled 12/03/21 12:05 Neut # (Auto) Cancelled 12/03/21 12:05 Lymph # (Auto) Cancelled 12/03/21 12:05 [place] # (Auto) Cancelled 12/03/21 12:05 Eos # (Auto) Cancelled 12/03/21 12:05 Baso # (Auto) Cancelled 12/03/21 12:05 Absolute Gran (auto) Cancelled 12/03/21 12:05 Nucleated RBC % (auto) Cancelled 12/03/21 12:05 Nucleated RBCs # Cancelled 12/03/21 12:05 Haptoglobin Cancelled 12/03/21 12:20 Sodium 139 mmol/L (136-145) 12/03/21 12:20 Potassium 3.0 mmol/L (3.5-5.1) L 12/03/21 12:20 Chloride 102 mmol/L (98-107) 12/03/21 12:20 Carbon Dioxide 22 mmol/L (22-29) 12/03/21 12:20 Anion Gap 18.0 (5-19) 12/03/21 12:20 BUN 26 mg/dL (6-20) H 12/03/21 12:20 Creatinine 1.6 mg/dL (0.5-0.9) H 12/03/21 12:20 GFR Calculation 35.2 mL/min (90-130) L 12/03/21 12:20 Glucose 55 mg/dL (65-115) L 12/03/21 12:20 POC Glucose 165 mg/dL (70-110) H 12/03/21 15:50 Calculated Osmolality 290 mOsm/kg (285-295) 12/03/21 12:20 Calcium 8.8 mg/dL (8.5-10.5) 12/03/21 12:20 Iron Cancelled 12/03/21 12:20 TIBC Cancelled 12/03/21 12:20 % Saturation Cancelled 12/03/21 12:20 Unsat Iron Binding Cancelled 12/03/21 12:20 Total Bilirubin 0.2 mg/dL (0.15-1.2) 12/03/21 12:20 AST 11 U/L (0-32) 12/03/21 12:20 ALT 9 U/L (0-33) 12/03/21 12:20 Alkaline Phosphatase 168 IU/L (35-105) H 12/03/21 12:20 Total Protein 7.1 g/dL (6.6-8.7) 12/03/21 12:20 Albumin 4.4 g/dL (3.5-5.2) 12/03/21 12:20 Globulin 2.7 g/dL (1.3-4.6) 12/03/21 12:20 Vitamin B12 Cancelled 12/03/21 12:20 Urine Color Yellow (Yellow) 12/03/21 11:05 Urine Appearance Turbid (CLEAR) 12/03/21 11:05 Urine pH 5 (5-7) 12/03/21 11:05 Ur Specific [place] 1.005 (1.005-1.030) 12/03/21 11:05 Urine Protein Neg (Negative) 12/03/21 11:05 Urine Glucose (UA) Norm (Normal) 12/03/21 11:05 Urine Ketones Negative (Negative) 12/03/21 11:05 Urine Blood Neg (Negative) 12/03/21 11:05 Urine Nitrate Negative (Negative) 12/03/21 11:05 Urine Bilirubin Neg (Negative) 12/03/21 11:05 Urine Urobilinogen Norm mg/dL (Negative) 12/03/21 11:05 Ur Leukocyte Esterase Negative (Negative) 12/03/21 11:05 Urine Opiates Screen Negative ng/mL (Negative) 12/03/21 11:05 Ur Barbiturates Screen Negative ng/mL (Negative) 12/03/21 11:05 Ur Phencyclidine Scrn Negative ng/mL (Negative) 12/03/21 11:05 Ur Amphetamines Screen Negative ng/mL (Negative) 12/03/21 11:05 U Benzodiazepines Scrn Positive ng/mL (Negative) H 12/03/21 11:05 Urine Cocaine Screen Negative ng/mL (Negative) 12/03/21 11:05 U Marijuana (THC) Screen Negative ng/mL (Negative) 12/03/21 11:05 Blood Type O Negative 12/03/21 12:05 Rho(D) Type Negative 12/03/21 12:05 Antibody Screen Negative 12/03/21 12:05 Discharge Plan Discharge Patient Disposition: Home Clinical Impression: Hypoglycemia, Hypokalemia Condition: Stable Prescriptions: No Action calcitriol 0.25 mcg capsule 0.25 mcg PO DAILY 0RF furosemide 40 mg tablet 40 mg PO DAILY 0RF Januvia 25 mg tablet 25 mg PO DAILY 0RF zolpidem 5 mg tablet 5 mg PO BEDTIME PRN (Reason: insomnia) 0RF gabapentin 400 mg capsule 400 mg PO TID 0RF Rx Instructions: take with 800mg cap. gabapentin 800 mg tablet 800 mg PO TID 0RF Rx Instructions: take with 400mg hydrocodone-acetaminophen 10-325 mg tablet 1 tab PO Q8H PRN (Reason: Pain) 0RF Eliquis 5 mg tablet 5 mg PO BID 0RF Trintellix 5 mg tablet 5 mg PO DAILY 30 Days Qty: 30 3RF levothyroxine 88 mcg tablet 88 mcg PO DAILY 0RF tizanidine 2 mg tablet 4 mg PO Q6H PRN (Reason: Muscle Spasm) 0RF glimepiride 2 mg tablet 2 mg PO DAILY 0RF risperidone 2 mg tablet 2 mg PO BID 0RF lorazepam 0.5 mg tablet 0.5 mg PO Q12H PRN (Reason: Anxiety) 0RF iron 325 mg (65 mg iron) Tablet 325 mg PO EVERY OTHER DAY 0RF BuSpar 10 mg Tablet 10 mg PO BID 0RF Discharge Orders: Discharge ED (Routine); Ordered 12/03/21 Ordered By: Prakash Morrison Referrals: Charleen Lee, CMV DRIVER [Primary Care Provider] - Discharge Diet: Usual diet Discharge Activity: Resume usual activity Patient Instructions: Opioid Safety Activity Restrictions/Additional Instructions: Discharge home monitor blood sugars every 2 hours for the next 6 to 8 hours. Follow-up with your primary care doctor within the week. Coding Level of Care Code ED Net Development Manager for Rey Fwd Exam Comprehensive
[2021-12-03 11:29] LABS: Add Urine Microscopic? NO; Charge for UA Resulting for Rev
[2021-12-03 11:32] LABS: Nucleated Red Blood Cells % 0 %
[2021-12-03 11:36] LABS: Glucose Point of Care 129 mg/dL (70-110)
[2021-12-03 11:39] LABS: Bilirubin Urine Neg (Negative); Blood Urine Neg (Negative); Glucose Urine UA Norm (Normal); Ketones Urine Negative (Negative); Leukocyte Esterase Urine Negative (Negative); Nitrate Urine Negative (Negative); Protein Urine Neg (Negative); Specific Gravity, Urine 1.005 (1.005-1.030); Urine Appearance Turbid (CLEAR); Urine Color Yellow (Yellow); Urobilinogen Urine Norm (Negative); pH Urine 5 (5-7)
[2021-12-03 11:47] LABS: Amphetamines Screen Urine Negative (Negative); Barbiturates Screen Urine Negative (Negative); Benzodiazepines Screen Urine Positive (Negative); Cocaine Screen Urine Negative (Negative); Opiate Screen Urine Negative (Negative); PCP Screen Urine Negative (Negative); THC Screen Urine Negative (Negative)
[2021-12-03] MEDS: sodium chloride 0.9% 1,000 ML 999 ML IV (12:12)
[2021-12-03 12:45] LABS: Alanine Aminotransferase 9 U/L (0-33); Albumin Level 4.4 g/dL (3.5-5.2); Alkaline Phosphatase 168 IU/L (35-105); Aspartate Amino Transferase 11 U/L (0-32); Blood Urea Nitrogen 26 mg/dL (6-20); Calcium 8.8 mg/dL (8.5-10.5); Carbon Dioxide 22 mmol/L (22-29); Chloride 102 mmol/L (98-107); Globulin 2.7 g/dL (1.3-4.6); Glomerular Filtration Rate 35.2 mL/min (90-130); Glucose 55 mg/dL (65-115); Osmolality Calculated 290 mOsm/kg (285-295); Sodium 139 mmol/L (136-145); Total Bilirubin 0.2 mg/dL (0.15-1.2); Total Protein 7.1 g/dL (6.6-8.7)
--- NOTE | 2021-12-03 12:45 | PC.PHAR ---
pt states she takes care of her own medications-pt states if the medication bottles arent in with the medications she brought in then she doesnt take them-pt states she no longer takes lexapro 20mg daily filled on 10/20/21 30d/s,metoprolol er 25mg daily filled on 09/17/21 30d/s,and lisinopril 2.5mg daily filled on 09/16/21 90d/s-called office [phone] to see if pt is still taking eliquis 5mg bid pt didnt bring in medication bottle and is unsure if taking-waiting for office to call back-[facility] filled 02/17/2021-notes are made in the pharmacy comments
[2021-12-03 13:00] LABS: Glucose Point of Care 46 mg/dL (70-110)
[2021-12-03 13:17] LABS: Hematocrit 41.4 % (37.0-47.0); Hemoglobin 13.9 g/dL (11.5-15.3); Mean Corpuscular Volume 91.8 fl (81-99); Red Blood Count 4.51 10^6/uL (4.1-5.3)
[2021-12-03 13:18] LABS: Mean Corpuscular HGB Conc 33.6 g/dL (30.0-36.0); Mean Corpuscular Hemoglobin 30.8 pg (28.0-34.0); Mean Platelet Volume 9.5 fL (7.4-10.4); Platelet Count 630 10^3/cmm (130-400); Red Cell Distribution Width 13.2 % (12.1-15.1)
[2021-12-03 13:19] LABS: Basophils % 0.7 %; Eosinophils % 0.3 %; Lymphocytes % 16.8 %; Neutrophils # 8.55 10^3/uL (1.8-7.7); Neutrophils % 75.6 %
[2021-12-03] MEDS: potassium chloride oral liq 20 mEq/15 mL UDC 60 MEQ PO (13:19)
[2021-12-03 13:20] LABS: Basophils # 0.1 10^3/uL (0.0-0.1); Lymphocytes # 1.9 10^3/uL (0.8-4.8); Monocytes # 0.7 10^3/uL (0.2-0.9)
[2021-12-03 13:24] LABS: White Blood Count 11.3 10^3/uL (4.0-10.0)
[2021-12-03] MEDS: HYDROcodone-acetaminophen 5-325 mg Tablet 1 TAB PO (13:30)
[2021-12-03] MEDS: dextrose 5%-sod chloride 0.9% 1,000 ML 500 ML IV (13:55)
[2021-12-03 15:52] LABS: Glucose Point of Care 165 mg/dL (70-110)
== END 2021-12-03 16:30 | disposition home or self-care (01) ==
PROVIDERS: Emergency Provider Family Medicine; PCP Nurse Practitioner Family
DX: E11.649 Type 2 diabetes mellitus with hypoglycemia without coma (principal); E87.6 Hypokalemia; Z79.891 Long term (current) use of opiate analgesic; Z79.01 Long term (current) use of anticoagulants; Z79.84 Long term (current) use of oral hypoglycemic drugs
CPT/HCPCS: 36416; 70450; 80053; 80306; 81003; 82962; 85025; 86850; 86900; 96360; 96361; 99284; J7030; J7799

== ENCOUNTER 2022-03-24 06:00 | Outpatient (RCR) | payer MEDICARE, MEDICAID, SELFPAY | END 2022-04-17 23:59 | disposition home or self-care (01) | LOC: MPT 06:00 | PROVIDERS: PCP Nurse Practitioner Family; Visit Provider Family Medicine | DX: M54.50 Low back pain, unspecified (principal); G89.29 Other chronic pain; M79.671 Pain in right foot; M79.672 Pain in left foot; S82.871D Displaced pilon fracture of right tibia, subsequent encounter for closed fracture with routine healing; X58.XXXD Exposure to other specified factors, subsequent encounter | CPT/HCPCS: 97110; 97162; G0283 ==

== ENCOUNTER 2022-07-14 12:29 | Emergency (ER) | payer MEDICARE, MEDICAID, SELFPAY ==
[2022-07-14 14:04] VITALS: BP 115/77; PULSE 108; RESP 15; TEMP 36.7; O2SAT 99
[2022-07-14 15:28] LABS: Basophils # 0.1 10^3/uL (0.0-0.1); Basophils % 0.7 %; Eosinophils % 0.4 %; Hematocrit 37.4 % (37.0-47.0); Lymphocytes # 2.1 10^3/uL (0.8-4.8); Lymphocytes % 27.6 %; Mean Corpuscular HGB Conc 32.1 g/dL (30.0-36.0); Mean Corpuscular Hemoglobin 31.6 pg (28.0-34.0); Mean Corpuscular Volume 98.4 fl (81-99); Mean Platelet Volume 8.7 fL (7.4-10.4); Monocytes # 0.4 10^3/uL (0.2-0.9); Monocytes % 5.5 %; Neutrophils # 4.85 10^3/uL (1.8-7.7); Neutrophils % 65.4 %; Nucleated Red Blood Cells % 0 %; Platelet Count 586 10^3/cmm (130-400); Red Cell Distribution Width 14.8 % (12.1-15.1); White Blood Count 7.4 10^3/uL (4.0-10.0)
[2022-07-14 15:38] VITALS: BP 113/80; PULSE 102; RESP 15; O2SAT 98
[2022-07-14 15:43] LABS: Acetaminophen 7.2 ug/mL (10-30); Alanine Aminotransferase 68 U/L (0-33); Albumin Level 4.2 g/dL (3.5-5.2); Alkaline Phosphatase 158 U/L (35-105); Anion Gap 13.9 (5-19); Aspartate Amino Transferase 16 U/L (0-32); Blood Urea Nitrogen 12 mg/dL (6-20); Calcium 9.4 mg/dL (8.5-10.5); Carbon Dioxide 22 mmol/L (22-29); Chloride 105 mmol/L (98-107); Globulin 2.6 g/dL (1.3-4.6); Glomerular Filtration Rate 90.9 mL/min (90-130); Glucose 95 mg/dL (65-115); Lipase 35 U/L (13-60); Osmolality Calculated 284 mOsm/kg (285-295); Potassium 3.9 mmol/L (3.5-5.1); Sodium 137 mmol/L (136-145); Total Bilirubin 0.2 mg/dL (0.15-1.2); Total Protein 6.8 g/dL (6.6-8.7)
[2022-07-14 15:49] LABS: Salicylate < 0.3 mg/dL (3-10)
[2022-07-14 16:35] LABS: Amphetamines Screen Urine Negative (Negative); Barbiturates Screen Urine Negative (Negative); Benzodiazepines Screen Urine Positive (Negative); Cocaine Screen Urine Negative (Negative); Opiate Screen Urine Negative (Negative); PCP Screen Urine Negative (Negative); THC Screen Urine Negative (Negative)
--- NOTE | 2022-07-14 17:00 | ED_ITS ---
HPI - Recheck/Abnormal Lab/Rx General: Chief Complaint: Recheck/Abnormal Lab/Rx Stated Complaint: Lab Check Time Seen by Provider: 07/14/22 15:19 History of Present Illness: Patient states that she would like her labs checked. She reports that the other day she was hurting on her ankle so bad that she took 17 of her hydrocodone. She reports that yesterday her pain was bad and she took 24 Tylenol. She reports that she called her doctor today and let him know and he advised that she can be seen in the ER she reports that she has had a history of suicide attempt in the past however that has been more than 15 years ago. She reports that she does not feel suicidal. She states that she was hurting and not trying to kill herself. She denies any nausea, vomiting. She denies fever, chills. Review of Systems Const: Denies: fever(s), chills or body aches Card: Denies: chest pain, palpitations or irregular heart rhythm Resp: Denies: dyspnea, productive cough or non-productive cough GI: Denies: abdominal pain, nausea or vomiting : Denies: flank pain, difficulty voiding or dysuria Psych: Reports: anxiety and depression; Denies: auditory hallucinations, tactile hallucinations, suicidal ideation or homicidal ideation [facility] ED PFSH: Medical History SAM (acute kidney injury) Anxiety Arrhythmia Reports tachycardia, although cannot tell me anything other than this. Beta-leeanne initiated for this. Chronic back pain Depression Depression Fracture of fibula, proximal Hypothyroidism Hypoxia Morbid obesity Opiate abuse, continuous Psychiatric care Schizophrenia Transaminitis Surgical History History of History of cholecystectomy History of gastric bypass History of knee surgery History of tonsillectomy Family History Other Diabetes Social History Smoking and tobacco status: never smoked Alcohol intake: never Female Reproductive History: Date of last menstrual period: 09/05/20 Physical Exam Const: COMMON NORMALS: no acute distress, patient oriented x3 and alert Neck/C-Spine: COMMON NORMALS: no JVD Resp: COMMON NORMALS: normal respiratory effort, No use of accessory muscles and clear to auscultation bilaterally AUSCULTATION: clear to auscultation bilaterally Cardio: COMMON NORMALS: no JVD, regular rate, regular rhythm, S1 normal heart sound present, S2 normal heart sound present and No murmurs present (Cardio) RATE: regular rate RHYTHM: regular rhythm HEART SOUNDS: S1 normal heart sound present and S2 normal heart sound present Neuro: COMMON NORMALS: patient oriented x3 SENSORIUM/ORIENTATION: Yes alert Psych: OTHER: Patient has a history of schizophrenia. She denies auditory or visual hallucinations at this time. She denies suicidal or homicidal ideations but states that I was not trying to hurt myself that I know of . She states that she took the medication to try and help with the pain. She reported pain in her foot where she had a previous surgery. She denies pain currently Course Vital Signs: Vital signs: Vital Signs Temperature 98.0 F 07/14/22 14:04 Pulse Rate 98 07/14/22 18:38 Respiratory Rate 15 07/14/22 18:38 Blood Pressure 120/85 07/14/22 18:38 Pulse Oximetry 98 07/14/22 18:38 Oxygen Delivery Me thod 07/14/22 18:38 MDM - Recheck/Abnormal Lab/Rx Medical Decision Making Patient is in today for lab check after taking too much hydrocodone and Tylenol. Patient reports that on Wednesday she took 17 pills of hydrocodone because she had pain in her ankle/foot from previous surgery. She reports that yesterday she took 24 Tylenol and it was not helping the pain and she took 2 more this morning. She reports that she called and told her doctor about the Tylenol but did not tell him about the hydrocodone. She reports that the doctor advised her to come in and be seen. She says that she was taking the medications for uncontrolled pain and that she was not trying to kill/harm herself that I know of . Patient has a history of schizophrenia also diagnosis of opiate abuse continuous. I had a lengthy discussion with the patient regarding inappropriate use of that medication. She states that a Dr. Worley in [facility] is the one who provides her scripts. She reports that she gets weekly hydrocodone scripts. I advised her that I think it is unsafe for her to be on the medicatio n given her inappropriate use of it. Patient's liver enzymes are elevated. Tylenol level is subtherapeutic. Patient is in no acute distress currently and denies current suicidal homicidal ideations. We will discharge patient to home to follow-up tomorrow with primary care provider. Return to the ER as needed for new or worsening symptoms Lab Data 07/14/22 15:06 07/14/22 15:06 Laboratory Results WBC 7.4 10^3/uL (4.0-10.0) 07/14/22 15:06 RBC 3.80 10^6/uL (4.1-5.3) L 07/14/22 15:06 Hgb 12.0 g/dL (11.5-15.3) 07/14/22 15:06 Hct 37.4 % (37.0-47.0) 07/14/22 15:06 MCV 98.4 fl (81-99) 07/14/22 15:06 MCH 31.6 pg (28.0-34.0) 07/14/22 15:06 MCHC 32.1 g/dL (30.0-36.0) 07/14/22 15:06 RDW 14.8 % (12.1-15.1) 07/14/22 15:06 Plt Count 586 10^3/cmm (130-400) H 07/14/22 15:06 MPV 8.7 fL (7.4-10.4) 07/14/22 15:06 Neut % (Auto) 65.4 % 07/14/22 15:06 Lymph % (Auto) 27.6 % 07/14/22 15:06 [place] % (Auto) 5.5 % 07/14/22 15:06 Eos % (Auto) 0.4 % 07/14/22 15:06 Baso % (Auto) 0.7 % 07/14/22 15:06 Neut # (Auto) 4.85 10^3/uL (1.8-7.7) 07/14/22 15:06 Lymph # (Auto) 2.1 10^3/uL (0.8-4.8) 07/14/22 15:06 [place] # (Auto) 0.4 10^3/uL (0.2-0.9) 07/14/22 15:06 Eos # (Auto) 0.0 10^3/uL (0.0-0.8) 07/14/22 15:06 Baso # (Auto) 0.1 10^3/uL (0.0-0.1) 07/14/22 15:06 Nucleated RBC % (auto) 0 % 07/14/22 15:06 Nucleated RBCs # 0.0 /100WBC 07/14/22 15:06 Sodium 137 mmol/L (136-145) 07/14/22 15:06 Potassium 3.9 mmol/L (3.5-5.1) 07/14/22 15:06 Chloride 105 mmol/L (98-107) 07/14/22 15:06 Carbon Dioxide 22 mmol/L (22-29) 07/14/22 15:06 Anion Gap 13.9 (5-19) 07/14/22 15:06 BUN 12 mg/dL (6-20) 07/14/22 15:06 Creatinine 0.7 mg/dL (0.5-0.9) 07/14/22 15:06 GFR Calculation 90.9 mL/min (90-130) 07/14/22 15:06 Glucose 95 mg/dL (65-115) 07/14/22 15:06 Calculated Osmolality 284 mOsm/kg (285-295) L 07/14/22 15:06 Calcium 9.4 mg/dL (8.5-10.5) 07/14/22 15:06 Total Bilirubin 0.2 mg/dL (0.15-1.2) 07/14/22 15:06 AST 16 U/L (0-32) 07/14/22 15:06 ALT 68 U/L (0-33) H 07/14/22 15:06 Alkaline Phosphatase 158 U/L (35-105) H 07/14/22 15:06 Total Protein 6.8 g/dL (6.6-8.7) 07/14/22 15:06 Albumin 4.2 g/dL (3.5-5.2) 07/14/22 15:06 Globulin 2.6 g/dL (1.3-4.6) 07/14/22 15:06 Lipase 35 U/L (13-60) 07/14/22 15:06 Salicylates < 0.3 mg/dL (3-10) L 07/14/22 15:06 Urine Opiates Screen Negative ng/mL (Negative) 07/14/22 16:01 Acetaminophen 7.2 ug/mL (10-30) L 07/14/22 15:06 Ur Barbiturates Screen Negative ng/mL (Negative) 07/14/22 16:01 Ur Phencyclidine Scrn Negative ng/mL (Negative) 07/14/22 16:01 Ur Amphetamines Screen Negative ng/mL (Negative) 07/14/22 16:01 U Benzodiazepines Scrn Positive ng/mL (Negative) H 07/14/22 16:01 Urine Cocaine Screen Negative ng/mL (Negative) 07/14/22 16:01 U Marijuana (THC) Screen Negative ng/mL (Negative) 07/14/22 16:01 Discharge Plan Discharge Patient Disposition: Home Clinical Impression: Opiate abuse, continuous, Elevated liver enzymes, Overdose on Tylenol Condition: Stable Prescriptions: No Action calcitriol 0.25 mcg capsule 0.25 mcg PO DAILY Januvia 25 mg tablet 25 mg PO DAILY aripiprazole [Abilify] 5 mg tablet 5 mg PO DAILY lorazepam [Ativan] 0.5 mg tablet 0.5 mg PO BID zolpidem [Ambien] 5 mg tablet 5 mg PO .at bed risperidone [Risperdal] 2 mg tablet 2 mg PO BID hydrocodone-acetaminophen 5-325 mg tablet 1 tab PO TID tizanidine 2 mg tablet 2 mg PO TID buspirone 30 mg tablet 30 mg PO BID 30 Days Qty: 60 3RF levothyroxine 88 mcg tablet 88 mcg PO DAILY Discharge Orders: Discharge ED (Routine); Ordered 07/14/22 Ordered By: Martina De La Garza Referrals: Charleen Lee FNP [Primary Care Provider] - Discharge Diet: Usual diet Discharge Activity: Resume usual activity Patient Instructions: Opioid Safety, Pain Management Activity Restrictions/Additional Instructions: Do not take Tylenol. Call tomorrow a.m. to schedule a follow-up appointment with your primary care provider I recommend that you not taking hydrocodone as you have been taking it inappropriately and that could be a risk to your life. Return to the ER as needed Coding Level of Care Code ED Clinical Provider Trainer for Rey Fwmariano Exam Expanded Problem Focused
[2022-07-14 18:38] VITALS: BP 120/85; PULSE 98; RESP 15; O2SAT 98
== END 2022-07-14 18:36 | disposition home or self-care (01) ==
PROVIDERS: Emergency Provider Nurse Practitioner Family; PCP Nurse Practitioner Family
DX: F11.10 Opioid abuse, uncomplicated (principal); T39.1X1A Poisoning by 4-Aminophenol derivatives, accidental (unintentional), initial encounter; R74.8 Abnormal levels of other serum enzymes
CPT/HCPCS: 80053; 80306; 80307; 83690; 85025; 99283

== ENCOUNTER 2022-07-15 14:40 | Inpatient (IN) | payer MEDICARE, MEDICAID, SELFPAY ==
[2022-07-15 15:06] VITALS: BP 114/78; PULSE 111; RESP 18; TEMP 36.8; O2SAT 99; BMI 35.4
--- NOTE | 2022-07-15 16:31 | ED.C_ITS ---
HPI - Psych General: Chief Complaint: Psychiatric Symptoms Stated Complaint: DEPRESSED Time Seen by Provider: 07/15/22 15:22 Source: patient Mode of arrival: ambulatory History of Present Illness: 42-year-old female presents to the emergency room stating she is suicidal. Patient arrive via EMS. She was in the emergency room yesterday and stated that she had taken a large number of acetaminophen and hydrocodone however her tox screens were negative. Ultimately she was discharged home via Medicaid transfer Oswaldo. After review arriving home she called 911 and wanted to be brought to [facility]. She tells me she was told by [facility] that if she was suicidal she would have to come to the [facility] to be admitted. She states earlier today she was nonsuicidal but after being discharged from there wanted to come here she told EMS when they arrived before bringing her to her our facility that she was is not suicidal she was triaged to the waiting room then recanted and said that she was suicidal. MD complaint: suicidal ideation and feels depressed Onset (ago): minute(s) (Patient reported being suicidal after she arrived here.) Duration: changing over time Exacerbating factors: none Associated psychiatric symptoms: none Associated symptoms: Reports depression and suicidal ideation; Deny auditory hallucinations, visual hallucinations, delusions or homicidal ideation Review of Systems Const: Denies: fever(s), chills, body aches, change in appetite, fatigue or malaise ENMT: Denies: throat pain, ear or mastoid pain, nasal discharge or nasal congestion Card: Denies: chest pain, edema, dyspnea on exertion or orthopnea Resp: Denies: dyspnea, productive cough or non-productive cough GI: Denies: abdominal pain, nausea, vomiting, hematemesis, coffee ground emesis, diarrhea, constipation, bloating, hematochezia or melena : Denies: flank pain, difficulty voiding, dysuria, urinary frequency or ur inary urgency Skin/Breast: Denies: rash or pruritus Psych: Reports: depression and suicidal ideation; Denies: visual hallucinations, auditory hallucinations or homicidal ideation [facility] ED PFSH: Medical History SAM (acute kidney injury) Anxiety Arrhythmia Reports tachycardia, although cannot tell me anything other than this. Beta- leeanne initiated for this. Chronic back pain Depression Depression Fracture of fibula, proximal Hypothyroidism Hypoxia Morbid obesity Opiate abuse, continuous Psychiatric care Schizophrenia Transaminitis Surgical History History of History of cholecystectomy History of gastric bypass History of knee surgery History of tonsillectomy Family History Other Diabetes Social History Smoking and tobacco status: never smoked Alcohol intake: never Female Reproductive History: Date of last menstrual period: 09/05/20 Physical Exam Const: GENERAL APPEARANCE: cooperative and comfortable ORIENTA TION/CONSCIOUSNESS: Yes awake, Yes oriented to person, Yes oriented to place and Yes oriented to time HENMT: COMMON NORMALS: normocephalic, atraumatic and hearing grossly normal bilaterally HEAD & SCALP: normocephalic and atraumatic Resp: COMMON NORMALS: normal respiratory effort, No retractions, No use of accessory muscles and clear to auscultation bilaterally AUSCULTATION: clear to auscultation bilaterally Cardio: COMMON NORMALS: regular rate, regular rhythm and No murmurs present (Cardio) RATE: regular rate RHYTHM: regular rhythm GI: COMMON NORMALS: Soft to palpation and No hepatosplenomegaly present AUSCULTATION: Yes normoactive bowel sounds PALPATION: Yes Soft to palpation, No Tenderness to palpation present (GI), No Guarding due to palpation present (GI) and Yes No hepatosplenomegaly present Extremity: COMMON NORMALS: normal to inspection, capillary refill normal, no clubbing, cyanosis or edema, no calf tenderness and no pedal edema Neuro: SENSORIUM/ORIENTATION: Yes oriented to person, Yes oriented to place and Yes oriented to time Psych: THOUGHT CONTENT: No delusions Skin: COMMON NORMALS: no rashes or lesions noted GENERAL SKIN EXAM: no rashes or lesions noted Course Vital Signs: Vital signs: Vital Signs Temperature 98.6 F 07/15/22 22:00 Pulse Rate 112 H 07/15/22 22:00 Respiratory Rate 16 07/16/22 06:00 Blood Pressure 100/72 07/15/22 22:00 Pulse Oximetry 100 07/15/22 22:00 Oxygen Delivery Me thod 07/15/22 22:00 MDM - Psych Medical Decision Making Discussed with Dr. Clark. Patient expresses suicidal ideation but she seems more intent on seeking out admission. She has been to 3 ER visits now in less than 24 hours. Suspect has not been taking many of her medicines correctly. At this point we will go ahead and admit her based on her's expressed suicidal ideation complaint. Dr. Clark agrees and accepts admission. Medical Records I reviewed the patient's medical records. Lab Data I reviewed the patient's lab results. 07/15/22 16:30 07/15/22 16:30 Laboratory Results WBC 7.6 10^3/uL (4.0-10.0) 07/15/22 16:30 RBC 4.04 10^6/uL (4.1-5.3) L 07/15/22 16:30 Hgb 12.6 g/dL (11.5-15.3) 07/15/22 16:30 Hct 39.2 % (37.0-47.0) 07/15/22 16:30 MCV 97.0 fl (81-99) 07/15/22 16:30 MCH 31.2 pg (28.0-34.0) 07/15/22 16:30 MCHC 32.1 g/dL (30.0-36.0) 07/15/22 16:30 RDW 14.8 % (12.1-15.1) 07/15/22 16:30 Plt Count 628 10^3/cmm (130-400) H 07/15/22 16:30 MPV 8.9 fL (7.4-10.4) 07/15/22 16:30 Neut % (Auto) 60.9 % 07/15/22 16:30 Lymph % (Auto) 30.1 % 07/15/22 16:30 Garfield % (Auto) 7.1 % 07/15/22 16:30 Eos % (Auto) 0.7 % 07/15/22 16: Baso % (Auto) 0.8 % 07/15/22 16:30 Neut # (Auto) 4.62 10^3/uL (1.8-7.7) 07/15/22 16:30 Lymph # (Auto) 2.3 10^3/uL (0.8-4.8) 07/15/22 16:30 Garfield # (Auto) 0.5 10^3/uL (0.2-0.9) 07/15/22 16:30 Eos # (Auto) 0.1 10^3/uL (0.0-0.8) 07/15/22 16:30 Baso # (Auto) 0.1 10^3/uL (0.0-0.1) 07/15/22 16:30 Nucleated RBC % (auto) 0 % 07/15/22 16:30 Nucleated RBCs # 0.0 /100WBC 07/15/22 16:30 Sodium 139 mmol/L (136-145) 07/15/22 16:30 Potassium 4.0 mmol/L (3.5-5.1) 07/15/22 16:30 Chloride 105 mmol/L (98-107) 07/15/22 16:30 Carbon Dioxide 25 mmol/L (22-29) 07/15/22 16:30 Anion Gap 13.0 (5-19) 07/15/22 16:30 BUN 10 mg/dL (6-20) 07/15/22 16:30 Creatinine 0.8 mg/dL (0.5-0.9) 07/15/22 16:30 GFR Calculation 77.9 mL/min (90-130) L 07/15/22 16:30 Glucose 108 mg/dL (65-115) 07/15/22 16:30 Calculated Osmolality 288 mOsm/kg (285-295) 07/15/22 16:30 Calcium 10.2 mg/dL (8.5-10.5) 07/15/22 16:30 Total Bilirubin 0.3 mg/dL (0.15-1.2) 07/15/22 16:30 AST 23 U/L (0-32) 07/15/22 16:30 ALT 53 U/L (0-33) H 07/15/22 16:30 Alkaline Phosphatase 179 U/L (35-105) H 07/15/22 16:30 Total Protein 7.2 g/dL (6.6-8.7) 07/15/22 16:30 Albumin 4.1 g/dL (3.5-5.2) 07/15/22 16:30 Globulin 3.1 g/dL (1.3-4.6) 07/15/22 16:30 Salicylates 0.6 mg/dL (3-10) L 07/15/22 16:30 Acetaminophen < 5.0 ug/mL (10-30) L 07/15/22 16:30 Discharge Plan Discharge Patient Disposition: Admitted As Inpatient Admit Provider: Michael Parada Clinical Impression: Suicidal ideation, Anxiety disorder, Personality disorder, unspecified, Schizophrenia, Elevated liver enzymes Condition: Stable Coding Level of Care Code ED Hairspring Staker for Chg Fwd Exam Comprehensive
[2022-07-15 16:38] LABS: Basophils # 0.1 10^3/uL (0.0-0.1); Basophils % 0.8 %; Eosinophils # 0.1 10^3/uL (0.0-0.8); Eosinophils % 0.7 %; Hematocrit 39.2 % (37.0-47.0); Hemoglobin 12.6 g/dL (11.5-15.3); Lymphocytes # 2.3 10^3/uL (0.8-4.8); Lymphocytes % 30.1 %; Mean Corpuscular HGB Conc 32.1 g/dL (30.0-36.0); Mean Corpuscular Hemoglobin 31.2 pg (28.0-34.0); Mean Platelet Volume 8.9 fL (7.4-10.4); Monocytes # 0.5 10^3/uL (0.2-0.9); Monocytes % 7.1 %; Neutrophils # 4.62 10^3/uL (1.8-7.7); Neutrophils % 60.9 %; Nucleated Red Blood Cells % 0 %; Platelet Count 628 10^3/cmm (130-400); Red Blood Count 4.04 10^6/uL (4.1-5.3); Red Cell Distribution Width 14.8 % (12.1-15.1); White Blood Count 7.6 10^3/uL (4.0-10.0)
[2022-07-15 16:54] LABS: Acetaminophen < 5.0 ug/mL (10-30); Alanine Aminotransferase 53 U/L (0-33); Albumin Level 4.1 g/dL (3.5-5.2); Alkaline Phosphatase 179 U/L (35-105); Aspartate Amino Transferase 23 U/L (0-32); Blood Urea Nitrogen 10 mg/dL (6-20); Calcium 10.2 mg/dL (8.5-10.5); Carbon Dioxide 25 mmol/L (22-29); Chloride 105 mmol/L (98-107); Globulin 3.1 g/dL (1.3-4.6); Glomerular Filtration Rate 77.9 mL/min (90-130); Glucose 108 mg/dL (65-115); Osmolality Calculated 288 mOsm/kg (285-295); Salicylate 0.6 mg/dL (3-10); Sodium 139 mmol/L (136-145); Total Bilirubin 0.3 mg/dL (0.15-1.2); Total Protein 7.2 g/dL (6.6-8.7)
[2022-07-15 17:50] VITALS: BP 114/78; PULSE 111; RESP 18; TEMP 36.8; O2SAT 99
[2022-07-15 18:16] VITALS: BP 115/89; PULSE 101; RESP 18; TEMP 36.3; O2SAT 99
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
[2022-07-15] MEDS: hyDROXYzine 25 mg Capsule 50 MG PO (21:31)
[2022-07-15] MEDS: trazodone 50 mg Tablet PO (21:31)
[2022-07-15 22:00] VITALS: BP 100/72; PULSE 112; RESP 18; TEMP 37; O2SAT 100
[2022-07-15] MEDS: acetaminophen 325 mg Tablet 650 MG PO (22:37)
[2022-07-16] MEDS: OLANZapine 5 mg ODT PO (02:16)
[2022-07-16] MEDS: trazodone 50 mg Tablet PO (02:17)
[2022-07-16 06:00] VITALS: RESP 16
[2022-07-16] MEDS: acetaminophen 325 mg Tablet 650 MG PO ×2 (08:33→20:03)
[2022-07-16] MEDS: BuSPIRONE 10 mg Tablet 30 MG PO (09:18)
[2022-07-16] MEDS: levothyroxine 100 mcg Tablet PO (09:18)
[2022-07-16] MEDS: risperiDONE 2 mg Tablet PO ×2 (09:18→18:05)
[2022-07-16] MEDS: ARIPiprazole 10 mg Tablet 5 MG PO (09:18)
[2022-07-16] MEDS: tizanidine 4 mg Tablet 2 MG PO ×3 (09:18→20:02)
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
[2022-07-16] MEDS: calcitriol 0.25 mcg Capsule PO (11:08)
[2022-07-16 12:21] LABS: Glucose Point of Care 88 mg/dL (70-110)
[2022-07-16] MEDS: HYDROcodone-acetaminophen 5-325 mg Tablet 1 TAB PO (13:25)
[2022-07-16 14:00] VITALS: RESP 18
[2022-07-16] MEDS: BuSPIRONE 10 mg Tablet 15 MG PO (18:04)
[2022-07-16] MEDS: zolpidem 5 mg Tablet PO (20:03)
[2022-07-16 22:00] VITALS: RESP 16
[2022-07-17] MEDS: HYDROcodone-acetaminophen 5-325 mg Tablet 1 TAB PO ×2 (02:55→15:07)
[2022-07-17 06:00] VITALS: BP 148/86; PULSE 112; RESP 18; TEMP 36.7; O2SAT 95
[2022-07-17] MEDS: BuSPIRONE 10 mg Tablet 15 MG PO ×2 (09:13→18:18)
[2022-07-17] MEDS: tizanidine 4 mg Tablet 2 MG PO ×3 (09:13→20:45)
[2022-07-17] MEDS: sertraline 50 mg Tablet 25 MG PO (09:14)
[2022-07-17] MEDS: calcitriol 0.25 mcg Capsule PO (09:14)
[2022-07-17] MEDS: ARIPiprazole 10 mg Tablet 5 MG PO (09:14)
[2022-07-17] MEDS: levothyroxine 100 mcg Tablet PO (09:14)
[2022-07-17] MEDS: risperiDONE 2 mg Tablet PO ×2 (09:14→18:18)
[2022-07-17 12:00] LABS: Glucose Point of Care 147 mg/dL (70-110)
[2022-07-17 14:00] VITALS: BP 107/72; PULSE 98; RESP 18; TEMP 36.3; O2SAT 98
--- NOTE | 2022-07-17 18:12 | W.PM.NPUPNS ---
Subjective NPU Subjective: Patient is a 42-year-old white female admitted with depressed mood and suicidal ideation. Patient had reported that she had mysteriously run out of her opiates 2 to 3 days earlier and previously she had been negative on her urine drug screen for opiates despite being prescribed this medication. The patient had no clear answer regarding this and stated that she did not know why this was happening. She had reported a lack of success with BuSpar to manage her anxiety. She did continue to report depressed mood and was motivated to try a different medication to manage her depression. She had reported that her hallucinations were under better control with the risperidone and Abilify. She had reported improved sleep on the Ambien. The patient had reported struggles with concentration. Mental Status Exam MSE Comments: She is a casually dressed obese white female dressed in hospital attire who was somewhat calm and cooperative on interview with fair eye contact. There was evidence of psychomotor retardation. Her speech was normal in regards to rate and volume with normal spontaneity. Her mood was described as depressed. Her affect was flat and mood congruent. Her thought process was linear but superficial. Her thought content showed evidence of suicidal ideation with no active plan. There was a general evidence of a lack of appropriate details regarding her mood. She did not appear to be responding to internal stimuli. There was no evidence of any delusional thinking. Her insight appeared feeble. Her judgment was poor. Her impulse control was poor. Her recent and remote memory appeared to be limited. She was alert and oriented to person place and time. Her intelligence was suggestive of borderline intellectual functioning. Vitals/I&O/Wt Last Vital Signs Temp 97.3 F L 07/17/22 14:00 Pulse 98 07/17/22 14:00 Resp 18 07/17/22 14:00 BP 107/72 07/17/22 14:00 Pulse Ox 98 07/17/22 14:00 O2 Del Method 07/17/22 06:00 Data NPU 07/15/22 16:30 07/15/22 16:30 A&P Assessment and plan (1) Schizophrenia: (2) Anxiety disorder: (3) Suicidal ideation: Plan Patient is a 42-year-old white female with multiple medical issues and history of anxiety depression and possible misuse of opiate medications currently endorsing suicidal ideation with no active plan. #1 increase zoloft to 50mg daily, continue risperidone, abilify as prescribed. #2 engage patient in individual group and milieu therapy. #3 continue every 15 minute checks for safety. #4 Recommend sober living treatment at the highest level of care to which the patient is willing to commit Involuntary Hold Information 96 Hour Hold: 96 Hour Involuntary Admission: No Attestations NPU Medical Necessity Statement*: Inpatient hospitalization is medically necessary and the clinically appropriate intervention at this time. We will occasions to make changes as indicated with likely length of stay of 3 to 5 days. Coding Level of Care Code Established Pt Acute Operations Dispatcher for Shravang Fwd Patient Type Established History Problem Focused Exam Problem Focused Medical Decision Making Straight Forward Diagnoses Schizophrenia F20.9 Anxiety disorder F41.9 Suicidal ideation R45.855
[2022-07-17] MEDS: hyDROXYzine 25 mg Capsule 50 MG PO (18:42)
[2022-07-17] MEDS: zolpidem 5 mg Tablet PO (20:45)
[2022-07-17 22:00] VITALS: BP 148/96; PULSE 112; RESP 18; TEMP 37; O2SAT 98
[2022-07-18] MEDS: acetaminophen 325 mg Tablet 650 MG PO ×2 (02:51→14:27)
[2022-07-18 06:00] VITALS: RESP 16
[2022-07-18] MEDS: HYDROcodone-acetaminophen 5-325 mg Tablet 1 TAB PO ×2 (06:45→18:46)
[2022-07-18] MEDS: calcitriol 0.25 mcg Capsule PO (09:41)
[2022-07-18] MEDS: BuSPIRONE 10 mg Tablet 15 MG PO (09:41)
[2022-07-18] MEDS: ARIPiprazole 10 mg Tablet 5 MG PO (09:41)
[2022-07-18] MEDS: risperiDONE 2 mg Tablet PO ×2 (09:41→17:58)
[2022-07-18] MEDS: sertraline 50 mg Tablet PO (09:41)
[2022-07-18] MEDS: levothyroxine 100 mcg Tablet PO (09:41)
[2022-07-18] MEDS: tizanidine 4 mg Tablet 2 MG PO ×3 (09:42→20:42)
[2022-07-18 12:48] LABS: Glucose Point of Care 85 mg/dL (70-110)
[2022-07-18 14:00] VITALS: BP 107/66; PULSE 87; RESP 18; TEMP 36.4; O2SAT 98
--- NOTE | 2022-07-18 15:12 | P.NPUPN_ITS ---
Subjective NPU Subjective: Patient is a 42-year-old white female admitted with depressed mood and suicidal ideation. She reported no side effects from her Zoloft at this time. She states that she does not wish to return back to the outpatient clinic here in [place] when discharged. She reported no auditory hallucinations at this time. She reports that she had no particular pain issues currently. The BuSpar had not been helpful and she wished for it to be tapered and discontinued. The patient reported improved sleep on the Ambien. She reported no feelings of hopelessness or worthlessness. She had reported a lack of motivation and low energy for several months. She continued to remain isolative on the milieu. Mental Status Exam MSE Comments: She is a casually dressed obese white female dressed in hospital attire who was somewhat calm and cooperative on interview with fair eye contact. There was evidence of psychomotor retardation. Her speech was normal in regards to rate and volume with normal spontaneity. Her mood was described as depressed. Her affect remained flat and mood congruent. Her thought process was linear but superficial. Her thought content showed evidence of suicidal ideation with no active plan. She did not appear to be responding to internal stimuli. There was no evidence of any delusional thinking. Her insight appeared feeble. Her judgment was poor. Her impulse control was limited at this time. Her recent and remote memory appeared to be limited. She was alert and oriented to person place and time. Her intelligence was suggestive of borderline intellectual functioning. Vitals/I&O/Wt Last Vital Signs Temp 98.6 F 07/17/22 22:00 Pulse 112 H 07/17/22 22:00 Resp 16 07/18/22 06:00 BP 148/96 07/17/22 22:00 Pulse Ox 98 07/17/22 22:00 O2 Del Method 07/17/22 22:00 Data NPU 07/15/22 16:30 07/15/22 16:30 A&P Assessment and plan (1) Schizophrenia: (2) Anxiety disorder: (3) Suicidal ideation: Plan Patient is a 42-year-old white female with multiple medical issues and history of anxiety depression and possible misuse of opiate medications currently endorsing suicidal ideation with no active plan. #1 increase zoloft to 75mg daily, continue risperidone, abilify as prescribed. Decrease buspar to 10mg twice a day #2 engage patient in individual group and milieu therapy. #3 continue every 15 minute checks for safety. #4 Recommend sober living treatment at the highest level of care to which the patient is willing to commit Involuntary Hold Information 96 Hour Hold: 96 Hour Involuntary Admission: No Attestations NPU Medical Necessity Statement*: Inpatient hospitalization is medically necessary and the clinically appropriate intervention at this time. We will occasions to make changes as indicated with likely length of stay of 3 to 5 days. Coding Level of Care Code Established Pt Acute Field Marketing Specialist for Shravang Fwmariano Patient Type Established History Problem Focused Exam Problem Focused Medical Decision Making Straight Forward Diagnoses Schizophrenia F20.9 Anxiety disorder F41.9 Suicidal ideation R45.859
[2022-07-18] MEDS: BuSPIRONE 10 mg Tablet PO (17:58)
[2022-07-18 20:11] VITALS: BP 76/56; PULSE 115; RESP 18; TEMP 36.7; O2SAT 98
[2022-07-18] MEDS: zolpidem 5 mg Tablet PO (20:42)
[2022-07-19] MEDS: HYDROcodone-acetaminophen 5-325 mg Tablet 1 TAB PO ×2 (03:54→16:00)
[2022-07-19] MEDS: risperiDONE 2 mg Tablet PO ×2 (08:34→18:03)
[2022-07-19] MEDS: levothyroxine 100 mcg Tablet PO (08:34)
[2022-07-19] MEDS: ARIPiprazole 10 mg Tablet 5 MG PO (08:34)
[2022-07-19] MEDS: sertraline 50 mg Tablet 75 MG PO (08:35)
[2022-07-19] MEDS: tizanidine 4 mg Tablet 2 MG PO ×3 (08:35→20:20)
[2022-07-19] MEDS: BuSPIRONE 10 mg Tablet PO ×2 (08:36→18:03)
[2022-07-19] MEDS: calcitriol 0.25 mcg Capsule PO (10:36)
[2022-07-19 12:32] LABS: Glucose Point of Care 83 mg/dL (70-110)
[2022-07-19] MEDS: acetaminophen 325 mg Tablet 650 MG PO (13:12)
[2022-07-19 14:00] VITALS: BP 101/74; PULSE 93; RESP 18; TEMP 36.5; O2SAT 100
--- NOTE | 2022-07-19 16:30 | P.NPUPN_ITS ---
Subjective NPU Subjective: Patient is a 42-year-old white female admitted with depressed mood and suicidal ideation. The patient had reported improved mood. She reports that her sleep had been adequate. She reported no longer having suicidal thoughts. She had reported no increase in anxiety with the tapering of BuSpar and the increase in Zoloft. She had remained somewhat isolative on the milieu with limited interaction with her peers. Mental Status Exam MSE Comments: She is a casually dressed obese white female dressed in hospital attire who was pleasant calm and cooperative on interview with fair eye contact. There was evidence of psychomotor retardation. Her speech was normal in regards to rate and volume with normal spontaneity. Her mood was described as depressed, but better. . Her affect remained somewhat flat. Her thought process was linear but superficial. Her thought content showed evidence of suicidal ideation with no active plan. She did not appear to be responding to internal stimuli. There was no evidence of any delusional thinking. Her insight appeared feeble. Her judgment was poor. Her impulse control was limited at this time. Her recent and remote memory appeared to be limited. She was alert and oriented to person place and time. Her intelligence was suggestive of borderline intellectual functioning. Vitals/I&O/Wt Last Vital Signs Temp 97.7 F 07/19/22 14:00 Pulse 93 07/19/22 14:00 Resp 18 07/19/22 14:00 BP 101/74 07/19/22 14:00 Pulse Ox 100 07/19/22 14:00 O2 Del Method 07/17/22 22:00 Data NPU 07/15/22 16:30 07/15/22 16:30 A&P Assessment and plan (1) Schizophrenia: (2) Anxiety disorder: (3) Suicidal ideation: Plan Patient is a 42-year-old white female with multiple medical issues and history of anxiety depression and possible misuse of opiate medications currently endorsing suicidal ideation with no active plan. #1 increase zoloft to 100mg daily, continue risperidone, abilify as prescribed. Decrease buspar to 5mg twice a day #2 engage patient in individual group and milieu therapy. #3 continue every 15 minute checks for safety. #4 Recommend sober living treatment at the highest level of care to which the patient is willing to commit Involuntary Hold Information 96 Hour Hold: 96 Hour Involuntary Admission: No Attestations NPU Medical Necessity Statement*: Inpatient hospitalization is medically necessary and the clinically appropriate intervention at this time. We will occasions to make changes as indicated with likely length of stay of 2-4 days. Coding Level of Care Code Established Pt Acute Medical Biller/Coder for Chg Fwd Patient Type Established History Problem Focused Exam Problem Focused Medical Decision Making Straight Forward Diagnoses Schizophrenia F20.9 Anxiety disorder F41.9 Suicidal ideation R45.856
[2022-07-19] MEDS: zolpidem 5 mg Tablet PO (20:21)
[2022-07-19 20:46] VITALS: BP 91/77; PULSE 105; RESP 16; TEMP 36.7; O2SAT 96
[2022-07-20 06:00] VITALS: BP 77/63; PULSE 138; RESP 16; TEMP 36.8; O2SAT 97
[2022-07-20] MEDS: HYDROcodone-acetaminophen 5-325 mg Tablet 1 TAB PO ×3 (06:22→17:44)
[2022-07-20] MEDS: risperiDONE 2 mg Tablet PO ×2 (08:10→17:44)
[2022-07-20] MEDS: BuSPIRONE 10 mg Tablet 5 MG PO (08:10)
[2022-07-20] MEDS: levothyroxine 100 mcg Tablet PO (08:10)
[2022-07-20] MEDS: sertraline 100 mg Tablet PO (08:10)
[2022-07-20] MEDS: calcitriol 0.25 mcg Capsule PO (08:10)
[2022-07-20] MEDS: tizanidine 4 mg Tablet 2 MG PO ×3 (08:11→20:30)
[2022-07-20] MEDS: ARIPiprazole 10 mg Tablet 5 MG PO (08:11)
[2022-07-20 08:21] LABS: Glucose Point of Care 265 mg/dL (70-110)
[2022-07-20 12:42] LABS: Glucose Point of Care 81 mg/dL (70-110)
[2022-07-20 14:00] VITALS: BP 104/67; PULSE 103; RESP 18; TEMP 36.5; O2SAT 97
[2022-07-20] MEDS: hyDROXYzine 25 mg Capsule 50 MG PO (14:23)
--- NOTE | 2022-07-20 16:17 | P.NPUPN_ITS ---
Subjective NPU Subjective: Patient presents today reporting that things are going fairly well. She endorsed having significant depression prior to the hospitalization and being helped greatly by the medication regimen that she is on. She reports that she no longer has suicidal thoughts but does share that she has some continuum depression. She reports feeling she would be safe to return home soon. Mental Status Exam MSE Comments: This is an obese white female in hospital scrubs with limited grooming and eye contact. No abnormal movements except for psychomotor retardation. Cooperative with exam in mild distress. Speech was decreased rate and volume. Mood described as better but still slightly depressed, affect congruent. Thought process organized. Thought content: Patient denied suicidal or homicidal ideation, there were no delusions reported or noted, she denied auditory or visual hallucinations. Attention and concentration appeared intact and memory appeared reliable but none were formally tested. She alert and oriented x3. Insight and judgment appeared fair impulse control improving. Intellectual ability limited versus impaired. Vitals/I&O/Wt Last Vital Signs Temp 97.7 F 07/20/22 14:00 Pulse 103 H 07/20/22 14:00 Resp 18 07/20/22 14:00 BP 104/67 07/20/22 14:00 Pulse Ox 97 07/20/22 14:00 O2 Del Method 07/17/22 22:00 Data NPU 07/15/22 16:30 07/15/22 16:30 A&P Assessment and plan (1) Schizophrenia: (2) Anxiety disorder: (3) Suicidal ideation: Plan Patient is a 42-year-old white female with multiple medical issues and history of anxiety depression and possible misuse of opiate medications currently endorsing suicidal ideation with no active plan. 1. increase zoloft to 100mg daily, continue risperidone, abilify as prescribed. Discontinue buspar to 5mg twice a day and restart Januvia. 2. engage patient in individual group and milieu therapy. 3. continue every 15 minute checks for safety. 4. Recommend sober living treatment at the highest level of care to which the patient is willing to commit 5. Consider discharge tomorrow. Involuntary Hold Information 96 Hour Hold: 96 Hour Involuntary Admission: No Attestations NPU Medical Necessity Statement*: Inpatient hospitalization is medically necessary and the clinically appropriate intervention at this time. We will occasions to make changes as indicated with likely length of stay of 1-3 days. Coding Level of Care Code Acute Zipper Setter for Chg Fwd Diagnoses Schizophrenia F20.9 Anxiety disorder F41.9 Suicidal ideation R45.850
[2022-07-20] MEDS: ibuprofen 600 mg Tablet PO (17:45)
[2022-07-20] MEDS: zolpidem 5 mg Tablet PO (20:30)
[2022-07-20 22:00] VITALS: RESP 18
[2022-07-21] MEDS: HYDROcodone-acetaminophen 5-325 mg Tablet 1 TAB PO ×2 (03:38→13:33)
[2022-07-21 06:00] VITALS: BP 136/78; PULSE 112; RESP 16; TEMP 36.4; O2SAT 97
[2022-07-21] MEDS: ARIPiprazole 10 mg Tablet 5 MG PO (08:29)
[2022-07-21] MEDS: sertraline 100 mg Tablet PO (08:29)
[2022-07-21] MEDS: risperiDONE 2 mg Tablet PO (08:30)
[2022-07-21] MEDS: tizanidine 4 mg Tablet 2 MG PO ×2 (08:30→15:27)
[2022-07-21] MEDS: levothyroxine 100 mcg Tablet PO (08:30)
[2022-07-21] MEDS: calcitriol 0.25 mcg Capsule PO (08:30)
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
--- NOTE | 2022-07-21 11:23 | DCPLANNER ---
[place] completed on 07/20/22 @ 8994. Pt was dianane a copy of her rights and she stated she understood her rights.
[2022-07-21 11:38] VITALS: BP 136/78; PULSE 112; RESP 16; TEMP 36.4; O2SAT 97
[2022-07-21 12:49] LABS: Glucose Point of Care 91 mg/dL (70-110)
--- NOTE | 2022-07-21 13:27 | DCPLANNER ---
[place] completed on 07/21/22 @ 0934. Pt was dianane a copy of her rights and she stated she understood her rights.
== END 2022-07-21 16:05 | disposition home or self-care (01) | DRG 885 ==
LOC: ER 17:12 → NP 18:27
PROVIDERS: Admitting Provider Psychiatry & Neurology Psychiatry; Emergency Provider Family Medicine; PCP Nurse Practitioner Family; Visit Provider Psychiatry & Neurology Psychiatry
DX: F25.1 Schizoaffective disorder, depressive type (principal); R45.851 Suicidal ideations; E11.9 Type 2 diabetes mellitus without complications; E03.9 Hypothyroidism, unspecified; E66.01 Morbid (severe) obesity due to excess calories; Z68.34 Body mass index [BMI] 34.0-34.9, adult; G89.29 Other chronic pain; M54.9 Dorsalgia, unspecified; F11.10 Opioid abuse, uncomplicated; Z98.84 Bariatric surgery status; Z79.84 Long term (current) use of oral hypoglycemic drugs
CPT/HCPCS: 36415; 36416; 80053; 80306; 80307; 82962; 83690; 85025; 97165; 99283; 99285

== ENCOUNTER 2022-08-31 20:10 | Emergency (ER) | payer MEDICARE, MEDICAID, SELFPAY ==
[2022-08-31 20:12] VITALS: BP 110/72; PULSE 97; RESP 16; TEMP 37.2; O2SAT 98; BMI 35.4
--- NOTE | 2022-08-31 20:28 | XRR_ITS ---
PROCEDURE INFORMATION: Exam: XR Chest Exam date and time: 08/31/2022 8:33 PM Age: 42 years old Clinical indication: Pain; Chest pressure; Additional info: SOB TECHNIQUE: Imaging protocol: Radiologic exam of the chest. Views: 1 view. COMPARISON: CR XR chest 1V portable [id number] 02/15/2021 6:42 AM FINDINGS: Lungs: Unremarkable. No consolidation. Pleural spaces: Unremarkable. No pleural effusion. No pneumothorax. Heart/Mediastinum: Unremarkable. No cardiomegaly. Bones/joints: Unremarkable. XR/XR chest 1V portable [id number] IMPRESSION: No acute findings.
[2022-08-31 20:36] LABS: Basophils # 0.1 10^3/uL (0.0-0.1); Basophils % 0.6 %; Eosinophils # 0.3 10^3/uL (0.0-0.8); Eosinophils % 2.8 %; Hematocrit 36.2 % (37.0-47.0); Hemoglobin 11.1 g/dL (11.5-15.3); Lymphocytes # 1.8 10^3/uL (0.8-4.8); Mean Corpuscular HGB Conc 30.7 g/dL (30.0-36.0); Mean Corpuscular Hemoglobin 29.2 pg (28.0-34.0); Mean Corpuscular Volume 95.3 fl (81-99); Mean Platelet Volume 9.4 fL (7.4-10.4); Monocytes # 1.3 10^3/uL (0.2-0.9); Monocytes % 13.1 %; Neutrophils # 6.39 10^3/uL (1.8-7.7); Neutrophils % 65.1 %; Nucleated Red Blood Cells % 0 %; Platelet Count 382 10^3/cmm (130-400); Red Cell Distribution Width 16.5 % (12.1-15.1); White Blood Count 9.8 10^3/uL (4.0-10.0)
[2022-08-31] MEDS: sodium chloride 0.9% 1,000 ML 999 ML IV (20:48)
--- NOTE | 2022-08-31 20:49 | W.ED.SYNCOPE ---
HPI - Syncope General: Chief Complaint: Syncope Stated Complaint: hypotension Time Seen by Provider: 08/31/22 20:22 Source: EMS Mode of arrival: EMS Limitations: no limitations History of Present Illness: 42-year-old female states she checked her blood pressure today and it was in the 70s she states that she was feeling lightheaded she states she been having issues like this for months. Her blood pressure is normal with EMS her heart rate now is 94 blood pressure is 103/71 patient was amatory here and did walk to the bath without any issues she also complains of some chest pain that she states has been going on for 5 or 6 days center of her chest sharp in nature rates it a 6 out of 10 denies any shortness of breath Associated symptoms: Reports chest pain; Deny abdominal pain, fever(s), headache(s) or nausea Review of Systems Const: Denies: fever(s), chills, body aches or change in appetite Eyes: Denies: blurry vision or eye discomfort ENMT: Denies: throat pain or dental pain Card: Reports: chest pain and pre-syncope Resp: Denies: dyspnea GI: Denies: abdominal pain, nausea, vomiting or diarrhea : Denies: dysuria Musc: Denies: neck pain or back pain Skin/Breast: Denies: rash Neuro: Denies: headache(s) Psych: Denies: depression Bryan/Lymph: Denies: easy bruising All/Imm: Denies: urticaria PFSH ED PFSH: Medical History SAM (acute kidney injury) Anxiety Arrhythmia Reports tachycardia, although cannot tell me anything other than this. Beta-leeanne initiated for this. Chronic back pain Depression Depression Fracture of fibula, proximal Hypothyroidism Hypoxia Morbid obesity Opiate abuse, continuous Psychiatric care Schizophrenia Transaminitis Surgical History History of History of cholecystectomy History of gastric bypass History of knee surgery History of tonsillectomy Family History Other Diabetes Social History Smoking and tobacco status: never smoked Alcohol intake: never Female Reproductive History: Date of last menstrual period: 09/05/20 Physical Exam Const: COMMON NORMALS: no acute distress, patient oriented x3 and healthy appearing HENMT: COMMON NORMALS: normocephalic and atraumatic HEAD & SCALP: normocephalic and atraumatic Eye: COMMON NORMALS: Equal, round and reactive pupils present and EOMs intact bilaterally PUPIL: Yes Equal, round and reactive pupils present Neck/C-Spine: COMMON NORMALS: full ROM and supple Chest: COMMONS NORMALS: normal inspection of the chest and normal palpation of entire chest wall Resp: COMMON NORMALS: normal respiratory effort, No retractions, No use of accessory muscles and clear to auscultation bilaterally AUSCULTATION: clear to auscultation bilaterally Cardio: COMMON NORMALS: regular rate, regular rhythm and No murmurs present (Cardio) RATE: regular rate RHYTHM: regular rhythm GI: COMMON NORMALS: Normal to inspection, nondistended, normoactive bowel sounds present, Soft to palpation, non-tender and no masses PALPATION: Yes Soft to palpation Extremity: COMMON NORMALS: normal to inspection and full ROM Neuro: COMMON NORMALS: patient oriented x3, moves all extremities and no focal motor deficits Psych: COMMON NORMALS: mental status grossly normal, Normal thought process present and cooperative THOUGHT PROCESS: Normal thought process present Skin: COMMON NORMALS: no rashes or lesions noted and no wounds GENERAL SKIN EXAM: no rashes or lesions noted Course Vital Signs: Vital signs: Vital Signs Temperature 98.9 F 08/31/22 20:12 Pulse Rate 87 08/31/22 22:00 Respiratory Rate 20 H 08/31/22 22:00 Blood Pressure 126/93 08/31/22 22:00 Pulse Oximetry 98 08/31/22 22:00 Oxygen Delivery Me thod 08/31/22 20:12 MDM - Syncope Medical Decision Making Patient presents here with syncopal events she was hypotensive at home she has had normal blood pressure here she has been well-appearing here ambulatory blood work cardiac enzymes are all normal she is stable for discharge she is to follow-up with PCP and return if worsening. Lab Data 08/31/22 20:29 08/31/22 20:29 Radiology Impressions Chest X-Ray 08/31/22 20:28 IMPRESSION: No acute findings. Laboratory Results WBC 9.8 10^3/uL (4.0-10.0) 08/31/22: RBC 3.80 10^6/uL (4.1-5.3) L 08/31/22: Hgb 11.1 g/dL (11.5-15.3) L 08/31/22: Hct 36.2 % (37.0-47.0) L 08/31/22 MCV 95.3 fl (81-99) 08/31/22 MCH 29.2 pg (28.0-34.0) 08/31/22: MCHC 30.7 g/dL (30.0-36.0) 08/31/22 RDW 16.5 % (12.1-15.1) H 08/31/22 Plt Count 382 10^3/cmm (130-400) 08/31/22 MPV 9.4 fL (7.4-10.4) 08/31/22 Neut % (Auto) 65.1 % 08/31/22 Lymph % (Auto) 18.0 % 08/31/22 [place] % (Auto) 13.1 % 08/31/22 Eos % (Auto) 2.8 % 08/31/22 Baso % (Auto) 0.6 % 08/31/22 Neut # (Auto) 6.39 10^3/uL (1.8-7.7) 08/31/22 Lymph # (Auto) 1.8 10^3/uL (0.8-4.8) 08/31/22 [place] # (Auto) 1.3 10^3/uL (0.2-0.9) H 08/31/22 Eos # (Auto) 0.3 10^3/uL (0.0-0.8) 08/31/22 Baso # (Auto) 0.1 10^3/uL (0.0-0.1) 08/31/22 Nucleated RBC % (auto) 0 % 08/31/22 Nucleated RBCs # 0.0 /100WBC 08/31/22 PT 13.70 SECONDS (12.1-14.9) 08/31/22 20: INR 1.02 (0.8-1.2) 08/31/22 20:29 Sodium 136 mmol/L (136-145) 08/31/22 20:29 Potassium 4.3 mmol/L (3.5-5.1) 08/31/22 20: Chloride 102 mmol/L (98-107) 08/31/22 20: Carbon Dioxide 23 mmol/L (22-29) 08/31/22 20: Anion Gap 15.3 (5-19) 08/31/22 20:29 BUN 24 mg/dL (6-20) H 08/31/22 20: Creatinine 1.0 mg/dL (0.5-0.9) H 08/31/22 20: GFR Calculation 60.2 mL/min (90-130) L 08/31/22 20: Glucose 71 mg/dL (65-115) 08/31/22 20: Calculated Osmolality 285 mOsm/kg (285-295) 08/31/22 20: Calcium 8.7 mg/dL (8.5-10.5) 08/31/22 20: Total Bilirubin 0.2 mg/dL (0.15-1.2) 08/31/22 20: AST 14 U/L (0-32) 08/31/22 20: ALT 11 U/L (0-33) 08/31/22 20: Alkaline Phosphatase 139 U/L (35-105) H 08/31/22 20:29 Troponin T Baseline 12 ng/L (0-10) H 08/31/22 20: Troponin T 120 Minute 13.51 ng/L (0-10) H 08/31/22 22:07 Delta Troponin T 1.51 ABS# (0-10) 08/31/22 22:07 Total Protein 5.9 g/dL (6.6-8.7) L 08/31/22 20: Albumin 3.6 g/dL (3.5-5.2) 08/31/22 20: Globulin 2.3 g/dL (1.3-4.6) 08/31/22 20:29 EKG Data EKG 1: I personally reviewed and interpreted this EKG as follows: EKG interpretation date: 08/31/22 EKG interpretation time: 21:40 Interpretation: nsr hr [address] or t wave abnormalities qrs 81 qtc 418 Discharge Plan Discharge Patient Disposition: Home Clinical Impression: Syncope Condition: Stable Prescriptions: No Action Januvia 25 mg tablet 25 mg PO DAILY zolpidem [Ambien] 5 mg tablet 10 mg PO .at bed tizanidine 2 mg tablet 4 mg PO TID potassium chloride 20 mEq tablet extended release 20 meq PO DAILY lorazepam [Ativan] 0.5 mg tablet 0.5 mg PO BID omeprazole 40 mg capsule,delayed release(DR/EC) 40 mg PO DAILY sertraline 100 mg tablet 200 mg PO DAILY 30 Days Qty: 60 3RF levothyroxine 88 mcg tablet 100 mcg PO DAILY Risperdal 2 mg tablet 2 mg PO BID 30 Days Qty: 60 1RF Abilify 5 mg tablet 5 mg PO DAILY 30 Days Qty: 30 1RF Discharge Orders: Discharge ED (Routine); Ordered 08/31/22 Ordered By: Selina Parkre Referrals: Charleen Lee FNP [Referring] - Discharge Diet: Advance as tolerated Discharge Activity: Resume usual activity Patient Instructions: Syncope (ED) Coding Level of Care Code ED Lumber Inspector for Rey Gutierrez
[2022-08-31 20:56] LABS: INR 1.02 (0.8-1.2)
[2022-08-31 21:02] LABS: Alanine Aminotransferase 11 U/L (0-33); Albumin Level 3.6 g/dL (3.5-5.2); Alkaline Phosphatase 139 U/L (35-105); Anion Gap 15.3 (5-19); Aspartate Amino Transferase 14 U/L (0-32); Blood Urea Nitrogen 24 mg/dL (6-20); Calcium 8.7 mg/dL (8.5-10.5); Carbon Dioxide 23 mmol/L (22-29); Chloride 102 mmol/L (98-107); Globulin 2.3 g/dL (1.3-4.6); Glomerular Filtration Rate 60.2 mL/min (90-130); Glucose 71 mg/dL (65-115); Osmolality Calculated 285 mOsm/kg (285-295); Sodium 136 mmol/L (136-145); Total Bilirubin 0.2 mg/dL (0.15-1.2); Total Protein 5.9 g/dL (6.6-8.7); Troponin(5th) Baseline 12 ng/L (0-10)
[2022-08-31 21:03] LABS: Potassium 4.3 mmol/L (3.5-5.1)
--- NOTE | 2022-08-31 21:40 | ECG_ITS ---
[facility] Test Date: 2022-08-31 Pat Name: Abigail Restrepo Department: Room: Gender: Female Home [facility] Family [facility] Professor: : 1980 Requested By: Selina Parker Order Number: [id number] Misha MD: Nate Pacheco M.D. Measurements Intervals [place] Rate: 84 P: 54 MT: 177 QRS: 47 QRSD: 81 T: 57 QT: 378 QTc: 447 Interpretive Statements SINUS RHYTHM Compared to ECG 07/07/2021 18:13:44 No significant changes Electronically Signed On 09-01-2022 7:43:50 [employer] TECHNICIAN by Nate Pacheco M.D. [email or web address]
[2022-08-31 22:00] VITALS: BP 126/93; PULSE 87; RESP 20; O2SAT 98
[2022-08-31 22:30] LABS: Troponin 5 2HR 13.51 ng/L (0-10)
[2022-08-31 22:31] LABS: Troponin 5 2HR Delta 1.51 ABS# (0-10)
== END 2022-08-31 23:05 | disposition home or self-care (01) ==
PROVIDERS: Emergency Provider Emergency Medicine; PCP Family Medicine
DX: R55 Syncope and collapse (principal)
CPT/HCPCS: 71045; 80053; 84484; 85025; 85610; 93005; 96360; 99285; J7030

== ENCOUNTER 2023-12-29 18:48 | Emergency (ER) | payer MEDICARE, MEDICAID, SELFPAY ==
[2023-12-29 18:49] VITALS: BP 99/59; PULSE 104; RESP 28; TEMP 36.4; O2SAT 93; BMI 35.4
--- NOTE | 2023-12-29 18:50 | XRR_ITS ---
PROCEDURE INFORMATION: Exam: XR Chest Exam date and time: 12/29/2023 7:00 PM Age: 43 years old Clinical indication: Shortness of breath; Additional info: Tachycardia TECHNIQUE: Imaging protocol: Radiologic exam of the chest. Views: 1 view. COMPARISON: CR XR chest 1V portable [id number] 08/31/2022 8:33 PM FINDINGS: Lungs: Unremarkable. No consolidation. Pleural spaces: Unremarkable. No pleural effusion. No pneumothorax. Heart/Mediastinum: Unremarkable. No cardiomegaly. Bones/joints: Unremarkable. XR/XR chest 1V portable [id number] IMPRESSION: No acute findings.
--- NOTE | 2023-12-29 18:56 | W.ED.ARRPALP ---
HPI - Arrhythmia/Palpitations General: Chief Complaint: Arrhythmia/Palpitations Stated Complaint: Rapid heat rate/ Back Pain Time Seen by Provider: 12/29/23 18:50 History of Present Illness: Patient presents to the ER with complaints of rapid heart rate shortness of breath and back pain. Patient states it started today. Patient states she has had a rapid heart rate before and she is on no medicine at should control it. Patient says she is not missed any doses of medicine and takes them religiously. Patient also complaining of some back pain and mild shortness of breath. Patient is lying in bed on room air does not appear in any distress and is nontoxic. Upon chart review patient has a history of an unnamed tachyarrhythmia and chronic back pain. Review of Systems General: Reports: 10 or more systems reviewed and unremarkable except in HPI and below PFSH ED PFSH: Medical History Opiate abuse, continuous Depression Morbid obesity Schizophrenia Hypoxia Fracture of fibula, proximal Transaminitis SAM (acute kidney injury) Chronic back pain Arrhythmia Reports tachycardia, although cannot tell me anything other than this. Beta-leeanne initiated for this. Anxiety Depression Hypothyroidism Surgical History History of gastric bypass History of knee surgery History of tonsillectomy History of cholecystectomy History of Family History Other Diabetes Social History Smoking and tobacco/nicotine status: never used tobacco/nicotine Alcohol intake: never Substance/Drug Use: never Physical Exam Const: COMMON NORMALS: no acute distress, average body habitus, patient oriented x3, no limitations, healthy appearing, alert and well nourished HENMT: COMMON NORMALS: normocephalic, atraumatic, hearing grossly normal bilaterally, external ears normal, Normal external nose present and moist oral mucous membranes HEAD & SCALP: normocephalic and atraumatic NOSE: Normal external nose present EXTERNAL EAR: Yes external ears normal Neck/C-Spine: COMMON NORMALS: no JVD Chest: COMMONS NORMALS: normal inspection of the chest and normal palpation of entire chest wall Resp: COMMON NORMALS: normal respiratory effort, No retractions, No use of accessory muscles and clear to auscultation bilaterally AUSCULTATION: clear to auscultation bilaterally Cardio: COMMON NORMALS: no JVD, regular rate, regular rhythm, S1 normal heart sound present, S2 normal heart sound present, No gallops present (Cardio), No clicks present (Cardio), No murmurs present (Cardio) and No rub (Cardio) RATE: regular rate RHYTHM: regular rhythm HEART SOUNDS: S1 normal heart sound present and S2 normal heart sound present GI: COMMON NORMALS: Normal to inspection, nondistended, normoactive bowel sounds present, Soft to palpation, non-tender, No hepatosplenomegaly present and no masses PALPATION: Yes Soft to palpation and Yes No hepatosplenomegaly present OTHER: Morbid obesity Neuro: COMMON NORMALS: patient oriented x3 SENSORIUM/ORIENTATION: Yes alert Course Vital Signs: Vital signs: Vital Signs Temperature 97.5 F L 12/29/23 18:49 Pulse Rate 89 12/29/23 20:44 Respiratory Rate 16 12/29/23 20:23 Blood Pressure 100/67 12/29/23 20:44 Pulse Oximetry 97 12/29/23 20:44 Oxygen Delivery Me thod Room Air 12/29/23 20:44 MDM - Arrhythmia/Palpitations Medical Decision Making Patient was worked up with lab work included CBC CMP serial cardiac enzymes, urinalysis, chest x-ray urine drug screen, these results showed a BUN/creatinine of slightly high at 33 and 1.6, patient was given 2 L normal saline and gauze milligrams Tylenol for back pain and patient be discharged to go home and follow-up with her PCP for further evaluation and treatment. Differential Diagnosis Likely palpitations and sinus tachycardia; Unlikely anxiety, artial fibrillation, artial flutter, ventricular premature beats, supraventricular tachycardia, ventricular tachycardia or WPW Medical Records I reviewed the patient's medical records. Lab Data I reviewed the patient's lab results. 12/29/23 19:14 12/29/23 19:14 Radiology Impressions Chest X-Ray 12/29/23 18:50 IMPRESSION: No acute findings. Laboratory Results WBC 9.14 10^3/uL (3.29-11.43) 12/29/23 19:14 RBC 4.15 10^6/uL (3.85-5.65) 12/29/23 19:14 Hgb 10.30 g/dL (11.27-16.99) L 12/29/23 19:14 Hct 34.9 % (36-47) L 12/29/23 19:14 MCV 84.1 fl (85-98) L 12/29/23 19:14 MCH 24.8 pg (27-33) L 12/29/23 19:14 MCHC 29.5 g/dL (30-55) L 12/29/23 19:14 RDW 17.8 % (12.1-15.1) H 12/29/23 19:14 Plt Count 450 10^3/cmm (157-399) H 12/29/23 19:14 MPV 9.9 fL (7.4-10.4) 12/29/23 19:14 Neut % (Auto) 68.2 % 12/29/23 19:14 Lymph % (Auto) 18.4 % 12/29/23 19:14 [place] % (Auto) 12.0 % 12/29/23 19:14 Eos % (Auto) 0.5 % 12/29/23 19:14 Baso % (Auto) 0.4 % 12/29/23 19:14 Neut # (Auto) 6.22 10^3/uL (1.8-7.7) 12/29/23 19:14 Lymph # (Auto) 1.7 10^3/uL (0.8-4.8) 12/29/23 19:14 [place] # (Auto) 1.1 10^3/uL (0.2-0.9) H 12/29/23 19:14 Eos # (Auto) 0.1 10^3/uL (0.0-0.8) 12/29/23 19:14 Baso # (Auto) 0.0 10^3/uL (0.0-0.1) 12/29/23 19:14 Nucleated RBC % (auto) 0 % 12/29/23 19:14 Nucleated RBCs # 0.0 /100WBC 12/29/23 19:14 Sodium 136 mmol/L (136-145) 12/29/23 19:14 Potassium 4.0 mmol/L (3.5-5.1) 12/29/23 19:14 Chloride 103 mmol/L (98-107) 12/29/23 19:14 Carbon Dioxide 19 mmol/L (22-29) L 12/29/23 19:14 Anion Gap 18.0 (5-19) 12/29/23 19:14 BUN 33 mg/dL (6-20) H 12/29/23 19:14 Creatinine 1.6 mg/dL (0.5-0.9) H 12/29/23 19:14 GFR Calculation 34.9 mL/min (90-130) L 12/29/23 19:14 Glucose 93 mg/dL (65-115) 12/29/23 19:14 Calculated Osmolality 289 mOsm/kg (285-295) 12/29/23 19:14 Calcium 8.9 mg/dL (8.5-10.5) 12/29/23 19:14 Magnesium 1.8 mg/dL (1.7-2.3) 12/29/23 19:14 Total Bilirubin 0.3 mg/dL (0.15-1.2) 12/29/23 19:14 AST 13 U/L (0-32) 12/29/23 19:14 ALT 9 U/L (0-33) 12/29/23 19:14 Alkaline Phosphatase 114 U/L (35-105) H 12/29/23 19:14 Troponin T Baseline < 6 ng/L (0-10) 12/29/23 19:14 Troponin T 120 Minute 6.75 ng/L (0-10) 12/29/23 20:00 Delta Troponin T 0.24652 ABS# (0-10) 12/29/23 20:00 Total Protein 6.5 g/dL (6.6-8.7) L 12/29/23 19:14 Albumin 3.9 g/dL (3.5-5.2) 12/29/23 19:14 Globulin 2.6 g/dL (1.3-4.6) 12/29/23 19:14 TSH 9.99 uIU/mL (0.27-4.20) H 12/29/23 19:14 Urine Color Yellow (Yellow) 12/29/23 19:51 Urine Appearance Clear (CLEAR) 12/29/23 19:51 Urine pH 5 (5-7) 12/29/23 19:51 Ur Specific [place] 1.020 (1.005-1.030) 12/29/23 19:51 Urine Protein Trace (Negative) 12/29/23 19:51 Urine Glucose (UA) 2+ (Normal) H 12/29/23 19:51 Urine Ketones 1+ (Negative) H 12/29/23 19:51 Urine Blood Neg (Negative) 12/29/23 19:51 Urine Nitrate Negative (Negative) 12/29/23 19:51 Urine Bilirubin 1+ (Negative) H 12/29/23 19:51 Urine Urobilinogen 1 mg/dL (Negative) H 12/29/23 19:51 Ur Leukocyte Esterase Negative (Negative) 12/29/23 19:51 Urine RBC None /hpf (0-2) 12/29/23 19:51 Urine WBC 5-10 /hpf (0-5) H 12/29/23 19:51 Ur Squamous Epith Cells 15-25 /hpf (0-5) H 12/29/23 19:51 Amorphous Sediment Not Reportable 12/29/23 19:51 Urine Bacteria 1+ /hpf (NONE) H 12/29/23 19:51 Urine Mucus 2+ /hpf 12/29/23 19:51 Urine Opiates Screen Negative ng/mL (Negative) 12/29/23 19:51 Ur Barbiturates Screen Negative ng/mL (Negative) 12/29/23 19:51 Ur Phencyclidine Scrn Negative ng/mL (Negative) 12/29/23 19:51 Ur Amphetamines Screen Negative ng/mL (Negative) 12/29/23 19:51 U Benzodiazepines Scrn Positive ng/mL (Negative) H 12/29/23 19:51 Urine Cocaine Screen Negative ng/mL (Negative) 12/29/23 19:51 U Marijuana (THC) Screen Negative ng/mL (Negative) 12/29/23 19:51 All radiology interpretation(s) finalized by discharge EKG Data EKG 1: I personally reviewed and interpreted this EKG as follows: EKG interpretation date: 12/29/23 EKG interpretation time: 19:20 Interpretation: Ventricular rate 101 bpm, NV interval 160, QRS duration 93, QTc 393, sinus tach Other EKG comments: Chest X-Ray 12/29/23 18:50 IMPRESSION: No acute findings. Discharge Plan Discharge Patient Disposition: Home Clinical Impression: Sinus tachycardia, Acute kidney insufficiency Back pain Qualifiers: Back pain location: low back pain Chronicity: acute Back pain laterality: unspecified Sciatica presence: without sciatica Qualified Code(s): M54.50 - Low back pain, unspecified Prescriptions: No Action Januvia 25 mg tablet 25 mg PO DAILY zolpidem [Ambien] 5 mg tablet 10 mg PO .at bed tizanidine 2 mg tablet 4 mg PO TID potassium chloride 20 mEq tablet extended release 20 meq PO DAILY lorazepam [Ativan] 0.5 mg tablet 0.5 mg PO BID omeprazole 40 mg capsule,delayed release(DR/EC) 40 mg PO DAILY sertraline 100 mg tablet 200 mg PO DAILY 30 Days Qty: 60 3RF levothyroxine 88 mcg tablet 100 mcg PO DAILY Risperdal 2 mg tablet 2 mg PO BID 30 Days Qty: 60 1RF Abilify 5 mg tablet 5 mg PO DAILY 30 Days Qty: 30 1RF Discharge Orders: Discharge ED (Routine); Ordered 12/29/23 Ordered By: Pastor Vizcaino Referrals: Bruce Muse DO [Primary Care Provider] - 1 week Patient Instructions: Back Pain (ED), Tachycardia (ED) Activity Restrictions/Additional Instructions: Please drink plenty fluids, please take all your medicine as directed. Please follow-up with your family practice physician for further evaluation and testing as needed. Coding Level of Care Code ED Finisher Tailor Apprentice for Rey Gutierrez
--- NOTE | 2023-12-29 19:20 | ECG_ITS ---
[facility] Test Date: 2023-12-29 Pat Name: Abigail Restrepo Department: Room: Gender: Female Technology Consultant: : 1980 Requested By: Pastor Vizcaino Order Number: [id number] Misha MD: Nate Pacheoc M.D. Measurements Intervals [place] Rate: 101 P: 28 ID: [id number] QRS: 29 QRSD: 93 T: 52 QT: 335 QTc: 435 Interpretive Statements SINUS TACHYCARDIA Compared to ECG 08/31/2022 21:40:01 Sinus rhythm no longer present Electronically Signed On 12-30-2023 0:02:25 CDT by Nate Pacheco M.D. [id number]
[2023-12-29 19:23] LABS: Basophils % 0.4 %; Eosinophils # 0.1 10^3/uL (0.0-0.8); Eosinophils % 0.5 %; Hematocrit 34.9 % (36-47); Lymphocytes # 1.7 10^3/uL (0.8-4.8); Lymphocytes % 18.4 %; Mean Corpuscular HGB Conc 29.5 g/dL (30-55); Mean Corpuscular Hemoglobin 24.8 pg (27-33); Mean Corpuscular Volume 84.1 fl (85-98); Mean Platelet Volume 9.9 fL (7.4-10.4); Monocytes # 1.1 10^3/uL (0.2-0.9); Neutrophils # 6.22 10^3/uL (1.8-7.7); Neutrophils % 68.2 %; Nucleated Red Blood Cells % 0 %; Platelet Count 450 10^3/cmm (157-399); Red Blood Count 4.15 10^6/uL (3.85-5.65); Red Cell Distribution Width 17.8 % (12.1-15.1); White Blood Count 9.14 10^3/uL (3.29-11.43)
[2023-12-29 19:42] LABS: Troponin(5th) Baseline < 6 ng/L (0-10)
[2023-12-29 20:01] LABS: Alanine Aminotransferase 9 U/L (0-33); Albumin Level 3.9 g/dL (3.5-5.2); Alkaline Phosphatase 114 U/L (35-105); Aspartate Amino Transferase 13 U/L (0-32); Blood Urea Nitrogen 33 mg/dL (6-20); Calcium 8.9 mg/dL (8.5-10.5); Carbon Dioxide 19 mmol/L (22-29); Chloride 103 mmol/L (98-107); Creatinine Clr Calc Pharmacy 58.3649; Globulin 2.6 g/dL (1.3-4.6); Glomerular Filtration Rate 34.9 mL/min (90-130); Glucose 93 mg/dL (65-115); Magnesium 1.8 mg/dL (1.7-2.3); Osmolality Calculated 289 mOsm/kg (285-295); Sodium 136 mmol/L (136-145); Thyroid Stimulating Hormone 9.99 uIU/mL (0.27-4.20); Total Bilirubin 0.3 mg/dL (0.15-1.2); Total Protein 6.5 g/dL (6.6-8.7)
[2023-12-29 20:09] LABS: Amphetamines Screen Urine Negative (Negative); Barbiturates Screen Urine Negative (Negative); Benzodiazepines Screen Urine Positive (Negative); Cocaine Screen Urine Negative (Negative); Opiate Screen Urine Negative (Negative); PCP Screen Urine Negative (Negative); THC Screen Urine Negative (Negative)
[2023-12-29] MEDS: sodium chloride 0.9% 1,000 ML 999 ML IV (20:17)
[2023-12-29 20:23] VITALS: BP 82/66; PULSE 92; RESP 16; O2SAT 94
[2023-12-29 20:30] LABS: Troponin 5 2HR 6.75 ng/L (0-10); Troponin 5 2HR Delta 0.75001 ABS# (0-10)
[2023-12-29 20:36] LABS: Add Urine Culture? No; Add Urine Microscopic? YES; Bacteria Urine 1+ /hpf; Bilirubin Urine 1+ (Negative); Blood Urine Neg (Negative); Glucose Urine UA 2+ (Normal); Ketones Urine 1+ (Negative); Leukocyte Esterase Urine Negative (Negative); Mucus Urine 2+ /hpf; Nitrate Urine Negative (Negative); Protein Urine Trace (Negative); Squamous Epithelial Cell Urine 15-25 /hpf (0-5); Urine Appearance Clear (CLEAR); Urine Color Yellow (Yellow); Urobilinogen Urine 1 mg/dL (Negative); pH Urine 5 (5-7)
[2023-12-29 20:44] VITALS: BP 100/67; PULSE 89; O2SAT 97
[2023-12-29] MEDS: acetaminophen 500 mg Tablet 1000 MG PO (21:04)
== END 2023-12-29 21:06 | disposition home or self-care (01) ==
PROVIDERS: Emergency Provider Emergency Medicine; PCP Family Medicine
DX: M54.50 Low back pain, unspecified (principal); R00.0 Tachycardia, unspecified; N28.9 Disorder of kidney and ureter, unspecified
CPT/HCPCS: 36415; 71045; 80053; 80306; 81001; 83735; 84443; 84484; 85025; 93005; 96360; 99285; J7030

== ENCOUNTER 2024-09-18 09:55 | Inpatient (IN) | payer MEDICARE, MEDICAID, SELFPAY ==
[2024-09-18 09:56] VITALS: BP 163/110; PULSE 66; RESP 17; TEMP 36.4; O2SAT 95; BMI 31.0
--- NOTE | 2024-09-18 10:08 | W.ED.PSYCHS ---
HPI - Psych General: Chief Complaint: Psychiatric Symptoms Stated Complaint: depression, anxiety, SI Time Seen by Provider: 09/18/24 10:04 History of Present Illness: 44-year-old female who presents emergency room with depression and anxiety suicidal ideation she presents by EMS she took excess gabapentin and Ativan today and what she describes as an attempt to control her anxiety and pain. She had gotten a new prescription for gabapentin to 20 with 90 tablets a bottle at the scene was empty today. She has suicidal ideation with the thought of overdose. Associated symptoms: Reports suicidal ideation Related Data Home Medications ?Medication ?Instructions ?Recorded ?Confirmed levothyroxine 88 mcg tablet 100 mcg PO DAILY 09/28/20 08/05/22 sitagliptin phosphate 25 mg tablet 25 mg PO DAILY 09/01/21 08/05/22 (Januvia) lorazepam 0.5 mg tablet (Ativan) 0.5 mg PO BID 08/05/22 08/05/22 omeprazole 40 mg capsule,delayed 40 mg PO DAILY 08/05/22 08/05/22 release potassium chloride 20 mEq 20 meq PO DAILY 08/05/22 08/05/22 tablet,extended release tizanidine 2 mg tablet 4 mg PO TID 08/05/22 08/05/22 zolpidem 5 mg tablet (Ambien) 10 mg PO .at bed 08/05/22 08/05/22 Previous Rx's ?Medication ?Instructions ?Recorded aripiprazole 5 mg tablet (Abilify) 5 mg PO DAILY 30 days #30 tabs 07/21/22 risperidone 2 mg tablet (Risperdal) 2 mg PO BID 30 days #60 tabs 07/21/22 sertraline 100 mg tablet 200 mg (2 x 100 mg) PO DAILY 30 08/05/22 days #60 tabs Allergies Allergy/AdvReac Type Severity Reaction Status Date / Time aspirin Allergy ALGY-Swell Verified 08/05/22 09:19 Lip/Tongue/Throat duloxetine (From Cymbalta) Allergy ADR-Agitate Verified 08/05/22 09:19 d quetiapine (From Seroquel) Allergy Unknown Verified 08/05/22 09:19 Review of Systems Const: Denies: fever(s) or chills Card: Denies: chest pain Resp: Denies: dyspnea GI: Denies: abdominal pain : Denies: dysuria, urinary frequency or urinary urgency Musc: Denies: neck pain or back pain Skin/Breast: Denies: rash Psych: Reports: mood swings and suicidal ideation PFSH ED PFSH: Medical History Opiate abuse, continuous Depression Morbid obesity Schizophrenia Hypoxia Fracture of fibula, proximal Transaminitis SAM (acute kidney injury) Chronic back pain Arrhythmia Reports tachycardia, although cannot tell me anything other than this. Beta-leeanne initiated for this. Anxiety Depression Hypothyroidism Surgical History History of gastric bypass History of knee surgery History of tonsillectomy History of cholecystectomy History of Family History Other Diabetes Social History Smoking and tobacco/nicotine status: never used tobacco/nicotine Alcohol intake: never Substance/Drug Use: never Physical Exam Const: GENERAL APPEARANCE: cooperative and comfortable ORIENTATION/CONSCIOUSNESS: Yes awake, Yes oriented to person, Yes oriented to place and Yes oriented to time HENMT: COMMON NORMALS: normocephalic, atraumatic and hearing grossly normal bilaterally HEAD & SCALP: normocephalic and atraumatic Resp: COMMON NORMALS: normal respiratory effort, No retractions, No use of accessory muscles and clear to auscultation bilaterally AUSCULTATION: clear to auscultation bilaterally Cardio: COMMON NORMALS: regular rate, regular rhythm and No murmurs present (Cardio) RATE: regular rate RHYTHM: regular rhythm GI: COMMON NORMALS: Soft to palpation and No hepatosplenomegaly present AUSCULTATION: Yes normoactive bowel sounds PALPATION: Yes Soft to palpation, No Tenderness to palpation present (GI), No Guarding due to palpation present (GI) and Yes No hepatosplenomegaly present Extremity: COMMON NORMALS: normal to inspection, capillary refill normal, no clubbing, cyanosis or edema, no calf tenderness and no pedal edema Neuro: SENSORIUM/ORIENTATION: Yes oriented to person, Yes oriented to place and Yes oriented to time Skin: COMMON NORMALS: no rashes or lesions noted GENERAL SKIN EXAM: no rashes or lesions noted Course Vital Signs: Vital signs: Vital Signs Temperature 97.5 F L 09/18/24 09:56 Pulse Rate 66 09/18/24 09:56 Respiratory Rate 17 09/18/24 09:56 Blood Pressure 163/110 09/18/24 09:56 Pulse Oximetry 95 09/18/24 09:56 Oxygen Delivery Me thod Room Air 09/18/24 09:56 MDM - Psych Medical Decision Making Admit for suicidal ideation discussed with's psychiatry on-call they are in agreement patient placed on 96-hour hold Medical Records I reviewed the patient's medical records. Lab Data I reviewed the patient's lab results. 09/18/24 10:30 09/18/24 10:30 Laboratory Results WBC 6.97 10^3/uL (3.29-11.43) 09/18/24 10:30 RBC 3.84 10^6/uL (3.85-5.65) L 09/18/24 10:30 Hgb 10.20 g/dL (11.27-16.99) L 09/18/24 10:30 Hct 34.8 % (36-47) L 09/18/24 10:30 MCV 90.6 fl (85-98) 09/18/24 10:30 MCH 26.6 pg (27-33) L 09/18/24 10:30 MCHC 29.3 g/dL (30-55) L 09/18/24 10:30 RDW 26.3 % (12.1-15.1) H 09/18/24 10:30 Plt Count 533 10^3/cmm (157-399) H 09/18/24 10:30 MPV 9.1 fL (7.4-10.4) 09/18/24 10:30 Neut % (Auto) 80.3 % 09/18/24 10:30 Lymph % (Auto) 11.8 % 09/18/24 10:30 [place] % (Auto) 6.9 % 09/18/24 10:30 Eos % (Auto) 0.3 % 09/18/24 10:30 Baso % (Auto) 0.4 % 09/18/24 10:30 Neut # (Auto) 5.60 10^3/uL (1.8-7.7) 09/18/24 10:30 Lymph # (Auto) 0.8 10^3/uL (0.8-4.8) 09/18/24 10:30 [place] # (Auto) 0.5 10^3/uL (0.2-0.9) 09/18/24 10:30 Eos # (Auto) 0.0 10^3/uL (0.0-0.8) 09/18/24 10:30 Baso # (Auto) 0.0 10^3/uL (0.0-0.1) 09/18/24 10:30 Nucleated RBC % (auto) 0 % 09/18/24 10:30 Nucleated RBCs # 0.0 /100WBC 09/18/24 10:30 Specimen Type Arterial 09/18/24 10:25 Sample Site Radial, left 09/18/24 10:25 ABG pH 7.45 (7.35-7.45) 09/18/24 10:25 ABG pCO2 37.5 mmHg (35-45) 09/18/24 10:25 ABG pO2 83.7 mmHg (80.0-100.0) 09/18/24 10:25 ABG PO2/FiO2 Ratio 398 09/18/24 10:25 ABG HCO3 26.3 mmol/L (22-26) H 09/18/24 10:25 ABG O2 Saturation 94.6 09/18/24 10:25 ABG Base Excess 2.3 mmol/L (-2.0-2.0) H 09/18/24 10:25 Arturo Test Pos 09/18/24 10:25 A-a O2 Gradient 2.5 mmHg (5-10) L 09/18/24 10:25 Hematocrit 32.1 % (37-47) L 09/18/24 10:25 Hgb O2 Saturation 94.4 % (95-100) L 09/18/24 10:25 Carboxyhemoglobin < 0.3 %THgb (0.4-20.1) L 09/18/24 10:25 Methemoglobin 0.3 % (0.4-1.5) L 09/18/24 10:25 Total Hemoglobin 10.5 g/dL (12-16) L 09/18/24 10:25 Sodium 135.0 mmol/L (131-143) 09/18/24 10:25 Potassium 4.1 mmol/L (3.5-5.0) 09/18/24 10:25 Glucose 210.0 mg/dL (70-115) H 09/18/24 10:25 Ionized Calcium 1.2 mmol/L (1.1-1.4) 09/18/24 10:25 O2 Delivery Device Room air 09/18/24 10:25 FiO2 21.0 % 09/18/24 10:25 Draw Bench Operator Helper ID [place] 09/18/24 10:25 Amorphous Sediment Not Reportable 09/18/24 10:16 No radiology studies performed this visit Discharge Plan Discharge Patient Disposition: Admitted As Inpatient Clinical Impression: Suicidal ideation, Schizophrenia, Personality disorder, unspecified, Depression Condition: Stable Prescriptions: No Action Januvia 25 mg tablet 25 mg PO DAILY zolpidem [Ambien] 5 mg tablet 10 mg PO .at bed tizanidine 2 mg tablet 4 mg PO TID potassium chloride 20 mEq tablet extended release 20 meq PO DAILY lorazepam [Ativan] 0.5 mg tablet 0.5 mg PO BID omeprazole 40 mg capsule,delayed release(DR/EC) 40 mg PO DAILY sertraline 100 mg tablet 200 mg PO DAILY 30 Days Qty: 60 3RF levothyroxine 88 mcg tablet 100 mcg PO DAILY Risperdal 2 mg tablet 2 mg PO BID 30 Days Qty: 60 1RF Abilify 5 mg tablet 5 mg PO DAILY 30 Days Qty: 30 1RF Referrals: Bruce Muse DO [Primary Care Provider] - Print Language: Divehi Coding Level of Care Code ED Spent Grain Dryer for Chg Matt
[2024-09-18 10:24] LABS: Add Urine Microscopic? NO
[2024-09-18 10:37] LABS: Bilirubin Urine Negative (Negative); Blood Urine Negative (Negative); Glucose Urine UA 3+ (Normal); Ketones Urine Negative (Negative); Leukocyte Esterase Urine Negative (Negative); Nitrate Urine Negative (Negative); Protein Urine Negative (Negative); Urine Appearance Clear (CLEAR); Urine Color Yellow (Yellow); pH Urine 6.5 (5-7)
[2024-09-18 10:37] LABS: Basophils % 0.4 %; Eosinophils % 0.3 %; Hematocrit 34.8 % (36-47); Lymphocytes # 0.8 10^3/uL (0.8-4.8); Lymphocytes % 11.8 %; Mean Corpuscular HGB Conc 29.3 g/dL (30-55); Mean Corpuscular Hemoglobin 26.6 pg (27-33); Mean Corpuscular Volume 90.6 fl (85-98); Mean Platelet Volume 9.1 fL (7.4-10.4); Monocytes # 0.5 10^3/uL (0.2-0.9); Monocytes % 6.9 %; Neutrophils % 80.3 %; Nucleated Red Blood Cells % 0 %; Platelet Count 533 10^3/cmm (157-399); Red Blood Count 3.84 10^6/uL (3.85-5.65); Red Cell Distribution Width 26.3 % (12.1-15.1); White Blood Count 6.97 10^3/uL (3.29-11.43)
[2024-09-18 10:38] LABS: ABG PCO2 37.5 mmHg (35-45); ABG PH Result 7.45 (7.35-7.45); Alveolar-Arterial Oxygen Gradi 2.5 mmHg (5-10); Arterial Blood Gas Hematocrit 32.1 % (37-47); Base Excess ABG 2.3 mmol/L (-2.0-2.0); Blood Gas Allen Test Pos; Blood Gas Sample Type Arterial; Carboxyhemoglobin < 0.3 %THgb (0.4-20.1); HCO3 ABG 26.3 mmol/L (22-26); HGB O2 Sat 94.4 % (95-100); Ionized Calcium Level - ABG 1.2 mmol/L (1.1-1.4); Methemoglobin 0.3 % (0.4-1.5); Oxygen Saturation ABG 94.6; PO2 ABG 83.7 mmHg (80.0-100.0); Potassium Level - ABG 4.1 mmol/L (3.5-5.0); Total Hemoglobin 10.5 g/dL (12-16)
[2024-09-18 10:39] LABS: Blood Gas Operator Identificat MONRO; Blood Gas Sample Site Radial, left; Oxygen Device ROOM AIR; PO2 FiO2 Ratio Arterial Blood 398
[2024-09-18 10:46] LABS: Amphetamines Screen Urine Negative (Negative); Barbiturates Screen Urine Negative (Negative); Benzodiazepines Screen Urine Positive (Negative); Cocaine Screen Urine Negative (Negative); Opiate Screen Urine Negative (Negative); PCP Screen Urine Negative (Negative); THC Screen Urine Negative (Negative)
[2024-09-18 10:48] LABS: Specific Gravity, Urine 1.031 (1.005-1.030)
[2024-09-18 10:49] LABS: Add Urine Culture? No; Charge for UA Resulting for Rev
[2024-09-18 10:57] LABS: Acetaminophen 9.8 ug/mL (10-30); Alanine Aminotransferase 15 U/L (0-33); Albumin Level 3.7 g/dL (3.5-5.2); Alkaline Phosphatase 159 U/L (35-105); Anion Gap 13.3 (5-19); Aspartate Amino Transferase 18 U/L (0-32); Blood Urea Nitrogen 12 mg/dL (6-20); Calcium 9.3 mg/dL (8.5-10.5); Carbon Dioxide 26 mmol/L (22-29); Chloride 99 mmol/L (98-107); Creatinine Clr Calc Pharmacy 107.9504; Globulin 3.1 g/dL (1.3-4.6); Glomerular Filtration Rate 77.2 mL/min (90-130); Glucose 224 mg/dL (65-115); Osmolality Calculated 285 mOsm/kg (285-295); Potassium 4.3 mmol/L (3.5-5.1); Sodium 134 mmol/L (136-145); Total Bilirubin 0.4 mg/dL (0.15-1.2); Total Protein 6.8 g/dL (6.6-8.7)
[2024-09-18 10:58] LABS: Salicylate < 0.3 mg/dL (3-10)
[2024-09-18 10:59] LABS: Alcohol Level < 10 mg/dL (0-10)
--- NOTE | 2024-09-18 11:03 | PC.NURSE ---
This nurse to pt bedside to review 96 hour rights with pt at 11:02 with Sports Physical Therapist Jason. Pt verbalized understanding and denies questions. Pt copy left at bedside with pt. Pt given sandwich and beverage.
[2024-09-18 11:17] VITALS: BP 156/77; PULSE 63; O2SAT 99
[2024-09-18 11:24] VITALS: BP 98/74; PULSE 67; RESP 17; TEMP 36.7; O2SAT 98
[2024-09-18 13:49] LABS: Glucose Point of Care 225 mg/dL (70-110)
[2024-09-18 13:53] VITALS: BP 92/67; PULSE 71; RESP 16; TEMP 36.2; O2SAT 98
[2024-09-18 14:54] LABS: Glucose Point of Care 160 mg/dL (70-110)
[2024-09-18] MEDS: gabapentin 400 mg Capsule 800 MG PO ×2 (15:53→19:54)
[2024-09-18] MEDS: hyDROXYzine 25 mg Capsule 50 MG PO (16:14)
[2024-09-18] MEDS: carvedilol 3.125 mg Tablet PO (17:31)
[2024-09-18] MEDS: midodrine 5 mg TABLET 10 MG PO ×2 (18:13→19:54)
[2024-09-18] MEDS: trazodone 50 mg Tablet PO (19:57)
[2024-09-18 20:16] LABS: Glucose Point of Care 226 mg/dL (70-110)
[2024-09-18 20:38] VITALS: BP 110/70; PULSE 77; RESP 18; TEMP 36.8; O2SAT 97
[2024-09-19] MEDS: acetaminophen 325 mg Tablet 650 MG PO ×2 (04:06→12:03)
[2024-09-19 06:00] VITALS: BP 84/65; PULSE 95; RESP 19; TEMP 36.4; O2SAT 95
--- NOTE | 2024-09-19 06:42 | PC.NURSE ---
REVIEWED ALL MEDICATIONS WITH PT DUE TO PT STATING I'M NOT GETTING ALL MY MEDICINE. PT ALSO STATES SHE IS WANTING MY TIZANADINE. WHEN THIS RN ENTERED MEDICATION INTO COMPUTER IT STATED THE PTS CAPLYTA INTERACTED WITH IT. PT STATES SHE HAS BEEN TAKING BOTH OF THOSE FOR A LONG TIME AND I WANT THEM. PT WAS INFORMED THAT RN WOULD GET APPROVAL FROM DR. PAEZ. ALL MEDICATIONS WERE VERIFIED WITH ACTIVE PRESCRIPTIONS AND RESTARTED ORDERED. PT EDUCATED ON NEW ORDERS AND VERBALIZED UNDERSTANDING
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
[2024-09-19 07:36] LABS: Glucose Point of Care 114 mg/dL (70-110)
[2024-09-19] MEDS: gabapentin 400 mg Capsule 800 MG PO ×3 (07:59→20:40)
[2024-09-19] MEDS: pantoprazole DR 40 mg Tablet PO (07:59)
[2024-09-19] MEDS: diclofenac 75 mg DR Tablet PO ×2 (07:59→17:12)
[2024-09-19] MEDS: levothyroxine 100 mcg Tablet PO (07:59)
[2024-09-19] MEDS: cetirizine 10 mg Tablet PO (08:00)
[2024-09-19] MEDS: hyDROXYzine 25 mg Capsule 50 MG PO ×2 (08:00→18:32)
[2024-09-19] MEDS: risperiDONE 2 mg Tablet PO ×2 (08:00→20:40)
[2024-09-19] MEDS: BuSPIRONE 10 mg Tablet 7.5 MG PO ×2 (08:42→17:13)
[2024-09-19] MEDS: midodrine 5 mg TABLET 10 MG PO ×3 (08:45→20:40)
[2024-09-19] MEDS: SITAGLIPTIN PHOSPHATE 25 MG 25 EACH PO (08:53)
[2024-09-19] MEDS: NON-FORMULARY MEDICATION (Dapagliflozin Propanediol [Farxiga] 10 mg tablet) 10 EACH PO (08:53)
[2024-09-19] MEDS: NON-FORMULARY MEDICATION (Lumateperone [Caplyta] 42 mg capsule) 42 EACH PO (08:54)
[2024-09-19] MEDS: carvedilol 3.125 mg Tablet PO ×2 (08:54→16:52)
[2024-09-19 11:35] LABS: Glucose Point of Care 115 mg/dL (70-110)
[2024-09-19 14:00] VITALS: BP 110/78; PULSE 126; RESP 17; O2SAT 98
[2024-09-19 16:32] LABS: Glucose Point of Care 146 mg/dL (70-110)
--- NOTE | 2024-09-19 18:33 | PC.NURSE ---
Anxiety 8/ Administered vistaril 50mg PO to patient for anxiety that she rates 8/10. Patient says that the scheduled buspirone isn't working for her anxiety.
--- NOTE | 2024-09-19 19:12 | PC.NURSE ---
Signee let Dr. Munoz know that pt.'s order for Tizanadine, the system showed an interaction with pt.'s Caplyta. Dr. Munoz gave the verbal ok to continue pt.'s Tizanadine at this time.
[2024-09-19 19:54] LABS: Glucose Point of Care 112 mg/dL (70-110)
[2024-09-19 20:01] VITALS: BP 122/86; PULSE 102; RESP 18; TEMP 36.4; O2SAT 96
[2024-09-19] MEDS: nortriptyline 25 mg Capsule 50 MG PO (20:40)
[2024-09-19] MEDS: tizanidine 4 mg Tablet PO (20:40)
[2024-09-19] MEDS: FLUVOXAMINE 150 MG 150 EACH PO (21:30)
--- NOTE | 2024-09-19 21:57 | PC.NURSE ---
Dr. Munoz ordered her Luvox 100mg PO HS be increased to 150mh PO HS. It is non-formulary (Patients home med) 150mg was given but it would not scan ... awaiting Pharmacy varification.
[2024-09-20] MEDS: acetaminophen 325 mg Tablet 650 MG PO (02:24)
[2024-09-20] MEDS: tizanidine 4 mg Tablet PO ×3 (04:47→21:34)
[2024-09-20 06:00] VITALS: BP 88/64; PULSE 75; RESP 18; TEMP 36.5; O2SAT 96
[2024-09-20] MEDS: pantoprazole DR 40 mg Tablet PO (08:09)
[2024-09-20] MEDS: midodrine 5 mg TABLET 10 MG PO ×3 (08:09→21:35)
[2024-09-20] MEDS: gabapentin 400 mg Capsule 800 MG PO ×3 (08:09→21:35)
[2024-09-20] MEDS: cetirizine 10 mg Tablet PO (08:09)
[2024-09-20] MEDS: diclofenac 75 mg DR Tablet PO ×2 (08:09→18:54)
[2024-09-20] MEDS: levothyroxine 100 mcg Tablet PO (08:09)
[2024-09-20] MEDS: risperiDONE 2 mg Tablet 1 MG PO (08:11)
[2024-09-20] MEDS: carvedilol 3.125 mg Tablet PO ×2 (08:14→18:56)
[2024-09-20] MEDS: NON-FORMULARY MEDICATION (Lumateperone [Caplyta] 42 mg capsule) 42 EACH PO (08:16)
[2024-09-20] MEDS: SITAGLIPTIN PHOSPHATE 25 MG 25 EACH PO (08:16)
[2024-09-20] MEDS: NON-FORMULARY MEDICATION (Dapagliflozin Propanediol [Farxiga] 10 mg tablet) 10 EACH PO (08:19)
[2024-09-20] MEDS: BuSPIRONE 10 mg Tablet 7.5 MG PO ×2 (08:21→18:54)
[2024-09-20 09:07] LABS: Glucose Point of Care 138 mg/dL (70-110)
[2024-09-20 09:07] LABS: Glucose Point of Care 181 mg/dL (70-110)
[2024-09-20 11:18] LABS: Glucose Point of Care 105 mg/dL (70-110)
--- NOTE | 2024-09-20 11:27 | P.NPUPN_ITS ---
Subjective NPU 2 Subjective: Patient presented today reporting that she is doing okay. We discussed the fact that she is struggling with being here and wanting to leave but then she identified that she was open to staying longer if we were making more profound adjustments. She was somewhat hesitant about the plan to discontinue the Risperdal because she has been on it for some time. But we discussed the fact that the only way to manage polypharmacy is to make adjustments and see what the outcome is instead of just leaving everything as is. We discussed the plan to do it a little bit of the time of the likelihood of ending her morning Risperdal after tomorrow. She denied any side effects to her medication. Mental Status Exam 2 MSE Comments: This is an obese versus morbidly obese white female in hospital scrubs with poor grooming and limited eye contact. No abnormal movements except for psychomotor retardation. Cooperative with exam in mild to moderate distress. Speech was decreased rate and volume and childlike with some prolonged pauses between answers. Mood described as depressed and anxious, affect congruent and subdued. Thought process linear. Thought content: Patient denied suicidal or homicidal ideation, there were no delusions reported or noted, she denied auditory or visual hallucinations. Attention and concentration appeared limited and memory appeared mostly reliable but none were formally tested. She alert and oriented x person and place. Insight and judgment appeared limited, impulse control impaired. Intellectual ability limited versus impaired. Vitals/I&O/Wt Last Vital Signs Temp 97.7 F 09/20/24 06:00 Pulse 75 09/20/24 06:00 Resp 18 09/20/24 06:00 BP 88/64 09/20/24 06:00 Pulse Ox 96 09/20/24 06:00 O2 Del Method Room Air 09/20/24 06:00 Data NPU 09/18/24 10:30 09/18/24 10:30 A&P Assessment and plan (1) Schizophrenia: (2) Anxiety disorder: (3) Suicidal ideation: (4) Personality disorder, unspecified: (5) Depression: (6) Suicidal ideation: (7) Morbid obesity: (8) Mild intellectual disability: Plan Patient is a 44-year-old white female with multiple medical issues and history of anxiety, depression and a history of possible misuse of opiate medications in the past, who was hospitalized last couple years ago and presents again but this time with a reported active overdose on the Neurontin. 1. Evaluate for polypharmacy and consider cleaning up the medication regiment. We increased Luvox to 150 mg p.o. nightly and decrease Risperdal to 1 mg in the morning and 2 mg in the evening and try to talk to outpatient provider. Plan to eliminate morning dose of risperdal. 2. Engage patient in individual group and milieu therapy. 3. Continue every 15 minute checks for safety. 4. Evaluate against the backdrop of the 96-hour hold. 5. Obtain collateral information. PDMP PDMP Reviewed: Not Reviewed Involuntary Hold Information 2 96 Hour Hold: 96 Hour Involuntary Admission: No Attestations NPU 2 Medical Necessity Statement*: Inpatient hospitalization is medically necessary and the clinically appropriate intervention at this time. We will occasions to make changes as indicated. Likely length of stay of 5-7 days. Coding Level of Care Code Acute Code for g Fwd Diagnoses Schizophrenia F20.9 Anxiety disorder, unspecified type F41.9 Suicidal ideation R45.851 Personality disorder, unspecified F60.9 Depression F32.A Morbid obesity E66.01 Mild intellectual disability F70
[2024-09-20] MEDS: LORazepam 0.5 mg Tablet PO (11:30)
[2024-09-20 14:00] VITALS: BP 98/72; PULSE 70; RESP 16; TEMP 36.5; O2SAT 100
[2024-09-20 16:56] LABS: Glucose Point of Care 111 mg/dL (70-110)
[2024-09-20 20:55] VITALS: BP 109/73; PULSE 103; RESP 18; TEMP 36.4; O2SAT 99
[2024-09-20 20:56] LABS: Glucose Point of Care 187 mg/dL (70-110)
[2024-09-20] MEDS: risperiDONE 2 mg Tablet PO (21:34)
[2024-09-20] MEDS: trazodone 150 mg Tablet PO (21:34)
[2024-09-20] MEDS: nortriptyline 25 mg Capsule 50 MG PO (21:34)
[2024-09-20] MEDS: hyDROXYzine 25 mg Capsule 50 MG PO (21:34)
[2024-09-20] MEDS: OLANZapine 5 mg ODT PO (21:35)
[2024-09-20] MEDS: FLUVOXAMINE 150 MG 150 EACH PO (21:35)
[2024-09-21 06:00] VITALS: BP 84/62; PULSE 106; RESP 18; O2SAT 98
[2024-09-21] MEDS: tizanidine 4 mg Tablet PO ×3 (06:42→20:48)
[2024-09-21 07:13] LABS: Glucose Point of Care 179 mg/dL (70-110)
[2024-09-21] MEDS: cetirizine 10 mg Tablet PO (08:20)
[2024-09-21] MEDS: gabapentin 400 mg Capsule 800 MG PO ×3 (08:20→20:48)
[2024-09-21] MEDS: diclofenac 75 mg DR Tablet PO ×2 (08:20→17:27)
[2024-09-21] MEDS: midodrine 5 mg TABLET 10 MG PO ×3 (08:20→20:48)
[2024-09-21] MEDS: BuSPIRONE 10 mg Tablet 7.5 MG PO ×2 (08:21→17:27)
[2024-09-21] MEDS: pantoprazole DR 40 mg Tablet PO (08:22)
[2024-09-21] MEDS: levothyroxine 100 mcg Tablet PO (08:22)
[2024-09-21] MEDS: NON-FORMULARY MEDICATION (Lumateperone [Caplyta] 42 mg capsule) 42 EACH PO (08:23)
[2024-09-21] MEDS: risperiDONE 2 mg Tablet 1 MG PO (08:23)
[2024-09-21] MEDS: hyDROXYzine 25 mg Capsule 50 MG PO ×2 (08:23→20:48)
[2024-09-21] MEDS: NON-FORMULARY MEDICATION (Dapagliflozin Propanediol [Farxiga] 10 mg tablet) 10 EACH PO (08:24)
[2024-09-21] MEDS: SITAGLIPTIN PHOSPHATE 25 MG 25 EACH PO (08:24)
[2024-09-21] MEDS: carvedilol 3.125 mg Tablet PO ×2 (08:26→17:29)
--- NOTE | 2024-09-21 09:46 | PC.NURSE ---
PT UP TO THE WINDOW WITH FAST AND ANIMATED SPEECH, REQUESTING ATIVAN PT RATES ANXIETY 9/10 AND WAS GIVEN VISTARIL 50 MG FOR INCREASED ANXIETY. DENIES SI/HI AND AVH AT THIS TIME. RATES DEPRESSION /. PT STATES SHE IS NEEDING MORE ATIVAN. PT WAS EDUCATED THAT SHE HAS TAKEN ALL HER AM MEDICATIONS AND VISTARIL AND IF SHE IS STILL ANXIOUS AT 1100 AM THIS RN WILL PULL THE ATIVAN AND GIVE IT. FLAT AFFECT. RAPID AND EXCESSIVE SPEECH AT TIMES.
--- NOTE | 2024-09-21 11:12 | PC.NURSE ---
NEW ORDERS RECEIVED TO DISCONTINUE RISPERADAL 1 MG DAILY. ORDERS PLACED. PT EDUCATED IN NEW ORDERS. VERBALIZED UNDERSTANDING. SUPPORT VOICED.
[2024-09-21 11:27] LABS: Glucose Point of Care 153 mg/dL (70-110)
[2024-09-21] MEDS: LORazepam 0.5 mg Tablet PO ×2 (12:13→20:48)
--- NOTE | 2024-09-21 12:18 | P.NPUPN_ITS ---
Subjective NPU 2 Subjective: Patient presented today reporting that she is doing all right. She denied any side effects to her medication and reported feeling optimistic that she will be better by next week when we project discharge. She denies any specific problems with the changes in her medications. Mental Status Exam 2 MSE Comments: This is an obese versus morbidly obese white female in hospital scrubs with poor grooming and limited eye contact. No abnormal movements except for psychomotor retardation. Cooperative with exam in mild to moderate distress. Speech was decreased rate and volume and childlike with some prolonged pauses between answers. Mood described as depressed and anxious, affect congruent and subdued. Thought process linear. Thought content: Patient denied suicidal or homicidal ideation, there were no delusions reported or noted, she denied auditory or visual hallucinations. Attention and concentration appeared limited and memory appeared mostly reliable but none were formally tested. She alert and oriented x person and place. Insight and judgment appeared limited, impulse control impaired. Intellectual ability limited versus impaired. Vitals/I&O/Wt Last Vital Signs Temp 97.6 F 09/20/24 20:55 Pulse 106 H 09/21/24 06:00 Resp 18 09/21/24 06:00 BP 84/62 09/21/24 06:00 Pulse Ox 98 09/21/24 06:00 O2 Del Method Room Air 09/21/24 06:00 Data NPU 09/18/24 10:30 09/18/24 10:30 A&P Assessment and plan (1) Schizophrenia: (2) Anxiety disorder: (3) Suicidal ideation: (4) Personality disorder, unspecified: (5) Depression: (6) Suicidal ideation: (7) Morbid obesity: (8) Mild intellectual disability: Plan Patient is a 44-year-old white female with multiple medical issues and history of anxiety, depression and a history of possible misuse of opiate medications in the past, who was hospitalized last couple years ago and presents again but this time with a reported active overdose on the Neurontin. 1. Evaluate for polypharmacy and consider cleaning up the medication regiment. We increased Luvox to 150 mg p.o. nightly and decrease Risperdal to 1 mg in the morning and 2 mg in the evening and try to talk to outpatient provider. Discontinue morning dose of Risperdal leading her on Risperdal 2 mg p.o. nightly 2. Engage patient in individual group and milieu therapy. 3. Continue every 15 minute checks for safety. 4. Evaluate against the backdrop of the 96-hour hold. 5. Obtain collateral information. PDMP PDMP Reviewed: Not Reviewed Involuntary Hold Information 2 96 Hour Hold: 96 Hour Involuntary Admission: No Attestations NPU 2 Medical Necessity Statement*: Inpatient hospitalization is medically necessary and the clinically appropriate intervention at this time. We will occasions to make changes as indicated. Likely length of stay of 5-7 days. Coding Level of Care Code Acute Code for g Fwd Diagnoses Schizophrenia F20.9 Anxiety disorder, unspecified type F41.9 Suicidal ideation R45.851 Personality disorder, unspecified F60.9 Depression F32.A Morbid obesity E66.01 Mild intellectual disability F70
[2024-09-21 14:00] VITALS: BP 98/73; PULSE 105; RESP 18; TEMP 36.3; O2SAT 98
[2024-09-21 16:46] LABS: Glucose Point of Care 115 mg/dL (70-110)
[2024-09-21 19:44] LABS: Glucose Point of Care 140 mg/dL (70-110)
[2024-09-21 20:30] VITALS: BP 100/73; PULSE 81; RESP 18; TEMP 36.6; O2SAT 98
[2024-09-21] MEDS: nortriptyline 25 mg Capsule 50 MG PO (20:47)
[2024-09-21] MEDS: FLUVOXAMINE 150 MG 150 EACH PO (20:47)
[2024-09-21] MEDS: risperiDONE 2 mg Tablet PO (20:48)
[2024-09-21] MEDS: trazodone 150 mg Tablet PO (20:48)
[2024-09-21] MEDS: OLANZapine 5 mg ODT PO (20:48)
[2024-09-22] VITALS (7 sets, daily range): BP systolic 75–131; BP diastolic 52–83; PULSE 64–117; RESP 16–20; TEMP 36.7; O2SAT 97–100
[2024-09-22] MEDS: tizanidine 4 mg Tablet PO ×3 (06:15→21:48)
[2024-09-22] MEDS: acetaminophen 325 mg Tablet 650 MG PO (06:15)
[2024-09-22] MEDS: levothyroxine 100 mcg Tablet PO (06:48)
[2024-09-22 07:29] LABS: Glucose Point of Care 129 mg/dL (70-110)
[2024-09-22] MEDS: diclofenac 75 mg DR Tablet PO (08:31)
[2024-09-22] MEDS: gabapentin 400 mg Capsule 800 MG PO ×3 (08:32→21:49)
[2024-09-22] MEDS: pantoprazole DR 40 mg Tablet PO (08:32)
[2024-09-22] MEDS: carvedilol 3.125 mg Tablet PO (08:32)
[2024-09-22] MEDS: midodrine 5 mg TABLET 10 MG PO ×2 (08:32→14:35)
[2024-09-22] MEDS: BuSPIRONE 10 mg Tablet 7.5 MG PO (08:32)
[2024-09-22] MEDS: hyDROXYzine 25 mg Capsule 50 MG PO (08:32)
[2024-09-22] MEDS: cetirizine 10 mg Tablet PO (08:32)
[2024-09-22] MEDS: NON-FORMULARY MEDICATION (Dapagliflozin Propanediol [Farxiga] 10 mg tablet) 10 EACH PO (08:33)
[2024-09-22] MEDS: SITAGLIPTIN PHOSPHATE 25 MG 25 EACH PO (08:33)
--- NOTE | 2024-09-22 09:51 | PC.NURSE ---
AT NURSES STATION SEVERAL TIMES THIS AM, REQUESTING ATIVAN AND ANY ANXIETY MED I CAN HAVE. PT WAS INFORMED SHE CAN HAVE VISTARIL 50 MG AND THAT WAS ADMINISTERED ORDERED. AFFECT REMAINS FLAT WITH DEPRESSED AND ANXIOUS MOOD. PT IS EVASIVE WITH ASSESSMENT. CAPLYTA 42 MG WAS CALLED IN TO [facility] DUE TO PTS HOME MEDICATION BEING OUT. PHARMACY CALLED BACK AND INFORMED THIS RN THAT THE MEDICATION CAN NOT BE FILLED UNTIL 10/11/24 DUE TO BEING FILLED THIS MONTH ALREADY. NOTIFIED OF CAPLYTA 42 MG NOT BEING ABLE TO BE ADMINISTERED DUE TO BEING OUT. NO NEW ORDERS RECEIVED. PT STATES HER FRIEND MAY BE ABLE TO BRING IT TODAY BUT PROBABLY NOT. DENIES SI/HI AND AVH AT THIS TIME. MEDICATION GIVEN FOR PAIN. PT CONTINUES TO BE SOMATIC AND INTRUSIVE AT THE WINDOW. SUPPORT VOICED.
[2024-09-22] MEDS: LORazepam 0.5 mg Tablet PO (10:39)
[2024-09-22 11:12] LABS: Glucose Point of Care 126 mg/dL (70-110)
--- NOTE | 2024-09-22 13:42 | PC.NURSE ---
NEW ORDERS RECEIVED FROM DR. PAEZ TO INCREASE BUSPAR TO 15 MG PO TID. EDUCATED PT ON NEW ORDERS. VERBALIZED UNDERSTANDING, SUPPORT VOICED.
[2024-09-22] MEDS: OLANZapine 5 mg ODT PO (14:35)
[2024-09-22] MEDS: BuSPIRONE 10 mg Tablet 15 MG PO ×2 (14:35→21:49)
--- NOTE | 2024-09-22 15:36 | P.NPUPN_ITS ---
Subjective NPU 2 Subjective: Patient presented today reporting that she is doing fine. Concerns were raised by staff about her low blood pressures given the medications he is on. We discussed the risks, benefits and alternatives of getting a hospitalist consult and she understood and agreed to proceed as is documented in this note. We continued discussing her medications and treatment as she had endorsed continued depression that might be resolving some. We discussed the likelihood of discharge sometime next week. Mental Status Exam 2 MSE Comments: This is an obese versus morbidly obese white female in hospital scrubs with poor grooming and limited eye contact. No abnormal movements except for psychomotor retardation. Cooperative with exam in mild to moderate distress. Speech was decreased rate and volume and childlike with some prolonged pauses between answers. Mood described as depressed and anxious, affect congruent and subdued. Thought process linear. Thought content: Patient denied suicidal or homicidal ideation, there were no delusions reported or noted, she denied auditory or visual hallucinations. Attention and concentration appeared limited and memory appeared mostly reliable but none were formally tested. She alert and oriented x person and place. Insight and judgment appeared limited, impulse control impaired. Intellectual ability limited versus impaired. Vitals/I&O/Wt Last Vital Signs Temp 97.8 F 09/21/24 20:30 Pulse 93 09/22/24 06:00 Resp 20 H 09/22/24 06:00 BP 83/62 09/22/24 06:00 Pulse Ox 99 09/22/24 06:00 O2 Del Method Room Air 09/22/24 06:00 Data NPU 09/23/24 01:29 09/23/24 01:29 A&P Assessment and plan (1) Schizophrenia: (2) Anxiety disorder: (3) Suicidal ideation: (4) Personality disorder, unspecified: (5) Depression: (6) Suicidal ideation: (7) Morbid obesity: (8) Mild intellectual disability: Plan Patient is a 44-year-old white female with multiple medical issues and history of anxiety, depression and a history of possible misuse of opiate medications in the past, who was hospitalized last couple years ago and presents again but this time with a reported active overdose on the Neurontin. 1. Evaluate for polypharmacy and consider cleaning up the medication regiment. We increased Luvox to 150 mg p.o. nightly and decrease Risperdal to 1 mg in the morning and 2 mg in the evening and try to talk to outpatient provider. Discontinue morning dose of Risperdal leaving her on Risperdal 2 mg p.o. nightly 2. Engage patient in individual group and milieu therapy. 3. Continue every 15 minute checks for safety. 4. Evaluate against the backdrop of the 96-hour hold. 5. Obtain collateral information. 6. Obtain hospitalist consult to evaluate medications in relation to her blood pressures. PDMP PDMP Reviewed: Not Reviewed Involuntary Hold Information 2 Hold Status: Legal Status: 96 Hour Hold Date/Time Hold Expires: 09/22/24 @ 10:45 96 Hour Hold: 96 Hour Involuntary Admission: No Attestations NPU 2 Medical Necessity Statement*: Inpatient hospitalization is medically necessary and the clinically appropriate intervention at this time. We will occasions to make changes as indicated. Likely length of stay of 4-6 days. Coding Level of Care Code Acute Code for g Fwd Diagnoses Schizophrenia F20.9 Anxiety disorder, unspecified type F41.9 Suicidal ideation R45.851 Personality disorder, unspecified F60.9 Depression F32.A Morbid obesity E66.01 Mild intellectual disability F70
--- NOTE | 2024-09-22 16:12 | PC.NURSE ---
PT BP 72/54 AND HEART RATE 64. PT STATES SHE FEELS A LITTLE DIZZY BUT THAT'S IT. PT IS WALKING AROUND UNIT WITHOUT DIFFICULTY. PT REPORTS SHE TAKES COREG TWICE A DAY FOR HER HEART RATE AND MIDIRONE THREE TIMES A DAY TO INCREASE HER BLOOD PRESSURE. PT IS ON NUMEROUS MEDICATIONS. DR. PAEZ NOTIFIED AND NEW ORDERS WERE RECEIVED TO CONSULT DR. TINEO. DR. PAEZ CONSULTED AND CONTACTED VIA PHONE. SUPPORT VOICED.
[2024-09-22] MEDS: NON-FORMULARY MEDICATION (Lumateperone [Caplyta] 42 mg capsule) 42 EACH PO (16:15)
--- NOTE | 2024-09-22 16:32 | ECG_ITS ---
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 Measurements Intervals [place] Rate: 64 P: 31 MI: 154 QRS: 34 QRSD: 83 T: 43 QT: 381 QTc: 394 Interpretive Statements SINUS RHYTHM Compared to ECG 12/29/2023 19:20:37 Sinus tachycardia no longer present Electronically Signed On 09-23-2024 18:01:20 AUTO HAULER by Nate Pacheco M.D. [id number] [id number]
--- NOTE | 2024-09-22 16:56 | PC.NURSE ---
DR TINEO HERE ON UNIT TO SEE PT. NEW ORDERS RECEIVED TO CHANGE VITALS TO Q FOUR HOURS. REQUESTED BP IN BOTH ARMS AND RESULTS FOLLOWS: RIGHT ARM 98/62 AND LEFT ARM 102/70. ORDERS PLACED. PT ENCOURAGED TO REST IN BED AND ASK FOR ASSISTANCE. SUPPORT VOICE. PT VERBALIZED UNDERSTANDING
--- NOTE | 2024-09-22 17:06 | PM.CONSULT ---
Providers/Reason For Consult Consulting Physician/Specialty*: Psychiatry Reason for Consult*: Hypotension Attending Physician: Fransisco Munoz MD Primary Care Provider: Bruce Muse, DO History of Present Illness History of Present Illness Abigail Restrepo is a 44 year old female with a past medical history of tachycardia on Coreg? History of hypotension on midodrine? Type 2 diabetes, hypothyroidism, anxiety, depression, schizophrenia who presents [facility] admitted to n.p.u., she reports feeling dizziness, unsteadiness, no chest pain, no palpitations, no nausea, vomiting, no abdominal pain. I was consulted due to low blood pressures and reports of dizziness. She tells me that she was put on Coreg for tachycardia? Is not exactly sure what the rhythm was, or when I see in the records that she was put on metoprolol at 1 point and she has been on metoprolol for the last 3 years she does not remember why she was switched over to Coreg. She thinks that she was put on midodrine because of her low blood pressures by her primary care physician. I can see that she did come to the emergency room 2 years ago for low blood pressures, and syncope, I can see that even back in January her blood pressures were as low as 60/45, she tells me that that is not unusual for her she 1 time had a systolic blood pressure in the 50s, and she was alert awake but feeling dizzy this is a few years back she had to come to the emergency room. Denies any fevers, no chills, no dysuria, no back pain, when she ambulates she does feel dizzy, no falls, no injuries, no pain, no bruising, no shortness of breath no palpitations, no chest pain, no new rashes, no no allergic reaction she denies cardiovascular history, no history of strokes, no abdominal pain no bloody black stools, currently she is complaining dizziness especially when changing position, no facial droop no slurring words, no focal weakness, discussed with her that we will put her on bedrest and watch her in medical floors, further testing will be required Medications/Allergies Home Medications ?Medication ?Instructions ?Recorded ?Confirmed ?Last Taken ?Type sitagliptin phosphate 25 mg tablet 25 mg PO DAILY 09/01/21 09/18/24 09/18/24 History (Januvia) risperidone 2 mg tablet (Risperdal) 2 mg PO BID 30 days #60 tabs 07/21/22 09/18/24 09/18/24 Rx lorazepam 0.5 mg tablet (Ativan) 0.5 mg PO BID 08/05/22 09/18/24 09/18/24 History omeprazole 40 mg capsule,delayed 40 mg PO DAILY 08/05/22 09/18/24 09/18/24 History release acetaminophen 500 mg tablet 500 mg PO Q6H PRN Pain 09/18/24 09/18/24 Unknown History (Tylenol Extra Strength) atorvastatin 10 mg tablet 5 mg PO BEDTIME 09/18/24 09/18/24 09/17/24 History buspirone 7.5 mg tablet See Rx Instructions .Route .COMPLEX 09/18/24 09/18/24 09/18/24 History carvedilol 3.125 mg tablet 3.125 mg PO BID 09/18/24 09/18/24 09/18/24 History dapagliflozin propanediol 10 mg 10 mg PO DAILY 09/18/24 09/18/24 09/18/24 History tablet (Farxiga) diclofenac sodium 75 mg 75 mg PO BID 09/18/24 09/18/24 09/18/24 History tablet,delayed release docusate sodium 100 mg capsule 100 mg PO BID PRN Constipation 09/18/24 09/18/24 Unknown History (Colace) ergocalciferol (vitamin D2) 1,250 50,000 unit PO Q7D 09/18/24 09/18/24 Unknown History mcg (50,000 unit) capsule fluvoxamine 100 mg tablet 100 mg PO BEDTIME 09/18/24 09/18/24 09/17/24 History gabapentin 800 mg tablet 800 mg PO TID 09/18/24 09/18/24 09/17/24 History hydroxyzine HCl 25 mg tablet 25 mg PO TID PRN Anxiety 09/18/24 09/18/24 Unknown History levocetirizine 5 mg tablet 5 mg PO BID 09/18/24 09/18/24 09/18/24 History levothyroxine 100 mcg tablet 100 mcg PO DAILY 09/18/24 09/18/24 09/18/24 History lumateperone 42 mg capsule 42 mg PO DAILY 09/18/24 09/18/24 09/18/24 History (Caplyta) midodrine 10 mg tablet 10 mg PO TID 09/18/24 09/18/24 09/18/24 History nortriptyline 50 mg capsule 50 mg PO BEDTIME 09/18/24 09/18/24 09/17/24 History sodium bicarbonate 650 mg tablet 650 mg PO TID PRN stomache acid 09/18/24 09/18/24 Unknown History tizanidine 4 mg tablet 4 mg PO Q8H PRN Spasms 09/18/24 09/18/24 Unknown History trazodone 150 mg tablet 150 mg PO BEDTIME 09/18/24 09/18/24 09/17/24 History Allergies Allergy/AdvReac Type Severity Reaction Status Date / Time aspirin Allergy ALGY-Swell Verified 08/05/22 09:19 Lip/Tongue/Throat duloxetine (From Cymbalta) Allergy ADR-Agitate Verified 08/05/22 09:19 d quetiapine (From Seroquel) Allergy Unknown Verified 08/05/22 09:19 Current Medications Generic Name Dose Route Start Last Admin Trade Name Freq PRN Reason Stop Dose Admin Acetaminophen 650 mg 09/18/24 11:24 09/22/24 06:15 Acetaminophen 325 Mg Tablet PO 650 mg Q4H PRN Administration MILD PAIN Buspirone HCl 15 mg 09/22/24 15:00 09/22/24 14:35 Buspirone 10 Mg Tablet PO 15 mg TID OXANA Administration Cetirizine HCl 10 mg 09/19/24 09:00 09/22/24 08:32 Cetirizine 10 Mg Tablet PO 10 mg DAILY OXANA Administration Gabapentin 800 mg 09/18/24 15:00 09/22/24 14:35 Gabapentin 400 Mg Capsule PO 800 mg TID OXANA Administration Hydroxyzine Pamoate 50 mg 09/18/24 11:24 09/22/24 08:32 Hydroxyzine 25 Mg Capsule PO 50 mg Q6H PRN Administration ANXIETY Levothyroxine Sodium 100 mcg 09/22/24 07:00 09/22/24 06:48 Levothyroxine 100 Mcg Tablet PO 100 mcg QAM OXANA Administration Lorazepam 0.5 mg 09/19/24 06:36 09/22/24 10:39 Lorazepam 0.5 Mg Tablet PO 0.5 mg BID PRN Administration ANXIETY Non-Formulary Medication 10 mg 09/19/24 09:00 09/22/24 08:33 Dapagliflozin Propanediol [Farxiga] PO 10 mg DAILY OXANA Administration Non-Formulary Medication 25 mg 09/19/24 09:00 09/22/24 08:33 Sitagliptin Phosphate [Januvia] PO 25 mg DAILY OXANA Administration Non-Formulary Medication 150 mg 09/19/24 21:00 09/21/24 20:47 Fluvoxamine PO 150 mg BEDTIME OXANA Administration Non-Formulary Medication 42 mg 09/22/24 15:15 09/22/24 16:15 Lumateperone [Caplyta] PO 42 mg DAILY OXANA Administration Nortriptyline HCl 50 mg 09/19/24 21:00 09/21/24 20:47 Nortriptyline 25 Mg Capsule PO 50 mg BEDTIME OXANA Administration Olanzapine 5 mg 09/18/24 11:24 09/22/24 14:35 Olanzapine 5 Mg Odt PO 5 mg Q4H PRN Administration Agitation/Psychosis Pantoprazole Sodium 40 mg 09/19/24 09:00 09/22/24 08:[address] 40 Mg Tablet PO 40 mg DAILY OXANA Administration Risperidone 2 mg 09/19/24 21:00 09/21/24 20:48 Risperidone 2 Mg Tablet PO 2 mg BEDTIME OXANA Administration Tizanidine HCl 4 mg 09/19/24 19:11 09/22/24 14:36 Tizanidine 4 Mg Tablet PO 4 mg Q8H PRN Administration Spasms Trazodone HCl 150 mg 09/19/24 06:31 09/21/24 20:48 Trazodone 150 Mg Tablet PO 150 mg BEDTIME PRN Administration SLEEP PFSH Acute PFSH: Medical History Opiate abuse, continuous Depression Morbid obesity Schizophrenia Hypoxia Fracture of fibula, proximal Transaminitis SAM (acute kidney injury) Chronic back pain Arrhythmia Reports tachycardia, although cannot tell me anything other than this. Beta-leeanne initiated for this. Anxiety Depression Hypothyroidism Surgical History History of gastric bypass History of knee surgery History of tonsillectomy History of cholecystectomy History of Family History Other Diabetes Social History Smoking and tobacco/nicotine status: never used tobacco/nicotine Alcohol intake: never Substance/Drug Use: never Vitals/I&O/Wt Last Vital Signs Temp 97.8 F 09/21/24 20:30 Pulse 93 09/22/24 06:00 Resp 20 H 09/22/24 06:00 BP 98/62 09/22/24 16:55 Pulse Ox 99 09/22/24 06:00 O2 Del Method Room Air 09/22/24 06:00 Physical Exam Const: COMMON NORMALS: no acute distress and patient oriented x3 HENMT: COMMON NORMALS: normocephalic HEAD & SCALP: normocephalic Eye: COMMON NORMALS: Equal, round and reactive pupils present PUPIL: Yes Equal, round and reactive pupils present Lymph: OTHER: No JVD Resp: COMMON NORMALS: normal respiratory effort, No retractions, No use of accessory muscles and clear to auscultation bilaterally AUSCULTATION: clear to auscultation bilaterally Cardio: COMMON NORMALS: regular rate, regular rhythm, S1 normal heart sound present and S2 normal heart sound present RATE: regular rate RHYTHM: regular rhythm HEART SOUNDS: S1 normal heart sound present and S2 normal heart sound present GI: COMMON NORMALS: Normal to inspection, nondistended, normoactive bowel sounds present and non-tender Extremity: COMMON NORMALS: no clubbing, cyanosis or edema and no pedal edema Neuro: COMMON NORMALS: patient oriented x3, CN's II-XII intact bilaterally and moves all extremities Psych: COMMON NORMALS: mental status grossly normal Sepsis: Is patient septic: Yes Focused sepsis exam performed: Yes Focused sepsis exam: DP PT pulses palpable, cap refill less than 2 seconds, good cap refill no mottling Date exam was performed: 09/22/24 Time exam was performed: 17:00 Data 09/18/24 10:30 09/18/24 10:30 A&P Assessment and plan (1) Hypotension: -Cardiac echocardiogram in January 2021 CONCLUSIONS 1-Normal left ventricular cavity size. Normal left ventricular systolic function. No regional wall motion abnormalities. Left ventricular ejection fraction is estimated at 60 %. Grade II/IV diastolic dysfunction, moderately elevated filling pressures. 2-The right ventricle is normal in size and function. Normal right ventricular systolic pressure. 3-Moderately thickened mitral valve. No mitral valve stenosis. No mitral valve regurgitation. 4-Aortic valve sclerosis without stenosis or regurgitation. 5-Mild tricuspid valve regurgitation. 6-There is no pericardial effusion. 7-There are no prior echocardiogram studies to compare. - Will check blood pressure difference between both arms -She is on Coreg, will hold off for now due to alpha blocking effect -She is also on midodrine to raise her blood pressure, I am going to hold off for now watch her blood pressures ? Move her to the medical floors ? Placed on bedrest ? IV fluids ? CBC, CMP, TSH, troponin series, EKGs, urine , TSH, lactic acid, Pro-Anthony, CRP ? Aldosterone, renin, ACTH, DHEA ? Cortisol level, a.m. cortisol levels -Highly suspect that this is adrenal insufficiency, will order cosyntropin stimulation test in the morning # Full code -Lovenox for DVT prophylaxis PDMP PDMP Reviewed: Last Reviewed 09/22/24 16:30 by Peter Hager MD Consult Attestations Medical Necessity Statement: Patient requires hospitalization for hypotension Diagnoses Hypotension I95.9
--- NOTE | 2024-09-22 17:11 | PC.NURSE ---
ORDERS WERE RECEIVED FROM DR. GALEANO TO TRANSFER PT TO CSU. PT WAS NOTIFIED. INTERNATIONAL LOGISTICS COORDINATOR NOTIFIED OF PT NEEDING TRANSFER TO CSU. INTERNATIONAL LOGISTICS COORDINATOR INFORMED THIS RN THERE WERE CURRENTLY NO BEDS AVAILABLE IN CSU BUT ONE WOULD BE AVAILABLE SHORTLY. BLOOD GLUCOSE 150. PT ASSISTED TO DAYROOM TO EAT DINNER.
[2024-09-22 17:15] LABS: Glucose Point of Care 150 mg/dL (70-110)
--- NOTE | 2024-09-22 18:54 | ECG_ITS ---
[facility]: [facility]24[facility]22 Pat Name: Abigail Restrepo Department: Room: 154 Gender: Female Division Sales Manager: : 1980 Requested By: Peter Hager Order Number: [id number] Misha MD: Nate Pacheco M.D. Measurements Intervals [place] Rate: 81 P: 50 MA: 166 QRS: 48 QRSD: 81 T: 57 QT: 339 QTc: 394 Interpretive Statements SINUS RHYTHM Compared to ECG 09/22/2024 16:32:25 No significant changes Electronically Signed On 09-23-2024 19:29:39 CONCERT OR LECTURE HALL MANAGER by Nate Pacheco M.D. [email or web address] [id number]
[2024-09-22 19:29] LABS: Basophils % 0.5 %; Eosinophils # 0.1 10^3/uL (0.0-0.8); Eosinophils % 1.6 %; Hematocrit 34.7 % (36-47); Lymphocytes # 1.7 10^3/uL (0.8-4.8); Lymphocytes % 28.9 %; Mean Corpuscular HGB Conc 29.7 g/dL (30-55); Mean Corpuscular Hemoglobin 27.2 pg (27-33); Mean Corpuscular Volume 91.6 fl (85-98); Mean Platelet Volume 10.2 fL (7.4-10.4); Monocytes # 0.6 10^3/uL (0.2-0.9); Monocytes % 11.2 %; Neutrophils # 3.28 10^3/uL (1.8-7.7); Neutrophils % 57.4 %; Nucleated Red Blood Cells % 0 %; Platelet Count 374 10^3/cmm (157-399); Red Blood Count 3.79 10^6/uL (3.85-5.65); Red Cell Distribution Width 26.5 % (12.1-15.1); White Blood Count 5.71 10^3/uL (3.29-11.43)
--- NOTE | 2024-09-22 19:34 | PC.NURSE ---
HOUSE SUP CALLED AND BED NUMBER OF [id number] RECEIVED.
[2024-09-22 19:36] LABS: HCG, Serum Qual Negative (Negative)
[2024-09-22 19:41] LABS: Lactic Sepsis W/Reflex 1.6 mmol/L (0.5-2.2)
[2024-09-22 19:59] LABS: Procalcitonin 0.31 ng/mL (0-0.5); Thyroid Stimulating Hormone 1.69 uIU/mL (0.27-4.20)
[2024-09-22 20:11] LABS: Alanine Aminotransferase 15 U/L (0-33); Albumin Level 3.7 g/dL (3.5-5.2); Alkaline Phosphatase 159 U/L (35-105); Anion Gap 15.9 (5-19); Aspartate Amino Transferase 15 U/L (0-32); Blood Urea Nitrogen 25 mg/dL (6-20); Calcium 8.9 mg/dL (8.5-10.5); Carbon Dioxide 22 mmol/L (22-29); Chloride 104 mmol/L (98-107); Creatinine Clr Calc Pharmacy 86.3604; Ferritin 162 ng/mL (15-150); Globulin 2.1 g/dL (1.3-4.6); Glomerular Filtration Rate 59.7 mL/min (90-130); Glucose 83 mg/dL (65-115); Iron 49 ug/dL (37-145); Osmolality Calculated 288 mOsm/kg (285-295); Potassium 4.9 mmol/L (3.5-5.1); Sodium 137 mmol/L (136-145); Total Bilirubin 0.2 mg/dL (0.15-1.2); Total Protein 5.8 g/dL (6.6-8.7)
[2024-09-22 21:01] LABS: Troponin(5th) Baseline < 6 ng/L (0-10)
--- NOTE | 2024-09-22 21:43 | PC.NURSE ---
Pt transferred to CSU at 2056 with Security and SOCIOCULTURAL ANTHROPOLOGY PROFESSOR Brenda.
[2024-09-22 21:48] LABS: Chol HDL Ratio 2.11 mg/dL (0.0-4.40); Cholesterol 175 mg/dL (0-200); HDL Cholesterol 83 mg/dL (60-100); LDL Cholesterol Calculated 74 mg/dL (50-129); LDL HDL Ratio 0.89 RATIO (0.00-3.22); Triglycerides 92 mg/dL (0-150)
[2024-09-22] MEDS: nortriptyline 25 mg Capsule 50 MG PO (21:48)
[2024-09-22] MEDS: risperiDONE 2 mg Tablet PO (21:48)
[2024-09-22] MEDS: trazodone 150 mg Tablet PO (21:48)
[2024-09-22] MEDS: FLUVOXAMINE 150 MG 150 EACH PO (21:49)
[2024-09-22] MEDS: enoxaparin 40 mg/0.4 mL Syringe SUBCUT (21:51)
[2024-09-22] MEDS: sodium chloride 0.9% 1,000 ML 75 ML IV (21:52)
[2024-09-22 23:11] LABS: Troponin 5 2HR Delta 0.00001 ABS# (0-10)
--- NOTE | 2024-09-22 23:51 | ECG_ITS ---
[facility] Date: 2024-09-22 Pat Name: Abigail Restrepo Department: Room: 103 Gender: Female Agronomist: : 1980 Requested By: Peter Hager Order Number: [id number] Misha MD: Nate Pacheco M.D. Measurements Intervals [place] Rate: 71 P: 40 IA: 158 QRS: 39 QRSD: 78 T: 44 QT: 371 QTc: 404 Interpretive Statements SINUS RHYTHM Compared to ECG 09/22/2024 19:26:52 No significant changes Electronically Signed On 09-23-2024 19:28:28 COMPOUNDING SCALER by Nate Pacheco M.D. [id number] [id number]
[2024-09-22 23:54] LABS: Estmated Average Glucose 100; Hemoglobin A1C 5.1 % (4.0-6.0)
[2024-09-23] VITALS (11 sets, daily range): BP systolic 65–121; BP diastolic 49–88; PULSE 71–145; RESP 12–21; TEMP 36.3–37.1; O2SAT 95–100
[2024-09-23 00:51] LABS: Cortisol Random 3.26 ug/dL (2.47-19.5); Free T4 Free Thyroxine 0.96 ng/dL (0.82-1.77); T3 Free 2.6 PG/ML (2.0-4.4)
[2024-09-23] MEDS: acetaminophen 325 mg Tablet 650 MG PO ×2 (00:53→19:36)
[2024-09-23] MEDS: sodium chloride 0.9% 1,000 ML 999 ML IV (00:55)
[2024-09-23] MEDS: OLANZapine 5 mg ODT PO (00:58)
[2024-09-23 01:09] LABS: Bilirubin Urine Negative (Negative); Blood Urine Non-haemolysed trace (Negative); Glucose Urine UA 1+ (Normal); Ketones Urine Negative (Negative); Leukocyte Esterase Urine 3+ (Negative); Nitrate Urine Negative (Negative); Protein Urine Negative (Negative); Specific Gravity, Urine 1.008 (1.005-1.030); Urine Appearance Cloudy (CLEAR); Urine Color Yellow (Yellow); Urobilinogen Urine 0.2 mg/dL (Negative)
[2024-09-23 01:14] LABS: Add Urine Microscopic? YES; Bacteria Urine 4+ /hpf; RBC Urine 0-2 /hpf (0-2); Squamous Epithelial Cell Urine 0-5 /hpf (0-5); WBC Urine >100 /hpf (0-5)
[2024-09-23 01:17] LABS: Add Urine Culture? Yes
[2024-09-23 01:35] LABS: Basophils % 0.4 %; Eosinophils # 0.1 10^3/uL (0.0-0.8); Eosinophils % 1.2 %; Lymphocytes # 1.4 10^3/uL (0.8-4.8); Lymphocytes % 20.3 %; Mean Corpuscular HGB Conc 28.7 g/dL (30-55); Mean Corpuscular Hemoglobin 27.1 pg (27-33); Mean Corpuscular Volume 94.2 fl (85-98); Mean Platelet Volume 10.3 fL (7.4-10.4); Monocytes % 14.9 %; Neutrophils # 4.28 10^3/uL (1.8-7.7); Neutrophils % 62.9 %; Nucleated Red Blood Cells % 0 %; Platelet Count 280 10^3/cmm (157-399); Red Blood Count 3.29 10^6/uL (3.85-5.65); Red Cell Distribution Width 26.3 % (12.1-15.1)
[2024-09-23 01:59] LABS: Troponin 5 6HR Delta 0.00001 ng/L (0-12)
[2024-09-23 02:00] LABS: Magnesium 2.1 mg/dL (1.7-2.3); Phosphorus 3.2 mg/dL (2.5-4.5)
[2024-09-23 02:05] LABS: Alanine Aminotransferase 11 U/L (0-33); Alkaline Phosphatase 134 U/L (35-105); Anion Gap 12.2 (5-19); Aspartate Amino Transferase 11 U/L (0-32); Blood Urea Nitrogen 21 mg/dL (6-20); Calcium 7.2 mg/dL (8.5-10.5); Carbon Dioxide 22 mmol/L (22-29); Chloride 107 mmol/L (98-107); Globulin 2.1 g/dL (1.3-4.6); Glomerular Filtration Rate 67.4 mL/min (90-130); Glucose 181 mg/dL (65-115); Osmolality Calculated 292 mOsm/kg (285-295); Potassium 4.2 mmol/L (3.5-5.1); Sodium 137 mmol/L (136-145); Total Bilirubin 0.2 mg/dL (0.15-1.2); Total Protein 5.1 g/dL (6.6-8.7)
[2024-09-23] MEDS: levothyroxine 100 mcg Tablet PO (05:29)
[2024-09-23] MEDS: tizanidine 4 mg Tablet PO ×3 (05:29→20:31)
[2024-09-23 06:24] LABS: Glucose Point of Care 175 mg/dL (70-110)
[2024-09-23] MEDS: cosyntropin 0.25 mg SDV IVP (08:31)
[2024-09-23] MEDS: cetirizine 10 mg Tablet PO (08:35)
[2024-09-23] MEDS: gabapentin 400 mg Capsule 800 MG PO ×3 (08:35→20:31)
[2024-09-23] MEDS: pantoprazole DR 40 mg Tablet PO (08:35)
[2024-09-23] MEDS: BuSPIRONE 10 mg Tablet 15 MG PO ×3 (08:35→20:32)
[2024-09-23] MEDS: NON-FORMULARY MEDICATION (Lumateperone [Caplyta] 42 mg capsule) 42 EACH PO (08:36)
[2024-09-23] MEDS: NON-FORMULARY MEDICATION (Dapagliflozin Propanediol [Farxiga] 10 mg tablet) 10 EACH PO (08:36)
[2024-09-23] MEDS: SITAGLIPTIN PHOSPHATE 25 MG 25 EACH PO (08:37)
[2024-09-23] MEDS: cefTRIAXone 1,000 mg SDV 1000 MG IVP (08:43)
[2024-09-23 09:04] LABS: Cosyntropin Baseline 13.04 mcg/dL
[2024-09-23 09:34] LABS: Cosyntropin 30 Minute 20.83 mcg/dL
[2024-09-23 10:05] LABS: Cosyntropin 1 Hour 25.38 mcg/dL
[2024-09-23 12:09] LABS: Glucose Point of Care 153 mg/dL (70-110)
--- NOTE | 2024-09-23 13:27 | P.PN_ITS ---
Subjective 2 Subjective: Patient was seen this morning, she is alert oriented, follows all commands, orthostats remain positive she tells when she got up to the side of the bed to the bathroom she felt dizzy and lightheaded Vitals/I&O/Wt Last Vital Signs Temp 98.7 F 09/23/24 12:00 Pulse 75 09/23/24 12:00 Resp 14 09/23/24 12:00 BP 105/74 09/23/24 12:00 Pulse Ox 96 09/23/24 12:00 O2 Del Method Room Air 09/23/24 12:00 09/22/24 09/23/24 09/23/24 22:59 06:59 14:59 Intake Total 2700 / 2700 1120 / 1120 Balance 2700 / 2700 1120 / 1120 Physical Exam 2 Const: COMMON NORMALS: no acute distress and patient oriented x3 Resp: COMMON NORMALS: normal respiratory effort, No retractions, No use of accessory muscles and clear to auscultation bilaterally AUSCULTATION: clear to auscultation bilaterally Cardio: COMMON NORMALS: regular rate, regular rhythm, S1 normal heart sound present and S2 normal heart sound present RATE: regular rate RHYTHM: r egular rhythm HEART SOUNDS: S1 normal heart sound present and S2 normal heart sound present GI: COMMON NORMALS: Normal to inspection, nondistended, normoactive bowel sounds present and non-tender Extremity: COMMON NORMALS: no pedal edema Neuro: COMMON NORMALS: patient oriented x3 Psych: COMMON NORMALS: mental status grossly normal Data 09/23/24 01:29 09/23/24 01:29 A&P Assessment and plan (1) Hypotension: -Orthostatic hypotension, positive orthostatic vitals, symptomatic -Cardiac echocardiogram in January 2021 CONCLUSIONS 1-Normal left ventricular cavity size. Normal left ventricular systolic function. No regional wall motion abnormalities. Left ventricular ejection fraction is estimated at 60 %. Grade II/IV diastolic dysfunction, moderately elevated filling pressures. 2-The right ventricle is normal in size and function. Normal right ventricular systolic pressure. 3-Moderately thickened mitral valve. No mitral valve stenosis. No mitral valve regurgitation. 4-Aortic valve sclerosis without stenosis or regurgitation. 5-Mild tricuspid valve regurgitation. 6-There is no pericardial effusion. 7-There are no prior echocardiogram studies to compare. - Will check blood pressure difference between both arms -She is on Coreg, will hold off for now due to alpha blocking effect -She is also on midodrine to raise her blood pressure, I am going to hold off for now watch her blood pressures ? Move her to the medical floors ? Placed on bedrest ? IV fluids -UTI IV Rocephi ? Aldosterone, renin, ACTH, DHEA ? Cortisol level, a.m. cortisol levels -Highly suspect that this is adrenal insufficiency, will order cosyntropin stimulation test in the morning # Full code -Lovenox for DVT prophylaxis Plan for today cosyntropin stimulation test, monitor serum cortisol levels PDMP PDMP Reviewed: Last Reviewed 09/22/24 16:30 by Peter Hager MD Attestations 2 Medical Necessity Statement*: Patient requires hospitalization for orthostatic hypotension, UTI Diagnoses Hypotension I95.9
[2024-09-23 14:13] LABS: Vitamin B12 275 pg/mL (232-1245)
[2024-09-23 14:21] LABS: Folate Level 6.3 ng/mL (4.8-37.3)
[2024-09-23 17:09] LABS: Glucose Point of Care 80 mg/dL (70-110)
[2024-09-23] MEDS: risperiDONE 2 mg Tablet PO (20:31)
[2024-09-23] MEDS: FLUVOXAMINE 150 MG 150 EACH PO (20:31)
[2024-09-23] MEDS: trazodone 150 mg Tablet PO (20:32)
[2024-09-23] MEDS: nortriptyline 25 mg Capsule 50 MG PO (20:32)
[2024-09-23] MEDS: enoxaparin 40 mg/0.4 mL Syringe SUBCUT (20:38)
[2024-09-23] MEDS: sodium chloride 0.9% 1,000 ML 75 ML IV (20:40)
[2024-09-24] VITALS (8 sets, daily range): BP systolic 55–139; BP diastolic 43–94; PULSE 71–115; RESP 16–20; TEMP 36.3–37; O2SAT 95–100
[2024-09-24] MEDS: acetaminophen 325 mg Tablet 650 MG PO ×2 (03:32→19:23)
[2024-09-24] MEDS: levothyroxine 100 mcg Tablet PO (04:46)
[2024-09-24] MEDS: tizanidine 4 mg Tablet PO ×3 (04:46→19:24)
[2024-09-24 06:54] LABS: Basophils % 0.8 %; Eosinophils # 0.1 10^3/uL (0.0-0.8); Eosinophils % 1.6 %; Hematocrit 34.3 % (36-47); Lymphocytes # 1.9 10^3/uL (0.8-4.8); Lymphocytes % 36.2 %; Mean Corpuscular HGB Conc 29.2 g/dL (30-55); Mean Corpuscular Hemoglobin 27.8 pg (27-33); Mean Corpuscular Volume 95.3 fl (85-98); Mean Platelet Volume 10.1 fL (7.4-10.4); Monocytes # 0.6 10^3/uL (0.2-0.9); Monocytes % 11.1 %; Neutrophils # 2.58 10^3/uL (1.8-7.7); Neutrophils % 50.1 %; Nucleated Red Blood Cells % 0 %; Platelet Count 280 10^3/cmm (157-399); Red Cell Distribution Width 26.1 % (12.1-15.1); White Blood Count 5.14 10^3/uL (3.29-11.43)
[2024-09-24 07:01] LABS: Alanine Aminotransferase 10 U/L (0-33); Albumin Level 3.1 g/dL (3.5-5.2); Alkaline Phosphatase 133 U/L (35-105); Anion Gap 12.7 (5-19); Aspartate Amino Transferase 11 U/L (0-32); Blood Urea Nitrogen 17 mg/dL (6-20); Calcium 8.7 mg/dL (8.5-10.5); Carbon Dioxide 25 mmol/L (22-29); Chloride 100 mmol/L (98-107); Creatinine Clr Calc Pharmacy 102.3322; Globulin 2.8 g/dL (1.3-4.6); Glomerular Filtration Rate 67.4 mL/min (90-130); Glucose 159 mg/dL (65-115); Magnesium 2.1 mg/dL (1.7-2.3); Osmolality Calculated 281 mOsm/kg (285-295); Phosphorus 3.5 mg/dL (2.5-4.5); Potassium 4.7 mmol/L (3.5-5.1); Sodium 133 mmol/L (136-145); Total Bilirubin 0.2 mg/dL (0.15-1.2); Total Protein 5.9 g/dL (6.6-8.7)
[2024-09-24] MEDS: cefTRIAXone 1,000 mg SDV 1000 MG IVP (07:51)
[2024-09-24] MEDS: BuSPIRONE 10 mg Tablet 15 MG PO ×4 (07:52→21:13)
[2024-09-24] MEDS: gabapentin 400 mg Capsule 800 MG PO ×3 (07:52→21:11)
[2024-09-24] MEDS: NON-FORMULARY MEDICATION (Dapagliflozin Propanediol [Farxiga] 10 mg tablet) 10 EACH PO (07:53)
[2024-09-24] MEDS: cetirizine 10 mg Tablet PO (07:53)
[2024-09-24] MEDS: NON-FORMULARY MEDICATION (Lumateperone [Caplyta] 42 mg capsule) 42 EACH PO (07:53)
[2024-09-24] MEDS: pantoprazole DR 40 mg Tablet PO (07:53)
[2024-09-24] MEDS: SITAGLIPTIN PHOSPHATE 25 MG 25 EACH PO (07:53)
[2024-09-24 08:14] LABS: Dehydroepiandrosterone Sulfate 14 mcg/dL (15-205)
[2024-09-24] MEDS: fludrocortisone 0.1 mg Tablet PO (09:53)
[2024-09-24 12:03] LABS: Glucose Point of Care 151 mg/dL (70-110)
--- NOTE | 2024-09-24 14:27 | P.PN_ITS ---
Subjective 2 Subjective: Patient was seen this morning, she is alert awake, following all commands she is does report feeling lightheaded upon standing up, which is persisting Vitals/I&O/Wt Last Vital Signs Temp 98.6 F 09/24/24 12:00 Pulse 90 09/24/24 12:00 Resp 20 H 09/24/24 12:00 BP 75/56 09/24/24 12:00 Pulse Ox 95 09/24/24 12:00 O2 Del Method Room Air 09/24/24 12:00 09/23/24 09/24/24 09/24/24 22:59 07:59 14:59 Intake Total 600 / 2080 2000 / 4080 600 / 600 Balance 600 / 2080 2000 / 4080 600 / 600 Weight last 48 hrs Weight 108.182 kg Physical Exam 2 Const: COMMON NORMALS: no acute distress and patient oriented x3 Resp: COMMON NORMALS: normal respiratory effort, No retractions, No use of accessory muscles and clear to auscultation bilaterally AUSCULTATION: clear to auscultation bilaterally Cardio: COMMON NORMALS: regular rate, regular rhythm, S1 normal heart sound present and S2 normal heart sound present RATE: regular rate RHYTHM: r egular rhythm HEART SOUNDS: S1 normal heart sound present and S2 normal heart sound present GI: COMMON NORMALS: Normal to inspection, nondistended, normoactive bowel sounds present and non-tender Extremity: COMMON NORMALS: no pedal edema Neuro: COMMON NORMALS: patient oriented x3 Psych: COMMON NORMALS: mental status grossly normal Data 09/24/24 06:34 09/24/24 06:34 Micro: Microbiology 09/23/24 00:30 Urine Culture - Preliminary Urine,Clean Catch Gram Negative Rods A&P Assessment and plan (1) Hypotension: -Orthostatic hypotension, positive orthostatic vitals, symptomatic -Cardiac echocardiogram in January 2021 CONCLUSIONS 1-Normal left ventricular cavity size. Normal left ventricular systolic function. No regional wall motion abnormalities. Left ventricular ejection fraction is estimated at 60 %. Grade II/IV diastolic dysfunction, moderately elevated filling pressures. 2-The right ventricle is normal in size and function. Normal right ventricular systolic pressure. 3-Moderately thickened mitral valve. No mitral valve stenosis. No mitral valve regurgitation. 4-Aortic valve sclerosis without stenosis or regurgitation. 5-Mild tricuspid valve regurgitation. 6-There is no pericardial effusion. 7-There are no prior echocardiogram studies to compare. - Will check blood pressure difference between both arms, are within reasonable range -She is on Coreg, will hold off for now due to alpha blocking effect -She is also on midodrine to raise her blood pressure, I am going to hold off for now watch her blood pressures ? Move her to the medical floors ? Placed on bedrest ? IV fluids will be discontinued today -UTI IV Rocephin ? Aldosterone, renin, ACTH, DHEA ? Cortisol level, a.m. cortisol levels, within normal range -Highly suspect that this is adrenal insufficiency, will order cosyntropin stimulation test in the morning, within reasonable range # Full code -Lovenox for DVT prophylaxis Plan for today continue IV fluids, IV antibiotics, salt tablets, add fludrocortisone PDMP PDMP Reviewed: Last Reviewed 09/22/24 16:30 by Peter Hager MD Attestations 2 Medical Necessity Statement*: Patient requires hospitalization for orthostatic hypotension Diagnoses Hypotension I95.9
[2024-09-24] MEDS: sodium chloride 1 gm Tablet PO (14:48)
[2024-09-24 16:36] LABS: Glucose Point of Care 108 mg/dL (70-110)
--- NOTE | 2024-09-24 17:43 | P.NPUPN_ITS ---
Subjective NPU 2 Subjective: 44-year-old female admitted with depress ion and suicidal ideation with a history of schizophrenia. Patient had reported that her mood was much better. She had continued to report lightheadedness and reported that her blood pressure continued to drop when she got up out of the bed. She had been seen on the CSU unit. She had reported that her mood was much better and reported that she was no longer hearing voices. Mental Status Exam 2 MSE Comments: This is an obese versus morbidly obese white female in hospital scrubs with poor grooming and limited eye contact. No abnormal movements except for psychomotor retardation. Cooperative with exam in mild to moderate distress. Speech was decreased rate and volume and childlike with some prolonged pauses between answers. Mood described as better. Her affect remained odd and subdued. Thought process was linear and logical. Thought content: Patient denied suicidal or homicidal ideation, there were no delusions reported or noted, she denied auditory or visual hallucinations. Attention and concentration appeared limited and memory appeared mostly reliable but none were formally tested. She alert and oriented x person and place. Insight and judgment appeared limited, impulse control impaired. Intellectual ability limited versus impaired. Vitals/I&O/Wt Last Vital Signs Temp 97.6 F 09/24/24 16:00 Pulse 75 09/24/24 16:00 Resp 20 H 09/24/24 16:00 BP 137/94 09/24/24 16:00 Pulse Ox 100 09/24/24 16:00 O2 Del Method Room Air 09/24/24 16:00 09/24/24 09/24/24 09/24/24 07:59 14:59 22:59 Intake Total 1999 840 / 840 Balance 1999 840 / 840 Weight last 48 hrs Weight 108.182 kg Data NPU 09/24/24 06:34 09/24/24 06:34 Micro: Microbiology 09/23/24 00:30 Urine Culture - Preliminary Urine,Clean Catch Gram Negative Rods Microbiology 09/23/24 00:30 Urine,Clean Catch Urine Culture - Preliminary Gram Negative Rods A&P Assessment and plan (1) Schizophrenia: (2) Anxiety disorder: (3) Suicidal ideation: (4) Personality disorder, unspecified: (5) Depression: (6) Suicidal ideation: (7) Morbid obesity: (8) Mild intellectual disability: Plan Patient is a 44-year-old white female with multiple medical issues and history of anxiety, depression and a history of possible misuse of opiate medications in the past, who was hospitalized last couple years ago and presents again but this time with a reported active overdose on the Neurontin. 1. Evaluate for polypharmacy and consider cleaning up the medication regiment. Continue Luvox 150mg daily and reduce risperidal to 1mg at night. Continue Buspirone 15mg tid. 2. Engage patient in individual group and milieu therapy. 3. Continue every 15 minute checks for safety. 4. Evaluate against the backdrop of the 96-hour hold. 5. Obtain collateral information. 6. Obtain hospitalist consult to evaluate medications in relation to her blood pressures. PDMP PDMP Reviewed: Not Reviewed Involuntary Hold Information 2 Hold Status: Legal Status: 96 Hour Hold Date/Time Hold Expires: 09/22/24 @ 10:45 96 Hour Hold: 96 Hour Involuntary Admission: No Attestations NPU 2 Medical Necessity Statement*: Inpatient hospitalization is medically necessary and the clinically appropriate intervention at this time. We will occasions to make changes as indicated with likely length of stay of 2-3 days. Coding Level of Care Code Acute Code for g Fwd Diagnoses Schizophrenia F20.9 Anxiety disorder, unspecified type F41.9 Suicidal ideation R45.851 Personality disorder, unspecified F60.9 Depression F32.A Morbid obesity E66.01 Mild intellectual disability F70
[2024-09-24] MEDS: ondansetron 4 MG Tablet PO (20:19)
[2024-09-24 20:39] LABS: Glucose Point of Care 264 mg/dL (70-110)
[2024-09-24] MEDS: trazodone 150 mg Tablet PO (21:12)
[2024-09-24] MEDS: risperiDONE 2 mg Tablet 1 MG PO (21:12)
[2024-09-24] MEDS: FLUVOXAMINE 150 MG 150 EACH PO (21:13)
[2024-09-24] MEDS: nortriptyline 25 mg Capsule 50 MG PO (21:13)
[2024-09-24] MEDS: enoxaparin 40 mg/0.4 mL Syringe SUBCUT (21:16)
[2024-09-25] VITALS (87 sets, daily range): BP systolic 80–121; BP diastolic 48–94; PULSE 68–146; RESP 10–34; TEMP 36.4–36.9; O2SAT 76–100
[2024-09-25] MEDS: sodium chloride 1 gm Tablet PO (02:09)
[2024-09-25] MEDS: acetaminophen 325 mg Tablet 650 MG PO (02:09)
[2024-09-25] MEDS: tizanidine 4 mg Tablet PO ×3 (03:29→23:01)
[2024-09-25] MEDS: levothyroxine 100 mcg Tablet PO (05:08)
[2024-09-25 05:36] LABS: Basophils # 0.1 10^3/uL (0.0-0.1); Basophils % 1.2 %; Eosinophils # 0.1 10^3/uL (0.0-0.8); Eosinophils % 2.4 %; Hematocrit 35.7 % (36-47); Mean Corpuscular HGB Conc 29.1 g/dL (30-55); Mean Corpuscular Hemoglobin 27.4 pg (27-33); Mean Corpuscular Volume 93.9 fl (85-98); Mean Platelet Volume 9.8 fL (7.4-10.4); Monocytes # 0.5 10^3/uL (0.2-0.9); Monocytes % 10.6 %; Neutrophils # 2.37 10^3/uL (1.8-7.7); Neutrophils % 46.6 %; Nucleated Red Blood Cells % 0 %; Platelet Count 277 10^3/cmm (157-399); Red Cell Distribution Width 25.2 % (12.1-15.1); White Blood Count 5.08 10^3/uL (3.29-11.43)
[2024-09-25 05:58] LABS: Alanine Aminotransferase 13 U/L (0-33); Albumin Level 3.3 g/dL (3.5-5.2); Alkaline Phosphatase 134 U/L (35-105); Aspartate Amino Transferase 16 U/L (0-32); Blood Urea Nitrogen 16 mg/dL (6-20); Calcium 9.2 mg/dL (8.5-10.5); Carbon Dioxide 27 mmol/L (22-29); Chloride 97 mmol/L (98-107); Creatinine Clr Calc Pharmacy 105.9785; Globulin 2.9 g/dL (1.3-4.6); Glomerular Filtration Rate 67.4 mL/min (90-130); Glucose 183 mg/dL (65-115); Osmolality Calculated 280 mOsm/kg (285-295); Phosphorus 3.8 mg/dL (2.5-4.5); Sodium 132 mmol/L (136-145); Total Bilirubin 0.2 mg/dL (0.15-1.2); Total Protein 6.2 g/dL (6.6-8.7)
[2024-09-25 05:59] LABS: Anion Gap 13.5 (5-19); Potassium 5.5 mmol/L (3.5-5.1)
[2024-09-25 06:38] LABS: Glucose Point of Care 104 mg/dL (70-110)
[2024-09-25] MEDS: fludrocortisone 0.1 mg Tablet PO (08:18)
[2024-09-25] MEDS: pantoprazole DR 40 mg Tablet PO (08:18)
[2024-09-25] MEDS: NON-FORMULARY MEDICATION (Dapagliflozin Propanediol [Farxiga] 10 mg tablet) 10 EACH PO (08:18)
[2024-09-25] MEDS: cetirizine 10 mg Tablet PO (08:18)
[2024-09-25] MEDS: NON-FORMULARY MEDICATION (Lumateperone [Caplyta] 42 mg capsule) 42 EACH PO (08:18)
[2024-09-25] MEDS: gabapentin 400 mg Capsule 800 MG PO ×3 (08:18→22:13)
[2024-09-25] MEDS: cefTRIAXone 1,000 mg SDV 1000 MG IVP (08:19)
[2024-09-25] MEDS: BuSPIRONE 10 mg Tablet 15 MG PO ×3 (08:23→22:12)
[2024-09-25] MEDS: sodium polystyrene sulfonate 15 gm/60 mL Btl PO (08:29)
--- NOTE | 2024-09-25 09:29 | PC.SOCIAL ---
IMM Update Pg. 2 of IMM updated, copy provided at bedside.
--- NOTE | 2024-09-25 09:53 | USCV_ITS ---
Abigail Restrepo Age: 44 Gender: F : 1980 Exam Date: 09/25/2024 11:01 Ordering Phys: Peter Hager MD Technologist: MAL [place] [facility] [place]: BP: 100 / 71 HR: 115 Rhythm: Sinus Technical Quality: Adequate MEASUREMENTS (Male / Female) Normal Values 2D ECHO LV Diastolic Diameter PLAX 3.3 cm 4.2 - 5.9 / 3.9 - 5.3 cm IVS Diastolic Thickness 1.7 cm 0.6 - 1.0 / 0.6 - 0.9 cm IVS Systolic Thickness 1.9 cm LVPW Diastolic Thickness 1.0 cm 0.6 - 1.0 / 0.6 - 0.9 cm LVPW Systolic Thickness 1.9 cm LVOT Diameter 2.0 cm LV Ejection Fraction 2D Teich 59.6 % LV Ejection Fraction MOD 4C 53.5 % LV Ejection Fraction MOD 2C 53.9 % LV Ejection Fraction 2C AL 53.0 % LA Diameter 2.4 cm RA Systolic Volume 4C AL 35.1 ml RA Systolic Volume 4C MOD 34.0 ml Aorta at Sinotubular Diameter 3.2 cm M-MODE LA Ao Ratio MM 1.1 AV Cusp Separation MM 1.4 cm DOPPLER AV Peak Velocity 167.0 cm/s LVOT Peak Velocity 125.0 cm/s AV Area Cont Eq vti 2.4 cm squared AV Area Cont Eq pk 2.4 cm squared MV Peak Velocity 99.0 cm/s MV Area PHT 5.6 cm squared Mitral E to A Ratio 0.9 TR Peak Velocity 142.0 cm/s TR Peak Gradient 8.1 mmHg TV Peak E Velocity 70.0 cm/s PV Peak Velocity 146.0 cm/s FINDINGS Left Ventricle Normal left ventricular size, systolic function and wall thickness, with no regional wall motion abnormalities. Left ventricular ejection fraction is estimated at 60 %. Grade I/IV diastolic dysfunction (abnormal relaxation filling pattern), normal to mildly elevated filling pressures. Right Ventricle The right ventricle is normal in size and function. Right Atrium The right atrium is normal in size. Left Atrium The left atrium is normal in size. Mitral Valve Mildly thickened mitral valve. No mitral valve stenosis. Trace mitral valve regurgitation. Aortic Valve Mild aortic valve calcification. Iacu-mg-jirnmlnx aortic valve regurgitation. Tricuspid Valve Structurally normal tricuspid valve without significant stenosis or regurgitation. Pulmonary artery systolic pressure is normal. Pulmonic Valve Structurally normal pulmonic valve without significant stenosis. There is no pulmonic regurgitation. Pericardium Normal pericardium without effusion. Aorta Normal ascending aorta dimension. IVC The inferior vena cava appears normal. CONCLUSIONS Normal left ventricular size, systolic function and wall thickness, with no regional wall motion abnormalities. Left ventricular ejection fraction is estimated at 60 %. Grade I/IV diastolic dysfunction (abnormal relaxation filling pattern), normal to mildly elevated filling pressures. Mild aortic valve calcification. Nrsr-so-ffxwsixn aortic valve regurgitation. There is no pericardial effusion. Right atrial pressure is around 5 mm of mercury. Angela Schuster MD (Electronically Signed) Final Date: 25 September 2024 21:15 S
--- NOTE | 2024-09-25 10:31 | ECG_ITS ---
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
[2024-09-25 10:42] LABS: Troponin(5th) Baseline < 6 ng/L (0-10)
[2024-09-25 10:43] LABS: Anion Gap 15.7 (5-19); Blood Urea Nitrogen 15 mg/dL (6-20); Calcium 9.6 mg/dL (8.5-10.5); Carbon Dioxide 24 mmol/L (22-29); Chloride 98 mmol/L (98-107); Creatinine Clr Calc Pharmacy 95.3806; Glomerular Filtration Rate 59.7 mL/min (90-130); Glucose 85 mg/dL (65-115); Osmolality Calculated 276 mOsm/kg (285-295); Potassium 4.7 mmol/L (3.5-5.1); Sodium 133 mmol/L (136-145)
[2024-09-25 10:51] LABS: Glucose Point of Care 59 mg/dL (70-110)
--- NOTE | 2024-09-25 11:54 | ECG_ITS ---
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
[2024-09-25 11:56] LABS: Glucose Point of Care 178 mg/dL (70-110)
[2024-09-25 11:56] LABS: Glucose Point of Care > 600 mg/dL (70-110)
[2024-09-25] MEDS: metoprolol tartrate 25 mg Tablet 12.5 MG PO ×2 (12:29→17:36)
[2024-09-25] MEDS: midodrine 5 mg TABLET 10 MG PO ×2 (12:29→22:14)
[2024-09-25 13:06] LABS: Troponin 5 2HR 6.47 ng/L (0-10); Troponin 5 2HR Delta 0.47001 ABS# (0-10)
--- NOTE | 2024-09-25 13:08 | P.PN_ITS ---
Subjective 2 Subjective: Patient was seen this morning, she is alert oriented x 3, following all commands, continues to have orthostatic positive blood pressures, discussed taking her off fludrocortisone/salt tablets as she has not responded to switch her back to her home midodrine, she is also developed tachycardia, sinus tachycardia, we will switch her to metoprolol as Coreg will drop her blood pressure, she is in agreement we will continue to monitor closely Vitals/I&O/Wt Last Vital Signs Temp 97.6 F 09/25/24 12:00 Pulse 120 H 09/25/24 12:00 Resp 20 H 09/25/24 12:00 BP 111/71 09/25/24 12:00 Pulse Ox 93 09/25/24 12:00 O2 Del Method Room Air 09/25/24 12:00 09/24/24 09/25/24 09/25/24 22:59 06:59 14:59 Intake Total 1360 / 2200 420 / 420 Balance 1360 / 2200 420 / 420 Weight last 48 hrs Weight 115.575 kg Weight 108.182 kg Physical Exam 2 Const: COMMON NORMALS: no acute distress and patient oriented x3 Resp: COMMON NORMALS: normal respiratory effort, No retractions, No use of accessory muscles and clear to auscultation bilaterally AUSCULTATION: clear to auscultation bilaterally Cardio: COMMON NORMALS: regular rhythm, S1 normal heart sound present and S2 normal heart sound present RATE: tachycardic RHYTHM: regular rhythm H EART SOUNDS: S1 normal heart sound present and S2 normal heart sound present GI: COMMON NORMALS: Normal to inspection, nondistended, normoactive bowel sounds present and non-tender Extremity: COMMON NORMALS: no pedal edema Neuro: COMMON NORMALS: patient oriented x3 Psych: COMMON NORMALS: mental status grossly normal Data 09/25/24 05:01 09/25/24 10:17 Micro: Microbiology 09/23/24 00:30 Urine Culture - Final Urine,Clean Catch Escherichia coli A&P Assessment and plan (1) Hypotension: -Orthostatic hypotension, positive orthostatic vitals, symptomatic -Remains orthostatic positive -Cardiac echocardiogram in January 2021 CONCLUSIONS 1-Normal left ventricular cavity size. Normal left ventricular systolic function. No regional wall motion abnormalities. Left ventricular ejection fraction is estimated at 60 %. Grade II/IV diastolic dysfunction, moderately elevated filling pressures. 2-The right ventricle is normal in size and function. Normal right ventricular systolic pressure. 3-Moderately thickened mitral valve. No mitral valve stenosis. No mitral valve regurgitation. 4-Aortic valve sclerosis without stenosis or regurgitation. 5-Mild tricuspid valve regurgitation. 6-There is no pericardial effusion. 7-There are no prior echocardiogram studies to compare. - Will check blood pressure difference between both arms, are within reasonable range -She is on Coreg, will hold off for now due to alpha blocking effect -She is also on midodrine to raise her blood pressure, I am going to hold off for now watch her blood pressures ? Move her to the medical floors ? Placed on bedrest ? IV fluids will be discontinued today -UTI IV Rocephin, urine culture showing E. coli switch to cefdinir ? Aldosterone, renin, ACTH, DHEA pending ? Cortisol level, a.m. cortisol levels, within normal range -adrenal insufficiency, will order cosyntropin stimulation test in the morning, within reasonable range -For her orthostatic hypotension she has not responded to fludrocortisone/salt tablets, will switch her back to midodrine -She is now having sinus tachycardia, for which she was on Coreg originally, will switch to metoprolol # Full code -Lovenox for DVT prophylaxis Plan for today start midodrine, metoprolol monitor heart rates monitor blood pressure monitor orthostats PDMP PDMP Reviewed: Last Reviewed 09/22/24 16:30 by Peter Hager MD Attestations 2 Medical Necessity Statement*: Patient requires hospitalization for orthostatic hypotension Diagnoses Hypotension I95.9
--- NOTE | 2024-09-25 14:02 | P.NPUPN_ITS ---
Subjective NPU 2 Subjective: 44-year-old female currently on the CSU for orthostatic hypotension with a history of depression, impulse control disorder and otherwise specified and psychosis. The patient had reported no mood symptoms currently. There had been no significant changes since yesterday regarding her mood and she states that she has been feeling less depressed. She reported no worsening irritability or agitation with the reduction in Seroquel. She had been compliant on the unit and continued to express worry about her blood pressure being low. She denied any auditory or visual hallucinations today. Mental Status Exam 2 MSE Comments: This is an obese versus morbidly obese white female in hospital scrubs with poor grooming and limited eye contact. No abnormal movements except for psychomotor retardation. Cooperative with exam in mild to moderate distress. Speech was decreased rate and volume and childlike with some prolonged pauses between answers. Mood described as better. Her affect remained odd and subdued. Thought process was linear and logical. Thought content: Patient denied suicidal or homicidal ideation, there were no delusions reported or noted, she denied auditory or visual hallucinations. Attention and concentration appeared limited and memory appeared mostly reliable but none were formally tested. She alert and oriented x person and place. Insight and judgment appeared limited, impulse control impaired. Intellectual ability limited versus impaired. Vitals/I&O/Wt Last Vital Signs Temp 97.6 F 09/25/24 12:00 Pulse 120 H 09/25/24 12:00 Resp 20 H 09/25/24 12:00 BP 111/71 09/25/24 12:00 Pulse Ox 93 09/25/24 12:00 O2 Del Method Room Air 09/25/24 12:00 09/24/24 09/25/24 09/25/24 22:59 06:59 14:59 Intake Total 1360 / 2200 420 / 420 Balance 1360 / 2200 420 / 420 Weight last 48 hrs Weight 115.575 kg Weight 108.182 kg Data NPU 09/25/24 05:01 09/25/24 10:17 Micro: Microbiology 09/23/24 00:30 Urine Culture - Final Urine,Clean Catch Escherichia coli Microbiology 09/23/24 00:30 Urine,Clean Catch Urine Culture - Final Escherichia coli A&P Assessment and plan (1) Schizophrenia: (2) Anxiety disorder: (3) Suicidal ideation: (4) Personality disorder, unspecified: (5) Depression: (6) Suicidal ideation: (7) Morbid obesity: (8) Mild intellectual disability: Plan Patient is a 44-year-old white female with multiple medical issues and history of anxiety, depression and a history of possible misuse of opiate medications in the past, who was hospitalized last couple years ago and presents again but this time with a reported active overdose on the Neurontin. 1. Evaluate for polypharmacy and consider cleaning up the medication regiment. Continue Luvox 150mg daily and continue risperidal at 1mg at night. Patient continue caplyta at 42mg daily. Continue Buspirone 15mg tid. 2. Engage patient in individual group and milieu therapy. 3. Continue every 15 minute checks for safety. 4. Evaluate against the backdrop of the 96-hour hold. 5. Obtain collateral information. PDMP PDMP Reviewed: Not Reviewed Involuntary Hold Information 2 Hold Status: Legal Status: 96 Hour Hold Date/Time Hold Expires: 09/22/24 @ 10:45 96 Hour Hold: 96 Hour Involuntary Admission: No Attestations NPU 2 Medical Necessity Statement*: Inpatient hospitalization is medically necessary and the clinically appropriate intervention at this time. We will occasions to make changes as indicated with likely length of stay of 2-3 days. Coding Level of Care Code Acute Code for [facility] Fwd Diagnoses Schizophrenia F20.9 Anxiety disorder, unspecified type F41.9 Suicidal ideation R45.851 Personality disorder, unspecified F60.9 Depression F32.A Morbid obesity E66.01 Mild intellectual disability F70
--- NOTE | 2024-09-25 14:59 | ECG_ITS ---
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 ([email or web address]) montgomery va medical centerFront Stream Paymentsuniversity hospitals par[facility].[email or web address]/store/OM/[id number]
[2024-09-25 17:02] LABS: Troponin 5 6HR Delta 0.00001 ng/L (0-12)
[2024-09-25 17:25] LABS: Glucose Point of Care 97 mg/dL (70-110)
[2024-09-25 20:29] LABS: Glucose Point of Care 91 mg/dL (70-110)
[2024-09-25] MEDS: FLUVOXAMINE 150 MG 150 EACH PO (22:09)
[2024-09-25] MEDS: nortriptyline 25 mg Capsule 50 MG PO (22:13)
[2024-09-25] MEDS: risperiDONE 2 mg Tablet 1 MG PO (22:14)
[2024-09-25] MEDS: enoxaparin 40 mg/0.4 mL Syringe SUBCUT (22:15)
[2024-09-25] MEDS: trazodone 150 mg Tablet PO (23:01)
[2024-09-26] VITALS (20 sets, daily range): BP systolic 46–113; BP diastolic 34–80; PULSE 65–116; RESP 10–22; TEMP 36.4–36.8; O2SAT 85–97
[2024-09-26] MEDS: levothyroxine 100 mcg Tablet PO (05:12)
[2024-09-26] MEDS: acetaminophen 325 mg Tablet 650 MG PO (05:12)
[2024-09-26] MEDS: midodrine 5 mg TABLET 10 MG PO ×3 (05:13→19:52)
[2024-09-26 07:20] LABS: Glucose Point of Care 100 mg/dL (70-110)
[2024-09-26] MEDS: tizanidine 4 mg Tablet PO ×2 (08:07→18:11)
[2024-09-26] MEDS: sitagliptin 100 mg Tablet 25 MG PO (09:53)
[2024-09-26] MEDS: gabapentin 400 mg Capsule 800 MG PO ×2 (09:54→14:49)
[2024-09-26] MEDS: BuSPIRONE 10 mg Tablet 15 MG PO (09:55)
[2024-09-26] MEDS: pantoprazole DR 40 mg Tablet PO (09:56)
[2024-09-26] MEDS: cefdinir 300 MG CAPSULE PO ×2 (09:56→18:11)
[2024-09-26] MEDS: cetirizine 10 mg Tablet PO (09:56)
[2024-09-26] MEDS: NON-FORMULARY MEDICATION (Lumateperone [Caplyta] 42 mg capsule) 42 EACH PO (09:58)
[2024-09-26] MEDS: NON-FORMULARY MEDICATION (Dapagliflozin Propanediol [Farxiga] 10 mg tablet) 10 EACH PO (10:10)
[2024-09-26 11:42] LABS: Glucose Point of Care 84 mg/dL (70-110)
--- NOTE | 2024-09-26 12:04 | W.PM.NPUPNS ---
Subjective NPU Subjective: 44-year-old female currently on the CSU for orthostatic hypotension with a history of depression, impulse control disorder and otherwise specified and psychosis. No mood complaints noted. Patient's psychiatric medications continue to be adjusted secondary to polypharmacy issues. She continued to have episodes of orthostasis. Patient reports that her mood has been okay. She continues to struggle with managing chronic worry. Mental Status Exam MSE Comments: This is an obese versus morbidly obese white female in hospital scrubs with poor grooming and limited eye contact. No abnormal movements except for psychomotor retardation. Cooperative with exam in mild to moderate distress. Speech was decreased rate and volume and childlike with some prolonged pauses between answers. Mood described as anxious. Her affect was mood congruent and anxious. Thought process was linear and logical. Thought content: Patient denied suicidal or homicidal ideation, there were no delusions reported or noted, she denied auditory or visual hallucinations. Attention and concentration appeared limited and memory appeared mostly reliable but none were formally tested. She alert and oriented x person and place. Insight and judgment appeared limited, impulse control impaired. Intellectual ability limited versus impaired. Vitals/I&O/Wt Last Vital Signs Temp 97.5 F L 09/26/24 11:37 Pulse 78 09/26/24 11:37 Resp 19 H 09/26/24 11:37 BP 89/60 09/26/24 11:37 Pulse Ox 95 09/26/24 11:37 O2 Del Method Room Air 09/26/24 11:37 09/25/24 09/26/24 09/26/24 22:59 06:59 14:59 Intake Total 600 / 1260 800 / 2060 480 / 480 Balance 600 / 1260 800 / 2060 480 / 480 Weight last 48 hrs Weight 115.575 kg Data NPU 09/25/24 05:01 09/25/24 10:17 Micro: Microbiology 09/23/24 00:30 Urine Culture - Final Urine,Clean Catch Escherichia coli Microbiology 09/23/24 00:30 Urine,Clean Catch Urine Culture - Final Escherichia coli A&P Assessment and plan (1) Schizophrenia: (2) Anxiety disorder: (3) Suicidal ideation: (4) Personality disorder, unspecified: (5) Depression: (6) Suicidal ideation: (7) Morbid obesity: (8) Mild intellectual disability: Plan Patient is a 44-year-old white female with multiple medical issues and history of anxiety, depression and a history of possible misuse of opiate medications in the past, who was hospitalized last couple years ago and presents again but this time with a reported active overdose on the Neurontin. 1. Evaluate for polypharmacy and consider cleaning up the medication regiment. Continue Luvox 150mg daily and reduce risperidone to .5mg at night. Patient continue caplyta at 42mg daily. Reduce buspar to 10mg tid, continue nortryptiline. Concern over serotonin syndrome, 2. Engage patient in individual group and milieu therapy. 3. Continue every 15 minute checks for safety. 4. Evaluate against the backdrop of the 96-hour hold. 5. Obtain collateral information. PDMP PDMP Reviewed: Not Reviewed Involuntary Hold Information Hold Status: Legal Status: 96 Hour Hold Date/Time Hold Expires: 09/22/24 @ 10:45 96 Hour Hold: 96 Hour Involuntary Admission: No Attestations NPU Medical Necessity Statement*: NA/ patient not needing psychiatric hospitalization but remains hospitalized on medical unit due to hypotension. Coding Level of Care Code Acute Code for [facility] Diagnoses Schizophrenia F20.9 Anxiety disorder, unspecified type F41.9 Suicidal ideation R45.851 Personality disorder, unspecified F60.9 Depression F32.A Morbid obesity E66.01 Mild intellectual disability F70
[2024-09-26] MEDS: BuSPIRONE 10 mg Tablet PO ×2 (14:49→21:44)
[2024-09-26] MEDS: fludrocortisone 0.1 mg Tablet PO (14:49)
[2024-09-26] MEDS: ondansetron 4 MG Tablet PO (15:16)
[2024-09-26 15:42] LABS: Basophils % 0.2 %; Eosinophils % 0.4 %; Hematocrit 41.7 % (36-47); Lymphocytes # 0.6 10^3/uL (0.8-4.8); Lymphocytes % 5.8 %; Mean Corpuscular Volume 93.1 fl (85-98); Mean Platelet Volume 9.2 fL (7.4-10.4); Monocytes # 0.9 10^3/uL (0.2-0.9); Monocytes % 8.4 %; Neutrophils # 9.46 10^3/uL (1.8-7.7); Neutrophils % 84.8 %; Nucleated Red Blood Cells % 0 %; Platelet Count 303 10^3/cmm (157-399); Red Blood Count 4.48 10^6/uL (3.85-5.65); Red Cell Distribution Width 24.7 % (12.1-15.1); White Blood Count 11.13 10^3/uL (3.29-11.43)
[2024-09-26 15:48] LABS: Alanine Aminotransferase 19 U/L (0-33); Albumin Level 3.7 g/dL (3.5-5.2); Alkaline Phosphatase 167 U/L (35-105); Anion Gap 17.4 (5-19); Aspartate Amino Transferase 23 U/L (0-32); Blood Urea Nitrogen 22 mg/dL (6-20); Calcium 8.9 mg/dL (8.5-10.5); Carbon Dioxide 22 mmol/L (22-29); Chloride 97 mmol/L (98-107); Creatinine Clr Calc Pharmacy 86.7097; Globulin 3.2 g/dL (1.3-4.6); Glomerular Filtration Rate 53.5 mL/min (90-130); Glucose 149 mg/dL (65-115); Osmolality Calculated 280 mOsm/kg (285-295); Potassium 4.4 mmol/L (3.5-5.1); Sodium 132 mmol/L (136-145); Total Bilirubin 0.2 mg/dL (0.15-1.2); Total Protein 6.9 g/dL (6.6-8.7)
[2024-09-26 16:52] LABS: Glucose Point of Care 127 mg/dL (70-110)
[2024-09-26] MEDS: metoprolol tartrate 25 mg Tablet 12.5 MG PO (18:10)
--- NOTE | 2024-09-26 18:29 | PM.PN ---
Subjective Subjective: This morning blood pressure is low and she is not appearing well, with nausea, malaise. Vitals/I&O/Wt Last Vital Signs Temp 97.8 F 09/26/24 15:45 Pulse 116 H 09/26/24 15:45 Resp 21 H 09/26/24 15:45 BP 95/62 09/26/24 15:45 Pulse Ox 96 09/26/24 15:45 O2 Del Method Room Air 09/26/24 15:45 09/26/24 09/26/24 09/26/24 06:59 14:59 22:59 Intake Total 800 / 2060 960 / 960 Balance 800 / 2060 960 / 960 Weight last 48 hrs Weight 115.575 kg Physical Exam Const: COMMON NORMALS: patient oriented x3 and alert GENERAL APPEARANCE: cooperative ORIENTATION/CONSCIOUSNESS: Yes awake HENMT: COMMON NORMALS: oropharynx normal Neck/C-Spine: COMMON NORMALS: no JVD Resp: COMMON NORMALS: normal respiratory effort and clear to auscultation bilaterally AUSCULTATION: clear to auscultation bilaterally Cardio: COMMON NORMALS: no JVD, regular rhythm, S1 normal heart sound present, S2 normal heart sound present and No murmurs present (Cardio) RHYTHM: regular rhythm HEART SOUNDS: S1 normal heart sound present and S2 normal heart sound present GI: COMMON NORMALS: Normal to inspection, nondistended, normoactive bowel sounds present, Soft to palpation and non-tender PALPATION: Yes Soft to palpation Extremity: COMMON NORMALS: no joint enlargement and no pedal edema Neuro: COMMON NORMALS: patient oriented x3 and moves all extremities SENSORIUM/ORIENTATION: Yes alert Skin: COMMON NORMALS: no rashes or lesions noted GENERAL SKIN EXAM: no rashes or lesions noted Data 09/26/24 15:24 09/26/24 15:24 A&P Assessment and plan (1) Hypotension: -Orthostatic hypotension, positive orthostatic vitals, symptomatic Significantly hypotensive this morning, blood pressure down to 55/35, placed on bedrest. Continued on midodrine. Restarted fludrocortisone. Blood pressure with improvement up to 95/62. Continue orthostatic precautions at this time. Reviewed cortisol response to cosyntropin stimulation test, noted just adequate response. TSH noted normal. Possibly related to gabapentin toxicity, decrease gabapentin dose to 300 mg 3 times daily. Consider further weaning down and off depending on blood pressures and tolerance. Monitor for risk of fluid overload with resumption of fludrocortisone. Could consider pyridostigmine in case lack response to fludrocortisone, although. Pyridostigmine is rarely well-tolerated. Possible postural orthostatic tachycardia syndrome. Requested to have her set up with some compression hose as well. In case of persistent severe symptoms, inability to resume ambulation, may need to be set up with a wheelchair. Reviewed echocardiogram, normal ejection fraction, grade 1 diastolic dysfunction. No regional wall motion abnormality. Noted mild to moderate aortic valve regurgitation. Given severity of orthostasis, hypotension, for now can continue psychiatric follow-up and management while on cardiac stepdown unit until blood pressure improves enough to be able to return to neuropsychiatric unit. Monitor intake and output, although I do not see evidence of polyuria at this time. No documented other excess losses. Metoprolol 12.5 mg if not hypotensive, although in case of recurrent hypotension may need to be discontinued. Monitor for risk of hypotension Discussed with nursing, immigration case worker. Reviewed psychiatry note. -Cardiac echocardiogram in January 2021 CONCLUSIONS 1-Normal left ventricular cavity size. Normal left ventricular systolic function. No regional wall motion abnormalities. Left ventricular ejection fraction is estimated at 60 %. Grade II/IV diastolic dysfunction, moderately elevated filling pressures. 2-The right ventricle is normal in size and function. Normal right ventricular systolic pressure. 3-Moderately thickened mitral valve. No mitral valve stenosis. No mitral valve regurgitation. 4-Aortic valve sclerosis without stenosis or regurgitation. 5-Mild tricuspid valve regurgitation. 6-There is no pericardial effusion. 7-There are no prior echocardiogram studies to compare. ? Placed on bedrest -UTI IV Rocephin, urine culture showing E. coli switch to cefdinir ? Aldosterone, renin, ACTH, DHEA pending # Full code -Lovenox for DVT prophylaxis PDMP PDMP Reviewed: Not Reviewed Attestations Medical Necessity Statement*: Continue assess management of severe disabling episode of hypotension, requiring bedrest, with episode of supine hypotension today, possible medication toxicity. and High MDM includes amount and/or complexity of data reviewed/ordered [ previous or external records, resulted lab(s)/test(s), ordered lab(s)/test(s) and other healthcare professional discussion] and described risk of complication, morbidity or mortality of management as documented Diagnoses Hypotension I95.9
--- NOTE | 2024-09-26 18:47 | PC.NURSE ---
patient to come off NPU floor at 1900 per Emilie Varma warehouse order selector. Dr Parada released patient from psychiatric care. Sitter stopped at 1900 as well
--- NOTE | 2024-09-26 19:35 | PC.NURSE ---
at 1900 pt stated she felt dizzy.pt had been resting quietly in bed.bp 75/54...hr 105.dr saldana notified.he ordered to perform cheetah fluid assessment.cheetah indicates that pt is fluid responsive.he ordered 250 cc ns bolus...and to check bp in 1/2 hr...if sbp <70...give a second 250 cc ns bolus.this was relayed to oncoming shift nurse,rubina
[2024-09-26] MEDS: sodium chloride 0.9% 250 ML 999 ML IV (19:52)
[2024-09-26 20:54] LABS: Glucose Point of Care 135 mg/dL (70-110)
[2024-09-26] MEDS: gabapentin 300 mg Capsule PO (21:45)
[2024-09-26] MEDS: FLUVOXAMINE 150 MG 150 EACH PO (21:45)
[2024-09-26] MEDS: enoxaparin 40 mg/0.4 mL Syringe SUBCUT (21:46)
[2024-09-26] MEDS: nortriptyline 25 mg Capsule 50 MG PO (21:46)
[2024-09-26] MEDS: risperiDONE 1 mg Tablet 0.5 MG PO (21:46)
[2024-09-26] MEDS: sodium chloride 0.9% 1,000 ML 999 ML IV (22:49)
[2024-09-27] VITALS (22 sets, daily range): BP systolic 56–116; BP diastolic 41–76; PULSE 43–121; RESP 12–21; TEMP 36.4–37.1; O2SAT 90–97
[2024-09-27] MEDS: sodium chloride 0.9% 1,000 ML 75 ML IV (00:28)
[2024-09-27 03:30] LABS: Basophils % 0.3 %; Eosinophils # 0.1 10^3/uL (0.0-0.8); Eosinophils % 1.6 %; Hematocrit 36.7 % (36-47); Lymphocytes # 0.7 10^3/uL (0.8-4.8); Lymphocytes % 12.1 %; Mean Corpuscular HGB Conc 29.7 g/dL (30-55); Mean Corpuscular Hemoglobin 27.7 pg (27-33); Mean Corpuscular Volume 93.1 fl (85-98); Mean Platelet Volume 9.3 fL (7.4-10.4); Monocytes # 0.6 10^3/uL (0.2-0.9); Monocytes % 9.9 %; Neutrophils # 4.38 10^3/uL (1.8-7.7); Neutrophils % 75.8 %; Nucleated Red Blood Cells % 0 %; Platelet Count 254 10^3/cmm (157-399); Red Blood Count 3.94 10^6/uL (3.85-5.65); Red Cell Distribution Width 24.4 % (12.1-15.1); White Blood Count 5.78 10^3/uL (3.29-11.43)
[2024-09-27] MEDS: tizanidine 4 mg Tablet PO (03:45)
[2024-09-27] MEDS: midodrine 5 mg TABLET 10 MG PO ×3 (03:45→21:12)
[2024-09-27 03:54] LABS: Alanine Aminotransferase 18 U/L (0-33); Albumin Level 3.5 g/dL (3.5-5.2); Alkaline Phosphatase 135 U/L (35-105); Anion Gap 13.8 (5-19); Aspartate Amino Transferase 19 U/L (0-32); Blood Urea Nitrogen 21 mg/dL (6-20); Calcium 8.2 mg/dL (8.5-10.5); Carbon Dioxide 25 mmol/L (22-29); Chloride 104 mmol/L (98-107); Creatinine Clr Calc Pharmacy 105.9785; Globulin 2.8 g/dL (1.3-4.6); Glomerular Filtration Rate 67.4 mL/min (90-130); Glucose 104 mg/dL (65-115); Osmolality Calculated 291 mOsm/kg (285-295); Potassium 3.8 mmol/L (3.5-5.1); Sodium 139 mmol/L (136-145); Total Bilirubin 0.3 mg/dL (0.15-1.2); Total Protein 6.3 g/dL (6.6-8.7)
[2024-09-27] MEDS: ondansetron 4 MG Tablet PO (05:15)
[2024-09-27] MEDS: levothyroxine 100 mcg Tablet PO (05:15)
[2024-09-27 05:30] LABS: Glucose Point of Care 190 mg/dL (70-110)
--- NOTE | 2024-09-27 06:22 | PC.NURSE ---
1855 - Called Dr. Villanueva regarding patient BP. Patient recieved 250 ml bolus for low BP at beginning of shift. SBP above 70 so second bolus not given however BP is staying in 80's and patient endorsing dizziness. Per Dr. Villanueva give 1L bolus NS and keep maintance fluids at 75ml/hr.
[2024-09-27 06:23] LABS: Glucose Point of Care 138 mg/dL (70-110)
[2024-09-27] MEDS: sitagliptin 100 mg Tablet 25 MG PO (08:44)
[2024-09-27] MEDS: NON-FORMULARY MEDICATION (Lumateperone [Caplyta] 42 mg capsule) 42 EACH PO (08:44)
[2024-09-27] MEDS: cetirizine 10 mg Tablet PO (08:44)
[2024-09-27] MEDS: NON-FORMULARY MEDICATION (Dapagliflozin Propanediol [Farxiga] 10 mg tablet) 10 EACH PO (08:44)
[2024-09-27] MEDS: gabapentin 300 mg Capsule PO ×3 (08:44→21:12)
[2024-09-27] MEDS: fludrocortisone 0.1 mg Tablet PO (08:44)
[2024-09-27] MEDS: pantoprazole DR 40 mg Tablet PO (08:44)
[2024-09-27] MEDS: BuSPIRONE 10 mg Tablet PO ×3 (08:44→21:12)
[2024-09-27] MEDS: cefdinir 300 MG CAPSULE PO ×2 (08:44→16:15)
--- NOTE | 2024-09-27 08:56 | PC.SOCIAL ---
IMM Update Pg.2 of IMM Updated, copy in chart initialed/dated/timed. Copy provided at bedside.
--- NOTE | 2024-09-27 11:14 | PC.NURSE ---
Patient wanted her compression stockings off due to them causing her pain. Informed Dr Hager.
[2024-09-27 11:51] LABS: Glucose Point of Care 98 mg/dL (70-110)
--- NOTE | 2024-09-27 13:41 | P.NPUPN_ITS ---
Subjective NPU 2 Subjective: 44-year-old female currently on the CSU for orthostatic hypotension with a history of depression, impulse control disorder and otherwise specified and psychosis. The patient reported no mood symptoms. She continues to have some evidence of orthostasis. She denied any thoughts of hurting herself or others today. Mental Status Exam 2 MSE Comments: This is an obese versus morbidly obese white female in hospital scrubs with poor grooming and limited eye contact. No abnormal movements except for psychomotor retardation. Cooperative with exam in mild to moderate distress. Speech was decreased rate and volume and childlike with some prolonged pauses between answers. Mood described as anxious. Her affect was mood congruent and anxious. Thought process was linear and logical. Thought content: Patient denied suicidal or homicidal ideation, there were no delusions reported or noted, she denied auditory or visual hallucinations. Attention and concentration appeared limited and memory appeared mostly reliable but none were formally tested. She alert and oriented x person and place. Insight and judgment appeared limited, impulse control impaired. Intellectual ability limited versus impaired. Vitals/I&O/Wt Last Vital Signs Temp 97.9 F 09/27/24 11:53 Pulse 82 09/27/24 11:53 Resp 13 09/27/24 11:53 BP 107/69 09/27/24 11:53 Pulse Ox 94 09/27/24 11:53 O2 Del Method Room Air 09/27/24 11:53 09/26/24 09/27/24 09/27/24 22:59 06:59 14:59 Intake Total 610 / 1570 735 / 2305 2345 / 2345 Balance 610 / 1570 735 / 2305 2345 / 2345 Data NPU 09/27/24 02:48 09/27/24 02:48 A&P Assessment and plan (1) Schizophrenia: (2) Anxiety disorder: (3) Suicidal ideation: (4) Personality disorder, unspecified: (5) Depression: (6) Suicidal ideation: (7) Morbid obesity: (8) Mild intellectual disability: Plan Patient is a 44-year-old white female with multiple medical issues and history of anxiety, depression and a history of possible misuse of opiate medications in the past, who was hospitalized last couple years ago and presents again but this time with a reported active overdose on the Neurontin. 1. Evaluate for polypharmacy and consider cleaning up the medication regiment. Continue Luvox 150mg daily, d/c Nortryptiline, d/c risperidone Patient continue caplyta at 42mg daily. Reduce buspar to 10mg tid, Concern over serotonin syndrome, 2. Engage patient in individual group and milieu therapy. 3. Continue every 15 minute checks for safety. 4. Evaluate against the backdrop of the 96-hour hold. 5. Obtain collateral information. PDMP PDMP Reviewed: Not Reviewed Involuntary Hold Information 2 Hold Status: Legal Status: 96 Hour Hold Date/Time Hold Expires: 09/22/24 @ 10:45 96 Hour Hold: 96 Hour Involuntary Admission: No Attestations NPU 2 Medical Necessity Statement*: Continue on medical service, no longer needing psychiatric hospitalization but will continue to consult. Coding Level of Care Code Acute Code for [facility] Diagnoses Schizophrenia F20.9 Anxiety disorder, unspecified type F41.9 Suicidal ideation R45.851 Personality disorder, unspecified F60.9 Depression F32.A Morbid obesity E66.01 Mild intellectual disability F70
--- NOTE | 2024-09-27 13:48 | P.PN_ITS ---
Subjective 2 Subjective: Patient was seen this morning, she is alert oriented x 3, following all commands, she does report dizziness upon standing up, and ambulating, discussed having nursing staff ambulate her, checking orthostatic vitals she has compression stockings on, discussed midodrine, fludrocortisone. Discussed with psychiatry, patient is on nortriptyline, risperidone, Caplyta which worsens with orthostatic hypotension if we could minimize him as best as possible, Vitals/I&O/Wt Last Vital Signs Temp 97.9 F 09/27/24 11:53 Pulse 82 09/27/24 11:53 Resp 13 09/27/24 11:53 BP 107/69 09/27/24 11:53 Pulse Ox 94 09/27/24 11:53 O2 Del Method Room Air 09/27/24 11:53 09/26/24 09/27/24 09/27/24 22:59 06:59 14:59 Intake Total 610 / 1570 735 / 2305 2345 / 2345 Balance 610 / 1570 735 / 2305 2345 / 2345 Physical Exam 2 Const: COMMON NORMALS: no acute distress and patient oriented x3 Resp: COMMON NORMALS: normal respiratory effort, No retractions, No use of accessory muscles and clear to auscultation bilaterally AUSCULTATION: clear to auscultation bilaterally Cardio: COMMON NORMALS: regular rate, regular rhythm, S1 normal heart sound present and S2 normal heart sound present RATE: regular rate RHYTHM: r egular rhythm HEART SOUNDS: S1 normal heart sound present and S2 normal heart sound present GI: COMMON NORMALS: Normal to inspection, nondistended, normoactive bowel sounds present and non-tender Extremity: COMMON NORMALS: no pedal edema Neuro: COMMON NORMALS: patient oriented x3 Psych: COMMON NORMALS: mental status grossly normal Data 09/27/24 02:48 09/27/24 02:48 A&P Assessment and plan (1) Hypotension: -Orthostatic hypotension, positive orthostatic vitals, symptomatic -Remains orthostatic positive -Cardiac echocardiogram in January 2021 CONCLUSIONS 1-Normal left ventricular cavity size. Normal left ventricular systolic function. No regional wall motion abnormalities. Left ventricular ejection fraction is estimated at 60 %. Grade II/IV diastolic dysfunction, moderately elevated filling pressures. 2-The right ventricle is normal in size and function. Normal right ventricular systolic pressure. 3-Moderately thickened mitral valve. No mitral valve stenosis. No mitral valve regurgitation. 4-Aortic valve sclerosis without stenosis or regurgitation. 5-Mild tricuspid valve regurgitation. 6-There is no pericardial effusion. 7-There are no prior echocardiogram studies to compare. - Will check blood pressure difference between both arms, are within reasonable range -She is on Coreg, will hold off for now due to alpha blocking effect ? Move her to the medical floors ? Placed on bedrest ? IV fluids will be discontinued today -UTI IV Rocephin, urine culture showing E. coli switch to cefdinir ? Aldosterone, renin, ACTH, DHEA pending ? Cortisol level, a.m. cortisol levels, within normal range -adrenal insufficiency, will order cosyntropin stimulation test in the morning, within reasonable range -He is on midodrine 10 every 8 hours, fludrocortisone, with persistent orthostatic hypotension, KAYLA hose -Potentially polypharmacy playing a role? See if we can reduce dose of risperidone, Caplyta -She is now having sinus tachycardia, will use low-dose metoprolol # Full code -Lovenox for DVT prophylaxis Plan for today monitor orthostatic vitals, reduced doses of psychiatric medications PDMP PDMP Reviewed: Last Reviewed 09/22/24 16:30 by Peter Hager MD Attestations 2 Medical Necessity Statement*: Patient requires hospitalization orthostatic hypotension Diagnoses Hypotension I95.9
--- NOTE | 2024-09-27 14:54 | PC.NURSE ---
Patient ambulated in the [facility]. BP after ambulation is 116/76
[2024-09-27] MEDS: hyDROXYzine 25 mg Capsule 50 MG PO (16:15)
[2024-09-27 16:32] LABS: Glucose Point of Care 104 mg/dL (70-110)
[2024-09-27] MEDS: enoxaparin 40 mg/0.4 mL Syringe SUBCUT (21:12)
[2024-09-27] MEDS: FLUVOXAMINE 150 MG 150 EACH PO (21:12)
[2024-09-27] MEDS: trazodone 150 mg Tablet PO (21:13)
[2024-09-27 23:35] LABS: Adrenocorticotropic Hormone 15 pg/mL (6-50)
[2024-09-28 00:57] VITALS: BP 106/80; PULSE 77; RESP 20; TEMP 37.1; O2SAT 95
[2024-09-28] MEDS: midodrine 5 mg TABLET 10 MG PO ×2 (03:16→13:49)
[2024-09-28] MEDS: tizanidine 4 mg Tablet 2 MG PO ×2 (03:16→10:13)
[2024-09-28 04:00] VITALS: BP 106/80; PULSE 77; RESP 20; TEMP 37.1
[2024-09-28 05:18] LABS: PROTEIN, TOTAL 5.9 g/dL (6.1-8.1)
[2024-09-28] MEDS: levothyroxine 100 mcg Tablet PO (05:44)
[2024-09-28 07:00] VITALS: BP 101/66; BP 101/74; BP 105/80; PULSE 101; PULSE 78; PULSE 90
[2024-09-28 07:16] VITALS: BP 105/80; PULSE 78; RESP 24; TEMP 36.6; O2SAT 95
[2024-09-28] MEDS: pantoprazole DR 40 mg Tablet PO (08:28)
[2024-09-28] MEDS: sitagliptin 100 mg Tablet 25 MG PO (08:28)
[2024-09-28] MEDS: cetirizine 10 mg Tablet PO (08:29)
[2024-09-28] MEDS: cefdinir 300 MG CAPSULE PO (08:29)
[2024-09-28] MEDS: gabapentin 300 mg Capsule PO (08:29)
[2024-09-28] MEDS: BuSPIRONE 10 mg Tablet PO (08:29)
[2024-09-28] MEDS: fludrocortisone 0.1 mg Tablet PO (08:29)
[2024-09-28] MEDS: NON-FORMULARY MEDICATION (Lumateperone [Caplyta] 42 mg capsule) 42 EACH PO (08:30)
[2024-09-28 09:31] LABS: Reticulocyte % 1.7 % (0.5-2.0)
[2024-09-28 09:54] LABS: Ferritin 103 ng/mL (15-150); Iron 93 ug/dL (37-145); Percent Saturation 27.6 % (20-50); Total Iron Binding Capacity 336 mcg/dl; Unsaturated Iron Binding 243 ug/dL (112-347)
--- NOTE | 2024-09-28 11:29 | P.PN_ITS ---
Subjective 2 Subjective: Patient was seen this morning, she walked the hallways yesterday afternoon, no significant orthostatic hypotension lightheadedness, dizziness she took a shower she tells me, this morning she denies any lightheadedness, no dizziness, her orthostats are minimal today. We discussed that likely a significant component of orthostatic hypotension is her psychotropic medications, we have a eliminated nortriptyline, and she should try to avoid this as much as possible in the near future. We also reduced her dose of gabapentin to 300 mg 3 times daily. In addition her risperidone has been discontinued. The only other medication I would say is lumateperone is currently at 42 mg daily, I would limit any further increases. In terms of her Zanaflex she should use it sparingly. And in the future, she should let physicians know that are adjusting her medications that she has severe orthostatic hypotension and is sensitive to psychotropic medications. Nonetheless we will discharge her on midodrine, fludrocortisone, with close follow-up with cardiology as outpatient. Follow-up with a primary care physician as outpatient. Vitals/I&O/Wt Last Vital Signs Temp 97.8 F 09/28/24 07:16 Pulse 78 09/28/24 07:16 Resp 24 H 09/28/24 07:16 BP 105/80 09/28/24 07:16 Pulse Ox 95 09/28/24 07:16 O2 Del Method Room Air 09/28/24 07:16 09/27/24 09/28/24 09/28/24 22:59 06:59 14:59 Intake Total 240 / 3065 120 / 120 Balance 240 / 3065 120 / 120 Physical Exam 2 Const: COMMON NORMALS: no acute distress and patient oriented x3 Resp: COMMON NORMALS: normal respiratory effort, No retractions, No use of accessory muscles and clear to auscultation bilaterally AUSCULTATION: clear to auscultation bilaterally Cardio: COMMON NORMALS: regular rate, regular rhythm, S1 normal heart sound present and S2 normal heart sound present RATE: regular rate RHYTHM: r egular rhythm HEART SOUNDS: S1 normal heart sound present and S2 normal heart sound present GI: COMMON NORMALS: Normal to inspection, nondistended, normoactive bowel sounds present and non-tender Extremity: COMMON NORMALS: no pedal edema Neuro: COMMON NORMALS: patient oriented x3 Psych: COMMON NORMALS: mental status grossly normal Data 09/27/24 02:48 09/27/24 02:48 A&P Assessment and plan (1) Hypotension: -Orthostatic hypotension, positive orthostatic vitals, symptomatic -Remains orthostatic positive -Cardiac echocardiogram in January 2021 CONCLUSIONS 1-Normal left ventricular cavity size. Normal left ventricular systolic function. No regional wall motion abnormalities. Left ventricular ejection fraction is estimated at 60 %. Grade II/IV diastolic dysfunction, moderately elevated filling pressures. 2-The right ventricle is normal in size and function. Normal right ventricular systolic pressure. 3-Moderately thickened mitral valve. No mitral valve stenosis. No mitral valve regurgitation. 4-Aortic valve sclerosis without stenosis or regurgitation. 5-Mild tricuspid valve regurgitation. 6-There is no pericardial effusion. 7-There are no prior echocardiogram studies to compare. - Will check blood pressure difference between both arms, are within reasonable range -She is on Coreg, will hold off for now due to alpha blocking effect ? Move her to the medical floors ? Off bedrest ? IV fluids have been discontinued -UTI IV Rocephin, urine culture showing E. coli switch to cefdinir, will be discharged on 2 days of cefdinir ? Aldosterone, renin, ACTH, DHEA pending ? Cortisol level, a.m. cortisol levels, within normal range -adrenal insufficiency, will order cosyntropin stimulation test in the morning, within reasonable range -He is on midodrine 10 every 8 hours, fludrocortisone, with persistent orthostatic hypotension, KAYLA hose - polypharmacy playing a role, risperidone, nortriptyline have been stopped, with improvement of blood pressures -Sinus tachycardia, continue low-dose metoprolol # Full code -Lovenox for DVT prophylaxis Plan for today discharge PDMP PDMP Reviewed: Last Reviewed 09/22/24 16:30 by Peter Hager MD Attestations 2 Medical Necessity Statement*: Patient will be discharged today Diagnoses Hypotension I95.9
[2024-09-28 12:00] VITALS: BP 99/77; PULSE 82; RESP 24; TEMP 36.8; O2SAT 97
[2024-09-28 12:02] LABS: Glucose Point of Care 124 mg/dL (70-110)
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
[2024-09-28 12:19] LABS: Creatinine, Random Urine 32 mg/dL (20-275); Protein, Total, Random 15 mg/dL (5-24); Protein/Creatinine Ratio 0.469 (0.024-0.184); Protein/Creatinine Ratio 469 mg/g creat (24-184)
[2024-09-28 15:25] LABS: Aldosterone LC/MS/MS <1 ng/dL
[2024-09-28 20:30] LABS: ALBUMIN 3.4 g/dL (3.8-4.8); ALPHA 1 GLOBULIN 0.3 g/dL (0.2-0.3); ALPHA 2 GLOBULIN 0.7 g/dL (0.5-0.9); BETA 1 GLOBULIN 0.4 g/dL (0.4-0.6); BETA 2 GLOBULIN 0.4 g/dL (0.2-0.5); GAMMA GLOBULIN 0.7 g/dL (0.8-1.7)
[2024-09-29 23:30] LABS: Plasma Renin Activity LC MS MS 2.11 ng/mL/h (0.25-5.82)
[2024-10-01 13:10] LABS: Cortisol ,Free,LC/MS, S 0.09 mcg/dL
[2024-10-04 15:54] LABS: Albumin,Urine Random 11 %; Alpha-1-Globulins Urine Random 13 %; Alpha-2-Globulins Urine Random 13 %; Beta-Globulin,Urine Random 15 %; Gamma Globulin,Urine Random 49 %
== END 2024-09-28 15:55 | disposition home or self-care (01) | DRG 885 ==
LOC: ER 10:56 → NP 11:00 → CSU 09-22 20:57
PROVIDERS: Family Medicine; Internal Medicine; Admitting Provider Psychiatry & Neurology Psychiatry; Emergency Provider Family Medicine; PCP Family Medicine; Visit Provider Psychiatry & Neurology Psychiatry
DX: F20.9 Schizophrenia, unspecified (principal); R45.851 Suicidal ideations; N39.0 Urinary tract infection, site not specified; T42.6X2A Poisoning by other antiepileptic and sedative-hypnotic drugs, intentional self-harm, initial encounter; F41.9 Anxiety disorder, unspecified; E66.01 Morbid (severe) obesity due to excess calories; E03.9 Hypothyroidism, unspecified; F70 Mild intellectual disabilities; I95.9 Hypotension, unspecified; F60.9 Personality disorder, unspecified; I95.1 Orthostatic hypotension; Z68.37 Body mass index [BMI] 37.0-37.9, adult; F32.A Depression, unspecified; Z98.84 Bariatric surgery status; Z90.49 Acquired absence of other specified parts of digestive tract; E11.9 Type 2 diabetes mellitus without complications; Z79.899 Other long term (current) drug therapy; Z79.890 Hormone replacement therapy; Z88.8 Allergy status to other drugs, medicaments and biological substances
CPT/HCPCS: 36415; 36416; 36600; 80048; 80051; 80053; 80061; 80306; 80307; 81001; 81003; 82024; 82088; 82330; 82530; 82533; 82570; 82607; 82627; 82728; 82746; 82805; 82962; 83036; 83540; 83550; 83605; 83735; 84100; 84145; 84155; 84156; 84165; 84166; 84244; 84439; 84443; 84481; 84484; 84703; 85025; 85045; 87077; 87086; 87186; 93005; 93306; 94664; 96372; 97150; 97165; 99285; A9270; J0696; J0834; J1650; J7030; J7050; J9999; Q0162

== ENCOUNTER 2025-03-28 12:44 | Inpatient (IN) | payer OTHER, MEDICAID, SELFPAY ==
[2025-03-28 13:06] VITALS: BP 121/76; PULSE 115; RESP 16; TEMP 37; O2SAT 95
--- OUTSIDE RECORDS SUMMARY | 2025-03-28 13:09 | XMS_ITS | Encounter Summary ---
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
--- OUTSIDE RECORDS SUMMARY | 2025-03-28 13:09 | XMS_ITS | Encounter Summary ---
Author Organization [facility] Address [address] [address] Phone Care Team Providers Care Artist Suspect Name Role Phone Almaz Bruce Nitin Primary Care Provider [phone] Reason for Visit * Reason Comments Med Refill Encounter Details Date Type Department Care Team (Late st Contact Info) Description 12/18/2023 Refill [facility] MEDICAL OFFICE BUILDING [address] [place] [address] [phone] Shane Cartagena MD [address] [place] [address] [phone] Metabolic acidosis Social History Tobacco Use Types Packs/Day Years Used Date Smoking Tobacco: Never Smokeless Tobacco: Never Alcohol Use Standard Drinks/Week Comments Never 0 (1 standard drink = 0.6 oz pur e alcohol) [facility] Utilities Answer Date Recorded In the past 12 months has [facility], gas, oil, or water [employer] threatened to shut off services in your home? No 09/22/2023 Humiliation, Afraid, Rape, and Kick questionnair e Answer Date Recorded Within the last year, have y ou been afraid of your partner or ex-partner? No 09/22/2023 Within the last year, have y ou been humiliated or emotionally abused in other ways by your partner or ex-partner? No Within the last year, have y ou been kicked, hit, slapped, or otherwise physically hurt by your partner or ex-partner? No 09/22/2023 Within the last year, have y ou been raped or forced to have any kind of sexual activity by your partner or ex-partner? No 09/22/2023 AUDIT-C Answer Date Recorded Q1: How often do you have a drink containing alcohol? Never 09/22/2023 Q2: How many drinks containi ng alcohol do you have on a typical day when you are drinking? Patient does not drink Q3: How often do you have si x or more drinks on one occasion? Never 09/22/2023 Overall Financial Resource Strain (CARDIA) Answe r Date Recorded How hard is it for you to pa y for the very basics like food, housing, medical care, and heating? Not hard at all 09/22/2023 PHQ-2 Answer Date Recorded Patient Health Questionnaire-2 Score 0 09/22/2023 Hunger Vital Sign Answer Date Recorded Within the past 12 months, y ou worried that your food would run out before you got the money to buy more. Never true 09/22/19 24 Within the past 12 months, t he food you bought just didn't last and you didn't have money to get more. Never true 09/22/2023 PRAPARE - Transportation Answer Date Re corded In the past 12 months, has l ack of transportation kept you from medical appointments or from getting medications? No 12/2023 In the past 12 months, has l ack of transportation kept you from meetings, work, or from getting things needed for daily living? No 09/22/2023 Housing Stability Vital Sign Answer Woody e Recorded In the last 12 months, was t here a time when you were not able to pay the mortgage or rent on time? No 09/22/2023 In the last 12 months, how many places have you lived? 1 09/22/2023 In the last 12 months, was t here a time when you did not have a steady place to sleep or slept in a long-term (including now)? No 09/22/2023 [facility] - Mental Health Answer Date Recorde d Little interest or pleasure in doing things Not at all 09/22/2023 Feeling down, depressed, or hopeless Not at all 09/22/2023 Feeling of Stress Not on file 09/22/2023 Comments Unknown Sex and Gender Information Value Date Recorded Sex Assigned at Not on file Legal Sex Female 5:11 AM LENDING MANAGER Gender Identity Not on file Sexual Orientation Not on file documented as of this encounter Functional Status * Are you deaf or do you have serious difficulty hearing? Answer Date of Assessment Author No 06/18/2021 2:19 PM LENDING MANAGER Bruce, Darl a, WATCH AND CLOCK MAKER AND REPAIRER * Are you blind or do you have serious difficulty seeing, even when wearing glasses? Answer Date of Assessment Author No 06/18/2021 2:19 PM LENDING MANAGER Bruce, Darl a, WATCH AND CLOCK MAKER AND REPAIRER * Do you have serious difficulty walking or climbing stairs? Answer Date of Assessment Author No 06/18/2021 2:19 PM LENDING MANAGER Bruce, Darl a, WATCH AND CLOCK MAKER AND REPAIRER * Do you have serious difficulty dressing or bathing? Answer Date of Assessment Author No 06/18/2021 2:19 PM LENDING MANAGER Bruce, Darl a, WATCH AND CLOCK MAKER AND REPAIRER * Because of a physical, mental, or emotional condition, do you have serious difficulty doing errandsalone such as visiting the doctor? Answer Date of Assessment Author No 06/18/2021 2:19 PM LENDING MANAGER Bruce, Darl a, WATCH AND CLOCK MAKER AND REPAIRER documented as of this encounter Mental Status * Because of a physical, mental, or emotional condition, do you have serious difficulty concentrating, remembering, or making decisions? (5 years old or older) Answer Entry Date Author No 06/18/2021 2:19 PM LENDING MANAGER Bruce, Darl a, WATCH AND CLOCK MAKER AND REPAIRER documented in this encounter Miscellaneous Notes * Telephone Encounter - KARLOS Erickson - 12/20/2023 8:13 AM CDT documented in this encounter Plan of Treatment Not on file documented as of this encounter Visit Diagnoses Diagnosis Metabolic acidosis Acidosis documented in this encounter Additional Health Concerns Infection Onset Date Last Indicated Resolved Time Influenza 09/22/2023 09/22/2023 documented as of this encounter Care Teams Artist Suspect Relationship Specialty Start Date End Date Bruce Muse Do [address] [place] [address] PCP - General 06/25/20 documented as of this encounter
--- OUTSIDE RECORDS SUMMARY | 2025-03-28 13:09 | XMS_ITS | Clinical Summary ---
Author Organization [facility] Address [address] [place] [address] Phone Care Team Providers Care Turner And Former Automatic Name Role Phone Terence Muse MD Primary Care Provider [phone] Allergies Active Allergy Reactions Criticality Noted Date Comments Aspirin Angioedema High 02/08/2009 Lips and jaw swell Duloxetine Other (See Comments) 04/19/2014 Suicidal thoughts Opioids - Morphine Analogues Other (See Comments) High 09/19/2020 OVERDOSE Hx Medications ferrous sulfate 325 mg (65 mg iron) tabletIndications :Iron deficiency anemia, unspecified iron deficiency anemia type Take 1 Tablet (325 mg) by mouth daily. 30 Tablet 5 1 Active escitalopram oxalate (LEXAPRO) 20 mg tabletIndications :Bipolar disorder, in partial remission, most recent episode mixed (CMS/HCC),Recurre nt major depressive disorder, in partial remission Take 1 Tablet (20 mg) by mouth daily. 30 Tablet 5 1 Active acetaminophen (TYLENOL) 500 mg tabletIndications :Chronic low back pain without sciatica, unspecified back pain laterality Take 2 Tablets (1,000 mg) by mouth every 6 hours as needed for Pain. 100 Tablet 5 1 Active ondansetron (Zofran ODT) 8 mg Tablet, Rapid Dissolve Dissolve 1 tablet on top of tongue then swallow with saliva every 8 hours as needed for nausea or vomiting 30 Tablet 1 Active levothyroxine 88 mcg tabletIndications :Hypothyroidism due to acquired atrophy of thyroid Take 1 Tablet (88 mcg) by mouth daily. 90 Tablet 1 1 Active fluticasone propionate (FLONASE) 50 mcg/spray [place], Suspension nasal inhaler Administer 2 Sprays in each nostril daily. 16 Gram 5 1 Active metoprolol tartrate (LOPRESSOR) 50 mg tabletIndications :Hypertension, essential Take 1 Tablet (50 mg) by mouth 2 times daily. 60 Tablet 5 1 Active albuterol HFA 90 mcg inhaler Take 2 Puffs by inhalation every 4 hours as needed for Wheezing. 8.5 Gram 1 Active inhalational spacing device Spacer Use with HFA 1 Each 1 Active lamoTRIgine (LaMICtal) 150 mg tabletIndications :Bipolar disorder, in partial remission, most recent episode mixed (CMS/HCC) Take 1 Tablet (150 mg) by mouth 2 times daily. 60 Tablet 5 1 Active naloxone (NARCAN) 4 mg/spray [place], Non-Aerosol EMERGENCY ONLY: 1 spray (4 mg) in one nostril one time. Repeat in alternating nostrils every 2-3 min until responsive or EMS arrives. 3 Each 3 1 Active magnesium oxide 400 mg magnesium TabletIndications :Chronic low back pain without sciatica, unspecified back pain laterality Take 800 mg by mouth daily at bedtime. For muscle pain 60 Tablet 5 1 Active busPIRone (BUSPAR) 7.5 mg TabletIndications :Anxiety disorder, unspecified type Take 1 Tablet (7.5 mg) by mouth 2 times daily. 60 Tablet 5 1 Active potassium chloride (K-Tab) 10 mEq Extended Release tablet Take 10 mEq by mouth 2 times daily. 1 Active gabapentin (NEURONTIN) 800 mg tablet Take 1 Tablet (800 mg) by mouth 3 times daily. 90 Tablet 1 1 Active tiZANidine (ZANAFLEX) 2 mg Tablet Take 1 Tablet (2 mg) by mouth every 6 hours as needed for Spasm. Take with tizanidine 4 mg tablet 90 Tablet 2 1 Active tiZANidine (ZANAFLEX) 4 mg Tablet Take 1 Tablet (4 mg) by mouth every 6 hours as needed for Spasm. Take with tizanidine 2 mg tablet 90 Tablet 2 1 Active etodolac (LODINE) 400 mg tablet Take 1 Tablet (400 mg) by mouth 2 times daily. 60 Tablet 2 1 Active risperiDONE (RisperDAL) 1 mg tabletIndications :Paranoid schizophrenia (CMS/HCC) Take 1 Tablet (1 mg) by mouth 2 times daily. 2 tabs po bid 60 Tablet 2 1 Active oxyCODONE (ROXICODONE) 10 mg tabletIndications :Closed displaced pilon fracture of right tibia with routine healing, subsequent encounter,Closed avulsion fracture of lateral malleolus, left, with routine healing, subsequent encounter Take 1 Tablet (10 mg) by mouth every 6 hours as needed for Pain, Severe. Max Daily Amount: 40 mg 56 Tablet 1 Active hydrOXYzine pamoate (VISTARIL) 50 mg capsuleIndication s:Anxiety disorder, unspecified type Take 1 Capsule (50 mg) by mouth 4 times daily as needed for Anxiety. Fill date 11/04/20 100 Capsule 2 1 Active Active Problems Problem Noted Date Diagnosed Date Other chronic postprocedural pain 01/09/2021 Anxiety disorder, unspecified 01/02/2021 Hypertensive left ventricula r hypertrophy, without heart failure 12/02/2020 Herpes zoster 09/13/2018 Overview (11/03/2020): Active Seasonal allergic rhinitis 09/13/2018 Overview (11/03/2020): Active Severe obesity (BMI 35.0-39.9) with comorbidity 04/22/2018 Bipolar disorder, in partial remission, most recent episode mixed 04/21/2018 Iron deficiency anemia 04/21/2018 Recurrent major depressive disorder, in partial remission 11/05/2016 Overview (11/05/2016): on wellbutrin and buspar and valium and mgmt per psych Hypothyroidism due to acquired atrophy of thyroi d 07/26/2015 Overview (07/26/2015): lab pending and will notify of results Routine general medical exam ination at a health care facility 10/08/2010 Resolved Problems Problem Noted Date Diagnosed Date Resolved Date Hypotension 03/03/2017 04/21/2018 Overview (03/03/2017): will send for echo and holter and refer to cards for possible tilt table testing Amenorrhea 11/05/2016 04/21/2018 Overview (11/05/2016): likely due to meds and not sexually active but will add on hcg Bipolar disorder, unspecified 07/26/2015 04/21/2018 Overview (07/26/2015): mgmt per psych and on Geodon, lexapro, lamotrigine, wellbutrin, and valium up to tid Obesity 01/24/2014 07/26/2015 Overview (01/24/2014): lost quite a bit of weight following gastric bypass in 2011 Insomnia 08/07/2013 01/24/2014 S/P gastric bypass 06/14/2012 4 Morbid obesity 09/14/2011 10/19/2011 Eating disorder, unspecified 06/18/2011 03/23/2012 Bipolar affective, mixed, unspec 06/18/2011 07/26/2015 Learning Disability-Reading 06/18/2011 07/26/2015 Morbid obesity 10/08/2010 06/14/2012 Hypothyroidism 10/08/2010 07/26/2015 Depression 10/08/2010 07/26/2015 DM type 2 (diabetes mellitus, type 2) 10/08/2010 08/07/2013 Immunizations Immunization Administration Dates Next Due (M-M-R II/PRIORIX)(12 MO UP) MEASLES, MUMPS AND RUBELLA VIRUS VACCINE, 0.5 ML IM/SUBCUT 09/09/1993,12/07/1979 (PNEUMOVAX 23)(50 YRS UP) PN EUMOCOCCAL POLYSACCHARIDE (PPV23) 0.5 ML, IM 10/15/2010 (TDVAX)(7 YRS UP) TETANUS AN D DIPHTHERIA TOXOIDS, ADSORBED (2 LF OF TETANUS TOXOID AND 2 LF OF DIPHTHERIA TOXOID), 0.5ML (PF), IM 09/09/1993,02/11/1993 Dt Dtp Dtap Vaccine 12/31/1983 IPV/OPV 09/09/1993,12/31/1983 Family History Medical History Relation Name Comments Diabetes Daughter Seizures Daughter Diabetes Father Diabetes Mother Cancer Other 1 Diabetes Other 2 Elevated Lipids Other 3 Diabetes Sister Relation Name Status Comments Daughter Alive type 1 dm. Father Mother Other 1 Other 2 Other 3 Sister Alive Social History Tobacco Use Types Packs/Day Years Used Date Smoking Tobacco: Never Smokeless Tobacco: Never Tobacco Cessation:Counseling Given: No Alcohol Use Standard Drinks/Week Comments No 0 (1 standard drink = 0.6 oz pur e alcohol) Comments No Sex and Gender Information Value Date Recorded Sex Assigned at Not on file Legal Sex Female 4:04 AM INJECTION MOLD TOOLING TECHNICIAN Gender Identity Not on file Sexual Orientation Not on file Occupation Industry Job Start Date Job End Date Not on file Not on file Not on file Not on file Last Filed Vital Signs Vital Sign Reading Time Taken Comments Blood Pressure 107/83 01/01/2021 12:43 PM CDT Pulse 95 01/01/2021 12:43 PM CDT Temperature 37.1 C (98.8 F) 12/31/2020 10:30 AM CDT Respiratory Rate 18 12/31/2020 10:3 0 AM CDT Oxygen Saturation 97% 12/31/2020 10: 30 AM CDT Inhaled Oxygen Concentration - - Weight 136.7 kg (301 lb 6.4 oz) 021 12:43 PM CDT Height 175.3 cm (5' 9 ) 01/01/2021 12:4 3 PM CDT Body Mass Index 44.51 01/01/2021 12:43 PM CDT Plan of Treatment Health Maintenance Due Date Last Done Comments DTAP/TDAP/TD VACCINES (4 - Tdap) 09/10/1993 09/09/1993, 02/11/1993, 12/31/1983 DIABETES ANNUAL RETINAL EXAM 1996 HEPATITIS B VACCINES (1 of 3 - 19+ 3-dose series) 1997 HPV/Cotest (21-29) 1999 CERVICAL CANCER SCREENING 2008 HPV/Cotest (30-65) 2008 PAP SMEAR 2008 DIABETES ANNUAL FOOT EXAM 11/19/2012 11/20/2011 DIABETES MICROALBUMIN ANNUAL SCREEN 03/23/2013 03/23/2012 BREAST CANCER SCREENING 2018 LDL CHOLESTEROL ANNUAL 04/21/2019 8, 11/05/2016, 07/26/2015, Additional history exists DIABETES HBA1C Q 6 MONTHS 02/09/20222021, 06/21/2021, 02/22/2020, Additional history exists FIT-DNA Q 3 years 2023 FIT/FOBT Q 1 year 2023 Flex Sig/CT Colonography Q 5 years 2023 [place] Preventative Visit/Annual Wellness Visit 07/19/2024 08/12/2023, 01/07/2023, 11/30/2022, Additional history exists INFLUENZA VACCINE (#1) 2025 , 07/21/2018, 05/27/2018 COLORECTAL SCREENING 05/07/2032 05/07/2022, 08/31/2018, 08/31/2018 Colorectal Cancer Screening 05/07/2032 HPV VACCINES Aged Out No longer eligi ble based on patient's age to complete this topic Procedures Procedure Name Priority Date/Time Associated Diagnosis Comments HEMOGLOBIN A1C Routine 02/22/2020 2:36 PM CDT History of diabetes mellitus COLONOSCOPY REPORT 08/31/2018 2: 46 PM INJECTION MOLD TOOLING TECHNICIAN LIPID PANEL Routine 04/21/2018 1:37 PM CDT Routine general medical examination at a health care facility MICROALBUMIN/CREATIN INE RATIO, RANDOM UR Routine 03/23/2012 12:06 PM CDT DM type 2 (diabetes mellitus, type 2) ([facility]) from Last 3 Months or Most Recently Relevant to Health Maintenance Results * HEMOGLOBIN A1C (02/22/2020 2:36 PM CDT) HEMOGLOBIN A1C 5.4 See Comment % 02/26/2020 8:58 AM CDT [facility] EST. AVG GLUCOSE, A1C 108 mg/dL 02/26/2020 8:58 AM CDT [facility] Blood Venipuncture / Unknown 02/22/2020 2:36 PM CDT 02/22/2020 8:02 PM CDT Narrative [facility] - 02/26/2020 8:58 AM CDT HGB A1C INTERPRETATION NORMAL: <5.7% PRE-DIABETES: 5.7 - 6.4% DIABETES: 6.5% OR GREATER Falsely low A1C measurements can occur when: 1. Anemia and/or hemolytic anemia is present. 2. Hemoglobin variants present. 3. Renal failure. 4. Transfusion of blood product in the last 120 days. We recommend ordering a fructosamine test([id number]) to more accurately assess glycemic status if any of the above conditions are present. us Charleen Lee PERSONAL PROTECTION SPECIALIST CHEMISTRY ORDERABLES Final Re sult [facility]# [id number] [address] [place] [id number] * COLONOSCOPY REPORT (08/31/2018 2:46 PM INJECTION MOLD TOOLING TECHNICIAN) Narrative Procedure Note Reed Kirk MD - 08/31/2018 2:45 PM CST [facility] GI Patient Name: Abigail Restrepo Procedure Date: 08/31/2018 Date of : 1980 Admit Type: Outpatient Age: 38 Attending MD: Reed Kirk , Procedure: Colonoscopy Indications: Unexplained iron deficiency anemia Providers: Reed Kirk Referring MD: Gregg Reaves, Medicines: Monitored Anesthesia Care Complications: No immediate complications. Procedure: Pre-Anesthesia Assessment: - The risks and benefits of the procedure and the sedation options and risks were discussed with the patient. All questions were answered and informed consent was obtained. - ASA Grade Assessment: II - A patient with mild systemic disease. After I obtained informed consent, the scope was passed under direct vision. Throughout the procedure, the patient's blood pressure, pulse, and oxygen saturations were monitored continuously. The Colonoscope was introduced through the anus and advanced to the cecum, identified by appendiceal orifice and ileocecal valve. The colonoscopy was performed without difficulty. The patient tolerated the procedure well. The quality of the bowel preparation was adequate. Estimated Blood Loss: Estimated blood loss: none. Findings: The perianal and digital rectal examinations were normal. The entire examined colon appeared normal on direct and retroflexion views. Impression: - The entire examined colon is normal on direct and retroflexion views. - No specimens collected. Recommendation: Will recheck Hb in 3 months. D/C Brenda. Reed Kirk, 08/31/2018 2:45:16 PM Number of Addenda: 0 Note Initiated On: 08/31/2018 2:20 PM Scope Withdrawal Time 0 hours 10 minutes 45 seconds Scope In: 2:25:09 PM Scope Out: 2:40:39 PM [address] [place], [place] Reed Kirk MD GI PROCEDURE ORDERABLES Final Result * (ABNORMAL) LIPID PANEL (04/21/2018 1:37 PM CDT) CHOLESTEROL 156 <200 mg/dL 04/21/2018 2:19 PM CDT [facility] TRIGLYCERIDE 80 <150 mg/dL 04/21/2018 2:19 PM CDT [facility] HDL 72(H) 40 - 59 mg/dL 04/21/2018 2:19 PM CDT [facility] LDL CALCULATED 68 <100 mg/dL 04/21/2018 2:19 PM CDT [facility] NON-HDL CHOLESTEROL 84 <130 mg/dL 04/21/2018 2:19 PM CDT [facility] Blood Venipuncture / Unknown 04/21/2018 1:37 PM CDT 04/21/2018 1:[address] [facility] - 04/21/2018 2:19 PM CDT TOTAL CHOLESTEROL mg/dL Desirable <200 Borderline high 200-239 High >=240 TRIGLYCERIDES mg/dL Normal <150 Borderline high 150-199 High 200-499 Very high >=500 HDL CHOLESTEROL mg/dL Low <40 Normal 40-59 Desirable >=60 NON HDL CHOLESTEROL mg/dL Optimal <130 Near Optimal 130-159 Borderline High 160-189 Very High >=190 Calculated LDL mg/dL Optimal <100 Near Optimal 100-129 Borderline High 130-159 High 160-189 Very High >=190 ATPIII Guidelines Reference Ranges for Lipid Panels (NCEP/AMA) Gregg Reaves DO CHEMISTRY ORDERABLES Final Res ult Performing Organization Address City/State/[facility] Co de Phone Number [facility] CLIA# [id number] [facility] [place] [address] * MICROALBUMIN/CREATININE RATIO, RANDOM UR (03/23/2012 12:06 PM CDT) MICROALBUMIN URINE 14.1 MG/DL [facility] Creatinine, Urine 129 MG/DL [facility] MICROALBUMIN/CREA T RATIO, UR 109.3 MCG/MG CREAT. [facility] Comment: NORMAL: <30 MCG/MG CREAT MICROALBUMINURIA: 30-300 MCG/MG CREAT CLINICAL ALBUMINURIA: >300 MCG/MG CREAT Urine specimen (specimen) 03/23/2012 12:06 PM CDT 03/23/2012 12:11 PM CDT Gregg Reaves DO URINE ORDERABLES Final Result Performing Organization Address [facility] Co de Phone Number [facility] CLIA# [id number] [address] [place] [address] from Last 3 Months or Most Recently Relevant to Health Maintenance Insurance [place] Member Subscriber Plan / Payer (Ef fective 2008-Present) Name:Abigail Restrepo Relation to Subscriber:Self Name:Abigail Restrepo Payer ID:[id number] Group ID:Not on file Type:Medicaid Address: [address] DUAL [employer]PLETE [facility] PPO D-SNP Member Subscriber Plan / Payer (Ef fective 2016-Present) Name:Abigail Restrepo Relation to Subscriber:Self Name:Abigail Restrepo Payer ID:[id number] (NAIC) Type:Medicare Managed Care Address: [place] [id number] [place] Member Subscriber Plan / Payer (Ef fective 2008-Present) Name:Abigail Restrepo Relation to Subscriber:Self Name:Abigail Restrepo Payer ID:[id number] Group ID:Not on file Type:Medicaid Address: [address] DUAL [employer]PLETE [facility] PPO D-SNP Advance Directives For more information, please contact: [phone] * Full Code (Latest Code Status on File) Date Activated Date Inactivated Comments 08/31/2018 12:53 PM 08/31/2018 5:21 PM * Full Code Date Activated Date Inactivated Comments 09/15/2013 1:02 PM 09/15/2013 5:35 PM * Full Code Date Activated Date Inactivated Comments 09/15/2013 12:15 PM 09/15/2013 1:02 PM * Full Code Date Activated Date Inactivated Comments 09/15/2013 10:32 AM 09/15/2013 12:15 PM * Full Code Date Activated Date Inactivated Comments 09/14/2011 10:22 AM 09/16/2011 6:31 PM Care Teams Turner And Former Automatic Relationship Specialty Start Date End Date Terence Muse MD [address] [place] [phone] PCP - General Family Practice 01/12/20
--- OUTSIDE RECORDS SUMMARY | 2025-03-28 13:09 | XMS_ITS | Clinical Summary ---
Author Organization [employer] Address [address] [place] [address] Phone Care Team Providers Care Senior Oracle Applications Developer Name Role Phone Almaz rBuce Montes Primary Care Provider Allergies Active Allergy Reactions Criticality Noted Date Comments Aspirin Other 06/16/2021 Makes my face swell Duloxetine Other 06/16/2021 Makes me suicidal Quetiapine Unknown 06/16/2021 Medications levothyroxine (Tirosint) 100 mcg capsuleIndications :hypothyroidism Take 100 mcg by mouth 1 (one) time each day. Active LORazepam (Ativan) 0.5 mg tablet Take 0.5 mg by mouth every 8 (eight) hours if needed for anxiety. Active risperiDONE (Risperdal) 2 mg tablet Take 2 mg by mouth 2 (two) times a day. AM--4 MG PM--2 MG Active sertraline (Zoloft) 100 mg tablet Take 200 mg by mouth 1 (one) time each day. Active omeprazole (PriLOSEC) [address] capsule Take 40 mg by mouth 1 (one) time each day. Do not crush or chew. Active cyclobenzaprine (Flexeril) 10 mg tablet Take 10 mg by mouth 3 (three) times a day if needed for muscle spasms. Active cholecalciferol, vitamin D3, (VITAMIN D3 ORAL) Take by mouth 1 (one) time each day. Active SITagliptin phosphate (Januvia) 25 mg tablet Take 25 mg by mouth 1 (one) time each day. Active traZODone (Desyrel) 150 mg tablet Take 150 mg by mouth every night. 09/03/19 24 Active traMADoL (Ultram) 50 mg tablet Take 100 mg by mouth every 8 (eight) hours if needed. 09/13/19 Active gabapentin (Neurontin) 100 mg capsule Take 100 mg by mouth every night. 09/04/19 24 Active sodium bicarbonate 650 mg tabletIndications: Metabolic acidosis TAKE 1 TABLET BY MOUTH 3 TIMES A DAY 270 tablet 1 03/15/20 24 Active dapagliflozin propanediol (Farxiga) 10 mgIndications:Stag e 3 chronic kidney disease, unspecified whether stage 3a or 3b CKD (CMS/HCC),Diabetes mellitus with stage 3 chronic kidney disease (CMS/HCC) TAKE 1 TABLET BY MOUTH DAILY 90 tablet 2 08/17/19 Active ferric carboxymaltose (Injectafer) 50 mg iron/mL injectionIndicatio ns:Stage 3 chronic kidney disease, unspecified whether stage 3a or 3b CKD (CMS/HCC),Anemia in stage 3 chronic kidney disease, unspecified whether stage 3a or 3b CKD (CMS/HCC) 2 doses of 750 mg (15 ML) to be administered intravenously with 2 weeks in between each dose. 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 02/25/2022 Chronic kidney disease, stage III (moderate) 04/2022 Atypical atrial flutter 08/11/2021 Overview (08/11/2021): Paroxysmal with V-rates 160 bpm Septic shock due to urinary tract infection 07/20 Complicated urinary tract infection 08/09/2021 Septic shock 08/09/2021 Candidal intertrigo 06/19/2021 Acute liver failure 06/16/2021 Drug-induced acute renal failure 06/16/2021 History of Vicky-en-Y gastric bypass 03/25/2021 History of 2019 novel coronavirus disease (COVID -19) 02/17/2021 Chronic pain of both feet 01/28/2021 Other chronic postprocedural pain 01/09/2021 Anxiety disorder, unspecified 01/02/2021 Hypertensive left ventricula r hypertrophy, without heart failure 12/02/2020 Herpes zoster 09/13/2018 Overview (09/17/2022): Active Active Active Seasonal allergic rhinitis 09/13/2018 Overview (09/17/2022): Active Active Active Severe obesity (BMI 35.0-39.9) with comorbidity 04/22/2018 Bipolar disorder, in partial remission, most recent episode mixed 04/21/2018 Iron deficiency anemia 04/21/2018 Recurrent major depressive disorder, in partial remission 11/05/2016 Overview (08/09/2021): on wellbutrin and buspar and valium and mgmt per psych on wellbutrin and buspar and valium and mgmt per psych Hypothyroidism due to acquired atrophy of thyroi d 07/26/2015 Overview (08/09/2021): lab pending and will notify of results lab pending and will notify of results Routine general medical exam ination at a health care facility 10/08/2010 Resolved Problems Problem Noted Date Diagnosed Date Resolved Date Suicide attempt by acetaminophen overdose 06/16/2021 06/23/2021 Acetaminophen overdose of undetermined intent 06/15/20 21 06/23/2021 Encounters Date Type Department Care Team Description 03/07/2025 Refill [facility] [address] [place] [id number] Shane Cartagena MD Dizziness from Last 3 Months Immunizations Immunization Administration Dates Next Due DTaP 12/31/1983 IPV 09/09/1993,12/31/1983 MMR 09/09/1993,12/07/1979 Pneumococcal Polysaccharide 10/15/2010 Td 09/09/1993,02/11/1993 Family History Medical History Relation Comments Heart attack Sister Relation Status Comments Sister Social History Tobacco Use Types Packs/Day Years Used Date Smoking Tobacco: Never Smokeless Tobacco: Never Tobacco Cessation:Counseling Given: Not Answered Alcohol Use Standard Drinks/Week Comments Never 0 (1 standard drink = 0.6 oz pur e alcohol) [facility] Utilities Answer Date Recorded In the past 12 months has th e [place], gas, oil, or water Fromography threatened to shut off services in your [...] place to sleep or slept in a assisted (including now)? No 09/22/2023 [facility] - Mental Health Answer Date Recorde d Little interest or pleasure in doing things Not at all 09/22/2023 Feeling down, depressed, or hopeless Not at all 09/22/2023 Feeling of Stress Not on file 09/22/2023 Comments Unknown Sex and Gender Information Value Date Recorded Sex Assigned at Not on file Legal Sex Female 5:11 AM NANNY CAREGIVER Gender Identity Not on file Sexual Orientation Not on file Last Filed Vital Signs Vital Sign Reading Time Taken Comments Blood Pressure 112/89 09/24/2023 7:28 AM NANNY CAREGIVER Pulse 104 09/24/2023 7:28 AM NANNY CAREGIVER Temperature 36.3 C (97.3 F) 09/24/2023 7:28 AM NANNY CAREGIVER Respiratory Rate 18 09/24/2023 7:25 AM NANNY CAREGIVER Oxygen Saturation 95% 09/24/2023 7:28 AM NANNY CAREGIVER Inhaled Oxygen Concentration - - Weight 99.3 kg (218 lb 14.7 oz) 09/24/2023 3:00 AM NANNY CAREGIVER Height 175.3 cm (5' 9.02 ) 09/22/2023 1:03 PM CS T Body Mass Index 32.31 09/22/2023 1:03 PM NANNY CAREGIVER Plan of Treatment Health Maintenance Due Date Last Done Comments CT Colonography 1978 FIT-DNA 1978 FIT 1978 FOBT 1978 Sigmoidoscopy 1978 DTaP,Tdap,and Td Vaccines (4 - Tdap) 1985 09/09/1993, 02/11/1993, 12/31/1983 Diabetes: Foot Exam 1988 Diabetes: Retinopathy Screening 1988 Varicella Vaccines (1 of 2 - 13+ 2-dose series) 10/07/1993 IPV Vaccines (3 of 3 - 4-dose series) 03/09/1994 09/09/1993, 12/31/1983 Depression Screening 1996 Social Drivers of Health (SDoH) 1996 Diabetes: Urine Protein Screening 1997 Hepatitis A Vaccines (1 of 2 - Risk 2-dose series) 1997 Hepatitis B Vaccines (1 of 3 - 19+ 3-dose series) 1997 Pap Smear 1999 Cervical Cancer Screening 2008 HPV/Cotest 2008 Mammogram 2018 Diabetes: Hemoglobin A1C 11/10/2021 08/12/2021, 1210/2020 COVID-19 Vaccine ( - season) 2025 Influenza Vaccine (#1) 2025 Creatinine Level 08/28/2025 08/28/2024, 01/2024, 09/22/2023, Additional history exists Potassium Level 08/28/2025 08/28/2024, 03/0 01/2024, 09/22/2023, Additional history exists Pneumococcal Vaccine: 50+ Years (2 of 2 - PCV) 2028 10/15/2010 Zoster Vaccines (1 of 2) 2028 Colonoscopy 05/07/2032 05/07/2022, 08/31/2018 Colorectal Cancer Screening 05/07/2032 RSV Vaccines (1 - 1-dose 75+ series) 2053 MMR Vaccines Completed 09/09/1993, 12/07/1979 Pneumococcal Vaccine Aged Out 10/15/2010 No long er eligible based on patient's age to complete this topic Diabetes Screening Discontinued 08/12/2021, 06/21/2021 HIB Vaccines Aged Out No longer eligi ble based on patient's age to complete this topic HPV Vaccines Aged Out No longer eligi ble based on patient's age to complete this topic Meningococcal B Vaccine Aged Out No l onger eligible based on patient's age to complete this topic Meningococcal Vaccine Aged Out No stormy ryland eligible based on patient's age to complete this topic Rotavirus Vaccines Aged Out No longer eligible based on patient's age to complete this topic Procedures Procedure Name Priority Date/Time Associated Diagnosis Comments RENAL FUNCTION PANEL Routine 08/28/2024 8:22 AM NANNY CAREGIVER Stage 3 chronic kidney disease, unspecified whether stage 3a or 3b CKD (CMS/HCC) HEMOGLOBIN A1C Add-On 08/12/2021 5:46 AM NANNY CAREGIVER from Last 3 Months or Most Recently Relevant to Health Maintenance Results * (ABNORMAL) Renal Function Panel (08/28/2024 8:22 AM NANNY CAREGIVER) GLUCOSE 208(H) 65 - 99 mg/dL [facility] Comment: Fasting reference interval For someone without known diabetes, a glucose value >125 mg/dL indicates that they may have diabetes and this should be confirmed with a follow-up test. UREA NITROGEN (BUN) 13 7 - 25 mg/dL [facility] CREATININE 0.75 0.50 - 0.99 mg/dL [facility] EGFR 99 > OR = 60 mL/min/1. 73m2 [facility] BUN/CREATININE RATIO SEE NOTE: 6 - 22 (calc) [facility] Comment: Not Reported: BUN and Creatinine are within reference range. SODIUM 139 135 - 146 mmol/L [facility] POTASSIUM 4.3 3.5 - 5.3 mmol/L [facility] CHLORIDE 102 98 - 110 mmol/L [facility] CARBON DIOXIDE 27 20 - 32 mmol/L [facility] CALCIUM 8.9 8.6 - 10.2 mg/dL [facility] PHOSPHATE ( PHOSPHORUS) 3.7 2.5 - 4.5 mg/dL [facility] ALBUMIN 3.5(L) 3.6 - 5.1 g/dL [facility] Blood Venous blood specimen / Unknown 08/28/2024 8:22 AM NANNY CAREGIVER 08/28/2024 8:22 AM NANNY CAREGIVER Narrative Resulting Agency Comment Performing Organization Information: Site ID: [id number] Name: [place] [facility] Address: [address] [id number] Director: Torito Fernandez MD Shane Cartagena MD LAB BLOOD ORDERABLES Final Res ult Performing Organization Address City/[facility] Co de Phone Number [place]Y [place] [address] [address] [facility] [place] [phone] * Hemoglobin A1c (08/12/2021 5:46 AM NANNY CAREGIVER) Hemoglobin A1c 7.4 3.8 - 18.1 % 08/13/2021 8:36 AM NANNY CAREGIVER [facility] Blood Venous blood specimen / Unknown Venipuncture / Unknown 08/12/2021 5:46 AM NANNY CAREGIVER 08/12/2021 5:53 AM NANNY CAREGIVER Narrative [facility] - 08/13/2021 8:36 AM NANNY CAREGIVER HgbA1C ranges recommended by the [place] [employer] (ADA): >6.5% Diabetic 5.7-6.4% Pre-Diabetic <5.7% Non-Diabetic Shane Cartagena MD LAB BLOOD ORDERABLES Final Res ult Performing Organization Address City/[facility] Co de Phone Number [facility] [address] [phone] from Last 3 Months or Most Recently Relevant to Health Maintenance Additional Health Concerns Infection Onset Date Last Indicated Influenza 09/22/2023 09/22/2023 Insurance [employer] MEDICARE Advance Directives For more information, please contact: [phone] (7:30 AM - 5PM [facility], 7 days a week) * Full Code (Latest Code Status on File) Date Activated Date Inactivated Comments 09/22/2023 9:40 PM 09/24/2023 3:26 PM * Full Code Date Activated Date Inactivated Comments 08/09/2021 11:15 AM 08/16/2021 5:11 PM * Full Code Date Activated Date Inactivated Comments 06/17/2021 3:42 PM 06/23/2021 1:10 PM * Full Code Date Activated Date Inactivated Comments 06/15/2021 5:39 PM 06/17/2021 3:42 PM Care Teams Senior Oracle Applications Developer Relationship Specialty Start Date End Date Bruce Muse Do [address] [place] [phone] PCP - General 06/25/20
--- OUTSIDE RECORDS SUMMARY | 2025-03-28 13:09 | XMS_ITS | Encounter Summary ---
Author Organization [facility] Address [address] [place] [phone] Phone Care Team Providers Care Project Controller Name Role Phone Almaz SavanaBruce O Primary Care Provider [phone] Reason for Visit * Reason Comments Med Refill Encounter Details Date Type Department Care Team (Late st Contact Info) Description 01/04/2023 Refill [facility]ROLOGY [facility]INIC MED[facility] OFF[facility] BUILDING [address] [place] [phone] [place] [address] [address] [place] [phone] Metabolic acidosis Social History Tobacco Use Types Packs/Day Years Used Date Smoking Tobacco: Never Smokeless Tobacco: Never Alcohol Use Standard Drinks/Week Comments Never 0 (1 standard drink = 0.6 oz pur e alcohol) PHQ-2 Answer Date Recorded Patient Health Questionnaire-2 Score 0 09/17/2022 Comments Unknown Sex and Gender Information Value Date Recorded Sex Assigned at Not on file Legal Sex Female 5:11 AM RECOATER Gender Identity Not on file Sexual Orientation Not on file documented as of this encounter Functional Status * Are you deaf or do you have serious difficulty hearing? Answer Date of Assessment Author No 06/18/2021 2:19 PM RECOATER Shelton Barrera BSW * Are you blind or do you have serious difficulty seeing, even when wearing glasses? Answer Date of Assessment Author No 06/18/2021 2:19 PM RECOATER Shelton Barrera PRIVACY DIRECTOR * Do you have serious difficulty walking or climbing stairs? Answer Date of Assessment Author No 06/18/2021 2:19 PM RECOATER Shelton Barrera BSW * Do you have serious difficulty dressing or bathing? Answer Date of Assessment Author No 06/18/2021 2:19 PM Shelton Novak BSW * Because of a physical, mental, or emotional condition, do you have serious difficulty doing errandsalone such as visiting the doctor? Answer Date of Assessment Author No 06/18/2021 2:19 PM Shelton Novak BSW documented as of this encounter Mental Status * Because of a physical, mental, or emotional condition, do you have serious difficulty concentrating, remembering, or making decisions? (5 years old or older) Answer Entry Date Author No 06/18/2021 2:19 PM Shelton Novak BSW documented in this encounter Plan of Treatment Not on file documented as of this encounter Visit Diagnoses Diagnosis Metabolic acidosis Acidosis documented in this encounter Additional Health Concerns Infection Onset Date Last Indicated Resolved Time COVID-19 Rule-Out 09/22/2023 09/22/2023 09/22/2023 5:17 PM RECOATER Influenza 09/22/2023 09/22/2023 documented as of this encounter Care Teams Project Controller Relationship Specialty Start Date End Date Bruce Muse Do [address], [place] [phone] PCP - General 06/25/20 documented as of this encounter
--- OUTSIDE RECORDS SUMMARY | 2025-03-28 13:09 | XMS_ITS | Clinical Summary ---
Author Organization [employer] [facility] iew Address [address] [place] [address] Phone Care Team Providers Care Meter Reader Chief Name Role Phone Bruce Muse Primary Care Provider [phone] Allergies Active Allergy Reactions Criticality Noted Date Comments Aspirin Angioedema High 02/08/2009 Lips and jaw swell Buprenorphine-Naloxone Other (See Comments) High Hepatitis ALT 1300, AST 500 Pibkczz-Mrkgvqxyqc-Uyp -Caff Swelling Low 02/05/2022 Duloxetine Other (See Comments) 04/19/2014 Suicidal thoughts Opioids - Morphine Analogues Other (See Comments) High 09/19/2020 OVERDOSE Hx Pregabalin Rash High 07/06/2024 Hives Quetiapine Unknown 02/05/2022 Medications naloxone (NARCAN) 4 mg/spray [place], Non-Aerosol EMERGENCY ONLY: 1 spray (4 mg) in one nostril one time. Repeat in alternating nostrils every 2-3 min until responsive or EMS arrives. 3 Each 3 021 Active atorvastatin (LIPITOR) 10 mg tabletIndications :Diabetes mellitus with stage 3 chronic kidney disease (CMS/HCC) Take 0.5 Tablets (5 mg) by mouth daily at bedtime. 50 Tablet 3 024 Active triamcinolone acetonide (KENALOG) 0.1 % CreamIndications: Pityriasis rosea,[place] patch Apply a thin layer to the worst areas twice daily x 7 days 454 Gram 025 Active lumateperone (Caplyta) 42 mg CapsuleIndication s:Bipolar affective disorder, current episode mixed, without psychotic features ([facility]) Take 1 Capsule (42 mg) by mouth daily. 90 Capsule 2 025 Active mv-min/iron/folic /calcium/vitK (WOMEN'S MULTIVITAMIN ORAL) Take by mouth. Activ e docusate sodium (COLACE) 100 mg capsule Take 100 mg by mouth 2 times daily as needed for Constipation. Active dapagliflozin propanediol (Farxiga) 5 mg TabletIndications :Stage 3a chronic kidney disease ([facility]/HCC) Take 1 Tablet (5 mg) by mouth daily. 90 Tablet 3 025 Active metoprolol succinate (TOPROL XL) 25 mg Extended Release 24 hour tabletIndications :Hypertensive left ventricular hypertrophy, without heart failure Take 0.5 Tablets (12.5 mg) by mouth daily. 45 Tablet 1 025 Active Blood-Glucose Meter KitIndications:Ty pe 2 diabetes mellitus with stage 3 chronic kidney disease, without long-term current use of insulin, unspecified whether stage 3a or 3b CKD ([facility]) Check blood sugar once daily Dx E11.22 1 Kit 025 Active blood sugar diagnostic StripIndications: Type 2 diabetes mellitus with stage 3 chronic kidney disease, without long-term current use of insulin, unspecified whether stage 3a or 3b CKD ([facility]) For use with glucose meter once daily Dx E11.22 100 Each 025 Active lancetsIndication s:Type 2 diabetes mellitus with stage 3 chronic kidney disease, without long-term current use of insulin, unspecified whether stage 3a or 3b CKD ([facility]) Use to check sugars once daily DX E11.22 100 Each 025 Active traZODone (DESYREL) 150 mg tabletIndications :Insomnia, unspecified type Take 1 Tablet (150 mg) by mouth daily at bedtime. 30 Tablet 5 025 Active gabapentin (NEURONTIN) 800 mg tablet Take 1 Tablet (800 mg) by mouth 3 times daily 90 Tablet 5 025 Active omeprazole (PriLOSEC) 40 mg Capsule, Delayed Release(E.C.)Preeti cations:Chronic gastritis, presence of bleeding unspecified, unspecified gastritis type TAKE 1 CAPSULE BY MOUTH DAILY 90 Capsule 3 025 Active tiZANidine (ZANAFLEX) 4 mg TabletIndications :Chronic bilateral thoracic back pain,Chronic bilateral low back pain without sciatica Take 1-2 Tablets (4-8 mg) by mouth every 8 hours. May take second tablet at bedtime. 120 Tablet 5 025 Active sucralfate (CARAFATE) 1 gram tabletIndications :History of Vicky-en-Y gastric bypass Take 1 Tablet (1 Gram) by mouth 4 times daily before meals and at bedtime. 120 Tablet 1 025 Active fludrocortisone (FLORINEF) 0.1 mg tabletIndications :History of Vicky-en-Y gastric bypass Take 1 Tablet (0.1 mg) by mouth daily. 30 Tablet 1 025 Active hydrOXYzine HCL (ATARAX) 25 mg tabletIndications :Anxiety disorder, unspecified type TAKE ONE TABLET BY MOUTH THREE TIMES DAILY NEEDED FOR ANXIETY 90 Tablet 2 025 Active busPIRone (BUSPAR) 10 mg tabletIndications :Bipolar disorder, in partial remission, most recent episode mixed (CMS/HCC) Take 1 Tablet (10 mg) by mouth 3 times daily. 90 Tablet 2 025 Active desvenlafaxine succinate (PRISTIQ) 50 mg Extended Release 24 hour tabletIndications :Bipolar disorder, in partial remission, most recent episode mixed (CMS/HCC),Other chronic postprocedural pain,Chronic bilateral thoracic back pain,Chronic low back pain without sciatica, unspecified back pain laterality,Chroni c pain of both feet Take 1 Tablet (50 mg) by mouth daily with breakfast. 30 Tablet 2 025 Active ibuprofen (MOTRIN) 400 mg tabletIndications :Closed displaced fracture of lateral malleolus of left fibula, initial encounter,Opioid use disorder, moderate, dependence (CMS/HCC),Chronic bilateral thoracic back pain,Chronic bilateral low back pain without sciatica Take 1 Tablet (400 mg) by mouth every 6 hours as needed for Pain, Mild. 120 Tablet 1 025 Active levothyroxine 100 mcg tabletIndications :Hypothyroidism due to acquired atrophy of thyroid TAKE ONE TABLET BY MOUTH DAILY 30 Tablet 3 025 Active midodrine (PROAMATINE) 10 mg Tablet 10 mg. 025 Active predniSONE (DELTASONE) 20 mg tabletIndications :Nausea and vomiting, unspecified vomiting type Take 2 Tablets (40 mg) by mouth daily with breakfast for 7 days, THEN 1 Tablet (20 mg) daily with breakfast for 7 days, THEN 0.5 Tablets (10 mg) daily with breakfast for 7 days. 25 Tablet 025 2024 Active ondansetron (ZOFRAN ODT) 8 mg Tablet, Rapid DissolveIndicatio ns:Nausea and vomiting, unspecified vomiting type Dissolve 1 tablet on top of tongue then swallow with saliva every 8 hours as needed for nausea or vomiting 21 Tablet 1 Active morphine (MS CONTIN) 15 mg Controlled Release tabletIndications :Other chronic postprocedural pain,Chronic bilateral thoracic back pain,Chronic low back pain without sciatica, unspecified back pain laterality,Chroni c pain of both feet Take 1 Tablet (15 mg) by mouth every 12 hours. Max Daily Amount: 30 mg 60 Tablet Active midodrine (PROAMATINE) 10 mg Tablet Take 1 Tablet by mouth 3 times daily. 023 2024 Discontinued(D ose/form adjustment) levothyroxine 100 mcg tabletIndications :Hypothyroidism due to acquired atrophy of thyroid Take 1 Tablet (100 mcg) by mouth daily. 30 Tablet 3 025 2024 Discontinued ibuprofen (MOTRIN) 400 mg tabletIndications :Closed displaced fracture of lateral malleolus of left fibula, initial encounter,Opioid use disorder, moderate, dependence (CMS/HCC),Chronic bilateral thoracic back pain,Chronic bilateral low back pain without sciatica Take 1 Tablet (400 mg) by mouth every 6 hours as needed for Pain, Mild. 120 Tablet 1 025 2024 Discontinued morphine (MS CONTIN) 15 mg Controlled Release tabletIndications :Other chronic postprocedural pain,Chronic bilateral thoracic back pain,Chronic low back pain without sciatica, unspecified back pain laterality,Chroni c pain of both feet Take 1 Tablet (15 mg) by mouth every 12 hours. Max Daily Amount: 30 mg 60 Tablet 025 2024 Discontinued fluvoxaMINE (LUVOX) 100 mg tabletIndications :Anxiety disorder, unspecified type Take 0.5 Tablets (50 mg) by mouth daily at bedtime. For 1 month, then stop. 15 Tablet 025 2024 Active Problems Problem Noted Date Diagnosed Date Opioid use disorder, moderate, dependence 2023 Overview (06/21/2024): Trial Suboxone 8-2, caused nausea. Trial lower dose 2-0.5, 06/21/24 Chronic bilateral thoracic back pain 05/01/2024 Influenza vaccination declined by patient 2023 Pneumococcal vaccination declined 05/01/2024 Chronic low back pain without sciatica Secondary hyperparathyroidism of renal origin Diabetes mellitus with stage 3 chronic kidney di sease 05/11/2022 Anemia secondary to renal failure 02/25/2022 Chronic kidney disease, stage III (moderate) 04/2022 Atypical atrial flutter 08/11/2021 Overview (12/03/2021): Paroxysmal with V-rates 160 bpm A flutter with hx of septic shock 08/09/21. [id number] score of 2. Started on Eliquis in hospital. Candidal intertrigo 06/19/2021 History of Vicky-en-Y gastric bypass 03/25/2021 History of 2019 novel coronavirus disease (COVID -19) 02/17/2021 Chronic pain of both feet 01/28/2021 Other chronic postprocedural pain 01/09/2021 Anxiety disorder, unspecified 01/02/2021 Hypertensive left ventricula r hypertrophy, without heart failure 12/02/2020 Herpes zoster 09/13/2018 Overview (11/15/2020): Active Seasonal allergic rhinitis 09/13/2018 Overview (11/15/2020): Active Bipolar disorder, in partial remission, most recent episode mixed 04/21/2018 Iron deficiency anemia 04/21/2018 Recurrent major depressive disorder, in partial remission 11/05/2016 Overview (11/14/2020): on wellbutrin and buspar and valium and mgmt per psych Hypothyroidism due to acquired atrophy of thyroi d 07/26/2015 Overview (11/14/2020): lab pending and will notify of results Routine general medical exam ination at a health care facility 10/08/2010 Resolved Problems Problem Noted Date Diagnosed Date Resolved Date Complicated urinary tract infection 08/09/2021 09/11/2021 Septic shock 08/09/2021 09/11/2021 Acute liver failure 06/16/2021 09/11/19 Open fracture of distal end of left tibia with routine healing 02/28/2021 08/28/2021 Severe obesity (BMI 35.0-39. 9) with comorbidity 04/22/2018 08/12/2023 Hypotension 03/03/2017 04/21/2018 Overview (11/13/2020): will send for echo and holter and refer to cards for possible tilt table testing Amenorrhea 11/05/2016 04/21/2018 Overview (11/13/2020): likely due to meds and not sexually active but will add on hcg Bipolar disorder, unspecified 07/26/2015 04/21/2018 Overview (11/13/2020): mgmt per psych and on Geodon, lexapro, lamotrigine, wellbutrin, and valium up to tid Obesity 01/24/2014 07/26/2015 Overview (11/13/2020): lost quite a bit of weight following gastric bypass in 2011 Insomnia 08/07/2013 01/24/2014 S/P gastric bypass 06/14/2012 4 Morbid obesity 09/14/2011 10/19/2011 Learning Disability-Reading 06/18/2011 07/26/2015 Eating disorder, unspecified 06/18/2011 03/23/2012 Bipolar affective, mixed, unspec 06/18/2011 07/26/2015 Depression 10/08/2010 07/26/2015 Hypothyroidism 10/08/2010 07/26/2015 Morbid obesity 10/08/2010 06/14/2012 DM type 2 (diabetes mellitus, type 2) 10/08/2010 08/07/2013 Encounters Date Type Department Care Team Description 03/27/20[address] [phone] Bruce Muse DO 03/22/2025 Results Follow-Up [address] [phone] Bruce Muse DO CBC WITH DIFFERENTIAL, COMPREHENSIVE METABOLIC PANEL, TSH, Additional followed-up results: 2 03/21/[address] [phone] Bruce Muse DO Results 03/20/[address] [phone] Bruce Muse DO Other chronic postprocedural pain; Chronic bilateral thoracic back pain; Chronic low back pain without sciatica, unspecified back pain laterality; Chronic pain of both feet 03/16/[address] [phone] Bruce Muse DO Results 03/15/2025 2:00 PM CDT Office Visit [address] [phone] Bruce Muse DO Stage 3a chronic kidney disease (CMS/HCC) (Primary Dx); Diabetes mellitus with stage 3 chronic kidney disease (CMS/HCC); Elevated alkaline phosphatase level; Neutrophilia; Nausea and vomiting, unspecified vomiting type 03/13/[address] [facility] Health Information Management [place] [address] [place] [address] Provider, Abstract 03/13/[address] [phone] Bruce Muse DO Hospital Follow Up 03/10/2025 Refill [facility] [address] [place] [address] Bruce Muse DO Hypothyroidism due to acquired atrophy of thyroid 03/07/[address] [phone] Bruce Muse DO Closed displaced fracture of lateral malleolus of left fibula, initial encounter; Opioid use disorder, moderate, dependence (CMS/HCC); Chronic bilateral thoracic back pain; Chronic bilateral low back pain without sciatica 03/01/2025 9:30 AM CDT - 03/01/2025 11:59 PM CDT Hospital Encounter [facility] Emergency Medical Services [address] [phone] Ambulance, [facility] Discharge Disposition: [facility] 02/27/2025 Results Follow-Up [address] [phone] Bruce Muse DO MICROALBUMIN/CREATIN INE RATIO, RANDOM UR, MEDICATION COMPLIANCE DRUG SCREEN 02/23/2025 10:45 AM CDT Ancillary Procedure [address] [phone] Shalom Canada DO Closed displaced fracture of lateral malleolus of left fibula, initial encounter 02/23/2025 9:40 AM CDT Office Visit [address] [phone] Bruce Muse DO Stage 3a chronic kidney disease (CMS/HCC) (Primary Dx); Anxiety disorder, unspecified type; Bipolar disorder, in partial remission, most recent episode mixed; Other chronic postprocedural pain; Chronic bilateral thoracic back pain; Chronic low back pain without sciatica, unspecified back pain laterality; Chronic pain of both feet; Encounter for long-term (current) use of medications 02/21/2025 External Device Data [facility] Provider, Abstract 02/21/[address] [phone] Bruce Muse DO Medication Problem 02/18/[address] [phone] Bruce Muse DO Anxiety disorder, unspecified type; Bipolar disorder, in partial remission, most recent episode mixed 02/12/[address] [phone] Bruce Muse DO Bipolar disorder, in partial remission, most recent episode mixed; Other chronic postprocedural pain; Chronic bilateral thoracic back pain; Chronic low back pain without sciatica, unspecified back pain laterality; Chronic pain of both feet 02/07/[address] [phone] Bruce Muse DO Chronic pain of both feet; Chronic bilateral thoracic back pain; Chronic bilateral low back pain without sciatica; Other chronic postprocedural pain 02/05/[address] [phone] Bruce Muse DO Chronic pain of both feet; Chronic bilateral thoracic back pain; Chronic bilateral low back pain without sciatica; Other chronic postprocedural pain 01/31/2025 External Device Data [place] Provider, Abstract 01/[facility] [facility] [address] [phone] Bruce Muse DO History of Vicky-en-Y gastric bypass 01/18/[address] [phone] Bruce Muse DO Medication Question 01/16/2025 Medication Prior Auth Encounter [facility] Prescription Management Dept [address] [place] [address] [place] [address] Kwame Stuart, PHARMACIST 01/12/2025 Medication Prior Auth Encounter [address] [phone] Bruce Muse DO 01/11/[address] [phone] Bruce Muse DO Pain; New Prescription Request; Question; Needs Form Or Letter Filled Out; Medication Assistance; Medication Assistance 01/09/2025 11:00 AM CDT Telephone Check Up [facility] Gastroenterology- [address] [place] [phone] Leonie Kessler, SILVANO History of Vicky-en-Y gastric bypass (Primary Dx); Generalized postprandial abdominal pain; Nausea 01/08/2025 3:00 PM CDT Ancillary Procedure [address] [phone] Bruce Muse DO Closed displaced fracture of lateral malleolus of left fibula, initial encounter 01/08/2025 2:00 PM CDT Office Visit [address] [phone] Bruce Muse DO Closed displaced fracture of lateral malleolus of left fibula, initial encounter (Primary Dx); Opioid use disorder, moderate, dependence (CMS/HCC); Chronic bilateral thoracic back pain; Chronic bilateral low back pain without sciatica 01/04/[address] [phone] Bruce Muse DO Results 01/04/2025 Orders Only [facility] [address] [place] [phone] Provider, Abstract 01/04/[address] [facility] Orthopedics - [facility] [place] [id number] [place] [phone] Jevon Clements MD Question 01/03/2025 12:15 AM CDT - 01/03/2025 11:59 PM CDT Hospital Encounter [facility] Emergency Medical Services [address] [phone] Ambulance, [facility] Discharge Disposition: [facility] 01/02/[address] [phone] Bruce Muse DO Chronic gastritis, presence of bleeding unspecified, unspecified gastritis type (Primary Dx) 01/01/[address] [phone] Bruce Muse DO Injury of right wrist, initial encounter; Chronic bilateral thoracic back pain; Chronic low back pain without sciatica, unspecified back pain laterality 12/28/2024 11:00 AM CDT Procedure visit [address] [phone] 12/27/[address] [phone] Bruce Muse DO Medication Question 12/27/[address] [phone] Bruce Muse DO Home Monitoring Phone Call 12/26/[address] [phone] Bruce Muse DO History of Vicky-en-Y gastric bypass 12/26/2024 [facility] Care [address] [place] [address] Terence Muse MD from Last 3 Months Immunizations Immunization Administration Dates Next Due (M-M-R [...] Diabetes Father Diabetes Mother Cancer Other 1 Elevated Lipids Other 2 Diabetes Other 3 Diabetes Sister Heart Disease Sister Relation Name Status Comments Daughter Alive type 1 dm. Father Mother Other 1 Other 2 Other 3 Sister Alive Social History Tobacco Use Types Packs/Day Years Used Date Smoking Tobacco: Never Passive Smoke Exposure: Never Smokeless Tobacco: Never Tobacco Cessation:Counseling Given: Not Answered Alcohol Use Standard Drinks/Week Comments No 0 (1 standard drink = 0.6 oz pur e alcohol) Financial Resource Strain Answer Date R ecorded How hard is it for you to pa y for the very basics like food, housing, medical care, and heating? Hard 05/05/2022 Food Insecurity Answer Date Recorded In the past 12 months, have you worried that your food would run out before you had money to buy more? Never true 05/05/2022 In the past 12 months, did y ou run out of food and didn't have money to buy more? Never true 05/05/2022 Transportation Needs Answer Date Record ed In the past 12 months, has l ack of transportation kept you from medical appointments or from getting medications? Yes 05/05/2022 Lack of Transportation (Non-Medical) Not on file 05/05/2022 Comments No Sex and Gender Information Value Date Recorded Sex Assigned at Not on file Legal Sex Female 8:23 AM DIVING JUDGE Gender Identity Not on file Sexual Orientation Not on file Last Filed Vital Signs Vital Sign Reading Time Taken Comments Blood Pressure 112/80 03/15/2025 2:06 PM CDT Pulse 108 03/15/2025 2:06 PM CDT Temperature 36.3 C (97.4 F) 03/15/2025 2:06 PM CDT Respiratory Rate 22 03/15/2025 2:06 PM CDT Oxygen Saturation 99% 03/15/2025 2:06 PM CDT Rom Air Inhaled Oxygen Concentration - - Weight 99.7 kg (219 lb 12.8 oz) 03/15/2025 2:06 PM CDT Height 175.3 cm (5' 9 ) 03/15/2025 2:06 PM CDT Body Mass Index 32.46 03/15/2025 2:06 PM CDT Plan of Treatment Upcoming Encounters Date Type Department Care Team (Late st Contact Info) Description 04/03/2025 9:40 AM CDT Office Visit [facility] Medicine [place] [address] [place] [phone] Bruce Muse DO [address] [place] [phone] 07/10/2025 1:30 PM DIVING JUDGE Telephone Check Up [facility] Gastroenterology- [place] [address] [place] [phone] Leonie Kessler, [address] [phone] 07/27/2025 12:00 PM DIVING JUDGE Appointment [facility] Nuclear Medicine [address] [place] [address] Leonie Kessler, [address] [phone] Health Maintenance Due Date Last Done Comments DTAP/TDAP/TD VACCINES (4 - Tdap) 09/10/1993 09/09/1993, 02/11/1993, 12/31/1983 DIABETES ANNUAL RETINAL EXAM 1996 FIT/ DNA Q 3 YEARS (AUTO ORDER) 1996 FIT/FOBT Q 1 YEAR (AUTO ORDER) 1996 HEPATITIS B VACCINES (1 of 3 - 19+ 3-dose series) 1997 BREAST CANCER SCREENING 2018 FIT-DNA Q 3 years 2023 FIT/FOBT Q 1 year 2023 Flex Sig/CT Colonography Q 5 years 2023 Medicare Advantage (CT) Preventative Visit/Annual Wellness Visit 07/19/2024 08/12/2023, 01/07/2023, 11/30/2022, Additional history exists INFLUENZA VACCINE (#1) 2025 , 05/01/2024, 08/12/2023, Additional history exists DIABETES HBA1C Q 6 MONTHS 03/25/20252024, 08/28/2024, 02/10/2024, Additional history exists DIABETES ANNUAL FOOT EXAM 06/30/20252023, 05/11/2023, 05/05/2022, Additional history exists DIABETES: A1C (Auto Order) 09/22/202509/22, 08/28/2024, 02/10/2024, Additional history exists LDL CHOLESTEROL ANNUAL 09/22/2025 , 08/12/2023, 06/21/2021, Additional history exists PAP SMEAR 01/07/2026 01/07/2023 DIABETES MICROALBUMIN ANNUAL SCREEN 02/23/2026 02/23/2025, 03/16/2024, 09/15/2023, Additional history exists FLEX SIG/CT COLONOGRAPHY Q 5 YEARS (AUTO ORDER) 05/07/2027 05/07/2022, 05/07/2022 CERVICAL CANCER SCREENING 01/08/2028 HPV/Cotest (21-29) 01/08/2028 01/07/2023 HPV/Cotest (30-65) 01/08/2028 01/07/2023 COLORECTAL CANCER SCREENING (AUTO ORDER) 05/07/2032 05/07/2022, 08/31/2018, 08/31/2018, Additional history exists COLORECTAL SCREENING 05/07/2032 05/07/2022, 08/31/2018, 08/31/2018, Additional history exists Colorectal Cancer Screening (AUTO ORDER) 05/07/2032 Colorectal Cancer Screening 05/07/2032 KHE uACR (Auto Order) Completed 02/23/2025 , 03/16/2024, 09/15/2023, Additional history exists KHE eGFR (Auto Order) Completed 03/15/2025 , 03/08/2025, 01/03/2025, Additional history exists HPV VACCINES Aged Out No longer eligi ble based on patient's age to complete this topic Procedures Procedure Name Priority Date/Time Associated Diagnosis Comments LIPASE Routine 03/15/2025 2:47 PM CDT Elevated alkaline phosphatase level GGT Routine 03/15/2025 2:47 PM CDT Elevated alkaline phosphatase level TSH Routine 03/15/2025 2:47 PM CDT Diabetes mellitus with stage 3 chronic kidney disease (CMS/HCC) COMPREHENSIVE METABOLIC PANEL Routine 03/15/2025 2:47 PM CDT Stage 3a chronic kidney disease (CMS/HCC) Elevated alkaline phosphatase level CBC WITH DIFFERENTIAL Routine 03/15/2025 2:47 PM CDT Neutrophilia COMPREHENSIVE METABOLIC PANEL Routine 03/08/2025 3:10 PM CDT MEDICATION COMPLIANCE DRUG SCREEN Routine 02/23/2025 12:19 PM CDT Encounter for long-term (current) use of medications MICROALBUMIN/CREATINI NE RATIO, RANDOM UR Routine 02/23/2025 12:19 PM CDT Stage 3a chronic kidney disease (CMS/HCC) XR ANKLE 3+ VW LEFT Routine 02/23/2025 1 0:42 AM CDT Closed displaced fracture of lateral malleolus of left fibula, initial encounter XR ANKLE 3+ VW LEFT Routine 01/08/2025 2 :54 PM CDT Closed displaced fracture of lateral malleolus of left fibula, initial encounter [place] APPLICATION SHORT LEG SPLINT CALF FOOT Routine 01/08/2025 2:00 PM CDT Closed displaced fracture of lateral malleolus of left fibula, initial encounter [place] CLTX DSTL FIBULAR FX LAT MALLS W/O MANJ Routine 01/08/2025 2:00 PM CDT Closed displaced fracture of lateral malleolus of left fibula, initial encounter COMPREHENSIVE METABOLIC PANEL Routine 01/03/2025 12:04 PM CDT LIPID PANEL Routine 09/22/2024 HEMOGLOBIN A1C Routine 09/22/2024 CERV/VAG CYTO SCREEN PAP RLFX HPV Routine 01/07/2023 12:08 PM CDT Well woman exam with routine gynecological exam ENDOSCOPY, COLON, SCREENING Routine 05/07/2022 from Last 3 Months or Most Recently Relevant to Health Maintenance Results * (ABNORMAL) CBC WITH DIFFERENTIAL (03/15/2025 2:47 PM CDT) WBC 17.7(H) 3.8 - 10.8 Thousand/ uL [facility] RBC 5.92(H) 3.80 - 5.10 Million/u L [facility] HEMOGLOBIN 17.6(H) 11.7 - 15.5 g/dL [facility] HEMATOCRIT 54.0(H) 35.0 - 45.0 % [facility] MCV 91.2 80.0 - 100.0 fL [facility] MCH 29.7 27.0 - 33.0 pg [facility] MCHC 32.6 32.0 - 36.0 g/dL [facility] Comment: For adults, a slight decrease in the calculated MCHC value (in the range of 30 to 32 g/dL) is most likely not clinically significant; however, it should be interpreted with caution in correlation with other red cell parameters and the patient's clinical condition. RDW 13.7 11.0 - 15.0 % [facility] PLATELETS 502(H) 140 - 400 Thousand/ uL [facility] MPV 10.9 7.5 - 12.5 fL [facility] NEUTROPHIL ABSOLUTE 13,983(H) 1,500 - 7,800 cells/uL [facility] LYMPHOCYTE ABSOLUTE 2,921 850 - 3,900 cells/uL [facility] MONOCYTE ABSOLUTE 708 200 - 950 cells/uL [facility] EOSINOPHIL ABSOLUTE 18 15 - 500 cells/uL [facility] BASOPHILS ABSOLUTE 71 0 - 200 cells/uL [facility] NEUTROPHIL 79 % [facility] LYMPHOCYTES 16.5 % [facility] MONOCYTE 4.0 % [facility] EOSINOPHILS 0.1 % [facility] BASOPHILS 0.4 % [facility] Comment: Test Performed at: [facility] [address] RubaShama Fernandez MD Blood 03/15/2025 2:47 PM CDT 03/15/2025 2:47 PM CDT us Bruce Muse DO HEMATOLOGY ORDERABLES Final R esult Performing Organization Address City/[facility]/ZIP Co de Phone Number [facility] [phone] [facility] [address] * TSH (03/15/2025 2:47 PM CDT) TSH 4.13 mIU/L [facility] Comment: Reference Range > or = 20 Years 0.40-4.50 Ranges First trimester 0.26-2.66 Second trimester 0.55-2.73 Third trimester 0.43-2.91 Test Performed at: [facility] [address] [place] [address] Torito Fernandez MD Blood 03/15/2025 2:47 PM CDT 03/15/2025 2:47 PM CDT us Bruce Muse DO CHEMISTRY ORDERABLES Final Re sult [facility] [phone] [facility] [address] [place] [phone] * LIPASE (03/15/2025 2:47 PM CDT) LIPASE 34 7 - 60 U/L [facility] Comment: Test Performed at: [facility] [address] [place] [address] Torito Fernandez MD Blood 03/15/2025 2:47 PM CDT 03/15/2025 2:47 PM CDT [facility] CHEMISTRY ORDERABLES Final Re sult Performing Organization Address [facility]/ZIP Co de Phone Number [facility] [phone] [facility] [address] * GGT (03/15/2025 2:47 PM CDT) [facility] GGT 49 3 - 55 U/L [facility] Comment: Test Performed at: [facility] [address] Torito Fernandez MD Blood 03/15/2025 2:47 PM CDT 03/15/2025 2:47 PM CDT Bruce Almaz DODD CHEMISTRY ORDERABLES Final Re sult Performing Organization Address [facility] de Phone Number [facility] [phone] [facility] [address] * (ABNORMAL) COMPREHENSIVE METABOLIC PANEL (03/15/2025 2:47 PM CDT) Only the most recent of3 resultswithin the time period is included. Pathologist [facility] GLUCOSE 148(H) 65 - 99 mg/dL [facility] Comment: Fasting reference interval For someone without known diabetes, a glucose value >125 mg/dL indicates that they may have diabetes and this should be confirmed with a follow-up test. BUN 21 7 - 25 mg/dL [facility] CREATININE 0.88 0.50 - 0.99 mg/dL [facility] GFR 82 > OR = 60 mL/min/1. 73m2 [facility] BUN/CREAT RATIO SEE NOTE: 6 - 22 (calc) [facility] Comment: Not Reported: BUN and Creatinine are within reference range. SODIUM 140 135 - 146 mmol/L [facility] POTASSIUM 3.9 3.5 - 5.3 mmol/L [facility] CHLORIDE 100 98 - 110 mmol/L [facility] CO2 22 20 - 32 mmol/L [facility] CALCIUM 10.2 8.6 - 10.2 mg/dL [facility] TOTAL PROTEIN 7.7 6.1 - 8.1 g/dL [facility] ALBUMIN 4.5 3.6 - 5.1 g/dL [facility] GLOBULIN 3.2 1.9 - 3.7 g/dL (calc) [facility] ALBUMIN/GLOBULIN RATIO 1.4 1.0 - 2.5 (calc) [facility] BILIRUBIN TOTAL 0.6 0.2 - 1.2 mg/dL [facility] ALKALINE PHOSPHATASE 210(H) 31 - 125 U/L [facility] AST 23 10 - 35 U/L [facility] ALT 35(H) 6 - 29 U/L [facility] Comment: Test Performed at: [employer] [address] [place] [address] Torito Fernandez MD Blood 03/15/2025 2:47 PM CDT 03/15/2025 2:47 PM CDT Bruce Muse DO CHEMISTRY ORDERABLES Final Re sult [facility] [phone] [facility] [address] [place] [address] * (ABNORMAL) MEDICATION COMPLIANCE DRUG SCREEN (02/23/2025 12:19 PM CDT) Summary [email or web address] [place] Comment: Prescribed Prescribed Not Prescribed Consistent Inconsistent Inconsistent Gabapentin BUPRENORPHINE (URINE) NEGATIVE <5 ng/mL [facility] Fentanyl NEGATIVE <0.5 ng/mL [facility] Propoxyphene, Urine NEGATIVE <300 ng/mL [facility] MDA (Ecstasy Mtb), Urine NEGATIVE <200 ng/mL [facility] MDMA (Ecstasy), Urine NEGATIVE <200 ng/mL [facility] MDMA Comments [facility] Comment:See LDT Notes Meprobamate, Urine NEGATIVE <1000 ng/mL [facility] Carisoprodol Comments [facility] Comment:See LDT Notes Tapentadol, Urine NEGATIVE <50 ng/mL [facility] Nortapentadol, Urine NEGATIVE <50 ng/mL [facility] Tapentadol Comments [facility] Comment:See LDT Notes O-Desmethyltramadol , Urine NEGATIVE <100 ng/mL [facility] Tramadol, Urine NEGATIVE <100 ng/mL [facility] Tramadol Comments [facility] Comment:See LDT Notes Gabapentin, Urine >261971(H) <1000 ng/mL [facility] medMATCH Gabapentin, Urine INCONSISTENT (A) [facility] Gabapentin Comments [facility] Comment:See Gabapentin Notes , LDT Notes Meperidine, Urine NEGATIVE <100 ng/mL [facility] Normeperidine, Urine NEGATIVE <100 ng/mL [facility] Meperidine Comments [facility] Comment:See LDT Notes PREGABALIN, QUANT URINE NEGATIVE <1000 ng/mL [facility] Pregabalin Comments [facility] Comment:See LDT Notes Alcohol Metabolites, Urine NEGATIVE <500 ng/mL [facility] AMPHETAMINES (URINE) NEGATIVE <500 ng/mL [facility] BARBITURATES (URINE) NEGATIVE <300 ng/mL [facility] BENZODIAZEPINES (URINE) NEGATIVE <100 ng/mL [facility] COCAINE & METABOLITE (URINE) NEGATIVE <150 ng/mL [facility] 6 ACETYLMORPHINE, URINE NEGATIVE <10 ng/mL [facility] CANNABINOIDS QUAL, URINE NEGATIVE <20 ng/mL [facility] [place] Methadone Metabolite, Urine NEGATIVE <100 ng/mL [facility] OPIATE CLASS (URINE) NEGATIVE <100 ng/mL [facility] OXYCODONE CLASS (URINE) NEGATIVE <100 ng/mL [facility] PHENCYCLIDINE, URINE NEGATIVE <25 ng/mL [facility] [place] Creatinine, Urine 26.4 > or = 20.0 mg/dL [facility] [place] PH 6.9 4.5 - 9.0 [facility] OXIDANT, URINE NEGATIVE <200 mcg/mL [facility] [place] ZOLPIDEM, URINE NEGATIVE <5 ng/mL [facility] Zolipidem Metabolite, Urine NEGATIVE <5 ng/mL [facility] Zolpidem Comments [facility] Comment:See LDT Notes COMMENT TOXICOLOGY Q uest [facility] Comment: This drug testing is for medical treatment only. Analysis was performed as non-forensic testing and these results should be used only by healthcare providers to render diagnosis or treatment, or to monitor progress of medical conditions. Gabapentin Notes: Gabapentin detected is consistent with the use of the drug Gabapentin. LDT Notes: Confirmation tests were developed and their analytical performance characteristics have been determined by [facility]. It has not been cleared or approved by the FDA. This assay has been validated pursuant to the CLIA regulations and is used for clinical purposes. medMATCH(R) enables providers to identify if drug use is consistent or inconsistent with a corresponding prescribed medication(s) list. Healthcare Providers needing Interpretation assistance, please contact us at [phone] ( ) M-F, 8am to 10pm EST Test Performed at: [facility] [address] [place] [address] Jevon PAREDES Urine URINE SPECIMEN OBTAINED BY CLEAN CATCH PROCEDURE / Unknown 02/23/2025 12:19 PM CDT 02/24/2025 3:50 AM CDT us Bruce Muse DO URINE ORDERABLES Final Result [facility] [phone] [facility] [address] [place] [address] * (ABNORMAL) MICROALBUMIN/CREATININE RATIO, RANDOM UR (02/23/2025 12:19 PM CDT) CREATININE, URINE 27 20 - 275 mg/dL [facility] ALBUMIN, URINE 0.9 See Note: mg/dL [facility] Comment: Reference Range: Reference Range Not established ALB/CREAT RATIO, URINE 33(H) <30 mg/g creat [facility] Comment: The ADA defines abnormalities in albumin excretion as follows: Albuminuria Category Result (mg/g creatinine) Normal to Mildly increased <30 Moderately increased 30-299 Severely increased > OR = 300 The ADA recommends that at least two of three specimens collected within a 3-6 month period be abnormal before considering a patient to be within a diagnostic category. Test Performed at: [facility] [address] [place] [address] Torito Fernandez MD Urine URINE SPECIMEN OBTAINED BY CLEAN CATCH PROCEDURE / Unknown 02/23/2025 12:19 PM CDT 02/24/2025 3:50 AM CDT Brucejoseline Muse URINE ORDERABLES Final Result [facility] [phone] [facility] [address] [place] [address] * XR ANKLE 3+ VW LEFT (02/23/2025 10:42 AM CDT) Only the most recent of2 resultswithin the time period is included. Anatomical Region Laterality Modality Ankle / Foot Computed Radiogr aphy 02/23/2025 10:4 2 AM CDT Impressions 02/23/2025 4:18 PM CDT IMPRESSION: Please see below. Exam: XR ANKLE 3+ VW LEFT Date/Time of Exam: 02/23/2025 10:42 AM Reason For Exam: See Diagnosis. Diagnosis: Closed displaced fracture of lateral malleolus of left fibula, initial encounter. Comparison: January 08, 2025 FINDINGS: AP, lateral and oblique projections show partially but incompletely healed distal fibular fracture. Distal tibial hardware appears intact. No dislocation. Mild soft tissue edema. Narrative Procedure Note Cinthia Pop ChavezDO - 02/23/2025 IMPRESSION: Please see below. Exam: XR ANKLE 3+ VW LEFT Date/Time of Exam: 02/23/2025 10:42 AM Reason For Exam: See Diagnosis. Diagnosis: Closed displaced fracture of lateral malleolus of left fibula, initial encounter. Comparison: January 08, 2025 FINDINGS: AP, lateral and oblique projections show partially but incompletely healed distal fibular fracture. Distal tibial hardware appears intact. No dislocation. Mild soft tissue edema. Shalom Cnaada DO DIAGNOSTIC IMAGING ORDERABLES Final Result * [place] CLTX DSTL FIBULAR FX LAT MALLS W/O MANJ, [place] APPLICATION SHORT LEG SPLINT CALF FOOT (01/08/2025 2:00 PM CDT) Narrative [facility] - 01/08/2025 2:00 PM CDT Bruce Muse DO 01/08/2025 4:02 PM Ortho- Fracture & Fracture Dislocations Date/Time: 01/08/2025 2:00 PM Performed by: Bruce Muse DO Authorized by: Bruce Muse DO Injury location: ankle Injury type: fracture Fracture type: lateral malleolus Pre-procedure neurovascular assessment: neurovascularly intact Pre-procedure distal perfusion: normal Pre-procedure neurological function: normal Pre-procedure range of motion: reduced Anesthesia: Local anesthesia used: no Sedation: Patient sedated: no Immobilization: splint Splint type: ankle stirrup Supplies used: plaster Post-procedure neurovascular assessment: post-procedure neurovascularly intact Post-procedure distal perfusion: normal Post-procedure neurological function: normal Post-procedure range of motion: unchanged Patient tolerance: patient tolerated the procedure well with no immediate complications us Bruce Muse DO PROCEDURE/MINOR SURGICAL ORDE RABLES Final Result [facility] CLIA# [id number] [address] [place] [address] * HEMOGLOBIN A1C (09/22/2024) ABSTRACTED HGB A1C 5.1 % Blood 09/22/2024 us Abstract Provider CHEMISTRY ORDERABLES Final Res ult * LIPID PANEL (09/22/2024) Pathologist [facility] ABSTRACTED CHOLESTEROL 175 ABSTRACTED TRIGLYCERIDE 92 ABSTRACTED HDL 83 ABSTRACTED LDL CALCULATED 74 Blood 09/22/2024 us Abstract Provider CHEMISTRY ORDERABLES Final Res ult * CERV/VAG CYTO SCREEN PAP RLFX HPV (01/07/2023 12:08 PM CDT) Pathologist [facility] CLINICAL INFORMATION Jennifer Asif Comment:Routine exam LAST MENSTRUAL PERIOD Jennifer Asif Comment:[id number] PREV PAP: Jennifer Asif Comment:NONE GIVEN PREV BX: Jennifer Asif Comment:NONE GIVEN SOURCE Jennifer Asif Comment:ENDOCERVIX ADEQUACY: Jennifer Asif Comment: Satisfactory for evaluation. Endocervical/transformation zone component present. PAP INTERP Jennifer Asif Comment:Negative for intraep ithelial lesion or malignancy. COMMENT (PAP TEST) Q uest Dennis Asif Comment: This Pap test has been evaluated with computer assisted technology. BUSINESS INTELLIGENCE MANAGER: Leonela Asif Comment: KARRIE VARELA(ASCP) CT Screening location: [address] [place] [address] [address] Dennis Asif Comment: EXPLANATORY NOTE: The Pap is a screening test for cervical cancer. It is not a diagnostic test and is subject to false negative and false positive results. It is most reliable when a satisfactory sample, regularly obtained, is submitted with relevant clinical findings and history, and when the Pap result is evaluated along with historic and current clinical information. Test Performed at: [facility] [address] [place] [address] Torito Fernandez Genital SWAB OF ENDOCERVIX / Unknown 01/07/2023 12:08 PM CDT 01/08/2023 7:00 AM CDT Zoey Parra MECHANIC PATHOLOGY/CYTOLOGY ORDERABLES Final Result [facility] [phone] [email or web address] [place] [address] [place] [address] * ENDOSCOPY, COLON, SCREENING (05/07/2022) Abstract Provider GI PROCEDURE ORDERABLES Final Result from Last 3 Months or Most Recently Relevant to Health Maintenance Insurance [facility] DUAL COMPLETE O [facility] [id number] MEDICAID [place] RX [employer] RX Member Subscriber Plan / Payer (Ef fective 2025-Present) Name:Abigail Restrepo Relation to Subscriber:Self Name:Abigail Restrepo Subscriber ID:Not on file Payer ID:Not on file Group ID:[id number] Type:RX Medicare Part D Address: [place] RX Member Subscriber Plan / Payer ( fective 2025-Present) Name:Abigail Restrepo Relation to Subscriber:Self Name:Abigail Restrepo Subscriber ID:Not on file Payer ID:Not on file Group ID:[id number] Type:RX Medicare Part D Address: [place] [employer] Express Care Teams Meter Reader Chief Relationship Specialty Start Date End Date Bruce Muse DO [address] [place] [address] PCP - General Family Practice 02/28/21
--- OUTSIDE RECORDS SUMMARY | 2025-03-28 13:09 | XMS_ITS | Encounter Summary ---
Author Organization [facility] Address [address] [place] [address] Phone Care Team Providers Care Plugman Name Role Phone Almaz Bruce Nitin Primary Care Provider [phone] Reason for Visit * Reason Comments Med Refill Encounter Details Date Type Department Care Team (Late st Contact Info) Description 03/07/2025 Refill [facility]Y [facility]INIC MEDICAL OFFICE BUILDING [address] [place] [address] [phone] Shane Cartagena MD [address] [place] [phone] Dizziness Social History Tobacco Use Types Packs/Day Years Used Date Smoking Tobacco: Never Smokeless Tobacco: Never Alcohol Use Standard Drinks/Week Comments Never 0 (1 standard drink = 0.6 oz pur e alcohol) [facility] Utilities Answer Date Recorded In the past 12 months has [facility] [employer] [employer], gas, oil, or water [employer] threatened to shut off services in your [...] place to sleep or slept in a snf (including now)? No 09/22/2023 [facility] - Mental Health Answer Date Recorde d Little interest or pleasure in doing things Not at all 09/22/2023 Feeling down, depressed, or hopeless Not at all 09/22/2023 Feeling of Stress Not on file 09/22/2023 Comments Unknown Sex and Gender Information Value Date Recorded Sex Assigned at Not on file Legal Sex Female 5:11 AM PELLETIZER Gender Identity Not on file Sexual Orientation Not on file documented as of this encounter Functional Status * Are you deaf or do you have serious difficulty hearing? Answer Date of Assessment Author No 06/18/2021 2:19 PM PELLETIZER Bruce, Darl a, FUNERAL LIMOUSINE DRIVER * Are you blind or do you have serious difficulty seeing, even when wearing glasses? Answer Date of Assessment Author No 06/18/2021 2:19 PM PELLETIZER Bruce, Darl a, FUNERAL LIMOUSINE DRIVER * Do you have serious difficulty walking or climbing stairs? Answer Date of Assessment Author No 06/18/2021 2:19 PM PELLETIZER Bruce, Darl a, FUNERAL LIMOUSINE DRIVER * Do you have serious difficulty dressing or bathing? Answer Date of Assessment Author No 06/18/2021 2:19 PM PELLETIZER Bruce, Darl a, FUNERAL LIMOUSINE DRIVER * Because of a physical, mental, or emotional condition, do you have serious difficulty doing errandsalone such as visiting the doctor? Answer Date of Assessment Author No 06/18/2021 2:19 PM PELLETIZER Bruce, Darl a, FUNERAL LIMOUSINE DRIVER documented as of this encounter Mental Status * Because of a physical, mental, or emotional condition, do you have serious difficulty concentrating, remembering, or making decisions? (5 years old or older) Answer Entry Date Author No 06/18/2021 2:19 PM PELLETIZER Bruce, Darl a, FUNERAL LIMOUSINE DRIVER documented in this encounter Miscellaneous Notes * Telephone Encounter - KARLOS Erickson - 03/07/2025 10:19 AM CDT documented in this encounter Plan of Treatment Not on file documented as of this encounter Visit Diagnoses Diagnosis Dizziness Dizziness and giddiness documented in this encounter Additional Health Concerns Infection Onset Date Last Indicated Resolved Time Influenza 09/22/2023 09/22/2023 documented as of this encounter Care Teams Plugman Relationship Specialty Start Date End Date Bruce Muse Do [address] [place] [address] PCP - General 06/25/20 documented as of this encounter
--- OUTSIDE RECORDS SUMMARY | 2025-03-28 13:09 | XMS_ITS | Encounter Summary ---
Author Organization [facility] Address [address] [place] [address] Phone Care Team Providers Care Copy Operator Name Role Phone Bruce Muse Do Nitin Primary Care Provider [phone] Reason for Visit * Reason Comments Med Refill Encounter Details Date Type Department Care Team (Late st Contact Info) Description 03/18/2023 Refill NEPHROLOGY CLINIC MEDICAL OFFICE BUILDING [address] [place] [address] [phone] Shane Cartagena MD [address] [place] [address] [phone] Dizziness Social History Tobacco Use Types Packs/Day Years Used Date Smoking Tobacco: Never Smokeless Tobacco: Never Alcohol Use Standard Drinks/Week Comments Never 0 (1 standard drink = 0.6 oz pur e alcohol) PHQ-2 Answer Date Recorded Patient Health Questionnaire-2 Score 0 09/17/2022 Comments Unknown Sex and Gender Information Value Date Recorded Sex Assigned at Not on file Legal Sex Female 5:11 AM [employer] Gender Identity Not on file Sexual Orientation Not on file documented as of this encounter Functional Status * Are you deaf or do you have serious difficulty hearing? Answer Date of Assessment Author No 06/18/2021 2:19 PM [employer] Shelton Barrera BSW * Are you blind or do you have serious difficulty seeing, even when wearing glasses? Answer Date of Assessment Author No 06/18/2021 2:19 PM [employer] Shelton Barrera CLINICAL APPEALS RN * Do you have serious difficulty walking or climbing stairs? Answer Date of Assessment Author No 06/18/2021 2:19 PM [employer] Shelton Barrera BSW * Do you have serious difficulty dressing or bathing? Answer Date of Assessment Author No 06/18/2021 2:19 PM [employer] Shelton Barrera BSW * Because of a physical, mental, or emotional condition, do you have serious difficulty doing errandsalone such as visiting the doctor? Answer Date of Assessment Author No 06/18/2021 2:19 PM [employer] Shelton Barrera BSW documented as of this encounter Mental [...] COVID-19 Rule-Out 09/22/2023 09/22/2023 09/22/2023 5:17 PM [employer] Influenza 09/22/2023 09/22/2023 documented as of this encounter Care Teams Copy Operator Relationship Specialty Start Date End Date Bruce Muse Do [address], [place] [address] PCP - General 06/25/20 documented as of this encounter
--- OUTSIDE RECORDS SUMMARY | 2025-03-28 13:09 | XMS_ITS | Encounter Summary ---
Author Organization [facility] Address [address] [place] [address] Care Team Providers Care Used Car Lot Attendant Name Role Phone Terence Muse MD Primary Care Provider [phone] Encounter Details Date Type Department Care Team (Late st Contact Info) Description 11/24/2004 Outpatient Historical [facility] Laz James MD NO ADDRESS ON FILE Social History Tobacco Use Types Packs/Day Years Used Date Smoking Tobacco: Never Assessed Comments Unknown Sex and Gender Information Value Date Recorded Sex Assigned at Not on file Legal Sex Female 4:04 AM SUSTAINABLE COMMUNITIES DESIGNER Gender Identity Not on file Sexual Orientation Not on file documented as of this encounter Plan of Treatment Not on file documented as of this encounter Visit Diagnoses Not on filedocumented in this encounter Care Teams Used Car Lot Attendant Relationship Specialty Start Date End Date Terence Muse MD [address] [place] [address] PCP - General Family Practice 01/12/20 documented as of this encounter
--- OUTSIDE RECORDS SUMMARY | 2025-03-28 13:09 | XMS_ITS | Encounter Summary ---
Author Organization [facility] Address [address] [place] [address] Care Team Providers Care Parts Lister Name Role Phone Terence Muse MD Primary Care Provider [phone] Encounter Details Date Type Department Care Team (Late st Contact Info) Description 06/04/2020 Lab Requisition [facility] Services [address] [place] [phone] Miguel Longo MD [address] [place] [address] Social History Tobacco Use Types Packs/Day Years Used Date Smoking Tobacco: Never Smokeless Tobacco: Never Alcohol Use Standard Drinks/Week Comments No 0 (1 standard drink = 0.6 oz pur e alcohol) Comments No Sex and Gender Information Value Date Recorded Sex Assigned at Not on file Legal Sex Female 4:04 AM MRI SPECIAL PROCEDURES TECHNOLOGIST Gender Identity Not on file Sexual Orientation Not on file Occupation Industry Job Start Date Job End Date Not on file Not on file Not on file Not on file COVID-19 Exposure Response Date Recorded In the last month, have you been in contact with someone who was confirmed or suspected to have Coronavirus / COVID-19? No / Unsure 05/27/2020 8:11 AM MRI SPECIAL PROCEDURES TECHNOLOGIST documented as of this encounter Plan of Treatment Not on file documented as of this encounter Procedures Procedure Name Priority Date/Time Associated Diagnosis Comments CBC WITHOUT DIFFERENTIAL Routine 06/04/2020 4:30 AM MRI SPECIAL PROCEDURES TECHNOLOGIST documented in this encounter Results * (ABNORMAL) CBC WITHOUT DIFFERENTIAL (06/04/2020 4:30 AM MRI SPECIAL PROCEDURES TECHNOLOGIST) WBC 6.8 4.5 - 11.0 K/uL 06/04/2020 5:05 PM [facility] RBC 3.67(L) 4.20 - 5.40 M/uL 06/04/2020 5:05 PM [facility] HEMOGLOBIN 10.7(L) 12.0 - 16.0 g/dL 06/04/2020 5:05 PM [facility] HEMATOCRIT 36.5 36.0 - 46.0 % 06/04/2020 5:05 PM [facility] MCV 99.5 84.0 - 103.0 fL 06/04/2020 5:05 PM [facility] MCH 29.2 27.0 - 34.0 pg 06/04/2020 5:05 PM [facility] MCHC 29.3(L) 30.0 - 35.0 g/dL 06/04/2020 5:05 PM [facility] PLATELETS 448(H) 140 - 440 K/uL 06/04/2020 5:05 PM [facility] MPV 9.5 8.9 - 12.8 fL 06/04/2020 5:05 PM [facility] RDW 15.9(H) 11.0 - 14.5 % 06/04/2020 5:05 PM [facility] RDW-STDEV 58.4(H) 37.0 - 54.0 fL 06/04/2020 5:05 PM [facility] Blood Collection / Unknown 06/04/2020 4:30 AM MRI SPECIAL PROCEDURES TECHNOLOGIST 06/04/2020 4:49 PM MRI SPECIAL PROCEDURES TECHNOLOGIST us Miguel Longo MD HEMATOLOGY ORDERABLES Final Res ult [facility] [address] [place] [address] documented in this encounter Visit Diagnoses Not on filedocumented in this encounter Care Teams Parts Lister Relationship Specialty Start Date End Date Terence Muse MD [address], [place] [address] PCP - General Family Practice 01/12/20 documented as of this encounter
--- OUTSIDE RECORDS SUMMARY | 2025-03-28 13:09 | XMS_ITS | Encounter Summary ---
Author Organization [facility] Address [address] [place] [address] Care Team Providers Care Auto Body Repairer Name Role Phone Terence Muse MD Primary Care Provider [phone] Encounter Details Date Type Department Care Team (Latest Contact Info) Description 08/06/2005 Outpatient Historical [facility] [address] [place] [address] AMBULANCE, [facility] SKIN SENSATION DISTURB (Primary Dx) Social History Tobacco Use Types Packs/Day Years Used Date Smoking Tobacco: Never Assessed Comments Unknown Sex and Gender Information Value Date Recorded Sex Assigned at Not on file Legal Sex Female 4:04 AM SECURITY PUBLIC SAFETY OFFICER Gender Identity Not on file Sexual Orientation Not on file documented as of this encounter Plan of Treatment Not on file documented as of this encounter Visit Diagnoses Diagnosis Disturbance of skin sensation- Primary documented in this encounter Care Teams Auto Body Repairer Relationship Specialty Start Date End Date Terence Muse MD [address] [place] [address] PCP - General Family Practice 01/12/20 documented as of this encounter
--- OUTSIDE RECORDS SUMMARY | 2025-03-28 13:09 | XMS_ITS | Encounter Summary ---
Author Organization [facility] Address [address] [facility] Attn: [place] [address] Care Team Providers Care Real Estate Professor Name Role Phone Terence Muse MD Primary Care Provider [phone] Encounter Details Date Type Department Care Team (Latest Contact Info) Description 05/23/2001 Emergency Ulices Nguyen DO NO ADDRESS ON FILE Social History Tobacco Use Types Packs/Day Years Used Date Smoking Tobacco: Never Assessed Comments Unknown Sex and Gender Information Value Date Recorded Sex Assigned at Not on file Legal Sex Female 4:04 AM REFRIGERATION MANAGER Gender Identity Not on file Sexual Orientation Not on file documented as of this encounter Plan of Treatment Not on file documented as of this encounter Visit Diagnoses Not on filedocumented in this encounter Care Teams Real Estate Professor Relationship Specialty Start Date End Date Terence Muse MD [address] [place] [address] PCP - General Family Practice 01/12/20 documented as of this encounter
--- OUTSIDE RECORDS SUMMARY | 2025-03-28 13:09 | XMS_ITS | Encounter Summary ---
Author Organization [facility] Address [address] [place] [address] Care Team Providers Care Overnight Associate Name Role Phone Terence Muse MD Primary Care Provider [phone] Encounter Details Date Type Department Care Team (Latest Contact Info) Description 05/07/2006 Outpatient Historical 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) Social History Tobacco Use Types Packs/Day Years Used Date Smoking Tobacco: Never Assessed Comments Unknown Sex and Gender Information Value Date Recorded Sex Assigned at Not on file Legal Sex Female 4:04 AM ACTUARIAL ASSISTANT Gender Identity Not on file Sexual Orientation Not on file documented as of this encounter Plan of Treatment Not on file documented as of this encounter Visit Diagnoses Diagnosis Blindness of both eyes, impairment level not further specified- Primary documented in this encounter Care Teams Overnight Associate Relationship Specialty Start Date End Date Terence Muse MD [address] [place] [address] PCP - General Family Practice 01/12/20 documented as of this encounter
--- OUTSIDE RECORDS SUMMARY | 2025-03-28 13:09 | XMS_ITS | Encounter Summary ---
Author Organization [facility] [employer], [facility] Address [address] [facility] [address] [place] [address] Phone Care Team Providers Care Family Court Counsellor Name Role Phone Bruce Muse DO Primary Care Provider [phone] Encounter Details Date Type Department Care Team (Late st Contact Info) Description 10/09/2024 Orders Only [facility] [employer] [address] [facility] [address] [place] [address] Chronic kidney disease stage 3A (HCC) Social History Tobacco Use Types Packs/Day Years Used Date Smoking Tobacco: Never Assessed Comments Unknown Sex and Gender Information Value Date Recorded Sex Assigned at Not on file Legal Sex Female 9:59 AM EDT Gender Identity Not on file Sexual Orientation Not on file documented as of this encounter Plan of Treatment Upcoming Encounters Date Type Department Care Team (Late st Contact Info) Description 04/18/2025 Orders Only [place] [employer] [address] [place] [address] Jumana Solorzano Chronic kidney disease, not otherwise specified 04/26/2025 11:00 AM CDT Office Visit [place] [facility] [employer] [address] [place], [place] [id number] Soila Marquez NP [address] [place] [address] documented as of this encounter Visit Diagnoses Diagnosis Chronic kidney disease stage 3A (HCC) Chronic kidney disease, not otherwise specified documented in this encounter Care Teams Family Court Counsellor Relationship Specialty Start Date End Date Bruce Muse DO [address] [address] PCP - General Family Medicine 10/09/24 documented as of this encounter
--- OUTSIDE RECORDS SUMMARY | 2025-03-28 13:09 | XMS_ITS | Encounter Summary ---
Author Organization [facility] Address [address] [place] [address] Care Team Providers Care Roof Mechanic Name Role Phone Terence Muse MD Primary Care Provider [phone] Encounter Details Date Type Department Care Team (Latest Contact Info) Description 12/08/2004 Outpatient Historical [facility], Nose and Throat- 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
--- OUTSIDE RECORDS SUMMARY | 2025-03-28 13:09 | XMS_ITS | Encounter Summary ---
Author Organization [facility] Address [address] [place] [address] Care Team Providers Care Editor Department Name Role Phone Bruce Muse DO Primary Care Provider [phone] Reason for Visit * Reason Comments Home Monitoring Phone Call Encounter Details Date Type Department Care Team ([facility] st Contact Info) Description 12/27/2024 Telephone [facility] [address] [address] Bruce Muse DO [address] [place] [address] Home Monitoring Phone Call Social History Tobacco Use Types Packs/Day Years Used Date Smoking Tobacco: Never Passive Smoke Exposure: Never Smokeless Tobacco: Never Alcohol Use Standard [...] on file Legal Sex Female 8:23 AM CHARGE ENTRY Gender Identity Not on file Sexual Orientation Not on file documented as of this encounter Miscellaneous Notes * Telephone Encounter - Akua Melchor LPN - 12/27/2024 10:23 AM CDT 12/27/2024 10:23 AM Returned call. No answer. No voicemail or answering machine. Will continue to try to contact. If patient/caregiver calls back, contact center please inform caller to expect a return call from the clinic. Akua RUSSELL * Telephone Encounter - Bruce Muse DO - 12/27/2024 9:44 AM CDT Recommend adding low-dose of duloxetine and reducing dose of fluvoxamine. Duloxetine sent to pharmacy. Take half tablet of fluvoxamine at bedtime for 2 weeks and let us know in 2 weeks. It will take about 2 weeks to have improvement with this medication. We can increase the dose after 1 week if needed. * Telephone Encounter - Soila Miller PCA - 12/27/2024 8:12 AM CDT Copied from [facility] #[id number]. Topic: Patient or Caregiver Communication Request >> Dec 27, 2024 8:10 AM Soila Kelley wrote: Patient or Caregiver requesting that a message be sent to Care Team Caller: Abigail Restrepo Patient/Caregiver Callback Number: [phone] Call Notes: Tizanidine > she said Dr Muse increased dose and wanted her to call with an update.She stated that it has not helped or changed anything and wanted to know if there was something shecould take with it to get some relief from the pain. Please call back to advise. documented in this encounter Plan of Treatment Upcoming Encounters Date Type Department Care Team (Late Contact Info) Description 04/03/2025 9:40 AM CDT Office Visit [facility] [address] [place] [phone] Bruce Muse DO [address] [place] [phone] 07/10/2025 1:30 PM CHARGE ENTRY Telephone Check Up [facility] Gastroenterology- [facility] [address] [address] Leonie Kessler, [address] [address] 07/27/2025 12:00 PM CHARGE ENTRY Appointment [facility] Nuclear Medicine [address] [place] [address] Leonie Kessler, [address] [address] documented as of this encounter Visit Diagnoses Diagnosis Bipolar disorder, in partial remission, most recent episode mixed- Primary Bipolar I disorder, most recent episode (or current) mixed, in partial or unspecified remission Other chronic postprocedural pain Chronic bilateral thoracic back pain Chronic low back pain without sciatica, unspecified back pain laterality Chronic pain of both feet documented in this encounter Care Teams Editor Department Relationship Specialty Start Date End Date Bruce Muse DO [address] [place] [phone] PCP - General Family Practice 02/28/21 documented as of this encounter
--- OUTSIDE RECORDS SUMMARY | 2025-03-28 13:09 | XMS_ITS | Encounter Summary ---
Author Organization [facility] Address [address] [place] [address] Care Team Providers Care Spray Applicator Name Role Phone Terence Muse MD Primary Care Provider [phone] Encounter Details Date Type Department Care Team (Latest Contact Info) Description 09/29/2004 Outpatient Historical [facility] Ear, Nose and Throat- [address] [place] [address] Laz James MD NO ADDRESS ON FILE Dysfunct eustachian tube (Primary Dx); Hypertrophy tonsils; CHRONIC TONSILLITIS Social History Tobacco Use Types Packs/Day Years Used Date Smoking Tobacco: Never Assessed Comments Unknown Sex and Gender Information Value Date Recorded Sex Assigned at Not on file Legal Sex Female 4:04 AM THROUGH OPERATOR Gender Identity Not on file Sexual Orientation Not on file documented as of this encounter Plan of Treatment Not on file documented as of this encounter Visit Diagnoses Diagnosis Dysfunct eustachian tube- Primary Dysfunction of Eustachian tube Hypertrophy tonsils Hypertrophy of tonsils alone Chronic tonsillitis documented in this encounter Care Teams Spray Applicator Relationship Specialty Start Date End Date Terence Muse MD [address] [place] [address] PCP - General Family Practice 01/12/20 documented as of this encounter
--- OUTSIDE RECORDS SUMMARY | 2025-03-28 13:09 | XMS_ITS | Encounter Summary ---
Author Organization [facility] Address [address] [place] [address] Care Team Providers Care Operator Specialist Communications Name Role Phone Terence Muse MD Primary Care Provider [phone] Reason for Referral * Radiology Services (Routine) - Closed Specialty Diagnoses / Procedures Referred By Danie france Referred To Contact Radiology Diagnoses Amenorrhea Procedures US PELVIC TRANSVAGINAL US PELVIS COMPLETE Gregg Reaves DO [address] [place] [address] Phone: tel: fax: [facility] Ultrasound Services-[facility] [place] [address] [place] [address] Phone: tel: fax: Referral ID Status Reason Start Date Expiration Date Visits Re quested Visits Authorized [id number] Closed 05/27/2018 06/27/2019 1 1 APEUTIC DIETITIAN Encounter Details Date Type Department Care Team (Late st Contact Info) Description 06/24/2018 Ancillary Orders [facility] Int Med-[facility] [place] [place] [address] Gregg Reaves DO [address] [place] [address] Amenorrhea Social History Tobacco Use Types Packs/Day Years Used Date Smoking Tobacco: Never Smokeless Tobacco: Never Alcohol Use Standard Drinks/Week Comments No 0 (1 standard drink = 0.6 oz pur e alcohol) Comments No Sex and Gender Information Value Date Recorded Sex Assigned at Not on file Legal Sex Female 4:04 AM THERAPEUTIC DIETITIAN Gender Identity Not on file Sexual Orientation Not on file Occupation Industry Job Start Date Job End Date Not on file Not on file Not on file Not on file documented as of this encounter Plan of Treatment Not on file documented as of this encounter Results * US PELVIC TRANSVAGINAL (06/24/2018 2:56 PM THERAPEUTIC DIETITIAN) Anatomical Region Laterality Modality Pelvis Ultrasound 06/24/2018 2:56 PM THERAPEUTIC DIETITIAN Impressions 06/25/2018 1:05 PM THERAPEUTIC DIETITIAN IMPRESSION: Please see below. US PELVIC TRANSVAGINAL, 06/24/2018 2:56 PM Reason For Exam: See Diagnosis. Diagnosis: Amenorrhea. COMPARISON: None TECHNIQUE: Multiplanar real-time ultrasonography of the pelvis using rodriguez-scale imaging, supplemented by color Doppler as needed. FINDINGS: . Uterus: The uterus measures 6.4 x 3.5 x 4.5 cm. The endometrial thickness measures 10 mm. No endometrial or myometrial mass. . Right ovary/adnexa: The ovary measures 3.5 x 1.9 x 1.5 cm for a volume of 5 mL. There is a 1.1 cm corpus luteum cyst and a few small follicles. . Left ovary/adnexa: The ovary cannot be visualized. No adnexal mass. . Bladder: Normal . Peritoneum: No fluid in the cul-de-sac. +++++++++++++++++++++ IMPRESSION: Normal sonographic appearance of the uterus and right ovary. There are small right ovarian follicles. The left ovary could not be visualized. Narrative Procedure Note Jason Baron MD - 06/25/2018 IMPRESSION: Please see below. US PELVIC TRANSVAGINAL, 06/24/2018 2:56 PM Reason For Exam: See Diagnosis. Diagnosis: Amenorrhea. COMPARISON: None TECHNIQUE: Multiplanar real-time ultrasonography of the pelvis using rodriguez-scale imaging, supplemented by color Doppler as needed. FINDINGS: . Uterus: The uterus measures 6.4 x 3.5 x 4.5 cm. The endometrial thickness measures 10 mm. No endometrial or myometrial mass. . Right ovary/adnexa: The ovary measures 3.5 x 1.9 x 1.5 cm for a volume of 5 mL. There is a 1.1 cm corpus luteum cyst and a few small follicles. . Left ovary/adnexa: The ovary cannot be visualized. No adnexal mass. . Bladder: Normal . Peritoneum: No fluid in the cul-de-sac. +++++++++++++++++++++ IMPRESSION: Normal sonographic appearance of the uterus and right ovary. There are small right ovarian follicles. The left ovary could not be visualized. us Gregg Reaves DO US ORDERABLES Final Result documented in this encounter Visit Diagnoses Diagnosis Amenorrhea Absence of menstruation Amenorrhea Absence of menstruation documented in this encounter Care Teams Operator Specialist Communications Relationship Specialty Start Date End Date Terence Muse MD [address] [place] [address] PCP - General Family Practice 01/12/20 documented as of this encounter
--- OUTSIDE RECORDS SUMMARY | 2025-03-28 13:09 | XMS_ITS | Encounter Summary ---
Author Organization [facility] Address [address] [place] [address] Care Team Providers Care Clinical Rn Manager Name Role Phone Bruce Muse Primary Care Provider [phone] Reason for Visit * Reason Onset Date Comments PT given wrong address 11/02/2024 Encounter Details Date Type Department Care Team (Late st Contact Info) Description 11/02/2024 Telephone [facility] [address] [facility] [address] [place] [address] Provider, Abstract NO ADDRESS ON FILE PT given wrong address Social History Tobacco Use Types Packs/Day Years [...] on file Legal Sex Female 8:23 AM CROSSING SUPERVISOR Gender Identity Not on file Sexual Orientation Not on file documented as of this encounter Miscellaneous Notes * Telephone Encounter - Lluu Cagle - 11/02/2024 11:22 AM CDT Referral/ Rayna (Provider) MESSAGE PT used the address in the [facility] email we sent and it took her to [facility]. PT called at 11:20 to advise and they are on the way FYI No call back requested Cardiology Railroad Construction Director: Tova Cagle documented in this encounter Plan of Treatment Upcoming Encounters Date Type Department Care Team (Late st Contact Info) Description 04/03/2025 9:40 AM CDT Office Visit [facility] Medicine [place] [address] [place] [address] Bruce Muse DO [address] [place] [address] 07/10/2025 1:30 PM CROSSING SUPERVISOR Telephone Check Up [facility] Gastroenterology- [address] [address] Leonie Kessler, [address] [address] 07/27/2025 12:00 PM CROSSING SUPERVISOR Appointment [facility] Nuclear Medicine [address] [place] [address] Leonie Kessler, [address] [address] documented as of this encounter Visit Diagnoses Not on filedocumented in this encounter Care Teams Clinical Rn Manager Relationship Specialty Start Date End Date Bruce Muse DO [address] [place] [address] PCP - General Family Practice 02/28/21 documented as of this encounter
--- OUTSIDE RECORDS SUMMARY | 2025-03-28 13:09 | XMS_ITS | Encounter Summary ---
Author Organization [facility] Address [address] [place] [address] Phone Care Team Providers Care Digital Cartographic Technician Name Role Phone Bruce Muse Do Nitin Primary Care Provider [phone] Reason for Visit * Reason Comments Med Refill Encounter Details Date Type Department Care Team (Late st Contact Info) Description 02/09/2022 Refill [facility] BUILDING [address] [place] [phone] [place] [address] [place] [address] [place] [phone] SAM (acute kidney injury); Elevated parathyroid hormone Social History Tobacco Use Types Packs/Day Years Used Date Smoking Tobacco: Never Smokeless Tobacco: Never Alcohol Use Standard Drinks/Week Comments Never 0 (1 standard drink = 0.6 oz pur e alcohol) Comments Unknown Sex and Gender Information Value Date Recorded Sex Assigned at Not on file Legal Sex Female 5:11 AM HAND SURGEON Gender Identity Not on file Sexual Orientation Not on file documented as of this encounter Functional Status * Are you deaf or do you have serious difficulty hearing? Answer Date of Assessment Author No 06/18/2021 2:19 PM HAND SURGEON Shelton Barrera PIANO MECHANIC APPRENTICE * Are you blind or do you have serious difficulty seeing, even when wearing glasses? Answer Date of Assessment Author No 06/18/2021 2:19 PM HAND SURGEON Shelton Barrera, PIANO MECHANIC APPRENTICE * Do you have serious difficulty walking or climbing stairs? Answer Date of Assessment Author No 06/18/2021 2:19 PM HAND SURGEON Shelton Barrera PIANO MECHANIC APPRENTICE * Do you have serious difficulty dressing [...] as of this encounter Visit Diagnoses Diagnosis SAM (acute kidney injury) Elevated parathyroid hormone documented in this encounter Additional Health Concerns Infection Onset Date Last Indicated Resolved Time COVID-19 Rule-Out 09/22/2023 09/22/2023 09/22/2023 5:17 PM HAND SURGEON Influenza 09/22/2023 09/22/2023 documented as of this encounter Care Teams Digital Cartographic Technician Relationship Specialty Start Date End Date Bruce Muse Do [address] [address] PCP - General 06/25/20 documented as of this encounter
--- OUTSIDE RECORDS SUMMARY | 2025-03-28 13:09 | XMS_ITS | Clinical Summary ---
Author Organization [facility] Facility Address [address] [place] [address] Care Team Providers Care Documentation Improvement Specialist Name Role Phone Bruce Muse DO Primary Care Provider [phone] Allergies Active Allergy Reactions Criticality Noted Date Comments Aspirin Swelling High 02/08/2009 Makes my face swell Lips and jaw swell Buprenorphine-Naloxone High 2024 Hepatitis ALT 1300, AST 500 Butlfholjt-Ied-Lpha-Codeine Swelling Low 02/06/20 22 Duloxetine 04/19/2014 Makes me suicidal Morphine High 09/19/2020 OVERDOSE Hx Pregabalin Rash High 07/06/2024 Hives Quetiapine 06/16/2021 Medications acetaminophen (TYLENOL) 500 MG tablet Take 1,000 mg by mouth every 6 hours as needed 1 Active albuterol HFA (PROVENTIL HFA;VENTOLIN HFA) 108 (90 Base) MCG/ACT inhaler Inhale 2 puffs every 30 minutes as needed 1 Active atorvastatin (LIPITOR) 10 MG tablet Take 5 mg by mouth 1 (one) time each day 4 Active busPIRone (BUSPAR) 10 MG tablet Take 10 mg by mouth in the morning and 10 mg at noon and 10 mg in the evening. 5 Active Dapagliflozin Propanediol 5 MG tablet Take 5 mg by mouth in the morning. 5 Active diclofenac (VOLTAREN) 75 MG EC tablet Take 75 mg by mouth in the morning and 75 mg in the evening. 5 Active Docusate Sodium (DSS) 100 MG capsule Take 100 mg by mouth every 12 hours as needed Active fludrocortisone 0.1 MG tablet Take 0.1 mg by mouth in the morning. 5 Active fluvoxaMINE (LUVOX) 100 MG tablet Take 100 mg by mouth every night 5 Active hydrOXYzine (ATARAX) 25 MG tablet Take 25 mg by mouth 3 (three) times a day if needed for anxiety 5 Active Lactobacillus Rhamnosus, GG, capsule Take 1 capsule by mouth in the morning. 5 Active levothyroxine sodium (TIROSINT) 100 MCG capsule Take 100 mcg by mouth in the morning. Active Caplyta 42 MG capsule Take 42 mg by mouth in the morning. 5 Active midodrine (PROAMATINE) 10 MG tablet Take 1 tablet by mouth in the morning and 1 tablet at noon and 1 tablet in the evening. 3 Active Naloxone HCl (Narcan) 4 MG/0.1ML liquid Administer 1 spray into one nostril Every 2 to 3 minutes until responsive or EMS arrives 1 Active omeprazole (PriLOSEC) [address] capsule Take 40 mg by mouth in the morning. 4 Active sucralfate (CARAFATE) 1 g tablet Take 1 g by mouth in the morning and 1 g at noon and 1 g in the evening and 1 g before bedtime. 5 Active tiZANidine (ZANAFLEX) 4 MG tablet Take 4 mg by mouth every 8 (eight) hours if needed for muscle spasms 1 Active traMADol (ULTRAM) 50 MG tablet Take 100 mg by mouth every 8 (eight) hours if needed for moderate pain or severe pain 4 Active traZODone (DESYREL) 150 MG tablet Take 150 mg by mouth every night 4 Active triamcinolone (KENALOG) 0.1 % cream Apply topically in the morning and in the evening. 5 Active metoprolol succinate XL (TOPROL XL) 25 MG 24 hr tablet Take 12.5 mg by mouth in the morning. 5 Active Multiple Vitamin (MULTIVITAMIN ADULT PO) Take 1 capsule by mouth 1 (one) time each day Active Active Problems No known active problems Encounters Date Type Department Care Team Description 12/29/2024 Results Follow-Up [facility] [address] [place] [address] Trina Harding MA from Last 3 Months Immunizations Immunization Administration Dates Next Due DTaP 12/31/1983 IPV 09/09/1993,12/31/1983 MMR 09/09/1993,12/07/1979 Pneumococcal Polysaccharide 10/15/2010 Td 09/09/1993,02/11/1993 Family History Medical History Relation Comments Diabetes Child Seizures Child Diabetes Father Diabetes Mother Diabetes Sister Heart disease Sister Relation Status Comments Child Alive Father Mother Sister Social History Tobacco Use Types Packs/Day [...] Sign Reading Time Taken Comments Blood Pressure 120/90 12/20/2024 9:50 AM CDT Pulse 62 12/20/2024 9:50 AM CDT Temperature - - Respiratory Rate - - Oxygen Saturation 99% 12/20/2024 9:50 AM CDT Inhaled Oxygen Concentration - - Weight 101 kg (222 lb 12.8 oz) 12/20/2024 9:50 A M CDT Height 175.3 cm (5' 9 ) 12/20/2024 9:50 AM CDT Body Mass Index 32.9 12/20/2024 9:50 AM CDT Plan of Treatment Upcoming Encounters Date Type Department Care Team (Late st Contact Info) Description 04/18/2025 Orders Only [facility] [address] [place], [place] [address] Jumana Solorzano Chronic kidney disease, not otherwise specified 04/26/2025 11:00 AM CDT Office Visit [facility] [address] [place], [place] [address] Soila Marquez NP [address] [place] [address] Health Maintenance Due Date Last Done Comments Hepatitis B Vaccine (1 of 3 - 19+ 3-dose series) 1997 Pneumococcal Vaccine: Peds ( 0 to 5 Years) and At-Risk Patients (6 to 49 Years) (2 of 2 - PCV) 10/16/2011 10/15/2010 Diabetes: Hemoglobin A1C 10/09/2024 08/12/2021, 08/0 12/2019 Diabetes: Ophthalmology Exam 10/09/2024 Diabetes: Pedal Pulse Checked 10/09/2024 Diabetes: Sensory Foot Exam 10/09/2024 Diabetes: Visual Foot Exam 10/09/2024 Influenza Vaccine (#1) 2025 Procedures Procedure Name Priority Date/Time Associated Diagnosis Comments CORTISOL Routine 12/28/2024 9:49 AM CDT Chronic kidney disease, not otherwise specified URINE ALBUMIN / CREATININE RATIO Routine 12/28/2024 9:49 AM CDT Chronic kidney disease, not otherwise specified RENAL FUNCTION PANEL Routine 12/28/2024 9:49 AM CDT Chronic kidney disease, not otherwise specified CBC Routine 12/28/2024 9:49 AM CDT Chronic kidney disease, not otherwise specified from Last 3 Months Results * (ABNORMAL) Albumin / Creatinine Urine Ratio (12/28/2024 9:49 AM CDT) Creatinine, Ur 128 20 - 275 mg/dL [facility] Urine Microalbumin 13.6 See Note: mg/dL [facility] Comment: Reference Range: Reference Range Not established Microalb/Creat Ratio 106(H) <30 mg/g creat [facility] Comment: The ADA defines abnormalities in albumin excretion as follows: Albuminuria Category Result (mg/g creatinine) Normal to Mildly increased <30 Moderately increased 30-299 Severely increased > OR = 300 The ADA recommends that at least two of three specimens collected within a 3-6 month period be abnormal before considering a patient to be within a diagnostic category. Urine Urine specimen obtained by clean catch procedure / Unknown 12/28/2024 9:49 AM CDT 12/28/2024 9:50 AM CDT Narrative Resulting Agency Comment Performing Organization Information: Site ID: [id number] Name: Paty Oliveira Address: [address] [address] Director: Torito Fernandez MD Fabricio Banda MD LAB URINE ORDERABLES Final Result PATY Oliveira [id number] [id number] * (ABNORMAL) CBC (12/28/2024 9:49 AM CDT) WBC 13.0(H) 3.8 - 10.8 Thousand/u L [facility] RBC 5.16(H) 3.80 - 5.10 Million/uL [facility] Hemoglobin 15.7(H) 11.7 - 15.5 g/dL [facility] Hematocrit 48.2(H) 35.0 - 45.0 % [facility] MCV 93.4 80.0 - 100.0 fL [facility] MCH 30.4 27.0 - 33.0 pg [facility] MCHC 32.6 32.0 - 36.0 g/dL [facility] Comment: For adults, a slight decrease in the calculated MCHC value (in the range of 30 to 32 g/dL) is most likely not clinically significant; however, it should be interpreted with caution in correlation with other red cell parameters and the patient's clinical condition. RDW 15.1(H) 11.0 - 15.0 % [facility] Platelets 436(H) 140 - 400 Thousand/u L [facility] MPV 9.8 7.5 - 12.5 fL [facility] Blood Venous blood / Unknown 12/28/2024 9:49 AM CDT 12/28/2024 9:50 AM CDT Narrative Resulting Agency Comment Performing Organization Information: Site ID: [id number] Name: Paty Oliveira Address: [address] [place] [address] Director: Torito Fernandez MD Fabricio Banda MD LAB BLOOD ORDERABLES Final Result Performing Organization Address [facility] de Phone Number PATY CALLAWAY Paty [facility]lay[facility] [place] [address] * (ABNORMAL) Cortisol (12/28/2024 9:49 AM CDT) Cortisol 32.5(H) mcg/dL [facility] Comment: Reference Range: For 8 a.m.(7-9 a.m.) Specimen: 4.0-22.0 Reference Range: For 4 p.m.(3-5 p.m.) Specimen: 3.0-17.0 * Please interpret above results accordingly * Blood Venous blood / Unknown 12/28/2024 9:49 AM CDT 12/28/2024 9:50 AM CDT Narrative Resulting Agency Comment Performing Organization Information: Site ID: [id number] Name: [email or web address] Address: [address] [place] [address] Director: Torito Fernandez MD Fabricio Banda MD LAB BLOOD ORDERABLES Final Result Performing Organization Address [facility] de Phone Number PATY [facility] [place] [address] * (ABNORMAL) Renal function panel (12/28/2024 9:49 AM CDT) Glucose 152(H) 65 - 99 mg/dL [facility] Comment: Fasting reference interval For someone without known diabetes, a glucose value >125 mg/dL indicates that they may have diabetes and this should be confirmed with a follow-up test. BUN 20 7 - 25 mg/dL [facility] Creatinine 0.90 0.50 - 0.99 mg/dL [facility] eGFR CKD-EPI CR 2020 80 > OR = 60 mL/min/1. 73m2 [facility] BUN/Creatinine Ratio SEE NOTE: 6 - 22 (calc) [facility] Comment: Not Reported: BUN and Creatinine are within reference range. Sodium 139 135 - 146 mmol/L [facility] Potassium 3.7 3.5 - 5.3 mmol/L [facility] Chloride 101 98 - 110 mmol/L [facility] Bicarbonate (CO2) 20 20 - 32 mmol/L [facility] Calcium 10.0 8.6 - 10.2 mg/dL [facility] Phosphorus 3.0 2.5 - 4.5 mg/dL [facility] Albumin 4.5 3.6 - 5.1 g/dL [facility] Blood Venous blood / Unknown 12/28/2024 9:49 AM CDT 12/28/2024 9:50 AM CDT Narrative Resulting Agency Comment Performing Organization Information: Site ID: [id number] Name: Paty Oliveira Address: [id number] [place] [address] Director: Torito Fernandez MD Fabricio Banda MD LAB BLOOD ORDERABLES Final Result Performing Organization Address City/State/[facility] Co de Phone Number PATY Oliveira [address] [place] [address] from Last 3 Months Insurance Medicaid [place] (SKMO0) [facility] Dual Elig MCR/OLGA LIDIA Care Teams Documentation Improvement Specialist Relationship Specialty Start Date End Date Bruce Muse DO [address] [place] [address] PCP - General Family Medicine 10/09/24
--- OUTSIDE RECORDS SUMMARY | 2025-03-28 13:09 | XMS_ITS | Encounter Summary ---
Author Organization [facility] Address [address] [place] [address] Care Team Providers Care Roofing Laborer Name Role Phone Bruce Muse DO Primary Care Provider [phone] Reason for Visit * Reason Comments Question Encounter Details Date Type Department Care Team ([facility] st Contact Info) Description 11/13/2024 Telephone [facility] [address] [address] Bruce Muse DO [address] [place] [phone] Question Social History Tobacco Use Types Packs/Day Years [...] on file Legal Sex Female 8:23 AM STORAGE ARCHITECT Gender Identity Not on file Sexual Orientation Not on file documented as of this encounter Miscellaneous Notes * Telephone Encounter - Nikita Chris - 11/13/2024 12:01 PM CDT Copied from [facility] #[id number]. Topic: Patient or Caregiver Communication Request >> Nov 13, 2024 11:59 AM Nikita Baxter wrote: Patient or Caregiver requesting that a message be sent to Care Team Caller: Abigail Restrepo Patient/Caregiver Callback Number: Telephone Information: Call Notes: wanting to let us know the stomach medication is helping her. Was also seen in the ER and was put in an ankle brace due to a fall the other day, will inform us more the next time she is in on 11/20. documented in this encounter Plan of Treatment Upcoming Encounters Date Type Department Care Team (Late st Contact Info) Description 04/03/2025 9:40 AM CDT Office Visit [facility] Family [facility] [place] [address] [place] [address] Bruce Muse DO [address] [phone] 07/10/2025 1:30 PM STORAGE ARCHITECT Telephone Check Up [facility] Gastroenterology- [address] [address] Leonie Kessler [address] [address] 07/27/2025 12:00 PM STORAGE ARCHITECT Appointment [facility] Nuclear Medicine [address] [place] [phone] Leonie Kessler FNP [address] [place] [phone] documented as of this encounter Visit Diagnoses Not on filedocumented in this encounter Care Teams Roofing Laborer Relationship Specialty Start Date End Date Bruce Muse DO [address] [place] [address] PCP - General Family Practice 02/28/21 documented as of this encounter
--- OUTSIDE RECORDS SUMMARY | 2025-03-28 13:09 | XMS_ITS | Encounter Summary ---
Author Organization [facility] Address [address] [place] [address] Care Team Providers Care Ingot Weigher Name Role Phone Terence Muse MD Primary Care Provider [phone] Encounter Details Date Type Department Care Team (Latest Contact Info) Description 02/14/2005 Outpatient Historical [facility] [address] [place] [address] AMBULANCE, [facility] CHEST PAIN NOS (Primary Dx) Social History Tobacco Use Types Packs/Day Years Used Date Smoking Tobacco: Never Assessed Comments Unknown Sex and Gender Information Value Date Recorded Sex Assigned at Not on file Legal Sex Female 4:04 AM RESIDENTIAL ENERGY AUDITOR Gender Identity Not on file Sexual Orientation Not on file documented as of this encounter Plan of Treatment Not on file documented as of this encounter Visit Diagnoses Diagnosis Chest pain, unspecified- Primary documented in this encounter Care Teams Ingot Weigher Relationship Specialty Start Date End Date Terence Muse MD [address] [place] [address] PCP - General Family Practice 01/12/20 documented as of this encounter
--- OUTSIDE RECORDS SUMMARY | 2025-03-28 13:10 | XMS_ITS | Encounter Summary ---
Author Organization [facility] Address [address] [place] [address] Care Team Providers Care Physics Instructor Name Role Phone Bruce Muse DO Primary Care Provider [phone] Reason for Visit * Reason Comments Med Refill Encounter Details Date Type Department Care Team (Late st Contact Info) Description 03/20/2025 Refill [facility] [address] [address] Bruce Muse DO [address] [place] [phone] Other chronic postprocedural pain; Chronic bilateral thoracic back pain; Chronic low back pain without sciatica, unspecified back pain laterality; Chronic pain of both feet Social History Tobacco Use Types Packs/Day Years [...] on file Legal Sex Female 8:23 AM CAR BLOCKER Gender Identity Not on file Sexual Orientation Not on file documented as of this encounter Miscellaneous Notes * Telephone Encounter - Princess Aj RN - 03/21/2025 11:00 AM CDT Medication Refill Request Last Fill Date:02/23/25 Recent and Future Visits: Recent Visits Date Type Provider Dept 03/15/25 Office Visit Bruce Muse, DO [facility] 02/23/25 Office Visit Bruce Muse, DO [facility] 01/08/25 Office Visit Bruce Muse, DO [facility] 11/20/24 Office Visit Bruce Muse, [facility] 10/18/24 Video Visit Bruce Muse, [facility] 10/04/24 Office Visit Bruce Muse, [facility] 08/24/24 Office Visit Bruce Muse, [facility] 07/27/24 Office Visit Yasemin Blandon, [facility] 07/06/24 Office Visit Zoey Parra, [facility] 06/30/24 Office Visit Bruce Muse, [facility] Showing recent visits within past 540 days with a meds authorizing provider and meeting all other requirements Future Appointments Date Type Provider Dept 04/03/25 Appointment Bruce Muse, [facility] Showing future appointments within next 365 days with a meds authorizing provider and meeting all other requirements documented in this encounter Plan of Treatment Upcoming Encounters Date Type Department Care Team (Late st Contact Info) Description 04/03/2025 9:40 AM CDT Office Visit [address] [phone] Bruce Muse DO [address] [place] [phone] 07/10/2025 1:30 PM CAR BLOCKER Telephone Check Up [facility] Gastroenterology- [place] [address] [address] Leonie Kessler, [address] [address] 07/27/2025 12:[address] [facility] Nuclear Medicine [address] [place] [address] Leonie Kessler, [address] [address] documented as of this encounter Visit Diagnoses Diagnosis Other chronic postprocedural pain Chronic bilateral thoracic back pain Chronic low back pain without sciatica, unspecified back pain laterality Chronic pain of both feet documented in this encounter Care Teams Physics Instructor Relationship Specialty Start Date End Date Bruce Muse DO [address] [place] [phone] PCP - General Family Practice 02/28/21 documented as of this encounter
--- OUTSIDE RECORDS SUMMARY | 2025-03-28 13:10 | XMS_ITS | Encounter Summary ---
Author Organization [facility] Address [address] [place] [address] Care Team Providers Care Mime Artist Name Role Phone Bruce Muse DO Primary Care Provider Reason for Visit * Reason Comments Hospital Follow Up Encounter Details Date Type Department Care Team ([facility] st Contact Info) Description 03/13/2025 Telephone [facility] [address] [phone] Bruce Muse DO [address] [place] [phone] Hospital Follow Up Social History Tobacco Use Types Packs/Day Years [...] on file Legal Sex Female 8:23 AM CODIFIER Gender Identity Not on file Sexual Orientation Not on file documented as of this encounter Miscellaneous Notes * Telephone Encounter - Yara Atkinson - 03/15/2025 11:19 AM CDT PT is scheduled today with Dr SONG for 03/15/25. * Telephone Encounter - Alonso De Leon - 03/13/2025 10:15 AM CDT Copied from [facility] #[id number]. Topic: Established Patient Care >> Mar 13, 2025 10:11 AM Alonso Graves wrote: Is the patient established with a [facility] provider? Yes, select appropriate option in Discharge Facility SmartList Caller Name: Abigail Restrepo Callback Number: [phone] (mobile) Call Notes: patient calling to schedule hospital f/u Patient is Rising Risk Where was the patient discharged from? Emergency Department (ED/ER) Is there availability to schedule the patient within 5 calendar days of discharge? No, in person appointment not available or call came after 5 days of discharge documented in this encounter Plan of Treatment Upcoming Encounters Date Type Department Care Team (Late st Contact Info) Description 04/03/2025 9:40 AM CDT Office Visit [facility] [place] [address] [place] [phone] Bruce Muse, [address] [place] [phone] 07/10/2025 1:30 PM CODIFIER Telephone Check Up [facility] Gastroenterology- [place] [address] [address] Leonie Kessler, COAL PIPELINE OPERATOR [address] [address] 07/27/2025 12:00 PM CODIFIER Appointment [facility] Nuclear Medicine [address] [place] [address] Leonie Kessler, [facility] [address] [facility] [address] [place] [address] documented as of this encounter Visit Diagnoses Not on filedocumented in this encounter Care Teams Mime Artist Relationship Specialty Start Date End Date Bruce Muse DO [address] [place] [address] PCP - General Family Practice 02/28/21 documented as of this encounter
--- OUTSIDE RECORDS SUMMARY | 2025-03-28 13:10 | XMS_ITS | Encounter Summary ---
Author Organization [facility] Address [address] [place] [address] Care Team Providers Care Negative Restorer Name Role Phone Bruce Muse DO Primary Care Provider [phone] Reason for Visit * Reason Comments Results Encounter Details Date Type Department Care Team ([facility] st Contact Info) Description 03/16/2025 Telephone [facility] [address] [address] Bruce Muse DO [address] [place] [phone] Results Social History Tobacco Use Types Packs/Day Years [...] on file Legal Sex Female 8:23 AM PIPE JEEPER Gender Identity Not on file Sexual Orientation Not on file documented as of this encounter Miscellaneous Notes * Telephone Encounter - Cesilia Velazquez LPN - 03/16/2025 3:37 PM CDT Labs have not been resulted by provider. Will contact patient when results are available.Cesilia Velazquez LPN, 03/16/2025 3:38 PM * Telephone Encounter - Janeen Alexandra - 03/16/2025 3:11 PM CDT Copied from [facility] #[id number]. Topic: CPA Information Request - Results >> Mar 16, 2025 3:11 PM Janeen Chavez wrote: Caller is requesting information about results from an order. ? Caller Name: Abigail Resterpo Callback Number: Telephone Information: Test Name: results Results Encounter notes are: Reviewed on [facility] patient has additional questions Call Notes: Results were reviewed by the patient on [facility] has additional questions documented in this encounter Plan of Treatment Upcoming Encounters Date Type Department Care Team (Late st Contact Info) Description 04/03/2025 9:40 AM CDT Office Visit [facility] Family Medicine [place] [address] [place] [phone] Bruce Muse, [address] [place] [phone] 07/10/2025 1:30 PM PIPE JEEPER Telephone Check Up [facility] Gastroenterology- [place] [address] [address] Leonie Kessler, [facility] [address] [address] 07/27/2025 12:00 PM PIPE JEEPER Appointment [facility] Nuclear Medicine [address] [place] [address] Leonie Kessler, [facility] [address] [facility] [address] [place] [address] documented as of this encounter Visit Diagnoses Not on filedocumented in this encounter Care Teams Negative Restorer Relationship Specialty Start Date End Date Bruce Muse DO [address] [place] [phone] PCP - General Family Practice 02/28/21 documented as of this encounter
--- OUTSIDE RECORDS SUMMARY | 2025-03-28 13:10 | XMS_ITS | Encounter Summary ---
Author Organization [facility] Address [address] [place] [address] Care Team Providers Care Portable Router Operator Name Role Phone Bruce Muse DO Primary Care Provider [phone] Reason for Visit * Reason Comments Results Encounter Details Date Type Department Care Team ([facility] st Contact Info) Description 03/21/2025 Telephone [facility] [address] [phone] Bruce Muse DO [address] [place] [phone] Results Social History Tobacco Use Types [...] on file Legal Sex Female 8:23 AM DIALYSIS NURSE Gender Identity Not on file Sexual Orientation Not on file documented as of this encounter Miscellaneous Notes * Telephone Encounter - Flor Marie LPN - 03/21/2025 8:37 AM CDT The results have not been reviewed by the provider and once they have and can be given to the patient we will call them back. * Telephone Encounter - Angela Otero - 03/21/2025 8:33 AM CDT Copied from [facility] #[id number]. Topic: CPA Information Request - Results >> Mar 21, 2025 8:33 AM Angela Yousif wrote: Caller is requesting information about results from an order. ? Caller Name: Abigail Restrepo Callback Number: [phone] Test Name: bloodwork Results Encounter notes are: Telephone encounter related to results is not available and was completed less than 7 days Call Notes: Results were not given and the patient needs a call back documented in this encounter Plan of Treatment Upcoming Encounters Date Type Department Care Team (Late st Contact Info) Description 04/03/2025 9:40 AM CDT Office Visit [facility] [place] [address] [place] [phone] Bruce Muse, [address] [phone] 07/10/2025 1:30 PM DIALYSIS NURSE Telephone Check Up [facility] Gastroenter[facility]- [place] [address] [address] Leonie Kessler, TEAM LEADER [address] [address] 07/27/2025 12:00 PM DIALYSIS NURSE Appointment [facility] Nuclear Medicine [address] [place] [address] Leonie Kessler, [facility] [address] [facility] [address] [place] [address] documented as of this encounter Visit Diagnoses Not on filedocumented in this encounter Care Teams Portable Router Operator Relationship Specialty Start Date End Date Bruce Muse DO [address] [place] [phone] PCP - General Family Practice 02/28/21 documented as of this encounter
--- OUTSIDE RECORDS SUMMARY | 2025-03-28 13:10 | XMS_ITS | Encounter Summary ---
Author Organization [facility] Address 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 Topic: Patient Reported Outcome Metrics >> Mar 28, 2025 8:34 AM Patricia Graves wrote: Caller Name: Paola (on PHI) Callback Number: [phone] Call Notes: Caller is reporting Patient's caregiver is following up on her message sent yesterday about patient's trazodone medication not helping. Patient is getting up in the middle of the night and she does not remember getting up. Patient's daughter wants the trazodone stopped or adjusted. Paola said this is a urgent matter.Please call Paola to discuss. * Telephone Encounter - Shanna Carpenter, ALTA - 03/27/2025 12:07 PM CDT Spoke with Urvashi. She states that had been down with a viral illness but she did get better from that. Medication were adjusted and she reports patient being drowsy, confused, and lethargic at times. She was wanting a message sent to Dr. Muse as patient refuses to see anyone else and doesn't wantany family to come to appointments with her. She discussed with patient's daughter about locking medication up as she might be taking more than prescribed. Patient did not like the fact that they locked them up. Urvashi reports that patient is on a lot of medications and she isn't sure that they areall needed. She is asking that provider review and determine if they are all neccessary. She specifically mentioned that she doesn't feel patient needs the Trazodone, Tizanidine, and Buspar. Nurse advised that message will be sent to provider to review. * Telephone Encounter - Nat Riggs - 03/27/2025 12:06 PM CDT Copied from [facility] #[id number]. Topic: Symptomatic Care >> Mar 27, 2025 12:02 PM Nat Baxter wrote: Has this patient seen any provider (current or former) at the requested clinic in the past? Yes, Select the appropriate age range and symptom Patient has symptoms and is seeking care. Caller Name: urvashi vizcaino [facility] Patient/Caregiver Callback Number: Telephone Information: Call Notes: patient is on a lot of medications and getting concerned patient is dozing off, acting out of it, wondering if meds can be discussed and see if she's being overly medicated. Patient didn't know what day it was today, patient can hardly answer her phone, lethargic. Age Range/Symptom: Adult 18+ - Confusion, behaving abnormally, impaired consciousness, cannot be awakened Is there an encounter open? No Transferred to [facility] answered call. documented in this encounter Plan of Treatment Upcoming Encounters Date Type Department Care Team (Late st Contact Info) Description 04/03/2025 9:40 AM CDT Office Visit [facility] Family [facility] [place] [address] [place] [phone] Bruce Muse DO [address] [phone] 07/10/2025 1:30 PM AUTO DESIGN CHECKER Telephone Check Up [facility]- [facility] [place] [place] [address] [address] Leonie Kessler, [address] [address] 07/27/2025 12:00 PM AUTO DESIGN CHECKER Appointment [facility] Nuclear Medicine [address] [place] [phone] Leonie Kessler, FRONT END ALIGNMENT SPECIALIST [address] [facility] [address] [place] [address] documented as of this encounter Visit Diagnoses Not on filedocumented in this encounter Care Teams Supervisor Farm Equipment Maintenance Relationship Specialty Start Date End Date Bruce Muse DO [address] [place] [phone] PCP - General Family Practice 02/28/21 documented as of this encounter
--- OUTSIDE RECORDS SUMMARY | 2025-03-28 13:10 | XMS_ITS | Encounter Summary ---
Author Organization [facility] Address 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 Voiced understanding. Flor RUSSELL * Telephone Encounter - Flor Marie LPN - 03/22/2025 1:20 PM CDT ----- Message from Dr. Bruce Muse sent at 03/22/2025 12:32 PM CDT ----- Compared with lab work from [facility] 03/08/2025, alkaline phosphatase essentially unchanged 208 at that time, new elevation of white blood cell count with elevated neutrophil count. She did receive prednisone 60 mg x 5 prescription from the ER. This could account for her elevated neutrophil count. ----- Message ----- From: Tj Robertson Incoming [facility] Results Sent: 03/16/2025 4:09 AM CDT To: Bruce uMse DO documented in this encounter Plan of Treatment Upcoming Encounters Date Type Department Care Team (Late st Contact Info) Description 04/03/2025 9:40 AM CDT Office Visit [facility] [place] [address] [place] [phone] Bruce Muse DO [address] [place] [phone] 07/10/2025 1:30 PM DOWELING MACHINE OPERATOR Telephone Check Up [facility] Gastroenterology- [place] [id number] [facility] [address] [place] [address] Leonie Kessler, [facility] [address] [phone] 07/27/2025 12:00 PM DOWELING MACHINE OPERATOR Appointment [facility] Nuclear Medicine [address] [place] [address] Leonie Kessler [facility] [address] [address] documented as of this encounter Visit Diagnoses Not on filedocumented in this encounter Care Teams Health Information Tech Relationship Specialty Start Date End Date Bruce Muse DO [address] [place] [address] PCP - General Family Practice 02/28/21 documented as of this encounter
--- NOTE | 2025-03-28 13:21 | W.ED.PSYCHS ---
HPI - Psych General: Chief Complaint: Psychiatric Symptoms Stated Complaint: Needs Meds ajusted needs Levels checked Struggling Time Seen by Provider: 03/28/25 13:01 Source: patient Mode of arrival: ambulatory Limitations: no limitations History of Present Illness: Patient is a 44-year-old female who presents the emergency department complaining of hallucinations for the past week. States that she will wake up in the middle of night in the kitchen, and her entire kitchen living will be trash and she does not remember doing so. States she has had similar episodes in the past where she will seem to become suicidal due to worsening anxiety and depression, states that she is feeling anxious and depressed right now. She reports taking hydroxyzine and BuSpar, denies any recent medication changes. States that she has been more depressed recently because her daughter is not visiting her. Reports several visits to inpatient psychiatric facility. Currently is not SI or HI, and is not endorsing any auditory or visual hallucinations. She is visibly agitated during exam, unable to sit still. Reporting back pain. Denies any command hallucinations. States that she does not see outpatient psychiatry or counseling, sees her primary care for her psychiatric history. Has a history positive for opiate abuse, schizophrenia, and anxiety/depression. MD complaint: feels depressed and other ( Hallucinations ) Onset (ago): week(s) Duration: getting worse History of same: Yes Associated symptoms: Reports depression; Deny auditory hallucinations, visual hallucinations, homicidal ideation or suicidal ideation Related Data Home Medications ?Medication ?Instructions ?Recorded ?Confirmed sitagliptin phosphate 25 mg tablet 25 mg PO DAILY 09/01/21 09/18/24 (Januvia) omeprazole 40 mg capsule,delayed 40 mg PO DAILY 08/05/22 09/18/24 release acetaminophen 500 mg tablet 500 mg PO Q6H PRN Pain 09/18/24 09/18/24 (Tylenol Extra Strength) docusate sodium 100 mg capsule 100 mg PO BID PRN Constipation 09/18/24 09/18/24 (Colace) ergocalciferol (vitamin D2) 1,250 50,000 unit PO Q7D 09/18/24 09/18/24 mcg (50,000 unit) capsule hydroxyzine HCl 25 mg tablet 25 mg PO TID PRN Anxiety 09/18/24 09/18/24 levothyroxine 100 mcg tablet 100 mcg PO DAILY 09/18/24 09/18/24 tizanidine 4 mg tablet 4 mg PO Q8H PRN Spasms 09/18/24 09/18/24 Previous Rx's ?Medication ?Instructions ?Recorded atorvastatin 10 mg tablet 10 mg PO BEDTIME 30 days #30 tabs 09/28/24 buspirone 10 mg tablet 10 mg PO TID 30 days #90 tabs 09/28/24 fluvoxamine 100 mg tablet 150 mg (1.5 x 100 mg) PO BEDTIME 09/28/24 30 days #45 tabs lumateperone 42 mg capsule 42 mg PO DAILY 30 days #30 caps 09/28/24 (Caplyta) midodrine 10 mg tablet 10 mg PO TID 30 days #90 tabs 09/28/24 trazodone 150 mg tablet 150 mg PO BEDTIME 30 days #30 tabs 09/28/24 Allergies Allergy/AdvReac Type Severity Reaction Status Date / Time aspirin Allergy ALGY-Swell Verified 03/28/25 13:11 Lip/Tongue/Throat duloxetine (From Cymbalta) Allergy ADR-Agitate Verified 03/28/25 13:11 d quetiapine (From Seroquel) Allergy Unknown Verified 03/28/25 13:11 Review of Systems General: Reports: 10 or more systems reviewed and unremarkable except in HPI and below Const: Denies: fever(s), chills or fatigue Eyes: Denies: change in vision ENMT: Denies: throat pain, ear or mastoid pain or nasal discharge Card: Denies: chest pain, palpitations, swelling of feet/ankles or lightheadedness Resp: Denies: dyspnea, productive cough or wheezing GI: Denies: abdominal pain, nausea, vomiting, diarrhea or constipation : Denies: flank pain, difficulty voiding, dysuria or urinary frequency Musc: Reports: back pain; Denies: neck pain or joint pain Skin/Breast: Denies: rash Neuro: Denies: headache(s), numbness in extremities or weakness in extremities Psych: Reports: anxiety, depression and tactile hallucinations; Denies: visual hallucinations, auditory hallucinations, suicidal ideation or homicidal ideation PFSH ED PFSH: Medical History Opiate abuse, continuous Depression Morbid obesity Schizophrenia Hypoxia Fracture of fibula, proximal Transaminitis SAM (acute kidney injury) Chronic back pain Arrhythmia Reports tachycardia, although cannot tell me anything other than this. Beta-leeanne initiated for this. Anxiety Depression Hypothyroidism Surgical History History of gastric bypass History of knee surgery History of tonsillectomy History of cholecystectomy History of Family History Other Diabetes Social History Smoking and tobacco/nicotine status: never used tobacco/nicotine Alcohol intake: never Substance/Drug Use: never Physical Exam Const: COMMON NORMALS: patient oriented x3 GENERAL APPEARANCE: cooperative NUTRITIONAL APPEARANCE: obese morbidly obese ORIENTATION/CONSCIOUSNESS: Yes awake HENMT: COMMON NORMALS: normocephalic and atraumatic HEAD & SCALP: normocephalic and atraumatic Eye: COMMON NORMALS: Equal, round and reactive pupils present and EOMs intact bilaterally PUPIL: Yes Equal, round and reactive pupils present Neck/C-Spine: COMMON NORMALS: full ROM Resp: COMMON NORMALS: normal respiratory effort, No retractions, No use of accessory muscles and clear to auscultation bilaterally AUSCULTATION: clear to auscultation bilaterally Cardio: COMMON NORMALS: regular rhythm, No gallops present (Cardio), No clicks present (Cardio), No murmurs present (Cardio) and No rub (Cardio) RATE: tachycardic RHYTHM: regular rhythm GI: COMMON NORMALS: Soft to palpation and non-tender INSPECTION: Yes central obesity PALPATION: Yes Soft to palpation Back/Pelvis: COMMON NORMALS: thoracic and lumbar spine normal to inspection and thoraco-lumbar ROM normal Extremity: COMMON NORMALS: normal to inspection and full ROM Neuro: COMMON NORMALS: patient oriented x3, moves all extremities, no focal motor deficits and no sensory deficits noted Psych: COMMON NORMALS: mental status grossly normal ATTITUDE: Yes agitated ACTIVITY/MOTOR BEHAVIOR: Yes psychomotor agitation SPEECH: Yes Pressured speech present MOOD & AFFECT: Yes anxious THOUGHT CONTENT: No Suicidality present, No Homicidality present and Yes Hallucination(s) present tactile Course Vital Signs: Vital signs: Vital Signs Temperature 98.6 F 03/28/25 13:06 Pulse Rate 115 H 03/28/25 13:06 Respiratory Rate 16 03/28/25 13:06 Blood Pressure 121/76 03/28/25 13:06 Pulse Oximetry 95 03/28/25 13:06 Oxygen Delivery Me thod Room Air 03/28/25 13:06 MDM - Psych Medical Decision Making Patient presenting demonstrating features of acute psychosis with her tactile hallucinations, no SI or HI here however. Feel that she is threat to herself with her reports of recently waking up to a trashed house and her not remembering it, and also states that this precedes spiraling into suicidal ideations so I spoke with Dr. Munoz who is agreeing to accept the patient into the neuropsychiatric unit. Lab Data 03/28/25 13:30 03/28/25 13:30 Laboratory Results WBC 10.04 10^3/uL (3.29-11.43) 03/28/25 13:30 RBC 4.26 10^6/uL (3.85-5.65) 03/28/25 13:30 Hgb 12.20 g/dL (11.27-16.99) 03/28/25 13:30 Hct 39.5 % (36-47) 03/28/25 13:30 MCV 92.7 fl (85-98) 03/28/25 13:30 MCH 28.6 pg (27-33) 03/28/25 13:30 MCHC 30.9 g/dL (30-55) 03/28/25 13:30 RDW 15.3 % (12.1-15.1) H 03/28/25 13:30 Plt Count 315 10^3/cmm (157-399) 03/28/25 13:30 MPV 9.8 fL (7.4-10.4) 03/28/25 13:30 Neut % (Auto) 70.2 % 03/28/25 13:30 Lymph % (Auto) 18.9 % 03/28/25 13:30 Saunders % (Auto) 9.3 % 03/28/25 13:30 Eos % (Auto) 0.8 % 03/28/25 13:30 Baso % (Auto) 0.4 % 03/28/25 13:30 Neut # (Auto) 7.05 10^3/uL (1.8-7.7) 03/28/25 13:30 Lymph # (Auto) 1.9 10^3/uL (0.8-4.8) 03/28/25 13:30 Saunders # (Auto) 0.9 10^3/uL (0.2-0.9) 03/28/25 13:30 Eos # (Auto) 0.1 10^3/uL (0.0-0.8) 03/28/25 13:30 Baso # (Auto) 0.0 10^3/uL (0.0-0.1) 03/28/25 13:30 Nucleated RBC % (auto) 0 % 03/28/25 13:30 Nucleated RBCs # 0.0 /100WBC 03/28/25 13:30 Sodium 134 mmol/L (136-145) L 03/28/25 13:30 Potassium 4.2 mmol/L (3.5-5.1) 03/28/25 13:30 Chloride 99 mmol/L (98-107) 03/28/25 13:30 Carbon Dioxide 23 mmol/L (22-29) 03/28/25 13:30 Anion Gap 16.2 (5-19) 03/28/25 13:30 BUN 16 mg/dL (6-20) 03/28/25 13:30 Creatinine 0.6 mg/dL (0.5-0.9) 03/28/25 13:30 GFR Calculation 107.6 mL/min (90-130) 03/28/25 13:30 Glucose 131 mg/dL (65-115) H 03/28/25 13:30 Calculated Osmolality 281 mOsm/kg (285-295) L 03/28/25 13:30 Calcium 8.8 mg/dL (8.5-10.5) 03/28/25 13:30 Total Bilirubin 0.4 mg/dL (0.15-1.2) 03/28/25 13:30 AST 43 U/L (0-32) H 03/28/25 13:30 ALT 133 U/L (0-33) H 03/28/25 13:30 Alkaline Phosphatase 395 U/L (35-105) H 03/28/25 13:30 Total Protein 7.0 g/dL (6.6-8.7) 03/28/25 13:30 Albumin 3.8 g/dL (3.5-5.2) 03/28/25 13:30 Globulin 3.2 g/dL (1.3-4.6) 03/28/25 13:30 Salicylates < 0.3 mg/dL (3-10) L 03/28/25 13:30 Acetaminophen < 5.0 ug/mL (10-30) L 03/28/25 13:30 Ethyl Alcohol < 10 mg/dL (0-10) 03/28/25 13:30 No radiology studies performed this visit Discharge Plan Discharge Patient Disposition: Admitted As Inpatient Clinical Impression: Acute psychosis Condition: Stable Coding Level of Care Code ED Electronic Scanner Operator for Rey Gutierrez
--- NOTE | 2025-03-28 13:34 | PC.NURSE ---
pt belongings removed, placed into green paper scrubs
[2025-03-28 13:37] LABS: Hematocrit 39.5 % (36-47); Hemoglobin 12.20 g/dL (11.27-16.99); Mean Corpuscular HGB Conc 30.9 g/dL (30-55); Mean Corpuscular Hemoglobin 28.6 pg (27-33); Mean Corpuscular Volume 92.7 fl (85-98); Nucleated Red Blood Cells % 0 %; Platelet Count 315 10^3/cmm (157-399); Red Blood Count 4.26 10^6/uL (3.85-5.65); White Blood Count 10.04 10^3/uL (3.29-11.43)
[2025-03-28] MEDS: LORazepam 1 MG/0.5 ML injection IM (13:38)
[2025-03-28 14:00] LABS: Alanine Aminotransferase 133 U/L (0-33); Albumin Level 3.8 g/dL (3.5-5.2); Alkaline Phosphatase 395 U/L (35-105); Anion Gap 16.2 (5-19); Aspartate Amino Transferase 43 U/L (0-32); Blood Urea Nitrogen 16 mg/dL (6-20); Calcium 8.8 mg/dL (8.5-10.5); Carbon Dioxide 23 mmol/L (22-29); Chloride 99 mmol/L (98-107); Creatinine Clr Calc Pharmacy 150.6455; Globulin 3.2 g/dL (1.3-4.6); Glucose 131 mg/dL (65-115); Osmolality Calculated 281 mOsm/kg (285-295); Potassium 4.2 mmol/L (3.5-5.1); Sodium 134 mmol/L (136-145); Total Protein 7.0 g/dL (6.6-8.7)
[2025-03-28 14:02] LABS: Acetaminophen < 5.0 ug/mL (10-30); Alcohol Level < 10 mg/dL (0-10); Salicylate < 0.3 mg/dL (3-10)
--- NOTE | 2025-03-28 14:32 | PC.NURSE ---
pt has been educated on need for urine x2 times, given water/ice chips; pt unable to go at this time.
[2025-03-28 15:19] VITALS: RESP 18
[2025-03-28 15:27] VITALS: BP 127/70; PULSE 102; RESP 16; TEMP 36.6; O2SAT 92
[2025-03-28 15:34] LABS: PCP Screen Urine Negative (Negative)
--- NOTE | 2025-03-28 16:07 | PC.ADMIT ---
[address] [facility] Admission Note: The patient,Abigail Restrepo,44 y/o, was given written information regarding hospital policies, unit procedures and contact persons. Patient's smoking status: never smoked. Vital Signs - 8 hr 03/28/25 13:06 03/28/25 15:19 03/28/25 15:27 Temperature 98.6 F 98 F Pulse Rate 115 H 102 H Respiratory Rate 16 18 16 Blood Pressure 121/76 127/70 Pulse Oximetry 95 92 Oxygen Delivery Method Room Air Room Air 03/28/25 15:30 Temperature Pulse Rate Respiratory Rate Blood Pressure Pulse Oximetry Oxygen Delivery Method Room Air Pt. came into ER voluntarily d/t sleep walking having her kitchen clean the HS before and waking up to it a mess, having laspses in time and hallucinations. During assessment pt. could not keep from moving and stated her back was hurting. Pt. has home health services and has an aid come in and clean her house. Pt. states she does not do drugs or alchohol. On skin assessment pt. has several areas on her abdomen with scratches as well as her back and breast. Pt. says she is itching all over. Pt. drug screen was positive for opiods.
--- NOTE | 2025-03-28 17:35 | PC.NURSE ---
Paola Granados called to notify us that pt has an addiction problem with her Morphine. She states that she has been seeing Dr. Han Muse and they have also spoke with him and asked that he stop prescribing the meds as well. She states that the pt fakes a lot of her pain so that she can get medications. She states that they have numerous CT and MRI and have found nothing wrong with her back. She states that the pt has a very poor quality of life, because the medications keep her sedated and she won't get up. She states that anyone is welcome to call and speak with her about pt. She states that she is one of her caregivers and her daughter also helps care for her and lives in the duplex next door to her.
[2025-03-28 21:06] VITALS: BP 126/82; PULSE 105; RESP 24; TEMP 36.9; O2SAT 95
[2025-03-28] MEDS: ATORVASTATIN 10 MG TABLET PO (21:18)
[2025-03-28 21:19] VITALS: BP 112/70
[2025-03-29 06:00] VITALS: BP 128/85; PULSE 87; RESP 17; TEMP 37.1; O2SAT 97
[2025-03-29 08:31] VITALS: BP 128/85
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
[2025-03-29 12:50] VITALS: BP 105/71; PULSE 93; RESP 16; TEMP 37.2; O2SAT 97
[2025-03-29 14:21] VITALS: BP 105/71
--- NOTE | 2025-03-29 15:14 | PC.NURSE ---
Pt. came up to nurses station asking for something for pain. Signee asked pt. what she normally takes at home and pt. replied Tylenol. Signee asked pt. if she had a prescription for Morphine. Pt. replied she did, but she does not take them. Signee asked pt. what she did with the Morphine she had filled and pt. stated she threw them away.
[2025-03-29 20:52] VITALS: BP 99/67; PULSE 97; RESP 16; TEMP 36.6; O2SAT 97
[2025-03-29] MEDS: ATORVASTATIN 10 MG TABLET PO (21:24)
[2025-03-30 06:00] VITALS: BP 108/68; PULSE 67; RESP 16; TEMP 36.8; O2SAT 99
[2025-03-30 08:20] VITALS: BP 108/68
--- NOTE | 2025-03-30 09:18 | NUR.SHIFT ---
Pt states that she slept okay last night. She rates her anxiety a 7/10 and depression a 9/10. No reports of SI/HI or hallucinations. She is rating her back pain a 9/10 and requested tylenol with her meds. She is calm and cooperative on assessment. Pt is having less involuntary movements today.
[2025-03-30 13:11] VITALS: BP 111/69; PULSE 110; RESP 19; TEMP 37; O2SAT 100
[2025-03-30 14:20] VITALS: BP 111/69
--- NOTE | 2025-03-30 19:14 | P.NPUPN_ITS ---
Subjective NPU 2 Subjective: Patient presented today reporting a desire to go home and wanting to not use opiates. She reports she did take some opiates but she threw the rest away. She denied any major side effects to the medication and reported wanting to go home sooner rather than later. We discussed the plan for us to evaluate the circumstance and likely plan for discharge on Wednesday after repeat everything figured out with her stabilized. She denied any side effects of medication. Mental Status Exam 2 MSE Comments: This is an obese versus morbidly obese white female in hospital scrubs with poor grooming and limited eye contact. No abnormal movements except for psychomotor retardation. Cooperative with exam in mild to moderate distress. Speech was decreased rate and volume and childlike with some prolonged pauses between answers. Mood described as depressed and anxious, affect congruent and subdued. Thought process linear. Thought content: Patient denied suicidal or homicidal ideation, there were no delusions reported or noted, she denied auditory or visual hallucinations. Attention and concentration appeared limited and memory appeared mostly reliable but none were formally tested. She alert and oriented x person and place. Insight and judgment appeared limited, impulse control impaired. Intellectual ability limited versus impaired. Vitals/I&O/Wt Last Vital Signs Temp 98.8 F 03/30/25 20:21 Pulse 80 03/30/25 20:21 Resp 15 03/30/25 20:21 BP 112/67 03/30/25 20:21 Pulse Ox 91 03/30/25 20:21 O2 Del Method Room Air 03/30/25 20:21 Data NPU 03/28/25 13:30 03/28/25 13:30 A&P Assessment and plan 1. Schizophrenia: 2. Anxiety disorder: 3. Suicidal ideation: 4. Personality disorder, unspecified: 5. Depression: 6. Suicidal ideation: 7. Morbid obesity: 8. Mild intellectual disability: Plan: Patient is a 44-year-old white female with multiple medical issues and history of anxiety, depression and a history of possible misuse of opiate medications in the past, who was hospitalized last couple years ago and presents again but this time with a reported active overdose on the Neurontin. 1. Continue current medications and make changes as indicated 2. Engage patient in individual group and milieu therapy. 3. Continue every 15 minute checks for safety. 4. Evaluate against the backdrop of the 96-hour hold. 5. Obtain collateral information. 6. Current sober living treatment after discharge at the highest level care to which she is willing to commit. PDMP PDMP Reviewed: Not Reviewed Involuntary Hold Information 2 Hold Status: Date/Time Hold Expires: voluntary 96 Hour Hold: 96 Hour Involuntary Admission: No Attestations NPU 2 Medical Necessity Statement*: Inpatient hospitalization is medically necessary and the clinically appropriate intervention at this time. We will occasions to make changes as indicated. The likely length of stay of 4-6 days. Coding Level of Care Code Acute Code for [facility] Fwd Diagnoses Schizophrenia F20.9 Anxiety disorder, unspecified type F41.9 Suicidal ideation R45.851 Personality disorder, unspecified F60.9 Depression F32.A Morbid obesity E66.01 Mild intellectual disability F70
[2025-03-30 20:21] VITALS: BP 112/67; PULSE 80; RESP 16; TEMP 37.1; O2SAT 91
[2025-03-30] MEDS: ATORVASTATIN 10 MG TABLET PO (20:40)
[2025-03-30 21:12] VITALS: BP 112/67
[2025-03-31 06:00] VITALS: BP 104/65; PULSE 95; RESP 16; TEMP 37; O2SAT 98
[2025-03-31 08:22] VITALS: BP 115/83
[2025-03-31 14:00] VITALS: BP 128/92; PULSE 103; RESP 20; TEMP 36.8; O2SAT 99
[2025-03-31 14:07] VITALS: BP 128/92
[2025-03-31 20:22] VITALS: BP 133/92; PULSE 94; RESP 18; TEMP 36.3; O2SAT 100
--- NOTE | 2025-03-31 20:58 | P.NPUPN_ITS ---
Subjective NPU 2 Subjective: Patient presented today reporting a desire to go home today but ultimately excepted the reality that we will likely discharge on Wednesday. We discussed working with the social work team on Wednesday to get her outpatient follow-up and make sure we have a clear message to her outpatient providers about any future opiates. She denied any side effects to her medication. Mental Status Exam 2 MSE Comments: This is an obese versus morbidly obese white female in hospital scrubs with poor grooming and limited eye contact. No abnormal movements except for psychomotor retardation. Cooperative with exam in mild to moderate distress. Speech was decreased rate and volume and childlike with some prolonged pauses between answers. Mood described as I feel like I am better may be ready to leave, affect congruent and subdued. Thought process linear. Thought content: Patient denied suicidal or homicidal ideation, there were no delusions reported or noted, she denied auditory or visual hallucinations. Attention and concentration appeared limited and memory appeared mostly reliable but none were formally tested. She alert and oriented x person and place. Insight and judgment appeared limited, impulse control impaired. Intellectual ability limited versus impaired. Vitals/I&O/Wt Last Vital Signs Temp 97.3 F L 03/31/25 20:22 Pulse 94 03/31/25 20:22 Resp 18 03/31/25 20:22 BP 133/92 03/31/25 20:22 Pulse Ox 100 03/31/25 20:22 O2 Del Method Room Air 03/31/25 20:22 Data NPU 03/28/25 13:30 03/28/25 13:30 A&P Assessment and plan 1. Schizophrenia: 2. Anxiety disorder: 3. Suicidal ideation: 4. Personality disorder, unspecified: 5. Depression: 6. Suicidal ideation: 7. Morbid obesity: 8. Mild intellectual disability: Plan: Patient is a 44-year-old white female with multiple medical issues and history of anxiety, depression and a history of possible misuse of opiate medications in the past, who was hospitalized last couple years ago and presents again but this time with a reported active overdose on the Neurontin. 1. Continue current medications and make changes as indicated 2. Engage patient in individual group and milieu therapy. 3. Continue every 15 minute checks for safety. 4. Evaluate against the backdrop of the 96-hour hold. 5. Obtain collateral information. 6. Current sober living treatment after discharge at the highest level care to which she is willing to commit. PDMP PDMP Reviewed: Not Reviewed Involuntary Hold Information 2 Hold Status: Date/Time Hold Expires: voluntary 96 Hour Hold: 96 Hour Involuntary Admission: No Attestations NPU 2 Medical Necessity Statement*: Inpatient hospitalization is medically necessary and the clinically appropriate intervention at this time. We will occasions to make changes as indicated. The likely length of stay of 3-5 days. Coding Level of Care Code Acute Code for g Fwd Diagnoses Schizophrenia F20.9 Anxiety disorder, unspecified type F41.9 Suicidal ideation R45.851 Personality disorder, unspecified F60.9 Depression F32.A Morbid obesity E66.01 Mild intellectual disability F70
[2025-03-31 21:51] VITALS: BP 133/92
[2025-03-31] MEDS: ATORVASTATIN 10 MG TABLET PO (21:51)
[2025-04-01 06:00] VITALS: BP 143/90; PULSE 102; RESP 16; TEMP 37.2; O2SAT 99
--- NOTE | 2025-04-01 07:56 | PC.NURSE ---
prn Zanaflex 4 mg given po per pt c/o muscle spasms
[2025-04-01 13:17] VITALS: BP 108/70; PULSE 82; RESP 18; TEMP 36.7; O2SAT 98
[2025-04-01 13:55] VITALS: BP 108/70
--- NOTE | 2025-04-01 15:59 | PC.NURSE ---
PRN ZANAFLEX 4 MG GIVEN PO PER PT C/O MUSCLE SPASMS
--- NOTE | 2025-04-01 19:13 | P.NPUPN_ITS ---
Subjective NPU 2 Subjective: Patient presented today reporting that she is doing better. She was lobbying to get her self discharged including trying to have her daughter call and say that the only way they can get her home is if we discharged her today. We discussed the likely discharge in the next 48 hours but that we needed to talk to the outpatient provider about the opiates and make sure we understand the circumstances that they got prescribed so that we know how to avoid her being in the situation with the opiates again. Otherwise she denied any issues with her medication and she denied any side effects at this time. Mental Status Exam 2 MSE Comments: This is an obese versus morbidly obese white female in hospital scrubs with poor grooming and limited eye contact. No abnormal movements except for psychomotor retardation. Cooperative with exam in mild distress. Speech was decreased rate and volume and childlike with some prolonged pauses between answers. Mood described as better, affect congruent and less subdued. Thought process linear. Thought content: Patient denied suicidal or homicidal ideation, there were no delusions reported or noted, she denied auditory or visual hallucinations. Attention and concentration appeared limited and memory appeared mostly reliable but none were formally tested. She alert and oriented x person and place. Insight and judgment appeared limited, impulse control impaired. Intellectual ability limited versus impaired. Vitals/I&O/Wt Last Vital Signs Temp 97.8 F 04/01/25 20:00 Pulse 90 04/01/25 20:00 Resp 18 04/01/25 20:00 BP 114/83 04/01/25 20:00 Pulse Ox 97 04/01/25 20:00 O2 Del Method Room Air 04/01/25 20:00 Weight last 48 hrs Weight 104.326 kg Data NPU 03/28/25 13:30 03/28/25 13:30 A&P Assessment and plan 1. Schizophrenia: 2. Anxiety disorder: 3. Suicidal ideation: 4. Personality disorder, unspecified: 5. Depression: 6. Suicidal ideation: 7. Morbid obesity: 8. Mild intellectual disability: Plan: Patient is a 44-year-old white female with multiple medical issues and history of anxiety, depression and a history of possible misuse of opiate medications in the past, who was hospitalized last couple years ago and presents again but this time with a reported active overdose on the Neurontin. 1. Continue current medications and make changes as indicated 2. Engage patient in individual group and milieu therapy. 3. Continue every 15 minute checks for safety. 4. Evaluate against the backdrop of the 96-hour hold. 5. Obtain collateral information. 6. Current sober living treatment after discharge at the highest level care to which she is willing to commit. PDMP PDMP Reviewed: Not Reviewed Involuntary Hold Information 2 Hold Status: Date/Time Hold Expires: voluntary 96 Hour Hold: 96 Hour Involuntary Admission: No Attestations NPU 2 Medical Necessity Statement*: Inpatient hospitalization is medically necessary and the clinically appropriate intervention at this time. We will occasions to make changes as indicated. The likely length of stay of 1-3 days. Coding Level of Care Code Acute Code for g Fwd Diagnoses Schizophrenia F20.9 Anxiety disorder, unspecified type F41.9 Suicidal ideation R45.851 Personality disorder, unspecified F60.9 Depression F32.A Morbid obesity E66.01 Mild intellectual disability F70
[2025-04-01 20:00] VITALS: BP 114/83; PULSE 90; RESP 18; TEMP 36.6; O2SAT 97
[2025-04-01] MEDS: ATORVASTATIN 10 MG TABLET PO (20:31)
[2025-04-02 06:00] VITALS: BP 129/86; PULSE 80; RESP 18; TEMP 37.3; O2SAT 99
[2025-04-02 08:04] VITALS: BP 129/86
--- NOTE | 2025-04-02 12:56 | PC.NURSE ---
Talked to pt.'s nurse at [facility], let the nurse know Dr. Munoz is wanting to directly speech to Dr. Muse before DC'ing pt. Gave Dr. Munoz number to the nurse to have Dr. Muse call back.
[2025-04-02 14:00] VITALS: BP 125/85; PULSE 95; RESP 18; TEMP 36.7; O2SAT 98
[2025-04-02 14:11] VITALS: BP 125/85
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
[2025-04-02 14:33] VITALS: BP 125/85; PULSE 95; RESP 18; TEMP 36.7; O2SAT 98
== END 2025-04-02 17:37 | disposition home or self-care (01) | DRG 885 ==
LOC: ER 14:40 → NP 15:17
PROVIDERS: Admitting Provider Psychiatry & Neurology Psychiatry; Emergency Provider Physician Assistant; PCP Family Medicine; Visit Provider Psychiatry & Neurology Psychiatry
DX: F23 Brief psychotic disorder (principal); F41.9 Anxiety disorder, unspecified; Z90.49 Acquired absence of other specified parts of digestive tract; Z90.89 Acquired absence of other organs; E03.9 Hypothyroidism, unspecified; R74.01 Elevation of levels of liver transaminase levels; Z83.3 Family history of diabetes mellitus; Z98.84 Bariatric surgery status; F11.10 Opioid abuse, uncomplicated; F32.A Depression, unspecified; E11.9 Type 2 diabetes mellitus without complications; G89.29 Other chronic pain; M54.9 Dorsalgia, unspecified; I49.9 Cardiac arrhythmia, unspecified; E66.01 Morbid (severe) obesity due to excess calories; Z68.34 Body mass index [BMI] 34.0-34.9, adult; F60.9 Personality disorder, unspecified; F70 Mild intellectual disabilities; T42.6X1A Poisoning by other antiepileptic and sedative-hypnotic drugs, accidental (unintentional), initial encounter
CPT/HCPCS: 36415; 36416; 80053; 80306; 80307; 82962; 85025; 96372; 97150; 97165; 99285; J2060; J9999